=== PATIENT | male | born 1965 | race Caucasian/White ===

== ENCOUNTER 2024-04-17 19:12 | Inpatient (IN) | payer MEDICAID ==
[~2024-04-17] VITALS: Ht 180.3 cm; Wt 139.0 kg
[~2024-04-17 19:12] MED LIST: ALLO300T2 PO; ALPR0.5T7 PO; ASPI81CH43 PO; ATOR-507 PO; CARV-216 PO; CLO01T PO; COLC0.6T56 PO; DAPA1TAB4 PO; DOCU-94 PO; ERGO1CAP6 PO; FENO145T27 PO; FER325T PO; FINE10TA PO; FOLI-119 PO; FURO20TA3 PO; GABA-1251 PO; HYDR25TA4 PO; IBUP-1456 PO; LEVEMIR SC; LISI10TA34 PO; LORA-1123 PO; MEC25T PO; NOR10T PO; Novolog; PANT1INJ3 PO; PREG150C63 PO; PROP40TA6 PO; SERT-160 PO; SODI10PA PO; TAMS0.4C39 PO; TIRZ10IN SC
[2024-04-17 20:00] VITALS: PULSE 78; RESP 13; O2SAT 99
[2024-04-17 20:26] LABS: Alanine Aminotransferase 30 U/L (7-40); Albumin 4.1 g/dL (3.2-4.8); Alkaline Phosphatase 32 U/L (46-116); Anion Gap 10 (5-15); Aspartate Aminotransferase 18 U/L (13-40); BUN/Creatinine Ratio 29.2 (10.0-20.0); Bilirubin, Total 0.7 mg/dL (0.2-1.0); Blood Urea Nitrogen 62 mg/dL (9-23); Calcium 10.4 mg/dL (8.7-10.4); Carbon Dioxide 16 mmol/L (20-31); Chloride 120 mmol/L (98-107); Glucose 170 mg/dL (74-106); Potassium 5.4 mmol/L (3.5-5.1); Sodium 146 mmol/L (136-145)
[2024-04-17 20:27] LABS: Total Protein 7.2 g/dL (5.7-8.2)
--- NOTE | 2024-04-17 20:31 | ED.PDOC ---
History of Present Illness HPI Comments 59 y/o M, with a Hx of CHF, CKF IV, DM w/neuropathy, GERD, gout, HLD, HTN, liver cirrhosis, obesity, and polysubstance abuse, is BIBA for c/o tongue and lip swelling and pain, sore wounds to groin and bilateral legs and feet areas, and generalized weakness, today. Patient endorses on unprovoked onset of prog ressively worsening sore wounds and generalized weakness for 2 weeks and onset of swelling symptoms for 1 week. Patient comments on having associated difficulty talking and swallowing and being unable to take any of his oral pain medications because of it and has to use [id number] ointment medication, with minimal relief/improvement. Patient states on no recent stress, injuries, sick contact, travel, spoiled food intake, substance use/exposure, or sexual activity. Patient endorses no additional relevant or pertinent past medical, surgical, or family Hx. Patient denies having any shortness of breath, groin, legs, or feet pain, numbness, or tingling, nausea, vomiting, fever, chills, or other associated symptoms or modifiers at this time. Chief Complaint: Lower Extremity Time Seen by MD: 19:30 Primary Care Provider: [facility] Reviewed Notes: Nurses Notes, Sausage Maker Notes, Medications, Allergies Allergies: Coded Allergies: NO KNOWN ALLERGIES (Unverified , 03/11/14) Home Meds Active Scripts Meclizine Hcl (ANTIVERT TABLET) 25 Mg Tb, 1 TAB PO Q6HR PRN, #90 TAB Prov:ISHMAEL REIDPTaty 03/12/14 Gabapentin (Gabapentin) 400 Mg Cap, 400 MG PO TID, #3 CAP Prov:ISHMAEL REID NTatyP. 03/12/14 Reported Medications Tamsulosin Hcl (Tamsulosin Hcl) 0.4 Mg Cap, 1 CAP PO DAILY, #30 CAP 5 Refills 03/17/14 Ibuprofen (Ibuprofen) 800 Mg Tab, 1 TAB PO TID, #90 TAB 1 Refill 03/14/14 Ergocalciferol (Vitamin D) 50,000 Unt Cap, 40632 UNT PO QWEEKLY, CAP 03/14/14 [Novolog] No Conflict Check 03/12/14 Carvedilol (COREG) 12.5 Mg Tab, 12.5 MG PO BID, TAB 03/11/14 Ferrous Sulfate (Ferrous Sulfate) 325 Mg Tab, 325 MG PO DAILY, TAB 03/11/14 Hydrochlorothiazide (Hydrochlorothiazide) 25 Mg Tab, 1 TAB PO DAILY, #30 TAB 5 Refills 03/11/14 Aspirin (Asa) 81 Mg Ch, 81 MG PO DAILY 03/11/14 Clonidine Hcl (CATAPRES TABLET) 0.1 Mg Tb, 0.1 MG PO DAILY 03/11/14 Lorazepam (Lorazepam) 1 Mg Tab, 1 TAB PO TID, #90 TAB 03/11/14 Sertraline Hcl (Sertraline Hcl) 100 Mg Tab, 1 TAB PO DAILY, #90 TAB 1 Refill 03/11/14 Pantoprazole Sodium (PANTOPRAZOLE SODIUM) 40 Mg Inj, 40 MG PO DAILY, INJ 03/11/14 Fenofibrate (FENOFIBRATE) 145 Mg Tab, 1 TAB PO DAILY, #30 TAB 5 Refills 03/11/14 Allopurinol (Allopurinol) 300 Mg Tab, 300 MG PO DAILY, TAB 03/11/14 Hydrocodone-Acetaminophen (Amigo 10/325MG) 1 Tab Tb, 1 TAB PO TID, #60 TAB 03/11/14 Lisinopril (Lisinopril) 10 Mg Tab, 10 MG PO DAILY, TAB 03/11/14 Colchicine (COLCRYS TABLET) 0.6 Mg Tb, 0.6 MG PO PRN 03/11/14 Insulin Detemir (Levemir) Inj, 60 SC QPM, INJ 03/11/14 Information Source: Patient, Emergency Med Personnel Mode of Arrival: EMS Severity: Moderate Timing: Weeks Duration: Since onset Prehospital treatment: 12 Lead EKG, Roof Foreman Past Medical History PAST MEDICAL HISTORY: Anxiety, CHF, CKF (stage IV ), Depression, DM (w/neuropathy), GERD, Gout, High Lipids, HTN, Liver (liver cirrhosis ) Surgical History: Denies all surgeries Family History Family History: Unknown Social History Smoker: Non-Smoker Alcohol: Denies ETOH Use Drugs: Cocaine, Marijuana Lives In: Home Constitutional: denies: chills, diaphoresis, fatigue, fever, malaise, sweats, weakness, others EENTM: reports: others (tongue and lips swelling and pain ); denies: blurred vision, double vision, ear bleeding, ear discharge, ear drainage, ear pain, ear ringing, eye pain, eye redness, hearing loss, mouth pain, mouth swelling, nasal discharge, nose bleeding, nose congestion, nose pain, photophobia, tearing, t hroat pain, throat swelling, voice changes Respiratory: denies: cough, hemoptysis, orthopnea, SOB at rest, shortness of breath, SOB with excertion, stridor, wheezing, others Cardiovascular: denies: chest pain, dizzy spells, diaphoresis, Dyspnea on exertion, edema, irregular heart beat, left arm pain, lightheadedness, palpitations, PND, syncope, others Gastrointestinal: denies: abdomen distended, abdominal pain, blood streaked bowels, constipated, diarrhea, dysphagia, difficulty swallowing, hematemesis, melena, nausea, poor appetite, poor fluid intake, rectal bleeding, rectal pain, vomiting, others Genitourinary: denies: burning, dysuria, flank pain, frequency, hematuria, incontinence, penile discharge, penile sore, pain, testicle pain, testicle swelling, urgency, others Neurological: reports: weakness (generalized ); denies: dizziness, fainting, headache, left sided numbness, left sided weakness, numbness, paresthesia, pre- existing deficit, right sided numbness, right sided weakness, seizure, speech problems, tingling, tremors, others Musculoskeletal: denies: back pain, gout, joint pain, joint swelling, muscle pain, muscle stiffness, neck pain, others Integumetry: reports: wounds (sore wounds to groin and bilateral legs and feet areas); denies: bruises, change in color, change in hair/nails, dryness, laceration, lesions, lumps, rash, others Allergic/Immunocompromised: denies: Difficulty Healing, Frequent Infections, Hives, Itching, others Hematologic/Lymphatic: denies: anemia, blood clots, easy bleeding, easy bruising, swollen glands, others Endocrine: denies: excessive hunger, excessive sweating, excessive thirst, excessive urination, flushing, intolerance to cold, intolerance to heat, unexplained weight gain, unexplained weight loss, others Psychiatric: denies: anxiety, bipolar disorder, depression, hopeless, panic disorder, schizophrenia, sleepless, suicidal, others All Other Systems: Reviewed and Negative Physical Exam General Appearance: No Apparent Distress, Obese HEENT: Normal ENT Inspection, Pharynx Normal, TMs Normal Neck: Full Range of Motion, Non-Tender, Normal, Normal Inspection Respiratory: Chest Non-Tender, Lungs Clear, No Accessory Muscle Use, No Respiratory Distress, Normal Breath Sounds Cardiovascular: No Edema, No JVD, No Murmur, No Gallop, Normal Peripheral Pulses, Regular Rate/Rhythm Breast Exam: Deferred Gastrointestinal: No Organomegaly, Non Tender, No Pulsatile Mass, Normal Bowel Sounds, Soft Genitalia: Deferred Pelvic: Deferred Rectal: Deferred Extremities: No calf tenderness, Normal capillary refill, Normal inspection, Normal range of motion, Non-tender, No pedal edema Musculoskeletal : Apperance: Normal Neurologic: Alert, passenger service agent II-XII nml as Tested, No Motor Deficits, Normal Affect, Normal Mood, No Sensory Deficits Cerebellar Function: Normal Reflexes: Normal Skin: Dry, Normal Color, Warm Lymphatic: No Adenopathy Was a procedure done? Was a procedure done?: No Differential Dx Considerations may include: cellulitis, dermatitis, viral syndrome, substance abuse, sepsis X-Ray, Labs, Meds, VS Vital Signs Date Time Temp Pulse Resp B/P (MAP) Pulse Ox O2 Delivery O2 Flow Rate FiO2 04/17/24 19:36 98.3 84 12 134/102 (113) 100 Lab Test 04/17/24 20:50 04/17/24 19:53 Range/Units White Blood Count 0.9 *L 4.4-10.8 10^3/uL Red Blood Count 3.64 L 4.5-5.90 10^6/uL Hemoglobin 12.1 L 13.5-17.5 g/dL Hematocrit 37.6 L 41.0-53.0 % Mean Corpuscular Volume 103.3 H 80.0-100.0 fL Mean Corpuscular Hemoglobin 33.3 H 28.0-32.0 pg Mean Corpuscular Hemoglobin Concent 32.2 32.0-36.0 g/dL Red Cell Distribution Width 15.3 H 11.8-14.3 % Platelet Count 19 *L 140-450 10^3/uL Mean Platelet Volume 8.8 6.9-10.8 fL Neutrophils (%) (Auto) 31.1 L 37.0-80.0 % Lymphocytes (%) (Auto) 65.1 H 10.0-50.0 % Monocytes (%) (Auto) 3.1 0.0-12.0 % Eosinophils (%) (Auto) 0.6 0.0-7.0 % Basophils (%) (Auto) 0.1 0.0-2.0 % Neutrophils # (Auto) 0.3 L 1.6-8.6 10 ^3/uL Lymphocytes # (Auto) 0.6 0.4-5.4 10 ^3/uL Monocytes # (Auto) 0 0-1.3 10 ^3/uL Eosinophils # (Auto) 0 0-0.8 10 ^3/uL Basophils # (Auto) 0 0-0.2 10 ^3/uL Nucleated Red Blood Cells 1.8 % Platelet Estimate Markedly decreased Macrocytosis Slight B-Type Natriuretic Peptide 32.44 0-100 pg/mL Sodium Level 146 H 136-145 mmol/L Potassium Level 5.4 H 3.5-5.1 mmol/L Chloride Level 120 H 98-107 mmol/L Carbon Dioxide Level 16 L 20-31 mmol/L Anion Gap 10 5-15 Blood Urea Nitrogen 62 H 9-23 mg/dL Creatinine 2.12 H 0.700-1.30 mg/dL Glomerular Filtration Rate Calc 35 >90 mL/min BUN/Creatinine Ratio 29.2 H 10.0-20.0 Serum Glucose 170 H 74-106 mg/dL Lactic Acid Level 3.2 *H 0.4-2.0 mmol/L Calcium Level 10.4 8.7-10.4 mg/dL Total Bilirubin 0.7 0.2-1.0 mg/dL Aspartate Amino Transferase (AST) 18 13-40 U/L Alanine Aminotransferase (ALT) 30 7-40 U/L Alkaline Phosphatase 32 L 46-116 U/L Total Protein 7.2 5.7-8.2 g/dL Albumin 4.1 3.2-4.8 g/dL Current Medications Medications (Trade) Dose Ordered Sig/Cedric Route Start Time Stop Time Status Last Admin Al Hydrox/Mg Hydrox/Simethicone (Majic Mouthwash) 5 ml QID MT 04/17/24 22:00 04/17/24 22:06 Vancomycin HCl 200 ml @ 200 mls/hr ONCE ONCE IV 04/17/24 21:15 04/17/24 22:14 04/17/24 21:[address] [address] Ph: [phone] DIAGNOSTIC IMAGING Diagnostic Imaging Report : [id number] Signed PATIENT: ARIEL SANTANA ACCT: [id number] UNIT: [id number] : 1965 LOC: ER ROOM / BED: / AGE / SEX: 59 / M ADM STATUS: REG ER SERVICE 33 ORDERING PHYSICIAN: JT VIVEROS MD PROCEDURE(s): CXRP - CHEST PORTABLE REASON: weakness ORDER NUMBER(s): [id number], ACCESSION NUMBER(s): [id number] CHEST RADIOGRAPH Indication:weakness Technique: Single frontal view of the chest was obtained Comparison: None FINDINGS: Lines and Tubes: None Lungs: No focal consolidation. Pleura: No effusion. No pneumothorax. Cardiomediastinal contours: Unremarkable Bones: No acute osseous abnormality. IMPRESSION: No acute cardiopulmonary disease. ATED BY: MAL CEVALLOS DO DICTATED DATE/TIME: 04/17/242033 SIGNED BY: MAL CEVALLOS DO SIGNED DATE/TIME: 04/17/242033 CC: Time of 1ST Reevaluation: 20:00 Reevaluation 1ST: Unchanged Patient Education/Counseling: Diagnosis, Treatment Family Education/Counseling: No Family Present Departure 1 Departure Time of Disposition: 22:07 (Patient with leukopenia and thrombocytopenia. Empirically cover patient with antibiotics. Patient is critically ill at this time we will admit patient for further workup. Patient has concerns for sepsis however patient is appears mildly volume overload so we will do a reduced fluid bolus at this time.) Impression: Primary Impression: Ulceration Additional Impressions: Weakness Leukopenia Qualified Codes: D70.9 - Neutropenia, unspecified Thrombocytopenia Disposition: ADMITTED INPATIENT Admit to: Med Surg Condition: Guarded Critical Care Note Critical Care Time?: Yes Critical care comment: Possible Sepsis Authorized and Performed by: Jt Viveros MD Total critical care time: Approximately 48 minutes Due to a high probability of clinically significant, life threatening deterioration, the patient required my highest level of preparedness to intervene emergently and I personally spent this critical care time directly and personally managing the patient. This critical care time included obtaining a history; examining the patient; pulse oximetry; ordering and review of studies; arranging urgent treatment with development of a management plan; evaluation of patient's response to treatment; frequent reassessment; and, discussions with other providers. This critical care time was performed to assess and manage the high probability of imminent, life-threatening deterioration that could result in multi-organ failure. It was exclusive of separately billable procedures and treating other patients and teaching time. Please see my other sections and the rest of the note for further information on patient assessment and treatment. Stability Stability form required: No Heart Score Heart Score: Heart Score Response (Comments) Value History N/A 0 EKG N/A 0 Age N/A 0 Risk Factors N/A 0 Troponin N/A 0 Total 0 I personally scribed for JT VIVEROS MD ([email or web address]) on 04/17/24 at 20:31. Electronically submitted by Bishnu Nicolas ([email or web address]). I personally scribed for JT VIVEROS MD ([email or web address]) on 04/17/24 at 20:44. Electronically submitted by Bishnu Nicolas ([email or web address]). JT VIVEROS MD Apr 17, 2024 20:31
--- NOTE | 2024-04-17 20:36 | DVH ---
CHEST RADIOGRAPH Indication:weakness Technique: Single frontal view of the chest was obtained Comparison: None FINDINGS: Lines and Tubes: None Lungs: No focal consolidation. Pleura: No effusion. No pneumothorax. Cardiomediastinal contours: Unremarkable Bones: No acute osseous abnormality. IMPRESSION: No acute cardiopulmonary disease.
[2024-04-17 20:37] LABS: Lactic Acid w/Reflex 3.2 mmol/L (0.4-2.0)
[2024-04-17] MEDS: VANCOMYCIN 1GM/200ML PREMIX 200 ML IV ONE ×2 (21:15)
[2024-04-17 21:29] LABS: Basophils # (auto) 0 10 ^3/uL (0-0.2); Basophils % (auto) 0.1 % (0.0-2.0); Eosinophils # (auto) 0 10 ^3/uL (0-0.8); Eosinophils % (auto) 0.6 % (0.0-7.0); Hematocrit 37.6 % (41.0-53.0); Hemoglobin 12.1 g/dL (13.5-17.5); Lymphocytes # (auto) 0.6 10 ^3/uL (0.4-5.4); Mean Corpuscular Hemoglobin 33.3 pg (28.0-32.0); Mean Corpuscular Hgb Conc. 32.2 g/dL (32.0-36.0); Mean Corpuscular Volume 103.3 fL (80.0-100.0); Monocytes # (auto) 0 10 ^3/uL (0-1.3); Monocytes % (auto) 3.1 % (0.0-12.0); Neutrophils # (auto) 0.3 10 ^3/uL (1.6-8.6); Neutrophils % (auto) 31.1 % (37.0-80.0); Nucleated Red Blood Cells % 1.8 %; Red Blood Cells 3.64 10^6/uL (4.5-5.90); Red Cell Distribution Width 15.3 % (11.8-14.3)
[2024-04-17 21:30] LABS: Lymphocytes % (auto) 65.1 % (10.0-50.0)
[2024-04-17 21:36] LABS: White Blood Cell 0.9 10^3/uL (4.4-10.8)
[2024-04-17 21:40] LABS: Platelet Count (auto) 19 10^3/uL (140-450)
[2024-04-17 21:41] LABS: Macrocytosis Slight; Platelet Estimate Markedly Decreased
[2024-04-17] MEDS: MAGIC MOUTHWASH 55 ML SUSP MT SCH (22:06)
[2024-04-17] MEDS: SODIUM CHLORIDE 0.9% 1,000 ML IV ONE (22:15)
[2024-04-17] MEDS: CEFEPIME 2GM/50ML NS 50 ML IV ONE (22:15)
[2024-04-17] MEDS ORDERED: NITROGLYCERIN 0.4 MG SL TAB SL PRN (23:00)
[2024-04-17] MEDS ORDERED: ACETAMINOPHEN 325 MG TAB PO PRN (23:00)
[2024-04-17] MEDS ORDERED: MORPHINE SULFATE INJ 2 MG/ml SYRG IV PRN (23:00)
--- NOTE | 2024-04-17 23:14 | DVHHPRES ---
History of Present Illness Resident Creating Document: SHAZIA RAMIREZ RESIDENT History of Present Illness This is a 59-year-old male with past medical history of type 2 diabetes mellitus, hypertension, hyperlipidemia, peripheral neuropathy, CHF, CKD stage 4, liver cirrhosis, GERD, gout, obesity, anxiety, depression and polysubstance abuse presented to the ED via EMS with chief complaints of swelling of the lip and tongue and sore wounds in the right lower abdomen beneath the skin fold and right groin and scattered wound in bilateral leg and feet area with generalized weakness for last 1 week prior to this admission. According to the patient he took COVID and flu vaccine 2 weeks ago and then progressively developed sore wound 1st in the mouth and throat and later developed in the lips and right lower abdomen and groin area. Patient reports difficulty in swallowing and not able to eat or drink since and not able to take any oral medication because of the pain. Patient denies having allergy to any medication or trying any new medication, traveling history , sick contact or any flu-like illness. The patient denies chest pain, shortness of breath, dizziness, diaphoresis, abdominal pain, nausea, vomiting or any change in bowel and bladder habit . PCP: Dr. Clyde Meyer Past Medical History Type 2 diabetes mellitus, hypertension, hyperlipidemia, peripheral neuropathy, CHF, CKD stage 4, liver cirrhosis, GERD, gout, obesity and polysubstance abuse Past Surgical History Rt ankle and foot surgery Family History Leukemia and Lung cancer runs in the family Smoke: No ALCOHOL: none Past Social History Nonsmoker, nonalcoholic and history of polysubstance abuse disorder Lives alone Review of Systems Constitutional: Yes: Chills; No: Fever, Sweats, Weakness, Malaise, Other ENT: Mouth pain, Mouth swelling, Throat pain Respiratory: No: Cough, Dry, Shortness of breath, SOB with excertion, Wheezing, Hemoptysis, Pleuritic Pain, Sputum, Wheezing, Other Cardiovascular: No: Chest Pain, Palpitations, Orthopnea, Paroxysmal Noc. Dyspnea, Edema, Lt Headedness, Other Gastrointestinal: No: Nausea, Vomiting, Abdominal Pain, Diarrhea, Constipation, Melena, Hematochezia, Other Genitourinary: Retention Musculoskeletal: No: other, neck pain, shoulder pain, arm pain, back pain, hand pain, leg pain, foot pain Skin: Rash, Lesions Neurological: No: Weakness, Numbness, Incoordination, Change in speech, Confusion, Seizures, Other Allergies: Coded Allergies: NO KNOWN ALLERGIES (Unverified , 03/11/14) Medications Current Medications Medications Dose Ordered Sig/Cedric Route Start Time Stop Time Status Last Admin Dose Admin Al Hydrox/Mg Hydrox/Simethicone 5 ml QID MT 04/17/24 22:00 04/17/24 22:06 5 ML Sodium Chloride 1,000 ml @ 120 mls/hr Q8H20M IV 04/17/24 23:00 Acetaminophen 325 mg Q4HP PRN PO 04/17/24 23:00 Acetaminophen/ Hydrocodone Bitart 1 tab Q4HP PRN PO 04/17/24 23:00 Ondansetron HCl 4 mg Q4HP PRN IV 04/17/24 23:00 Morphine Sulfate 2 mg Q4HPRN PRN IV 04/17/24 23:00 UNV Nitroglycerin 0.4 mg Q5MINP PRN SL 04/17/24 23:00 UNV Morphine Sulfate 2 mg Q30M PRN IV 04/17/24 23:00 UNV Vancomycin HCl 0 ml @ 0 mls/hr UD IV 04/17/24 23:15 UNV Cefepime HCl 50 ml @ 12.5 mls/hr DAILY IV 04/18/24 10:00 UNV Exam Vital Signs Vital Signs Date Time Temp Pulse Resp B/P (MAP) Pulse Ox O2 Delivery O2 Flow Rate FiO2 04/17/24 19:36 98.3 84 12 134/102 (113) 100 Exam Physical examination: General Appearance: Alert, Oriented X3, Cooperative, mild distress, swelling and soreness in the lip. HEENT: Atraumatic, PERRLA, EOMI, Mucous membrane moist/pink Respiratory: Clear to auscultation, Normal air movement Cardiovascular: Regular rate, Normal S1, Normal S2, No murmurs, no chest wall tenderness Abdominal: Stage 2 wound in the rt lower abdomen beneath the skin fold, rt groin, Normal bowel sounds, Soft, No tenderness, No hepatospenomegaly, No masses Extremities: No clubbing, No cyanosis, No edema, Normal pulses, No tenderness/swelling Skin: No rashes, No breakdown, No significant lesion Neuro: Use cane for walking, Normal speech, Strength at 5/5 X4 ext, Normal tone, Sensation intact, Psych/Mental Status: Mental status NL, Mood NL Labs/Xrays Labs Test 04/17/24 22:16 04/17/24 22:06 04/17/24 20:50 04/17/24 19:53 Range/Units Lactic Acid Level 3.3 *H 0.4-2.0 mmol/L White Blood Count 0.9 *L 4.4-10.8 10^3/uL Red Blood Count 3.64 L 4.5-5.90 10^6/uL Hemoglobin 12.1 L 13.5-17.5 g/dL Hematocrit 37.6 L 41.0-53.0 % Mean Corpuscular Volume 103.3 H 80.0-100.0 fL Mean Corpuscular Hemoglobin 33.3 H 28.0-32.0 pg Mean Corpuscular Hemoglobin Concent 32.2 32.0-36.0 g/dL Red Cell Distribution Width 15.3 H 11.8-14.3 % Platelet Count 19 *L 140-450 10^3/uL Mean Platelet Volume 8.8 6.9-10.8 fL Neutrophils (%) (Auto) 31.1 L 37.0-80.0 % Lymphocytes (%) (Auto) 65.1 H 10.0-50.0 % Monocytes (%) (Auto) 3.1 0.0-12.0 % Eosinophils (%) (Auto) 0.6 0.0-7.0 % Basophils (%) (Auto) 0.1 0.0-2.0 % Neutrophils # (Auto) 0.3 L 1.6-8.6 10 ^3/uL Lymphocytes # (Auto) 0.6 0.4-5.4 10 ^3/uL Monocytes # (Auto) 0 0-1.3 10 ^3/uL Eosinophils # (Auto) 0 0-0.8 10 ^3/uL Basophils # (Auto) 0 0-0.2 10 ^3/uL Nucleated Red Blood Cells 1.8 % Platelet Estimate Markedly decreased Macrocytosis Slight B-Type Natriuretic Peptide 32.44 0-100 pg/mL Sodium Level 146 H 136-145 mmol/L Potassium Level 5.4 H 3.5-5.1 mmol/L Chloride Level 120 H 98-107 mmol/L Carbon Dioxide Level 16 L 20-31 mmol/L Anion Gap 10 5-15 Blood Urea Nitrogen 62 H 9-23 mg/dL Creatinine 2.12 H 0.700-1.30 mg/dL Glomerular Filtration Rate Calc 35 >90 mL/min BUN/Creatinine Ratio 29.2 H 10.0-20.0 Serum Glucose 170 H 74-106 mg/dL Calcium Level 10.4 8.7-10.4 mg/dL Total Bilirubin 0.7 0.2-1.0 mg/dL Aspartate Amino Transferase (AST) 18 13-40 U/L Alanine Aminotransferase (ALT) 30 7-40 U/L Alkaline Phosphatase 32 L 46-116 U/L Total Protein 7.2 5.7-8.2 g/dL Albumin 4.1 3.2-4.8 g/dL Assessment/Plan Assessment/Plan Assessment and plan: # Sepsis due to unspecified organism - Patient was presented with sepsis with severe leukopenia and thrombocytopenia - Lactic acid trends are 3.2>3.3 - Patient was given 1 L IV bolus normal saline followed by IV 1/2 normal saline at 75 mL/hour - IV vancomycin as per pharmacy and IV cefepime 2 g IV 12 hourly. 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 # Severe leukopenia and thrombocytopenia likely due to hypersensitivity reaction to COVID and flu vaccination - Monitor CBC - Ordered hepatitis panel and HIV # Stage IV CKD - Strict I&O - Avoid nephrotoxic medication - Consulted nephrology # Hyperkalemia - Hyperkalemia protocol management - Monitor BMP # Hypernatremia - 0.45% normal saline at 75 mL/hour - Monitor BMP. # Possible subclinical hyperthyroidism - Ordered FT3 and T4. # Acute urinary retention with bilateral moderate hydronephrosis likely due to bladder outlet obstruction - Ordered for insertion of Butler catheter. # Type 2 diabetes mellitus - Mild sliding scale of insulin Goal of care discussed with the patient for more than 23 minutes full code Plan of treatment discussed with Dr. Landeros CRITICAL CARE TIME 90 MINS Plan discussed with: Patient, Other My Orders Orders - SHAZIA RAMIREZ RESIDENT Procedure Category Date Status Time Admit ADMIT 04/17/24 Transmitted 23:00 Code Status CODE 04/17/24 Transmitted 23:00 Sodium Chloride 0.9% PHA 04/17/24 In Process 23:00 Acetaminophen Tablet PHA 04/17/24 In Process (Tylenol Tablet) 23:00 Hydrocodone-Acet PHA 04/17/24 In Process 5/325mg Tab ([place] 23:00 Ondansetron Hcl PHA 04/17/24 In Process (Zofran) 23:00 Complete Blood Count LAB 04/18/24 Verified 11:03 Comprehensive LAB 04/18/24 Verified Metabolic Panel 11:03 Morphine Sulfate PHA 04/17/24 Logged Injection 23:00 Nitroglycerin PHA 04/17/24 Logged Sublingual (Ntrostat 23:00 Morphine Sulfate PHA 04/17/24 Logged Injection 23:00 Oxygen By Nasal RT 04/17/24 Transmitted Cannula 23:00 Stat Ekg For Chest MYRANDA 04/17/24 In Process Pain 23:00 Notify Of Changes MYRANDA 04/17/24 In Process From Base 23:00 Sliding Joint Maker For [facility] 04/17/24 In Process 24 Hours 23:00 Emergency Dysrhythmia [facility] 04/17/24 In Process Protocol 23:00 Rhythm Strips Once [facility] 04/17/24 In Process Every Shift 23:00 Vancomycin Per PHA 04/17/24 Logged Pharmacy 23:15 Cefepime 2gm/50ml Ns PHA 04/18/24 Logged (Maxipime 2gm/50ml) 10:00 Date of Service: Apr 17, 2024 Billing Provider: JULIANA LANDEROS MD Common Visit Codes: [id number]-[id number] CARE 30-74 MIN, [id number] CARE-EACH +30MIN SHAZIA RAMIREZ RESIDENT Apr 17, 2024 23:14 JULIANA LANDEROS MD Apr 18, 2024 09:35
[2024-04-17] MEDS ORDERED: VANCOMYCIN PER PHARMACY 0 MG IV SCH (23:15)
[2024-04-17] MEDS ORDERED: CEFEPIME 2GM/50ML NS 50 ML IV SCH (23:21)
[2024-04-17 23:28] LABS: Urine Bacteria FEW /hpf (None Seen); Urine Blood Negative /uL (Negative); Urine Clarity Clear (Clear); Urine Color Light-Yellow (Yellow); Urine Protein, UAD TRACE (Negative); Urine Specific Gravity 1.015 (1.001-1.035); Urine Urobilinogen Normal (Negative); Urine WBC 1 /hpf (0 - 3)
[2024-04-17 23:35] VITALS: PULSE 75; RESP 13; O2SAT 97
[2024-04-18] VITALS (9 sets, daily range): BP systolic 117–148; BP diastolic 52–94; PULSE 76–107; RESP 18–20; TEMP 98–99.5; O2SAT 95–99
--- NOTE | 2024-04-18 00:28 | DVH ---
Exam: CT CT AB PEL WO CON-NO ORAL OR IV History: sepsis Comparison Study: None available at time of dictation. Technique: Multidetector spiral CT of the abdomen was performed from lung bases to pubic symphysis. Imaging was performed without IV contrast. Axial, coronal and sagittal multiplanar reformats were ob tained from the axial data set by the technologist. Radiation Dose : 1. Abdomen/Pelvis: CTDIvol 28 mGy, DLP 1680 mGy*cm. Findings: Evaluation of solid organs is limited due to lack of intravenous contrast use. Lung Bases: No acute or significant lung base finding. Normal heart size. No pleural or pericardial effusion. Liver: The liver is normal in size. No focal lesions. Gallbladder and Biliary Tree: Unremarkable Spleen: Unremarkable Pancreas: The pancreas is grossly normal in appearance. Adrenal Glands: Unremarkable Kidneys: Bilateral hydronephrosis without evidence of ureteral stones. Bladder: Severely distended with dome terminating of the level of L4. Bowel: The stomach is grossly normal in appearance. Small bowel and colon are normal in caliber and d istribution. The appendix is not visualized; however, no secondary findings of acute appendicitis id entified. Ascites: Absent Lymphadenopathy: No mesenteric, retroperitoneal or periportal lymphadenopathy. Abdominal Wall and Mesentery: Unremarkable. Vasculature: The visualized abdominal aorta is normal in size and caliber. Evaluation of abdominal a nd pelvic vessels is limited due to lack of intravenous contrast. Pelvic Organs: Unremarkable Musculoskeletal: No aggressive focal bony lesions, acute fractures or dislocation. IMPRESSION: Severely distended urinary bladder with moderate bilateral hydronephrosis . Findings are concerning for urinary bladder outlet obstruction.
[2024-04-18] MEDS: MORPHINE SULFATE INJ 2 MG/ml SYRG IV PRN (00:31)
[2024-04-18] MEDS: ONDANSETRON HCL 4 MG/2 ML VIAL IV PRN (00:32)
[2024-04-18] MEDS: SODIUM CHLORIDE 0.9% 1,000 ML IV SCH (00:39)
[2024-04-18] MEDS: ALBUTEROL SULF 2.5 MG/0.5ML(0.5%) NEB SOLN NEB ONE (01:41)
[2024-04-18] MEDS: FUROSEMIDE 20 MG/2 ML VIAL IV ONE (01:55)
[2024-04-18] MEDS: InsuLIN REG 1unit/0.01ml Soln (100units/ml) IV ONE (01:56)
[2024-04-18] MEDS: DEXTROSE (50%) 50ML SYRG IV ONE (01:57)
[2024-04-18] MEDS: SODIUM BICARB 8.4% 50Meq/50ml SYR INJ IV ONE (01:57)
[2024-04-18] MEDS: SOD CHL 0.45% 1,000 ML IV SCH (02:26)
[2024-04-18 04:07] LABS: Basophils # (auto) 0 10 ^3/uL (0-0.2); Basophils % (auto) 0.1 % (0.0-2.0); Eosinophils # (auto) 0 10 ^3/uL (0-0.8); Lymphocytes # (auto) 0.5 10 ^3/uL (0.4-5.4); Monocytes # (auto) 0 10 ^3/uL (0-1.3); Neutrophils # (auto) 0.2 10 ^3/uL (1.6-8.6); Nucleated Red Blood Cells % 0.3 %
[2024-04-18 04:08] LABS: Eosinophils % (auto) 0.2 % (0.0-7.0); Hematocrit 32.4 % (41.0-53.0); Mean Corpuscular Hemoglobin 33.6 pg (28.0-32.0); Mean Corpuscular Hgb Conc. 33.9 g/dL (32.0-36.0); Mean Corpuscular Volume 99.1 fL (80.0-100.0); Monocytes % (auto) 3.2 % (0.0-12.0); Neutrophils % (auto) 23.9 % (37.0-80.0); Red Blood Cells 3.27 10^6/uL (4.5-5.90); Red Cell Distribution Width 14.9 % (11.8-14.3)
[2024-04-18] MEDS: ACETAMINOPHEN 325 MG TAB PO PRN (04:08)
[2024-04-18 04:15] LABS: Alanine Aminotransferase 26 U/L (7-40); Albumin 3.9 g/dL (3.2-4.8); Alkaline Phosphatase 28 U/L (46-116); Anion Gap 11 (5-15); Aspartate Aminotransferase 14 U/L (13-40); BUN/Creatinine Ratio 36.6 (10.0-20.0); Blood Urea Nitrogen 70 mg/dL (9-23); Calcium 9.9 mg/dL (8.7-10.4); Carbon Dioxide 18 mmol/L (20-31); Chloride 119 mmol/L (98-107); Glucose 151 mg/dL (74-106); Potassium 4.1 mmol/L (3.5-5.1); Sodium 148 mmol/L (136-145)
[2024-04-18 04:16] LABS: Bilirubin, Total 0.6 mg/dL (0.2-1.0); Total Protein 6.7 g/dL (5.7-8.2)
[2024-04-18 04:33] LABS: Lymphocytes % (auto) 72.6 % (10.0-50.0)
[2024-04-18 04:36] LABS: Platelet Count (auto) 16 10^3/uL (140-450)
[2024-04-18 04:37] LABS: White Blood Cell 0.7 10^3/uL (4.4-10.8)
[2024-04-18 04:56] LABS: Free T3 2.24 pg/mL (2.3-4.2); Free T4 (Free Thyroxine) 1.12 ng/dL (0.89-1.76)
[2024-04-18 05:18] LABS: INR 1.09 (0.9-1.15); Partial Thromboplastin Time 28.8 SEC (24.5-34.5); Prothrombin Time 11.5 sec (9.3-11.8)
[2024-04-18 05:50] LABS: Platelet Estimate Markedly Decreased
[2024-04-18] MEDS ORDERED: SODIUM ZIRCONIUM CYCL 10 GM PAK PO SCH (06:00)
--- NOTE | 2024-04-18 10:11 | DVHPNRES ---
Progress Note Date Seen: Apr 18, 2024 Resident Creating Document: RUBIO BARCLAY RESIDENT Has the PT tested + for MRSA If YES, has PT been informed?: No Medical Necessity Reason Pt with a Central, PICC or Fol: No Subjective Review of Systems A 59 years old with PMHX type 2 diabetes mellitus, hypertension, hyperlipidemia, peripheral neuropathy, congestive heart failure, CKD stage IV , GERD, gout, obesity, anxiety and depression. He says he has been taking methotrexate and mycophenolate, The reason is not very clear and the patient thinks that he is getting this medication for gout and follows with his bar hostess Dr. Bernabe Goldman. He says he takes 4 methotrexate pills once a week for the last couple of years The patient is admitted with severe mucositis and ulceration in the groin on the right side. He has difficulty speaking and swallowing.Mild fevers He is found to be pancytopenic with a white count of 700 hemoglobin 11 platelets are 16,000. Confirmed on the blood smear. No bleeding Lactic acid is 3.3 BUN 70 creatinine 1.9, albumin 3.9 total protein 6.7 B12 494 TSH 0.2 Free T41.12 Alkaline phosphatase 28. AST 14 ALT 26 uric acid 5.9. PT/INR 1.09 PTT 28.8 and D-dimer 2.34 HIV 1 and 2 is negative He has been given antibiotics and the Magic mouthwash and pain medications Patient reports: No new complaints Objective vital signs Vital Sign Date Time Temp Pulse Resp B/P (MAP) Pulse Ox O2 Delivery O2 Flow Rate FiO2 04/18/24 05:00 98.4 97 19 143/79 (100) 98 98.4 04/18/24 04:19 Room Air* 0 21 Total Intake and Output 04/17/24 04/17/24 04/18/24 15:00 23:00 07:00 Intake Total 200 ml 1485.0 ml Output Total 575 ml Balance 200 ml 910.0 ml medications Current Medications Medications Dose Ordered Sig/Cedric Route Start Time Stop Time Status Last Admin Dose Admin Al Hydrox/Mg Hydrox/Simethicone 5 ml QID MT 04/17/24 22:00 04/18/24 05:54 5 ML Acetaminophen/ Hydrocodone Bitart 1 tab Q4HP PRN PO 04/17/24 23:00 Ondansetron HCl 4 mg Q4HP PRN IV 04/17/24 23:00 04/18/24 00:32 4 MG Morphine Sulfate 2 mg Q4HPRN PRN IV 04/17/24 23:00 04/18/24 00:31 2 MG Nitroglycerin 0.4 mg Q5MINP PRN SL 04/17/24 23:00 Morphine Sulfate 2 mg Q30M PRN IV 04/17/24 23:00 Vancomycin HCl 0 ml @ 0 mls/hr UD IV 04/17/24 23:15 Cefepime HCl 50 ml @ 12.5 mls/hr Q12HR IV 04/18/24 10:00 Sodium Chloride 1,000 ml @ 75 mls/hr [id number] IV 04/18/24 02:15 04/18/24 02:26 75 MLS/HR Acetaminophen 650 mg Q4HP PRN PO 04/18/24 04:00 04/18/24 04:08 650 MG Clindamycin Phosphate 50 ml @ 50 mls/hr Q8HR IV 04/18/24 14:00 Tbo-Filgrastim 480 mcg DAILY SC 04/18/24 10:00 UNV Examination GENERAL: alert and oriented. Obese who has moderate mucositis HEAD AND NECK: Unremarkable. No neck nodes or masses. Conjunctivae: pale, Unremarkable for any mucosal hemorrhage or inflammation. CHEST: Chest wall, no tenderness. LUNGS: Clear. CARDIOVASCULAR: Regular sinus rhythm. No murmurs or gallops. ABDOMEN: No organomegaly, tenderness or ascites. Bowel sounds present. EXTREMITIES:. In the right groin fold he has Ulcerated skin LYMPHATICS: No significant lymphadenopathy. NEUROLOGIC: No focal neurological deficits. SKIN: multiple sores in the legs laboratory and microbiology Laboratory Tests 04/18/24 03:41 Test 04/18/24 03:41 Range/Units Serum Glucose 151 H 74-106 mg/dL Problem List/Assessment/Plan Problem List/Assessment/Plan HEME/ONC: #Immunodeficiency: leukopenia possible due to use of MTX or mycophenolate Start filgastrim and solu medrol per Dr Ivory Pt is on cefepime/vancomycin HIV negative #Thrombocytopenia due to above f/u, no bleeding, no transfusion for now #Anemia due to above and CKD CARDIOLOGY: normal auscultation normal BNP No chest pain, SOB at rest X ray no pulmonary edema #Essential hypertension Due to sepsis and soft BPs hold on medication RESPIRATORY: No distress at the moment normal x ray GI: #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 due to obesity No bleeding Liquid stool today No abdominal pain CT scan normal Normal liver function, normal coagulation Albumin 3.9 /RENAL #Sepsis due to infected intertrigo in the right groin and scrotal No septic shock at the moment Right now, the infection is superficial but can progress to jessica gangrene due to immunodeficiency state Patient is on cefepime/vancomycin/clindamyicin wound culture ordered wound consult #Bilateral hydronephrosis without evidence of ureteral stones. #KYLEE on CKD Stage IV Nephology on board: Dr Bernabe Goldman No urinary retention at this moment, patient refused villarreal: voiding few times Urology consult ENDOCRINOLOGY #Hyperkalemia resolved due to CKD #DM type 2 in remission HBA1C 5.0 #Obesity Patient was on mounjaro back in home #Euthyroid sick syndrome TSH 0.2 free t4 1.12 Free t3 2.24 RHEUMATOLOGY AND SKIN #Mucositis Secondary to immunodeficiency Magic wash mouth #Sepsis due to infected intertrigo right in the right groin and scrotal describe above #Gout Pt was receiving MTX, mycophenolate, Krystexxa, colchicine for gout ? Due to possible adverse reaction and sepsis hold on medications No acute flare ups Uric acid less than 0.[address] CRITICAL CARE TIME 81 MINS Plan discussed with: Patient, Other (rn) My Orders My Orders Orders - RUBIO BARCLAY Procedure Category Date Status Time Kramer Stain Slide LAB 04/18/24 Logged 09:04 Complement C3 & C4 LAB 04/18/24 In Process 09:08 Wound Culture W/ Gs DIMAS 04/18/24 Uncollected 09:09 Clindamycin 900mg Iv PHA 04/18/24 In Process (Cleocin Iv) 14:00 Filgrastim-Tbo PHA 04/18/24 Logged (Granix) 10:00 Date of Service: Apr 18, 2024 Billing Provider: KIARA STREET MD Common Visit Codes: [id number] CARE 30-74 MIN, [id number] CARE-EACH +30MIN RUBIO BARCLAY Apr 18, 2024 10:[address] MD Apr 19, 2024 12:11
--- NOTE | 2024-04-18 10:16 | DVHCONRES ---
Date Seen: Apr 18, 2024 Resident Creating Document: JHAJJ,SARPUNEET RESIDENT Referring Physician MD Eric Reason for Consultation CKD stage 4 Family History: Cancer Chronic obstructive pulmonary disease G8 MOTHER Depression G8 FATHER FH: congestive heart failure G8 MOTHER FH: leukemia G8 FATHER FH: lung cancer G8 MOTHER Family history: Depression (situation) G8 MOTHER Family history: Diabetes mellitus G8 MOTHER Allergies: Coded Allergies: NO KNOWN ALLERGIES (Unverified , 03/11/14) Home Meds Active Scripts Meclizine Hcl (ANTIVERT TABLET) 25 Mg Tb, 1 TAB PO Q6HR PRN, #90 TAB Prov:ISHMAEL REID N.P. 03/12/14 Gabapentin (Gabapentin) 400 Mg Cap, 400 MG PO TID, #3 CAP Prov:ISHMAEL REID N.P. 03/12/14 Reported Medications Tamsulosin Hcl (Tamsulosin Hcl) 0.4 Mg Cap, 1 CAP PO DAILY, #30 CAP 5 Refills 03/17/14 Ibuprofen (Ibuprofen) 800 Mg Tab, 1 TAB PO TID, #90 TAB 1 Refill 03/14/14 Ergocalciferol (Vitamin D) 50,000 Unt Cap, 35935 UNT PO QWEEKLY, CAP 03/14/14 [Novolog] No Conflict Check 03/12/14 Carvedilol (COREG) 12.5 Mg Tab, 12.5 MG PO BID, TAB 03/11/14 Ferrous Sulfate (Ferrous Sulfate) 325 Mg Tab, 325 MG PO DAILY, TAB 03/11/14 Hydrochlorothiazide (Hydrochlorothiazide) 25 Mg Tab, 1 TAB PO DAILY, #30 TAB 5 Refills 03/11/14 Aspirin (Asa) 81 Mg Ch, 81 MG PO DAILY 03/11/14 Clonidine Hcl (CATAPRES TABLET) 0.1 Mg Tb, 0.1 MG PO DAILY 03/11/14 Lorazepam (Lorazepam) 1 Mg Tab, 1 TAB PO TID, #90 TAB 03/11/14 Sertraline Hcl (Sertraline Hcl) 100 Mg Tab, 1 TAB PO DAILY, #90 TAB 1 Refill 03/11/14 Pantoprazole Sodium (PANTOPRAZOLE SODIUM) 40 Mg Inj, 40 MG PO DAILY, INJ 03/11/14 Fenofibrate (FENOFIBRATE) 145 Mg Tab, 1 TAB PO DAILY, #30 TAB 5 Refills 03/11/14 Allopurinol (Allopurinol) 300 Mg Tab, 300 MG PO DAILY, TAB 03/11/14 Hydrocodone-Acetaminophen ([place] 10/325MG) 1 Tab Tb, 1 TAB PO TID, #60 TAB 03/11/14 Lisinopril (Lisinopril) 10 Mg Tab, 10 MG PO DAILY, TAB 03/11/14 Colchicine (COLCRYS TABLET) 0.6 Mg Tb, 0.6 MG PO PRN 03/11/14 Insulin Detemir (Levemir) Inj, 60 SC QPM, INJ 03/11/14 Current Medications Current Medications Medications (Trade) Dose Ordered Sig/Cedric Route PRN Reason Start Time Stop Time Status Last Admin Al Hydrox/Mg Hydrox/Simethicone (Majic Mouthwash) 5 ml QID MT 04/17/24 22:00 04/18/24 05:54 Sodium Chloride 1,000 ml @ 120 mls/hr Q8H20M IV 04/17/24 23:00 04/18/24 02:07 DC 04/18/24 00:39 Acetaminophen (Tylenol Tablet) 325 mg Q4HP PRN PO MILD PAIN (1-3 PAIN SCALE) 04/17/24 23:00 04/18/24 03:56 DC Acetaminophen/ Hydrocodone Bitart ([place] 5/325MG Tab) 1 tab Q4HP PRN PO MODERATE PAIN (4-6 PAIN SCALE) 04/17/24 23:00 Ondansetron HCl (Zofran) 4 mg Q4HP PRN IV NAUSEA / VOMITING 04/17/24 23:00 04/18/24 00:32 Morphine Sulfate 2 mg Q4HPRN PRN IV SEVERE PAIN (7-10 PAIN SCALE) 04/17/24 23:00 04/18/24 00:31 Nitroglycerin (Ntrostat Sublingual) 0.4 mg Q5MINP PRN SL FOR CHEST PAIN 04/17/24 23:00 Morphine Sulfate 2 mg Q30M PRN IV FOR CHEST PAIN 04/17/24 23:00 Vancomycin HCl 0 ml @ 0 mls/hr UD IV 04/17/24 23:15 Cefepime HCl 50 ml @ 12.5 mls/hr Q12HR IV 04/17/24 23:21 04/17/24 23:29 DC Cefepime HCl 50 ml @ 12.5 mls/hr Q12HR IV 04/18/24 10:00 Zirconium Oxide (Lokelma) 10 gm TID PO 04/18/24 06:00 04/18/24 05:57 DC Sodium Chloride 1,000 ml @ 75 mls/hr [id number] IV 04/18/24 02:15 04/18/24 02:26 Acetaminophen (Tylenol Tablet) 650 mg Q4HP PRN PO PAIN SCALE 1-3 OR TEMP>100.4 04/18/24 04:00 04/18/24 04:08 Clindamycin Phosphate 50 ml @ 50 mls/hr Q8HR IV 04/18/24 14:00 Tbo-Filgrastim (Granix) 480 mcg DAILY SC 04/18/24 10:00 UNV Vancomycin HCl 500 mg/Dextrose 100 ml @ 200 mls/hr Q12H IV 04/18/24 09:45 Vital Signs Vital Signs Date Time Temp Pulse Resp B/P (MAP) Pulse Ox O2 Delivery O2 Flow Rate FiO2 04/18/24 09:00 99.5 76 18 122/52 (75) 95 99.5 04/18/24 04:19 Room Air* 0 21 Labs/Diagnostic Data Labs Test 04/18/24 09:30 04/18/24 03:41 04/18/24 01:49 04/17/24 22:16 Range/Units White Blood Count 0.7 *L 4.4-10.8 10^3/uL Red Blood Count 3.27 L 4.5-5.90 10^6/uL Hemoglobin 11.0 L 13.5-17.5 g/dL Hematocrit 32.4 #L 41.0-53.0 % Mean Corpuscular Volume 99.1 # 80.0-100.0 fL Mean Corpuscular Hemoglobin 33.6 H 28.0-32.0 pg Mean Corpuscular Hemoglobin Concent 33.9 32.0-36.0 g/dL Red Cell Distribution Width 14.9 H 11.8-14.3 % Platelet Count 16 *L 140-450 10^3/uL Mean Platelet Volume 8.8 6.9-10.8 fL Neutrophils (%) (Auto) 23.9 L 37.0-80.0 % Lymphocytes (%) (Auto) 72.6 H 10.0-50.0 % Monocytes (%) (Auto) 3.2 0.0-12.0 % Eosinophils (%) (Auto) 0.2 0.0-7.0 % Basophils (%) (Auto) 0.1 0.0-2.0 % Neutrophils # (Auto) 0.2 L 1.6-8.6 10 ^3/uL Lymphocytes # (Auto) 0.5 0.4-5.4 10 ^3/uL Monocytes # (Auto) 0 0-1.3 10 ^3/uL Eosinophils # (Auto) 0 0-0.8 10 ^3/uL Basophils # (Auto) 0 0-0.2 10 ^3/uL Nucleated Red Blood Cells 0.3 % Platelet Estimate Markedly decreased Prothrombin Time 11.5 9.3-11.8 sec Prothrombin Time INR 1.09 0.9-1.15 Activated Partial Thromboplast Time 28.8 24.5-34.5 SEC Sodium Level 148 H 136-145 mmol/L Potassium Level 4.1 3.5-5.1 mmol/L Chloride Level 119 H 98-107 mmol/L Carbon Dioxide Level 18 L 20-31 mmol/L Anion Gap 11 5-15 Blood Urea Nitrogen 70 H 9-23 mg/dL Creatinine 1.91 H 0.700-1.30 mg/dL Glomerular Filtration Rate Calc 40 >90 mL/min BUN/Creatinine Ratio 36.6 H 10.0-20.0 Serum Glucose 151 H 74-106 mg/dL Hemoglobin A1c 5.0 <5.7 % A1C Calcium Level 9.9 8.7-10.4 mg/dL Total Bilirubin 0.6 0.2-1.0 mg/dL Aspartate Amino Transferase (AST) 14 13-40 U/L Alanine Aminotransferase (ALT) 26 7-40 U/L Alkaline Phosphatase 28 L 46-116 U/L B-Type Natriuretic Peptide 33.67 0-100 pg/mL Total Protein 6.7 5.7-8.2 g/dL Albumin 3.9 3.2-4.8 g/dL Vitamin B12 Level 494 211-911 pg/mL Vitamin D 25-Hydroxy 157.2 H 30.0-100 ng/mL Thyroid Stimulating Hormone (TSH) 0.20 L 0.55-4.78 uIU/mL Free Thyroxine (T4) Calculated 1.12 0.89-1.76 ng/dL Free Triiodothyronine (T3) pg/mL 2.24 L 2.3-4.2 pg/mL HIV (1&2) Antibody Negative Negative POC Glucose 148 H 70-106 mg/dl Urine Color Light-yellow Yellow Urine Clarity Clear Clear Urine pH 5.0 5.0-9.0 Urine Specific [place] 1.015 1.001-1.035 Urine Protein Trace H Negative Urine Ketones Trace Negative Urine Blood Negative Negative /uL Urine Nitrite Negative Negative Urine Bilirubin Negative Negative Urine Urobilinogen Normal Negative mg/dL Urine Leukocyte Esterase Negative Negative /uL Urine RBC 1 0 - 3 /hpf Urine WBC 1 0 - 3 /hpf Urine Squamous Epithelial Cells Few <5 /hpf Urine Bacteria Few H None Seen /hpf Urine Glucose 1+ H Normal mg/dL Test 04/17/24 22:06 04/17/24 20:50 Range/Units Lactic Acid Level 3.3 *H 0.4-2.0 mmol/L Macrocytosis Slight NOY JACKSNO RESIDENT Apr 18, 2024 10:16
[2024-04-18] MEDS: HYDROcodone-ACET 5/325MG TAB PO PRN (10:23)
[2024-04-18] MEDS: VANCOMYCIN 500 MG in D5W 5% 100 ML IV SCH (10:45)
--- NOTE | 2024-04-18 12:12 | DVH ---
RENAL ULTRASOUND CLINICAL HISTORY: CKD, osbtructive uropathy TECHNIQUE: Multiple ultrasound images of the kidneys and bladder were obtained. COMPARISON: CT abdomen and pelvis 04/17/2024 FINDINGS: The right kidney measures 10.2 cm in length. The left kidney measures 9.1 cm. Both kidneys demonstrat e cortical thinning and bilateral hydronephrosis. There is no sonographic evidence of nephrolithiasis . Bladder is moderately distended with prevoid volume of 1465. IMPRESSION: 1. There is bilateral renal hydronephrosis without sonographic evidence of nephrolithiasis. 2. The kidneys demonstrate cortical thinning bilaterally. 3. The bladder is moderately distended. HS:Y
[2024-04-18] MEDS: CEFEPIME 2GM/50ML NS 50 ML IV SCH (13:13)
--- NOTE | 2024-04-18 13:43 | DVHINCON2 ---
Date of service: Apr 18, [address] Jie Reyes Reason for Consultation Pancytopenia History of Present Illness 59 years old gentleman whose history is not very clear. He gives a history of type 2 diabetes mellitus, hypertension, hyperlipidemia, peripheral neuropathy, congestive heart failure, CKD stage IV , GERD, gout, obesity, anxiety and depression and He says he has been taking methotrexate And mycophenolate [The reason is not very clear and the patient thinks that he is getting this medication for gout and follows with his sales and marketing intern Dr. Bernabe Goldman] He says he takes 4 methotrexate pills once a week for the last couple of years The patient is admitted with severe mucositis and ulceration in the groin on the right side. He has difficulty speaking and swallowing.No complaints of fevers, he thinks he has been running probably low-grade fevers He is admitted with, GERD, gout, obesity, anxiety and depression. He is found to be pancytopenic with a white count of 700 hemoglobin 11 platelets are 16,000. Confirmed on the blood smear. No bleeding Lactic acid is 3.3 BUN 70 creatinine 1.9, albumin 3.9 total protein 6.7 B12 494 TSH 0.2 Free T41.12 Alkaline phosphatase 28. AST 14 ALT 26 uric acid 5.9. PT/INR 1.09 PTT 28.8 and D-dimer 2.34 HIV 1 and 2 is negative He has been given antibiotics and the Magic mouthwash and pain medications Past Medical History Diabetes type 2 Hypertension Hyperlipidemia Peripheral neuropathy CH F CKD stage IV GERD Gout Obesity Right ankle and foot surgery for infection Family History: Cancer Chronic obstructive pulmonary disease G8 MOTHER Depression G8 FATHER FH: congestive heart failure G8 MOTHER FH: leukemia G8 FATHER FH: lung cancer G8 MOTHER Family history: Depression (situation) G8 MOTHER Family history: Diabetes mellitus G8 MOTHER Social History Uses marijuana No alcohol or smoking Allergies: Coded Allergies: NO KNOWN ALLERGIES (Unverified , 03/11/14) Home Meds Active Scripts Meclizine Hcl (ANTIVERT TABLET) 25 Mg Tb, 1 TAB PO Q6HR PRN, #90 TAB Prov:ISHMAEL REID N.P. 03/12/14 Gabapentin (Gabapentin) 400 Mg Cap, 400 MG PO TID, #3 CAP Prov:ISHMAEL REID N.P. 03/12/14 Reported Medications Tamsulosin Hcl (Tamsulosin Hcl) 0.4 Mg Cap, 1 CAP PO DAILY, #30 CAP 5 Refills 03/17/14 Ibuprofen (Ibuprofen) 800 Mg Tab, 1 TAB PO TID, #90 TAB 1 Refill 03/14/14 Ergocalciferol (Vitamin D) 50,000 Unt Cap, 77029 UNT PO QWEEKLY, CAP 03/14/14 [Novolog] No Conflict Check 03/12/14 Carvedilol (COREG) 12.5 Mg Tab, 12.5 MG PO BID, TAB 03/11/14 Ferrous Sulfate (Ferrous Sulfate) 325 Mg Tab, 325 MG PO DAILY, TAB 03/11/14 Hydrochlorothiazide (Hydrochlorothiazide) 25 Mg Tab, 1 TAB PO DAILY, #30 TAB 5 Refills 03/11/14 Aspirin (Asa) 81 Mg Ch, 81 MG PO DAILY 03/11/14 Clonidine Hcl (CATAPRES TABLET) 0.1 Mg Tb, 0.1 MG PO DAILY 03/11/14 Lorazepam (Lorazepam) 1 Mg Tab, 1 TAB PO TID, #90 TAB 03/11/14 Sertraline Hcl (Sertraline Hcl) 100 Mg Tab, 1 TAB PO DAILY, #90 TAB 1 Refill 03/11/14 Pantoprazole Sodium (PANTOPRAZOLE SODIUM) 40 Mg Inj, 40 MG PO DAILY, INJ 03/11/14 Fenofibrate (FENOFIBRATE) 145 Mg Tab, 1 TAB PO DAILY, #30 TAB 5 Refills 03/11/14 Allopurinol (Allopurinol) 300 Mg Tab, 300 MG PO DAILY, TAB 03/11/14 Hydrocodone-Acetaminophen ([place] 10/325MG) 1 Tab Tb, 1 TAB PO TID, #60 TAB 03/11/14 Lisinopril (Lisinopril) 10 Mg Tab, 10 MG PO DAILY, TAB 03/11/14 Colchicine (COLCRYS TABLET) 0.6 Mg Tb, 0.6 MG PO PRN 03/11/14 Insulin Detemir (Levemir) Inj, 60 SC QPM, INJ 03/11/14 Current Medications Current Medications Medications (Trade) Dose Ordered Sig/Cedric Route PRN Reason Start Time Stop Time Status Last Admin Al Hydrox/Mg Hydrox/Simethicone (Majic Mouthwash) 5 ml QID MT 04/17/24 22:00 04/18/24 05:54 Sodium Chloride 1,000 ml @ 120 mls/hr Q8H20M IV 04/17/24 23:00 04/18/24 02:07 DC 04/18/24 00:39 Acetaminophen (Tylenol Tablet) 325 mg Q4HP PRN PO MILD PAIN (1-3 PAIN SCALE) 04/17/24 23:00 04/18/24 03:56 DC Acetaminophen/ Hydrocodone Bitart ([place] 5/325MG Tab) 1 tab Q4HP PRN PO MODERATE PAIN (4-6 PAIN SCALE) 04/17/24 23:00 04/18/24 10:23 Ondansetron HCl (Zofran) 4 mg Q4HP PRN IV NAUSEA / VOMITING 04/17/24 23:00 04/18/24 00:32 Morphine Sulfate 2 mg Q4HPRN PRN IV SEVERE PAIN (7-10 PAIN SCALE) 04/17/24 23:00 04/18/24 00:31 Nitroglycerin (Ntrostat Sublingual) 0.4 mg Q5MINP PRN SL FOR CHEST PAIN 04/17/24 23:00 Morphine Sulfate 2 mg Q30M PRN IV FOR CHEST PAIN 04/17/24 23:00 Vancomycin HCl 0 ml @ 0 mls/hr UD IV 04/17/24 23:15 Cefepime HCl 50 ml @ 12.5 mls/hr Q12HR IV 04/17/24 23:21 04/17/24 23:29 DC Cefepime HCl 50 ml @ 12.5 mls/hr Q12HR IV 04/18/24 10:00 04/18/24 13:13 Zirconium Oxide (Lokelma) 10 gm TID PO 04/18/24 06:00 04/18/24 05:57 DC Sodium Chloride 1,000 ml @ 75 mls/hr [id number] IV 04/18/24 02:15 04/18/24 02:26 Acetaminophen (Tylenol Tablet) 650 mg Q4HP PRN PO PAIN SCALE 1-3 OR TEMP>100.4 04/18/24 04:00 04/18/24 04:08 Clindamycin Phosphate 50 ml @ 50 mls/hr Q8HR IV 04/18/24 14:00 Tbo-Filgrastim (Granix) 480 mcg DAILY SC 04/18/24 10:00 Vancomycin HCl 500 mg/Dextrose 100 ml @ 200 mls/hr Q12H IV 04/18/24 09:45 04/18/24 10:45 Fluconazole 100 ml @ 100 mls/hr DAILY IV 04/19/24 10:00 UNV Vital Signs Vital Signs Date Time Temp Pulse Resp B/P (MAP) Pulse Ox O2 Delivery O2 Flow Rate FiO2 04/18/24 09:00 99.5 76 18 122/52 (75) 95 99.5 04/18/24 04:19 Room Air* 0 21 Physical Exam GENERAL: The patient is a moderately built and nourished ,in no distress, alert and oriented. Obese gentleman who has moderate mucositis HEAD AND NECK: Unremarkable. No neck nodes or masses. Conjunctivae: Unremarkable for any mucosal hemorrhage or inflammation. Thyroid is nonpalpable. Throat is unremarkable. SPINE: No deformities or tenderness. CHEST: Chest wall, no tenderness. LUNGS: Clear. CARDIOVASCULAR: Regular sinus rhythm. No murmurs or gallops. ABDOMEN: No organomegaly, tenderness or ascites. Bowel sounds present. EXTREMITIES: No clubbing, edema or cyanosis. Peripheral pulses palpable. No calf tenderness. In the right groin fold he has Ulcerated skin LYMPHATICS: No significant lymphadenopathy. NEUROLOGIC: No focal neurological deficits. SKIN: Unremarkable for any petechiae, purpura, or ecchymosis. Psych: No abnormalities Available data reviewed Labs/Diagnostic Data Labs Test 04/18/24 13:05 04/18/24 09:30 04/18/24 03:41 04/18/24 01:49 Range/Units White Blood Count 0.7 *L 4.4-10.8 10^3/uL Red Blood Count 3.27 L 4.5-5.90 10^6/uL Hemoglobin 11.0 L 13.5-17.5 g/dL Hematocrit 32.4 #L 41.0-53.0 % Mean Corpuscular Volume 99.1 # 80.0-100.0 fL Mean Corpuscular Hemoglobin 33.6 H 28.0-32.0 pg Mean Corpuscular Hemoglobin Concent 33.9 32.0-36.0 g/dL Red Cell Distribution Width 14.9 H 11.8-14.3 % Platelet Count 16 *L 140-450 10^3/uL Mean Platelet Volume 8.8 6.9-10.8 fL Neutrophils (%) (Auto) 23.9 L 37.0-80.0 % Lymphocytes (%) (Auto) 72.6 H 10.0-50.0 % Monocytes (%) (Auto) 3.2 0.0-12.0 % Eosinophils (%) (Auto) 0.2 0.0-7.0 % Basophils (%) (Auto) 0.1 0.0-2.0 % Neutrophils # (Auto) 0.2 L 1.6-8.6 10 ^3/uL Lymphocytes # (Auto) 0.5 0.4-5.4 10 ^3/uL Monocytes # (Auto) 0 0-1.3 10 ^3/uL Eosinophils # (Auto) 0 0-0.8 10 ^3/uL Basophils # (Auto) 0 0-0.2 10 ^3/uL Nucleated Red Blood Cells 0.3 % Platelet Estimate Markedly decreased Prothrombin Time 11.5 9.3-11.8 sec Prothrombin Time INR 1.09 0.9-1.15 Activated Partial Thromboplast Time 28.8 24.5-34.5 SEC Sodium Level 148 H 136-145 mmol/L Potassium Level 4.1 3.5-5.1 mmol/L Chloride Level 119 H 98-107 mmol/L Carbon Dioxide Level 18 L 20-31 mmol/L Anion Gap 11 5-15 Blood Urea Nitrogen 70 H 9-23 mg/dL Creatinine 1.91 H 0.700-1.30 mg/dL Glomerular Filtration Rate Calc 40 >90 mL/min BUN/Creatinine Ratio 36.6 H 10.0-20.0 Serum Glucose 151 H 74-106 mg/dL Hemoglobin A1c 5.0 <5.7 % A1C Calcium Level 9.9 8.7-10.4 mg/dL Total Bilirubin 0.6 0.2-1.0 mg/dL Aspartate Amino Transferase (AST) 14 13-40 U/L Alanine Aminotransferase (ALT) 26 7-40 U/L Alkaline Phosphatase 28 L 46-116 U/L B-Type Natriuretic Peptide 33.67 0-100 pg/mL Total Protein 6.7 5.7-8.2 g/dL Albumin 3.9 3.2-4.8 g/dL Vitamin B12 Level 494 211-911 pg/mL Vitamin D 25-Hydroxy 157.2 H 30.0-100 ng/mL Thyroid Stimulating Hormone (TSH) 0.20 L 0.55-4.78 uIU/mL Free Thyroxine (T4) Calculated 1.12 0.89-1.76 ng/dL Free Triiodothyronine (T3) pg/mL 2.24 L 2.3-4.2 pg/mL HIV (1&2) Antibody Negative Negative POC Glucose 148 H 70-106 mg/dl Test 04/17/24 22:16 04/17/24 22:06 04/17/24 20:50 Range/Units Urine Color Light-yellow Yellow Urine Clarity Clear Clear Urine pH 5.0 5.0-9.0 Urine Specific [place] 1.015 1.001-1.035 Urine Protein Trace H Negative Urine Ketones Trace Negative Urine Blood Negative Negative /uL Urine Nitrite Negative Negative Urine Bilirubin Negative Negative Urine Urobilinogen Normal Negative mg/dL Urine Leukocyte Esterase Negative Negative /uL Urine RBC 1 0 - 3 /hpf Urine WBC 1 0 - 3 /hpf Urine Squamous Epithelial Cells Few <5 /hpf Urine Bacteria Few H None Seen /hpf Urine Glucose 1+ H Normal mg/dL Lactic Acid Level 3.3 *H 0.4-2.0 mmol/L Macrocytosis Slight Microbiology Date/Time Source Procedure Growth Status 04/17/24 22:16 Voided Urine Urine Culture - Preliminary Resulted Assessment 1. Pancytopenia more likely secondary to methotrexate and mycophenolate And the patient is symptomatic with severe mucositis. The patient does give a history of vaccination with COVID-19 couple of weeks back CT of the abdomen pelvis showed distended bladder with moderate bilateral hydronephrosis concerning for bladder outlet obstruction and the liver spleen appears unremarkable 2. Bilateral hydronephrosis 3. Diabetes 4. Hypertension 5. Hyperlipidemia 6. High lactic acid could indicate sepsis 7. CKD 8. Bladder outlet obstruction Plan/Recommendation Should consult with the sales and marketing intern Dr. Destiny Goldman to find out about the indications for his immunosuppressive treatment In the meantime I will give him Neupogen 480 mcg subcu daily for 5 days and follow onto the CBC Isolation The patient is not bleeding so we will hold off any transfusions Also may use Solu-Medrol to counter the side effects of the immunosuppressive treatment and help with the mucositis and the ulceration and may help the CBC, CMP, LDH, PT/INR, PTT, B12, Folate, Ferritin, Iron, TIBC, Periph Smear to Path, Hep B Surface AB, Hep B Surface AG, Hep C AB, Antiphospholipid Ab, Lupus Anticoagulant, Antinuclear Antibody, and anemia Check a direct Thomas LDH reticulocyte count and haptoglobin Plan discussed with: Patient KOBE LEMUS MD Apr 18, 2024 13:43
[2024-04-18] MEDS: CLINDAMYCIN 900MG IV 50 ML IV SCH (14:00)
[2024-04-18] MEDS: FILGRASTIM(TBO) 480 MCG/0.8 ML SYRG SC SCH (15:15)
--- NOTE | 2024-04-18 16:09 | DVHINCON2 ---
Date of service: Apr 18, 2024 Referring Physician hospitalist Reason for Consultation urinary retention, difficult villarreal History of Present Illness History Source: Patient, RN Notes, Notes HPI 59-year-old male with past medical history of type 2 diabetes mellitus, hypertension, hyperlipidemia, peripheral neuropathy, CHF, CKD stage 4, liver cirrhosis, GERD, gout, obesity, anxiety, depression and polysubstance abuse presented to the ED via EMS with chief complaints of swelling of the lip and tongue and sore wounds in the right lower abdomen beneath the skin fold and right groin and scattered wound in bilateral leg and feet area with generalized weakness for last 1 week prior to this admission. According to the patient he took COVID and flu vaccine 2 weeks ago and then progressively developed sore wound 1st in the mouth and throat and later developed in the lips and right lower abdomen and groin area. Patient reports difficulty in swallowing and not able to eat or drink since and not able to take any oral medication because of the pain. Patient denies having allergy to any medication or trying any new medication, traveling history , sick contact or any flu-like illness. The patient denies chest pain, shortness of breath, dizziness, diaphoresis, abdominal pain, nausea, vomiting or any change in bowel and bladder habit Home Meds Active Scripts Meclizine Hcl (ANTIVERT TABLET) 25 Mg Tb, 1 TAB PO Q6HR PRN, #90 TAB Prov:ISHMAEL REID N.P. 03/12/14 Gabapentin (Gabapentin) 400 Mg Cap, 400 MG PO TID, #3 CAP Prov:ISHMAEL REID N.P. 03/12/14 Reported Medications Tamsulosin Hcl (Tamsulosin Hcl) 0.4 Mg Cap, 1 CAP PO DAILY, #30 CAP 5 Refills 03/17/14 Ibuprofen (Ibuprofen) 800 Mg Tab, 1 TAB PO TID, #90 TAB 1 Refill 03/14/14 Ergocalciferol (Vitamin D) 50,000 Unt Cap, 89515 UNT PO QWEEKLY, CAP 03/14/14 [Novolog] No Conflict Check 03/12/14 Carvedilol (COREG) 12.5 Mg Tab, 12.5 MG PO BID, TAB 03/11/14 Ferrous Sulfate (Ferrous Sulfate) 325 Mg Tab, 325 MG PO DAILY, TAB 03/11/14 Hydrochlorothiazide (Hydrochlorothiazide) 25 Mg Tab, 1 TAB PO DAILY, #30 TAB 5 Refills 03/11/14 Aspirin (Asa) 81 Mg Ch, 81 MG PO DAILY 03/11/14 Clonidine Hcl (CATAPRES TABLET) 0.1 Mg Tb, 0.1 MG PO DAILY 03/11/14 Lorazepam (Lorazepam) 1 Mg Tab, 1 TAB PO TID, #90 TAB 03/11/14 Sertraline Hcl (Sertraline Hcl) 100 Mg Tab, 1 TAB PO DAILY, #90 TAB 1 Refill 03/11/14 Pantoprazole Sodium (PANTOPRAZOLE SODIUM) 40 Mg Inj, 40 MG PO DAILY, INJ 03/11/14 Fenofibrate (FENOFIBRATE) 145 Mg Tab, 1 TAB PO DAILY, #30 TAB 5 Refills 03/11/14 Allopurinol (Allopurinol) 300 Mg Tab, 300 MG PO DAILY, TAB 03/11/14 Hydrocodone-Acetaminophen ([place] 10/325MG) 1 Tab Tb, 1 TAB PO TID, #60 TAB 03/11/14 Lisinopril (Lisinopril) 10 Mg Tab, 10 MG PO DAILY, TAB 03/11/14 Colchicine (COLCRYS TABLET) 0.6 Mg Tb, 0.6 MG PO PRN 03/11/14 Insulin Detemir (Levemir) Inj, 60 SC QPM, INJ 03/11/14 Past Medical History Patient Family History: Cancer Chronic obstructive pulmonary disease G8 MOTHER Depression G8 FATHER FH: congestive heart failure G8 MOTHER FH: leukemia G8 FATHER FH: lung cancer G8 MOTHER Family history: Depression (situation) G8 MOTHER Family history: Diabetes mellitus G8 MOTHER Review of Systems Constitutional: Malaise Genitourinary: Retention Skin: Rash, Lesions H&P Exam Vital Signs Vital Signs Date Time Temp Pulse Resp B/P (MAP) Pulse Ox O2 Delivery O2 Flow Rate FiO2 04/18/24 13:00 98.0 78 18 135/82 (99) 97 98.0 04/18/24 04:19 Room Air* 0 21 General Appeara: Well developed, Well nourished, Normal Appearance, Mild distress, Obese Cardiovascular/Chest: Edema Neuro/Mental St: Alert, Oriented Appearance: Appropriate insight Eye contact/ Speech: Good eye contact, Normal speech Labs/Xrays [address] [address] Ph: [phone] DIAGNOSTIC IMAGING Diagnostic Imaging Report : [id number] Signed PATIENT: ARIEL SANTANA ACCT: [id number] UNIT: [id number] : 1965 LOC: TELE ROOM / BED: 1010-ERT / A AGE / SEX: 59 / M ADM STATUS: ADM IN SERVICE 0356 ORDERING PHYSICIAN: SHAZIA RAMIREZ PROCEDURE(s): ABPL - CT AB PEL WO CON-NO ORAL OR IV REASON: sepsis ORDER NUMBER(s): [id number], ACCESSION NUMBER(s): [id number] Exam: CT CT AB PEL WO CON-NO ORAL OR IV History: sepsis Comparison Study: None available at time of dictation. Technique: Multidetector spiral CT of the abdomen was performed from lung bases to pubic symphysis. Imaging was performed without IV contrast. Axial, coronal and sagittal multiplanar reformats were obtained from the axial data set by the technologist. Radiation Dose : 1. Abdomen/Pelvis: CTDIvol 28 mGy, DLP 1680 mGy*cm. Findings: Evaluation of solid organs is limited due to lack of intravenous contrast use. Lung Bases: No acute or significant lung base finding. Normal heart size. No pleural or pericardial effusion. Liver: The liver is normal in size. No focal lesions. Gallbladder and Biliary Tree: Unremarkable Spleen: Unremarkable Pancreas: The pancreas is grossly normal in appearance. Adrenal Glands: Unremarkable Kidneys: Bilateral hydronephrosis without evidence of ureteral stones. Bladder: Severely distended with dome terminating of the level of L4. Bowel: The stomach is grossly normal in appearance. Small bowel and colon are normal in caliber and distribution. The appendix is not visualized; however, no secondary findings of acute appendicitis identified. Ascites: Absent Lymphadenopathy: No mesenteric, retroperitoneal or periportal lymphadenopathy. Abdominal Wall and Mesentery: Unremarkable. Vasculature: The visualized abdominal aorta is normal in size and caliber. Evaluation of abdominal and pelvic vessels is limited due to lack of intravenous contrast. Pelvic Organs: Unremarkable Musculoskeletal: No aggressive focal bony lesions, acute fractures or dislocation. IMPRESSION: Severely distended urinary bladder with moderate bilateral hydronephrosis . Findings are concerning for urinary bladder outlet obstruction. ATED BY: MAL CEVALLOS DO DICTATED DATE/TIME: 04/18/2424 SIGNED BY: MAL CEVALLOS DO SIGNED DATE/TIME: 04/18/2424 CC: [address] [address] Ph: [phone] DIAGNOSTIC IMAGING Diagnostic Imaging Report : [id number] Signed PATIENT: ARIEL SANTANA ACCT: [id number] UNIT: [id number] : 1965 LOC: [facility] ROOM / BED: 0236T / A AGE / SEX: 59 / M ADM STATUS: ADM IN SERVICE 16 ORDERING PHYSICIAN: NOY JACKSON RESIDENT PROCEDURE(s): KIDUS - KIDNEY REASON: CKD, ?osbtructive uropathy ORDER NUMBER(s): [id number], ACCESSION NUMBER(s): [id number] RENAL ULTRASOUND CLINICAL HISTORY: CKD, osbtructive uropathy TECHNIQUE: Multiple ultrasound images of the kidneys and bladder were obtained. COMPARISON: CT abdomen and pelvis 04/17/2024 FINDINGS: The right kidney measures 10.2 cm in length. The left kidney measures 9.1 cm. Both kidneys demonstrate cortical thinning and bilateral hydronephrosis. There is no sonographic evidence of nephrolithiasis. Bladder is moderately distended with prevoid volume of 1465. IMPRESSION: 1. There is bilateral renal hydronephrosis without sonographic evidence of nephrolithiasis. 2. The kidneys demonstrate cortical thinning bilaterally. 3. The bladder is moderately distended. HS:Y ATED BY: MANUEL GOLDMAN MD DICTATED DATE/TIME: 04/18/241209 SIGNED BY: MANUEL GOLDMAN MD SIGNED DATE/TIME: 04/18/241209 CC: Labs Test 04/18/24 15:48 04/18/24 13:05 04/18/24 09:30 04/18/24 03:41 Range/Units Reticulocyte Count (auto) 0.24 L 0.5-1.5 % Uric Acid < 0.5 L 3.7-9.2 mg/dL Lactate Dehydrogenase 182 120-246 U/L White Blood Count 0.7 *L 4.4-10.8 10^3/uL Red Blood Count 3.27 L 4.5-5.90 10^6/uL Hemoglobin 11.0 L 13.5-17.5 g/dL Hematocrit 32.4 #L 41.0-53.0 % Mean Corpuscular Volume 99.1 # 80.0-100.0 fL Mean Corpuscular Hemoglobin 33.6 H 28.0-32.0 pg Mean Corpuscular Hemoglobin Concent 33.9 32.0-36.0 g/dL Red Cell Distribution Width 14.9 H 11.8-14.3 % Platelet Count 16 *L 140-450 10^3/uL Mean Platelet Volume 8.8 6.9-10.8 fL Neutrophils (%) (Auto) 23.9 L 37.0-80.0 % Lymphocytes (%) (Auto) 72.6 H 10.0-50.0 % Monocytes (%) (Auto) 3.2 0.0-12.0 % Eosinophils (%) (Auto) 0.2 0.0-7.0 % Basophils (%) (Auto) 0.1 0.0-2.0 % Neutrophils # (Auto) 0.2 L 1.6-8.6 10 ^3/uL Lymphocytes # (Auto) 0.5 0.4-5.4 10 ^3/uL Monocytes # (Auto) 0 0-1.3 10 ^3/uL Eosinophils # (Auto) 0 0-0.8 10 ^3/uL Basophils # (Auto) 0 0-0.2 10 ^3/uL Nucleated Red Blood Cells 0.3 % Platelet Estimate Markedly decreased Prothrombin Time 11.5 9.3-11.8 sec Prothrombin Time INR 1.09 0.9-1.15 Activated Partial Thromboplast Time 28.8 24.5-34.5 SEC Sodium Level 148 H 136-145 mmol/L Potassium Level 4.1 3.5-5.1 mmol/L Chloride Level 119 H 98-107 mmol/L Carbon Dioxide Level 18 L 20-31 mmol/L Anion Gap 11 5-15 Blood Urea Nitrogen 70 H 9-23 mg/dL Creatinine 1.91 H 0.700-1.30 mg/dL Glomerular Filtration Rate Calc 40 >90 mL/min BUN/Creatinine Ratio 36.6 H 10.0-20.0 Serum Glucose 151 H 74-106 mg/dL Hemoglobin A1c 5.0 <5.7 % A1C Calcium Level 9.9 8.7-10.4 mg/dL Total Bilirubin 0.6 0.2-1.0 mg/dL Aspartate Amino Transferase (AST) 14 13-40 U/L Alanine Aminotransferase (ALT) 26 7-40 U/L Alkaline Phosphatase 28 L 46-116 U/L B-Type Natriuretic Peptide 33.67 0-100 pg/mL Total Protein 6.7 5.7-8.2 g/dL Albumin 3.9 3.2-4.8 g/dL Vitamin B12 Level 494 211-911 pg/mL Vitamin D 25-Hydroxy 157.2 H 30.0-100 ng/mL Thyroid Stimulating Hormone (TSH) 0.20 L 0.55-4.78 uIU/mL Free Thyroxine (T4) Calculated 1.12 0.89-1.76 ng/dL Free Triiodothyronine (T3) pg/mL 2.24 L 2.3-4.2 pg/mL HIV (1&2) Antibody Negative Negative Test 04/18/24 01:49 04/17/24 22:16 04/17/24 22:06 04/17/24 20:50 Range/Units POC Glucose 148 H 70-106 mg/dl Urine Color Light-yellow Yellow Urine Clarity Clear Clear Urine pH 5.0 5.0-9.0 Urine Specific [place] 1.015 1.001-1.035 Urine Protein Trace H Negative Urine Ketones Trace Negative Urine Blood Negative Negative /uL Urine Nitrite Negative Negative Urine Bilirubin Negative Negative Urine Urobilinogen Normal Negative mg/dL Urine Leukocyte Esterase Negative Negative /uL Urine RBC 1 0 - 3 /hpf Urine WBC 1 0 - 3 /hpf Urine Squamous Epithelial Cells Few <5 /hpf Urine Bacteria Few H None Seen /hpf Urine Glucose 1+ H Normal mg/dL Lactic Acid Level 3.3 *H 0.4-2.0 mmol/L Macrocytosis Slight Microbiology Date/Time Source Procedure Growth Status 04/17/24 22:16 Voided Urine Urine Culture - Preliminary Resulted Assessment/Plan Problem List: (1) Leukopenia (2) Thrombocytopenia (3) Weakness (4) Ulceration (5) Morbid obesity (6) Acute dyspnea (7) Pulmonary embolus (8) Diabetic nephropathy (9) Hypomagnesemia (10) Shortness of breath (11) Acute kidney failure, unspecified Plan villarreal to gravity - pt refusing at this time. He was educated on need as well as risk and benefits. He is A&O x 4. He asks that I come another time to attempt placement. He is voiding small amounts. Plan discussed with: Patient, Other MADELINE SOLOMON NP Apr 18, 2024 16:09
[2024-04-18] MEDS: FLUCONAZOLE 200MG/100ML 100 ML IV ONE (18:21)
--- NOTE | 2024-04-18 20:23 | DVHINCON2 ---
Date of service: Apr 18, [address] Scott Reason for Consultation KYLEE on CKD History of Present Illness Kyle Talbert is a 59 year old M with a Past Medical History pertinent for Type 2 diabetes mellitus, Hypertension, Hyperlipidemia, Peripheral neuropathy, Congestive heart failure, CKD Stage IV , GERD, Gout, Obesity, Anxiety, Depression and polysubstance abuse who presented to the hospital with swelling of the lip and tongue, sore wounds in the right lower abdomen beneath skin fold and right groin and scattered wound in bilateral leg and feet area with generalized weakness x 1 week. Patient states symptoms developed after taking Covid and Flu vaccine two weeks ago. Patient states he developed sore wound 1st in his mouth and throat and later developed sore wounds in the lips and right lower abdomen and groin area. Patient states it is difficult to swallow and has not been able to eat or drink anything since or take any oral medications due to pain. Patient has been taking methotrexate and mycophenolate. He reports taking 4 methotrexate pills once a week for the last couple of years. He has difficulty speaking and swallowing. Patient thinks he has been running probably low-grade fevers. Labs were remarkable for WBC of 700. Hemoglobin 11. Platelets are 16,000. Lactic acid is 3.3 BUN 70. Creatinine 1.9, Albumin 3.9, Total protein 6.7. B12 494. TSH 0.2. Free T41.12 Alkaline phosphatase 28. AST 14. ALT 26. Uric acid 5.9. PT/INR 1.09. PTT 28.8. D-dimer 2.34. HIV 1 and 2 negative. Renal US today reported there is bilateral renal hydronephrosis without sonographic evidence of nephrolithiasis; the kidneys demonstrate cortical thinning bilaterally; bladder is moderately distended. Patient is under my care outpatient for Nephrology standpoint. I was asked to consult for management of KYLEE on CKD. Allergies: Coded Allergies: NO KNOWN ALLERGIES (Unverified , 03/11/14) Home Meds Active Scripts Meclizine Hcl (ANTIVERT TABLET) 25 Mg Tb, 1 TAB PO Q6HR PRN, #90 TAB Prov:ISHMAEL REID N.P. 03/12/14 Gabapentin (Gabapentin) 400 Mg Cap, 400 MG PO TID, #3 CAP Prov:ISHMAEL REID N.P. 03/12/14 Reported Medications Ergocalciferol (Vitamin D) 50,000 Unt Cap, 56671 UNT PO QWEEKLY, CAP 03/14/14 Carvedilol (COREG) 12.5 Mg Tab, 12.5 MG PO BID, TAB 03/11/14 Ferrous Sulfate (Ferrous Sulfate) 325 Mg Tab, 325 MG PO DAILY, TAB 03/11/14 Hydrochlorothiazide (Hydrochlorothiazide) 25 Mg Tab, 1 TAB PO DAILY, #30 TAB 5 Refills 03/11/14 Aspirin (Asa) 81 Mg Ch, 81 MG PO DAILY 03/11/14 Lorazepam (Lorazepam) 1 Mg Tab, 1 TAB PO TID, #90 TAB 03/11/14 Sertraline Hcl (Sertraline Hcl) 100 Mg Tab, 1 TAB PO DAILY, #90 TAB 1 Refill 03/11/14 Pantoprazole Sodium (PANTOPRAZOLE SODIUM) 40 Mg Inj, 40 MG PO DAILY, INJ 03/11/14 Fenofibrate (FENOFIBRATE) 145 Mg Tab, 1 TAB PO DAILY, #30 TAB 5 Refills 03/11/14 Allopurinol (Allopurinol) 300 Mg Tab, 300 MG PO DAILY, TAB 03/11/14 Lisinopril (Lisinopril) 10 Mg Tab, 10 MG PO DAILY, TAB 03/11/14 Discontinued Reported Medications Tamsulosin Hcl (Tamsulosin Hcl) 0.4 Mg Cap, 1 CAP PO DAILY, #30 CAP 5 Refills 03/17/14 Ibuprofen (Ibuprofen) 800 Mg Tab, 1 TAB PO TID, #90 TAB 1 Refill 03/14/14 [Novolog] No Conflict Check 03/12/14 Clonidine Hcl (CATAPRES TABLET) 0.1 Mg Tb, 0.1 MG PO DAILY 03/11/14 Hydrocodone-Acetaminophen ([place] 10/325MG) 1 Tab Tb, 1 TAB PO TID, #60 TAB 03/11/14 Colchicine (COLCRYS TABLET) 0.6 Mg Tb, 0.6 MG PO PRN 03/11/14 Insulin Detemir (Levemir) Inj, 60 SC QPM, INJ 03/11/14 Current Medications Current Medications Medications (Trade) Dose Ordered Sig/Cedric Route PRN Reason Start Time Stop Time Status Last Admin Al Hydrox/Mg Hydrox/Simethicone (Majic Mouthwash) 5 ml QID MT 04/17/24 22:00 04/18/24 05:54 Sodium Chloride 1,000 ml @ 120 mls/hr Q8H20M IV 04/17/24 23:00 04/18/24 02:07 DC 04/18/24 00:39 Acetaminophen (Tylenol Tablet) 325 mg Q4HP PRN PO MILD PAIN (1-3 PAIN SCALE) 04/17/24 23:00 04/18/24 03:56 DC Acetaminophen/ Hydrocodone Bitart ([place] 5/325MG Tab) 1 tab Q4HP PRN PO MODERATE PAIN (4-6 PAIN SCALE) 04/17/24 23:00 04/18/24 10:23 Ondansetron HCl (Zofran) 4 mg Q4HP PRN IV NAUSEA / VOMITING 04/17/24 23:00 04/18/24 00:32 Morphine Sulfate 2 mg Q4HPRN PRN IV SEVERE PAIN (7-10 PAIN SCALE) 04/17/24 23:00 04/18/24 00:31 Nitroglycerin (Ntrostat Sublingual) 0.4 mg Q5MINP PRN SL FOR CHEST PAIN 04/17/24 23:00 Morphine Sulfate 2 mg Q30M PRN IV FOR CHEST PAIN 04/17/24 23:00 Vancomycin HCl 0 ml @ 0 mls/hr UD IV 04/17/24 23:15 Cefepime HCl 50 ml @ 12.5 mls/hr Q12HR IV 04/17/24 23:21 04/17/24 23:29 DC Cefepime HCl 50 ml @ 12.5 mls/hr Q12HR IV 04/18/24 10:00 04/18/24 13:13 Zirconium Oxide (Lokelma) 10 gm TID PO 04/18/24 06:00 04/18/24 05:57 DC Sodium Chloride 1,000 ml @ 75 mls/hr [id number] IV 04/18/24 02:15 04/18/24 02:26 Acetaminophen (Tylenol Tablet) 650 mg Q4HP PRN PO PAIN SCALE 1-3 OR TEMP>100.4 04/18/24 04:00 04/18/24 04:08 Clindamycin Phosphate 50 ml @ 50 mls/hr Q8HR IV 04/18/24 14:00 Tbo-Filgrastim (Granix) 480 mcg DAILY SC 04/18/24 10:00 04/18/24 15:15 Vancomycin HCl 500 mg/Dextrose 100 ml @ 200 mls/hr Q12H IV 04/18/24 09:45 04/18/24 10:45 Fluconazole 100 ml @ 100 mls/hr DAILY IV 04/19/24 10:00 Folic Acid 1 mg/ Dextrose 50.2 ml @ 200.8 mls/ hr DAILY INJ 04/19/24 10:00 Methylprednisolone Sodium Succinate (Solu Medrol) 80 mg BID IV 04/18/24 22:00 04/23/24 21:59 Pantoprazole Sodium (Protonix) 40 mg DAILY IV 04/19/24 10:00 Family History: Cancer Chronic obstructive pulmonary disease G8 MOTHER Depression G8 FATHER FH: congestive heart failure G8 MOTHER FH: leukemia G8 FATHER FH: lung cancer G8 MOTHER Family history: Depression (situation) G8 MOTHER Family history: Diabetes mellitus G8 MOTHER Review of Systems Constitutional: Yes: Chills; No: Fever, Sweats, Weakness, Malaise, Other ENT: Mouth pain, Mouth swelling, Throat pain Respiratory: No: Cough, Dry, Shortness of breath, SOB with excertion, Wheezing, Hemoptysis, Pleuritic Pain, Sputum, Wheezing, Other Cardiovascular: No: Chest Pain, Palpitations, Orthopnea, Paroxysmal Noc. Dyspnea, Edema, Lt Headedness, Other Gastrointestinal: No: Nausea, Vomiting, Abdominal Pain, Diarrhea, Constipation, Melena, Hematochezia, Other Genitourinary: Retention Musculoskeletal: No: other, neck pain, shoulder pain, arm pain, back pain, hand pain, leg pain, foot pain Skin: Rash, Lesions Neurological: No: Weakness, Numbness, Incoordination, Change in speech, Confusion, Seizures, Other All other systems reviewed and negative unless otherwise noted in HPI. H&P Exam Vital Signs/I&O Vital Sign Date Time Temp Pulse Resp B/P (MAP) Pulse Ox O2 Delivery O2 Flow Rate FiO2 04/18/24 17:00 98 19 117/76 (90) 98 04/18/24 13:00 98.0 98.0 04/18/24 08:00 Room Air* 0 21 Intake and Output 04/17/24 04/18/24 19:00 07:00 Intake Total 1685.0 ml Output Total 575 ml Balance 1110.0 ml Intake Oral 240 ml IV Total 1445.0 ml Output Urine Total 575 ml Physical Exam Vitals and nursing notes reviewed. General Appearance: In no acute distress. HEENT: Atraumatic, PERRLA, EOMI, Mucous membrane moist/pink. Swelling and soreness in the lip. Respiratory: Clear to auscultation, Normal air movement Cardiovascular: Regular rate, Normal S1, Normal S2, No murmurs, no chest wall tenderness Abdominal: Stage 2 wound in the rt lower abdomen beneath the skin fold, rt groin, Normal bowel sounds, Soft, No tenderness, No hepatospenomegaly, No masses Extremities: No clubbing, No cyanosis, No edema, Normal pulses, No tenderness/swelling Skin: No rashes, No breakdown, No significant lesion Neuro: Alert, Oriented X3, Cooperative, Normal speech, Strength at 5/5 X4 ext, Normal tone, Sensation intact, Psych/Mental Status: Mental status NL, Mood NL Labs/Diagnostic Data Labs/Diagnostic Data Laboratory Tests Test 04/18/24 15:48 04/18/24 13:05 04/18/24 09:30 04/18/24 03:41 Range/Units Reticulocyte Count (auto) 0.24 L 0.5-1.5 % Uric Acid < 0.5 L 3.7-9.2 mg/dL Lactate Dehydrogenase 182 120-246 U/L White Blood Count 0.7 *L 4.4-10.8 10^3/uL Red Blood Count 3.27 L 4.5-5.90 10^6/uL Hemoglobin 11.0 L 13.5-17.5 g/dL Hematocrit 32.4 #L 41.0-53.0 % Mean Corpuscular Volume 99.1 # 80.0-100.0 fL Mean Corpuscular Hemoglobin 33.6 H 28.0-32.0 pg Mean Corpuscular Hemoglobin Concent 33.9 32.0-36.0 g/dL Red Cell Distribution Width 14.9 H 11.8-14.3 % Platelet Count 16 *L 140-450 10^3/uL Mean Platelet Volume 8.8 6.9-10.8 fL Neutrophils (%) (Auto) 23.9 L 37.0-80.0 % Lymphocytes (%) (Auto) 72.6 H 10.0-50.0 % Monocytes (%) (Auto) 3.2 0.0-12.0 % Eosinophils (%) (Auto) 0.2 0.0-7.0 % Basophils (%) (Auto) 0.1 0.0-2.0 % Neutrophils # (Auto) 0.2 L 1.6-8.6 10 ^3/uL Lymphocytes # (Auto) 0.5 0.4-5.4 10 ^3/uL Monocytes # (Auto) 0 0-1.3 10 ^3/uL Eosinophils # (Auto) 0 0-0.8 10 ^3/uL Basophils # (Auto) 0 0-0.2 10 ^3/uL Nucleated Red Blood Cells 0.3 % Platelet Estimate Markedly decreased Prothrombin Time 11.5 9.3-11.8 sec Prothrombin Time INR 1.09 0.9-1.15 Activated Partial Thromboplast Time 28.8 24.5-34.5 SEC Sodium Level 148 H 136-145 mmol/L Potassium Level 4.1 3.5-5.1 mmol/L Chloride Level 119 H 98-107 mmol/L Carbon Dioxide Level 18 L 20-31 mmol/L Anion Gap 11 5-15 Blood Urea Nitrogen 70 H 9-23 mg/dL Creatinine 1.91 H 0.700-1.30 mg/dL Glomerular Filtration Rate Calc 40 >90 mL/min BUN/Creatinine Ratio 36.6 H 10.0-20.0 Serum Glucose 151 H 74-106 mg/dL Hemoglobin A1c 5.0 <5.7 % A1C Calcium Level 9.9 8.7-10.4 mg/dL Total Bilirubin 0.6 0.2-1.0 mg/dL Aspartate Amino Transferase (AST) 14 13-40 U/L Alanine Aminotransferase (ALT) 26 7-40 U/L Alkaline Phosphatase 28 L 46-116 U/L B-Type Natriuretic Peptide 33.67 0-100 pg/mL Total Protein 6.7 5.7-8.2 g/dL Albumin 3.9 3.2-4.8 g/dL Vitamin B12 Level 494 211-911 pg/mL Vitamin D 25-Hydroxy 157.2 H 30.0-100 ng/mL Thyroid Stimulating Hormone (TSH) 0.20 L 0.55-4.78 uIU/mL Free Thyroxine (T4) Calculated 1.12 0.89-1.76 ng/dL Free Triiodothyronine (T3) pg/mL 2.24 L 2.3-4.2 pg/mL HIV (1&2) Antibody Negative Negative Test 04/18/24 01:49 04/17/24 22:16 04/17/24 22:06 04/17/24 20:50 Range/Units POC Glucose 148 H 70-106 mg/dl Urine Color Light-yellow Yellow Urine Clarity Clear Clear Urine pH 5.0 5.0-9.0 Urine Specific [place] 1.015 1.001-1.035 Urine Protein Trace H Negative Urine Ketones Trace Negative Urine Blood Negative Negative /uL Urine Nitrite Negative Negative Urine Bilirubin Negative Negative Urine Urobilinogen Normal Negative mg/dL Urine Leukocyte Esterase Negative Negative /uL Urine RBC 1 0 - 3 /hpf Urine WBC 1 0 - 3 /hpf Urine Squamous Epithelial Cells Few <5 /hpf Urine Bacteria Few H None Seen /hpf Urine Glucose 1+ H Normal mg/dL Lactic Acid Level 3.3 *H 0.4-2.0 mmol/L White Blood Count 0.9 *L 4.4-10.8 10^3/uL Red Blood Count 3.64 L 4.5-5.90 10^6/uL Hemoglobin 12.1 L 13.5-17.5 g/dL Hematocrit 37.6 L 41.0-53.0 % Mean Corpuscular Volume 103.3 H 80.0-100.0 fL Mean Corpuscular Hemoglobin 33.3 H 28.0-32.0 pg Mean Corpuscular Hemoglobin Concent 32.2 32.0-36.0 g/dL Red Cell Distribution Width 15.3 H 11.8-14.3 % Platelet Count 19 *L 140-450 10^3/uL Mean Platelet Volume 8.8 6.9-10.8 fL Neutrophils (%) (Auto) 31.1 L 37.0-80.0 % Lymphocytes (%) (Auto) 65.1 H 10.0-50.0 % Monocytes (%) (Auto) 3.1 0.0-12.0 % Eosinophils (%) (Auto) 0.6 0.0-7.0 % Basophils (%) (Auto) 0.1 0.0-2.0 % Neutrophils # (Auto) 0.3 L 1.6-8.6 10 ^3/uL Lymphocytes # (Auto) 0.6 0.4-5.4 10 ^3/uL Monocytes # (Auto) 0 0-1.3 10 ^3/uL Eosinophils # (Auto) 0 0-0.8 10 ^3/uL Basophils # (Auto) 0 0-0.2 10 ^3/uL Nucleated Red Blood Cells 1.8 % Platelet Estimate Markedly decreased Macrocytosis Slight B-Type Natriuretic Peptide 32.44 0-100 pg/mL Test 04/17/24 19:53 Range/Units Sodium Level 146 H 136-145 mmol/L Potassium Level 5.4 H 3.5-5.1 mmol/L Chloride Level 120 H 98-107 mmol/L Carbon Dioxide Level 16 L 20-31 mmol/L Anion Gap 10 5-15 Blood Urea Nitrogen 62 H 9-23 mg/dL Creatinine 2.12 H 0.700-1.30 mg/dL Glomerular Filtration Rate Calc 35 >90 mL/min BUN/Creatinine Ratio 29.2 H 10.0-20.0 Serum Glucose 170 H 74-106 mg/dL Lactic Acid Level 3.2 *H 0.4-2.0 mmol/L Calcium Level 10.4 8.7-10.4 mg/dL Total Bilirubin 0.7 0.2-1.0 mg/dL Aspartate Amino Transferase (AST) 18 13-40 U/L Alanine Aminotransferase (ALT) 30 7-40 U/L Alkaline Phosphatase 32 L 46-116 U/L Total Protein 7.2 5.7-8.2 g/dL Albumin 4.1 3.2-4.8 g/dL Assessment Sepsis due to unspecified organism 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 Hematology consult. Started on Neupogen. Daily lab monitoring; electrolyte replacement prn. Strict I&O. Avoid nephrotoxic medication Given 1 L IV bolus normal saline followed by IV 1/2 normal saline at 75 mL/hour. IV antibiotics with Vancomycin and Cefepime. F/u urine and blood cultures. Fluconazole IV. Clindamycin. Patient refused Majic Mouthwash. Protonix 40 mg IV daily. Pain management prn. Additional plan as per the hospital course. Plan discussed with: Patient, Other (RN) ADRIANA ZEPEDA DO Apr 18, 2024 20:23
[2024-04-18] MEDS: methylPREDNISolone SOD SUCC 125 MG/2 ML VL IV SCH (21:47)
[2024-04-18] MEDS ORDERED: VANCOMYCIN 2,000 MG in D5W 5% 500 ML IV ONE (23:30)
[2024-04-19] VITALS (10 sets, daily range): BP systolic 132–159; BP diastolic 61–88; PULSE 78–112; RESP 16–20; TEMP 97.4–98.9; O2SAT 92–98
--- NOTE | 2024-04-19 04:52 | DVH ---
CHEST RADIOGRAPH Indication:dyspnea Technique: Single frontal view of the chest was obtained COMPARISON: XY CHEST PORTABLE on DOS: 04/17/24 FINDINGS: Lines and Tubes: None Lungs: Mild congestion Pleura: No effusion. No pneumothorax. Cardiomediastinal contours: Unremarkable Bones: Unremarkable IMPRESSION: Mild congestion, unchanged
[2024-04-19 05:42] LABS: Basophils # (auto) 0 10 ^3/uL (0-0.2); Eosinophils # (auto) 0 10 ^3/uL (0-0.8); Lymphocytes # (auto) 0.3 10 ^3/uL (0.4-5.4); Monocytes # (auto) 0 10 ^3/uL (0-1.3); Neutrophils # (auto) 0 10 ^3/uL (1.6-8.6)
[2024-04-19 05:47] LABS: Eosinophils % (auto) 1.5 % (0.0-7.0); Hematocrit 30.4 % (41.0-53.0); Hemoglobin 10.2 g/dL (13.5-17.5); Mean Corpuscular Hemoglobin 33.4 pg (28.0-32.0); Mean Corpuscular Hgb Conc. 33.7 g/dL (32.0-36.0); Monocytes % (auto) 4.4 % (0.0-12.0); Neutrophils % (auto) 4.2 % (37.0-80.0); Red Blood Cells 3.07 10^6/uL (4.5-5.90); Red Cell Distribution Width 15.2 % (11.8-14.3)
[2024-04-19 05:59] LABS: Lymphocytes % (auto) 89.9 % (10.0-50.0)
[2024-04-19 06:02] LABS: Platelet Count (auto) 5 10^3/uL (140-450); White Blood Cell 0.3 10^3/uL (4.4-10.8)
[2024-04-19 06:04] LABS: Alanine Aminotransferase 22 U/L (7-40); Albumin 3.6 g/dL (3.2-4.8); Alkaline Phosphatase 23 U/L (46-116); Anion Gap 10 (5-15); Aspartate Aminotransferase 12 U/L (13-40); BUN/Creatinine Ratio 43.4 (10.0-20.0); Blood Urea Nitrogen 76 mg/dL (9-23); Calcium 9.1 mg/dL (8.7-10.4); Carbon Dioxide 19 mmol/L (20-31); Chloride 118 mmol/L (98-107); Glucose 234 mg/dL (74-106); Potassium 4.4 mmol/L (3.5-5.1); Sodium 147 mmol/L (136-145)
[2024-04-19 06:05] LABS: Bilirubin, Total 0.6 mg/dL (0.2-1.0); Total Protein 6.3 g/dL (5.7-8.2)
[2024-04-19 06:28] LABS: Platelet Estimate Markedly Decreased
[2024-04-19 06:30] LABS: Ovalocytes FEW
[2024-04-19 08:07] LABS: Complement C3 132 mg/dL (82-167)
[2024-04-19] MEDS: PANTOPRAZOLE 40 MG/10 ML VIAL INJ IV SCH (08:48)
[2024-04-19] MEDS: FOLIC ACID 1 MG in D5W 5% 50 ML INJ SCH (08:50)
[2024-04-19 09:07] LABS: Anti-Nuclear Antibody Direct Negative (Negative)
[2024-04-19] MEDS: FLUCONAZOLE 200MG/100ML 100 ML IV SCH (09:21)
--- NOTE | 2024-04-19 10:20 | DVHPN2 ---
Progress Note - Dictate Date Seen: Apr 19, 2024 Has the PT tested + for MRSA If YES, has PT been informed?: Yes Medical Necessity Reason Pt with a Central, PICC or Fol: No Subjective Patient has a significant soreness in the mouth.But he feels that he is getting slightly better. He does complain of pains in the legs from the neuropathy vital signs Vital Sign Date Time Temp Pulse Resp B/P (MAP) Pulse Ox O2 Delivery O2 Flow Rate FiO2 04/19/24 08:32 98.9 103 20 152/65 (94) 97 98.9 04/18/24 20:00 Room Air* 0 21 Total Intake and Output 04/18/24 04/18/24 04/19/24 15:00 23:00 07:00 Intake Total 625 ml 100 ml Output Total 200 ml 900 ml 800 ml Balance -200 ml -275 ml -700 ml medications Current Medications Medications Dose Ordered Sig/Cedric Route Start Time Stop Time Status Last Admin Dose Admin Al Hydrox/Mg Hydrox/Simethicone 5 ml QID MT 04/17/24 22:00 04/19/24 06:14 5 ML Acetaminophen/ Hydrocodone Bitart 1 tab Q4HP PRN PO 04/17/24 23:00 04/18/24 10:23 1 TAB Ondansetron HCl 4 mg Q4HP PRN IV 04/17/24 23:00 04/18/24 00:32 4 MG Morphine Sulfate 2 mg Q4HPRN PRN IV 04/17/24 23:00 04/19/24 06:07 2 MG Nitroglycerin 0.4 mg Q5MINP PRN SL 04/17/24 23:00 Morphine Sulfate 2 mg Q30M PRN IV 04/17/24 23:00 Vancomycin HCl 0 ml @ 0 mls/hr UD IV 04/17/24 23:15 Cefepime HCl 50 ml @ 12.5 mls/hr Q12HR IV 04/18/24 10:00 04/18/24 22:03 12.5 MLS/HR Sodium Chloride 1,000 ml @ 75 mls/hr [id number] IV 04/18/24 02:15 04/19/24 04:55 75 MLS/HR Acetaminophen 650 mg Q4HP PRN PO 04/18/24 04:00 04/18/24 04:08 650 MG Clindamycin Phosphate 50 ml @ 50 mls/hr Q8HR IV 04/18/24 14:00 04/19/24 06:09 50 MLS/HR Tbo-Filgrastim 480 mcg DAILY SC 04/18/24 10:00 04/19/24 08:48 480 MCG Vancomycin HCl 500 mg/Dextrose 100 ml @ 200 mls/hr Q12H IV 04/18/24 09:45 04/18/24 21:49 200 MLS/HR Fluconazole 100 ml @ 100 mls/hr DAILY IV 04/19/24 10:00 04/19/24 09:21 100 MLS/HR Folic Acid 1 mg/ Dextrose 50.2 ml @ 200.8 mls/ hr DAILY INJ 04/19/24 10:00 04/19/24 08:50 200.8 MLS/HR Methylprednisolone Sodium Succinate 80 mg BID IV 04/18/24 22:00 04/23/24 21:59 04/19/24 08:48 80 MG Pantoprazole Sodium 40 mg DAILY IV 04/19/24 10:00 04/19/24 08:48 40 MG objective HEAD AND NECK: Unremarkable. No neck nodes or masses.Moderate to severe mucositis Conjunctiva: Unremarkable. No mucosal hemorrhage. CHEST: Chest wall, no tenderness. LUNGS: Clear. CARDIOVASCULAR: Regular sinus rhythm. No murmurs or gallops. ABDOMEN: No organomegaly, tenderness or ascites. Bowel sounds present. LYMPHATICS: No significant lymphadenopathy. SKIN:Right groin shows ulceration of the skin Psych: No abnormalities Available data reviewed laboratory and microbiology Laboratory Tests 04/19/24 05:15 Test 04/19/24 05:15 Range/Units Serum Glucose 234 H 74-106 mg/dL Assessment/Plan 1. Pancytopenia more likely secondary to methotrexate / mycophenolate And the patient is symptomatic with severe mucositis.[The patient is on chronic Taxol and methotrexate for gout and given by Dr. Bernabe Goldman] The patient does give a history of vaccination with COVID-19 couple of weeks back CT of the abdomen pelvis showed distended bladder with moderate bilateral hydronephrosis concerning for bladder outlet obstruction and the liver spleen appears unremarkable 04/19/2024: White count 0.3 hemoglobin 10.2 platelets 5000 confirmed on the blood smear. Haptoglobin 337. Reticulocyte count 0.24. Direct Thomas is negative 2. Bilateral hydronephrosis 3. Diabetes 4. Hypertension 5. Hyperlipidemia 6. High lactic acid could indicate sepsis 7. CKD 8. Bladder outlet obstruction Plan: Continue folic acid IV Solu-Medrol Mouthwash Pain control Follow the CBC daily and try to keep the platelets over 15,000 and hemoglobin over 7 Continue the Neupogen Dietary Evaluation Review Comments: When medically feasible, advance diet to 2gNa CCHO-60 with renal specific-60g protein, 3K, low phos diet Expected Outcomes/Goals: gradual weight loss. controlled DM. Plan discussed with: Patient KOBE LEMUS MD Apr 19, 2024 10:20
[2024-04-19] MEDS: VANCOMYCIN 500 MG in D5W 5% 100 ML IV SCH (12:37)
[2024-04-19] MEDS ORDERED: DEXTROSE (50%) 50ML SYRG IV PRN (17:00)
[2024-04-19] MEDS: InsuLIN REG 1unit/0.01ml Soln (100units/ml) SC SCH (17:24)
[2024-04-19] MEDS: ACCU-CHEK COMFORT CURVE STRIP VI SCH (17:24)
[2024-04-19] MEDS: NYSTATIN (MOUTH-THROAT) 500,000 UNITS/5 ML SUSP MT SCH (17:25)
--- NOTE | 2024-04-19 17:51 | DVHPNRES ---
Progress Note Date Seen: Apr 19, 2024 Resident Creating Document: RUBIO BARCLAY RESIDENT Has the PT tested + for MRSA If YES, has PT been informed?: Yes Medical Necessity Reason Pt with a Central, PICC or Fol: No Subjective Review of Systems A 59 years old with PMHX type 2 diabetes mellitus, hypertension, hyperlipidemia, peripheral neuropathy, congestive heart failure, CKD stage IV , GERD, gout, obesity, anxiety and depression. He says he has been taking methotrexate and mycophenolate, The reason is not very clear and the patient thinks that he is getting this medication for gout and follows with his injector assembler Dr. Bernabe Goldman. He says he takes 4 methotrexate pills once a week for the last couple of years The patient is admitted with severe mucositis and ulceration in the groin on the right side. He has difficulty speaking and swallowing.Mild fevers He is found to be pancytopenic with a white count of 700 hemoglobin 11 platelets are 16,000. Confirmed on the blood smear. No bleeding Lactic acid is 3.3 BUN 70 creatinine 1.9, albumin 3.9 total protein 6.7 B12 494 TSH 0.2 Free T41.12 Alkaline phosphatase 28. AST 14 ALT 26 uric acid 5.9. PT/INR 1.09 PTT 28.8 and D-dimer 2.34 HIV 1 and 2 is negative He has been given antibiotics and the Magic mouthwash and pain medications Today platelets 5000: ordered 1 unit of platelets Objective vital signs Vital Sign Date Time Temp Pulse Resp B/P (MAP) Pulse Ox O2 Delivery O2 Flow Rate FiO2 04/19/24 17:00 98.8 97 20 148/61 (90) 97 98.8 04/19/24 08:00 Room Air* 0 21 Total Intake and Output 04/18/24 04/18/24 04/19/24 15:00 23:00 07:00 Intake Total 625 ml 100 ml Output Total 200 ml 900 ml 800 ml Balance -200 ml -275 ml -700 ml medications Current Medications Medications Dose Ordered Sig/Cedric Route Start Time Stop Time Status Last Admin Dose Admin Al Hydrox/Mg Hydrox/Simethicone 5 ml QID MT 04/17/24 22:00 04/19/24 17:27 5 ML Acetaminophen/ Hydrocodone Bitart 1 tab Q4HP PRN PO 04/17/24 23:00 04/18/24 10:23 1 TAB Ondansetron HCl 4 mg Q4HP PRN IV 04/17/24 23:00 04/18/24 00:32 4 MG Morphine Sulfate 2 mg Q4HPRN PRN IV 04/17/24 23:00 04/19/24 15:11 2 MG Nitroglycerin 0.4 mg Q5MINP PRN SL 04/17/24 23:00 Morphine Sulfate 2 mg Q30M PRN IV 04/17/24 23:00 Vancomycin HCl 0 ml @ 0 mls/hr UD IV 04/17/24 23:15 Cefepime HCl 50 ml @ 12.5 mls/hr Q12HR IV 04/18/24 10:00 04/19/24 13:59 12.5 MLS/HR Sodium Chloride 1,000 ml @ 75 mls/hr [id number] IV 04/18/24 02:15 04/19/24 04:55 75 MLS/HR Acetaminophen 650 mg Q4HP PRN PO 04/18/24 04:00 04/18/24 04:08 650 MG Tbo-Filgrastim 480 mcg DAILY SC 04/18/24 10:00 04/19/24 08:48 480 MCG Fluconazole 100 ml @ 100 mls/hr DAILY IV 04/19/24 10:00 04/19/24 09:21 100 MLS/HR Folic Acid 1 mg/ Dextrose 50.2 ml @ 200.8 mls/ hr DAILY INJ 04/19/24 10:00 04/19/24 08:50 200.8 MLS/HR Methylprednisolone Sodium Succinate 80 mg BID IV 04/18/24 22:00 04/23/24 21:59 04/19/24 08:48 80 MG Pantoprazole Sodium 40 mg DAILY IV 04/19/24 10:00 04/19/24 08:48 40 MG Vancomycin HCl 500 mg/Dextrose 100 ml @ 200 mls/hr Q8H IV 04/19/24 12:00 04/19/24 12:37 200 MLS/HR Nystatin 5 ml QID MT 04/19/24 18:00 04/19/24 17:25 5 ML Enteral Nutritional Formula 240 ml TIDWM PO 04/19/24 18:00 Diagnostic Test (Pha) 1 strip ACHS 04/19/24 17:00 04/19/24 17:24 1 STRIP Insulin Human Regular ACHS SC 04/19/24 17:00 04/19/24 17:24 6 UNITS Dextrose 50 ml UD PRN IV 04/19/24 17:00 Examination GENERAL: alert and oriented. Obese who has moderate mucositis HEAD AND NECK: Unremarkable. No neck nodes or masses. Conjunctivae: pale, Unremarkable for any mucosal hemorrhage or inflammation. CHEST: Chest wall, no tenderness. LUNGS: Clear. CARDIOVASCULAR: Regular sinus rhythm. No murmurs or gallops. ABDOMEN: No organomegaly, tenderness or ascites. Bowel sounds present. EXTREMITIES:. In the right groin fold he has Ulcerated skin LYMPHATICS: No significant lymphadenopathy. NEUROLOGIC: No focal neurological deficits. SKIN: multiple sores in the legs laboratory and microbiology Laboratory Tests 04/19/24 05:15 Test 04/19/24 05:15 Range/Units Serum Glucose 234 H 74-106 mg/dL Microbiology Date/Time Source Procedure Growth Status 04/17/24 23:27 Blood Blood Culture - Preliminary NO GROWTH AFTER 24 HOURS OF INCUBATION. Resulted 04/17/24 22:16 Voided Urine Urine Culture - Preliminary Resulted Problem List/Assessment/Plan Problem List/Assessment/Plan HEME/ONC: #Immunodeficiency: leukopenia possible due to use of MTX or mycophenolate Continue filgastrim and solu medrol per Dr Ivory: wbc trending down Pt is on cefepime/vancomycin HIV negative #Thrombocytopenia due to above trending down 1 unit of platelets #Anemia due to above and CKD CARDIOLOGY: normal auscultation normal BNP No chest pain, SOB at rest X ray no pulmonary edema #Essential hypertension Due to sepsis and soft BPs hold on medication RESPIRATORY: No distress at the moment normal x ray GI: #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 due to obesity No bleeding Liquid stool today No abdominal pain CT scan normal Normal liver function, normal coagulation Albumin 3.9 /RENAL #Sepsis due to infected intertrigo in the right groin and scrotal No septic shock at the moment Right now, the infection is superficial but can progress to jessica gangrene due to immunodeficiency state Patient is on cefepime/vancomycin/clindamyicin wound culture ordered wound consult #Bilateral hydronephrosis without evidence of ureteral stones. #KYLEE on CKD Stage IV Nephology on board: Dr Bernabe Goldman No urinary retention at this moment, patient refused villarreal: voiding few times Urology consult ENDOCRINOLOGY #Hyperkalemia resolved due to CKD #DM type 2 in remission HBA1C 5.0 #Obesity Patient was on mounjaro back in home #Euthyroid sick syndrome TSH 0.2 free t4 1.12 Free t3 2.24 RHEUMATOLOGY AND SKIN #Mucositis Secondary to immunodeficiency Magic wash mouth and nystatin #Sepsis due to infected intertrigo in the right groin and scrotal describe above #Gout Pt was receiving MTX, mycophenolate, Krystexxa, colchicine for gout ? Due to possible adverse reaction and sepsis hold on medications No acute flare ups Uric acid less than 0.[address] CRITICAL CARE TIME 66 MINS Plan discussed with: Patient, Other (rn) My Orders My Orders Orders - RUBIO BARCLAY RESIDENT Procedure Category Date Status Time Chest Xray 1 View XY 04/19/24 Resulted 04:00 Pantoprazole PHA 04/19/24 In Process (Protonix) 10:00 Dietary Evaluation Review Comments: When medically feasible, advance diet to 2gNa CCHO-60 with renal specific-60g protein, 3K, low phos diet Expected Outcomes/Goals: gradual weight loss. controlled DM. Date of Service: Apr 19, 2024 Billing Provider: KIARA STREET MD Common Visit Codes: 24405-[id number] CARE 30-74 MIN RUBIO BARCLAY Apr 19, 2024 17:[address] MD Apr 20, 2024 09:27
[2024-04-19] MEDS ORDERED: Glucerna Carbsteady SHAKE Vanilla 8oz PO SCH (18:00)
[2024-04-19] MEDS: ENSURE CLEAR Mixed Berry 8oz Carton PO SCH (18:02)
--- NOTE | 2024-04-19 21:35 | DVHPN2 ---
Progress Note - Dictate Date Seen: Apr 19, 2024 Has the PT tested + for MRSA If YES, has PT been informed?: Yes Medical Necessity Reason Pt with a Central, PICC or Fol: No Subjective Patient seen and evaluated in follow up. No acute events overnight. Patient states he feels slightly better. Continues with soreness of his mouth. Patient complains of pain in the legs from neuropathy. Received 1 unit Platelets for platelet count of 5. Na 147. Creatinine 1.75 with BUN of 76. eGFR 45. CO2 19. Glucose 234. F/u Chest x-ray today shows mild congestion, unchanged. vital signs Vital Sign Date Time Temp Pulse Resp B/P (MAP) Pulse Ox O2 Delivery O2 Flow Rate FiO2 04/19/24 21:00 97.8 96 16 135/77 (96) 96 97.8 04/19/24 08:00 Room Air* 0 21 Total Intake and Output 04/18/24 04/18/24 04/19/24 15:00 23:00 07:00 Intake Total 625 ml 100 ml Output Total 200 ml 900 ml 800 ml Balance -200 ml -275 ml -700 ml medications Current Medications Medications Dose Ordered Sig/Cedric Route Start Time Stop Time Status Last Admin Dose Admin Al Hydrox/Mg Hydrox/Simethicone 5 ml QID MT 04/17/24 22:00 04/19/24 17:27 5 ML Acetaminophen/ Hydrocodone Bitart 1 tab Q4HP PRN PO 04/17/24 23:00 04/18/24 10:23 1 TAB Ondansetron HCl 4 mg Q4HP PRN IV 04/17/24 23:00 04/18/24 00:32 4 MG Morphine Sulfate 2 mg Q4HPRN PRN IV 04/17/24 23:00 04/19/24 15:11 2 MG Nitroglycerin 0.4 mg Q5MINP PRN SL 04/17/24 23:00 Morphine Sulfate 2 mg Q30M PRN IV 04/17/24 23:00 Vancomycin HCl 0 ml @ 0 mls/hr UD IV 04/17/24 23:15 Cefepime HCl 50 ml @ 12.5 mls/hr Q12HR IV 04/18/24 10:00 04/19/24 13:59 12.5 MLS/HR Sodium Chloride 1,000 ml @ 75 mls/hr [id number] IV 04/18/24 02:15 04/19/24 04:55 75 MLS/HR Acetaminophen 650 mg Q4HP PRN PO 04/18/24 04:00 04/18/24 04:08 650 MG Tbo-Filgrastim 480 mcg DAILY SC 04/18/24 10:00 04/19/24 08:48 480 MCG Fluconazole 100 ml @ 100 mls/hr DAILY IV 04/19/24 10:00 04/19/24 09:21 100 MLS/HR Folic Acid 1 mg/ Dextrose 50.2 ml @ 200.8 mls/ hr DAILY INJ 04/19/24 10:00 04/19/24 08:50 200.8 MLS/HR Methylprednisolone Sodium Succinate 80 mg BID IV 04/18/24 22:00 04/23/24 21:59 04/19/24 08:48 80 MG Pantoprazole Sodium 40 mg DAILY IV 04/19/24 10:00 04/19/24 08:48 40 MG Vancomycin HCl 500 mg/Dextrose 100 ml @ 200 mls/hr Q8H IV 04/19/24 12:00 04/19/24 12:37 200 MLS/HR Nystatin 5 ml QID MT 04/19/24 18:00 04/19/24 17:25 5 ML Enteral Nutritional Formula 240 ml TIDWM PO 04/19/24 18:00 04/19/24 18:02 240 ML Diagnostic Test (Pha) 1 strip ACHS 04/19/24 17:00 04/19/24 17:24 1 STRIP Insulin Human Regular ACHS SC 04/19/24 17:00 04/19/24 17:24 6 UNITS Dextrose 50 ml UD PRN IV 04/19/24 17:00 objective Vitals and nursing notes reviewed. General Appearance: In no acute distress. HEENT: Atraumatic, PERRLA, EOMI, Mucous membrane moist/pink. Swelling and soreness in the lip. Respiratory: Clear to auscultation, Normal air movement Cardiovascular: Regular rate, Normal S1, Normal S2, No murmurs, no chest wall tenderness Abdominal: Stage 2 wound in the rt lower abdomen beneath the skin fold, rt groin, Normal bowel sounds, Soft, No tenderness, No hepatospenomegaly, No masses Extremities: No clubbing, No cyanosis, No edema, Normal pulses, No tenderness/swelling Skin: No rashes, No breakdown, No significant lesion Neuro: Alert, Oriented X3, Cooperative, Normal speech, Strength at 5/5 X4 ext, Normal tone, Sensation intact, Psych/Mental Status: Mental status NL, Mood NL laboratory and microbiology Laboratory Tests 04/19/24 05:15 Test 04/19/24 05:15 Range/Units Serum Glucose 234 H 74-106 mg/dL Problem List Sepsis due to unspecified organism 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 Hematology consulted. S/p 1 unit Platelets. Daily lab monitoring; electrolyte replacement prn. Avoid nephrotoxic medication IVFs with NS at 75 mL/hr. Strict I&O. IV antibiotics with Vancomycin and Cefepime. Fluconazole. Majic Mouthwash. Protonix 40 mg IV daily. Pain management as needed. Additional plan as per the hospital course. Dietary Evaluation Review Comments: When medically feasible, advance diet to 2gNa CCHO-60 with renal specific-60g protein, 3K, low phos diet Expected Outcomes/Goals: gradual weight loss. controlled DM. Plan discussed with: Patient, Other (RN) ADRIANA ZEPEDA DO Apr 19, 2024 21:35
[2024-04-20] VITALS (8 sets, daily range): BP systolic 107–168; BP diastolic 46–94; PULSE 71–100; RESP 16–19; TEMP 97.5–99; O2SAT 94–99
[2024-04-20 05:05] LABS: Basophils # (auto) 0 10 ^3/uL (0-0.2); Eosinophils # (auto) 0 10 ^3/uL (0-0.8); Lymphocytes # (auto) 0.4 10 ^3/uL (0.4-5.4); Monocytes # (auto) 0 10 ^3/uL (0-1.3); Neutrophils # (auto) 0 10 ^3/uL (1.6-8.6); Nucleated Red Blood Cells % 0.4 %; Platelet Count (auto) 24 10^3/uL (140-450)
[2024-04-20 05:07] LABS: Eosinophils % (auto) 0.4 % (0.0-7.0); Hematocrit 29.3 % (41.0-53.0); Hemoglobin 9.6 g/dL (13.5-17.5); Mean Corpuscular Hemoglobin 32.4 pg (28.0-32.0); Mean Corpuscular Hgb Conc. 32.7 g/dL (32.0-36.0); Mean Corpuscular Volume 99.2 fL (80.0-100.0); Monocytes % (auto) 1.9 % (0.0-12.0); Neutrophils % (auto) 0.8 % (37.0-80.0); Red Blood Cells 2.95 10^6/uL (4.5-5.90)
[2024-04-20 05:10] LABS: Lymphocytes % (auto) 96.9 % (10.0-50.0)
[2024-04-20 05:12] LABS: White Blood Cell 0.5 10^3/uL (4.4-10.8)
[2024-04-20 05:23] LABS: Alanine Aminotransferase 18 U/L (7-40); Albumin 3.7 g/dL (3.2-4.8); Alkaline Phosphatase 22 U/L (46-116); Anion Gap 8 (5-15); Aspartate Aminotransferase 9 U/L (13-40); BUN/Creatinine Ratio 41.8 (10.0-20.0); Bilirubin, Total 0.5 mg/dL (0.2-1.0); Calcium 9.1 mg/dL (8.7-10.4); Carbon Dioxide 20 mmol/L (20-31); Chloride 116 mmol/L (98-107); Glucose 244 mg/dL (74-106); Potassium 4.3 mmol/L (3.5-5.1); Sodium 144 mmol/L (136-145); Total Protein 6.2 g/dL (5.7-8.2)
[2024-04-20 05:41] LABS: Blood Urea Nitrogen 81 mg/dL (9-23)
[2024-04-20 09:21] LABS: Hepatitis B Core Total AB Negative (Negative)
[2024-04-20] MEDS ORDERED: OXYC325T14 PO (09:33)
[2024-04-20] MEDS ORDERED: TRAZ-227 PO (09:33)
[2024-04-20] MEDS ORDERED: ZOLP5TAB5 PO (09:33)
[2024-04-20] MEDS ORDERED: METH2.5T PO (09:33)
--- NOTE | 2024-04-20 11:02 | DVHPN2 ---
Progress Note - Dictate Date Seen: Apr 20, 2024 Has the PT tested + for MRSA If YES, has PT been informed?: Yes Medical Necessity Reason Pt with a Central, PICC or Fol: No Subjective Patient feels that the soreness in the mouth is getting better. He is able to swallow little better. He does complain of pains in the legs from the neuropathy vital signs Vital Sign Date Time Temp Pulse Resp B/P (MAP) Pulse Ox O2 Delivery O2 Flow Rate FiO2 04/20/24 09:05 80 18 136/76 04/20/24 08:44 97.6 98 97.6 04/20/24 08:00 Room Air* 0 21 Total Intake and Output 04/19/24 04/19/24 04/20/24 15:00 23:00 07:00 Intake Total 870 ml 960 ml 1123 ml Output Total 700 ml 550 ml Balance 870 ml 260 ml 573 ml medications Current Medications Medications Dose Ordered Sig/Cedric Route Start Time Stop Time Status Last Admin Dose Admin Al Hydrox/Mg Hydrox/Simethicone 5 ml QID MT 04/17/24 22:00 04/20/24 05:18 5 ML Acetaminophen/ Hydrocodone Bitart 1 tab Q4HP PRN PO 04/17/24 23:00 04/18/24 10:23 1 TAB Ondansetron HCl 4 mg Q4HP PRN IV 04/17/24 23:00 04/18/24 00:32 4 MG Morphine Sulfate 2 mg Q4HPRN PRN IV 04/17/24 23:00 04/20/24 06:36 2 MG Nitroglycerin 0.4 mg Q5MINP PRN SL 04/17/24 23:00 Morphine Sulfate 2 mg Q30M PRN IV 04/17/24 23:00 Vancomycin HCl 0 ml @ 0 mls/hr UD IV 04/17/24 23:15 Cefepime HCl 50 ml @ 12.5 mls/hr Q12HR IV 04/18/24 10:00 04/20/24 00:00 12.5 MLS/HR Sodium Chloride 1,000 ml @ 75 mls/hr [id number] IV 04/18/24 02:15 04/20/24 06:28 75 MLS/HR Acetaminophen 650 mg Q4HP PRN PO 04/18/24 04:00 04/18/24 04:08 650 MG Tbo-Filgrastim 480 mcg DAILY SC 04/18/24 10:00 04/20/24 08:57 480 MCG Fluconazole 100 ml @ 100 mls/hr DAILY IV 04/19/24 10:00 04/20/24 09:35 100 MLS/HR Folic Acid 1 mg/ Dextrose 50.2 ml @ 200.8 mls/ hr DAILY INJ 04/19/24 10:00 04/20/24 08:49 200.8 MLS/HR Methylprednisolone Sodium Succinate 80 mg BID IV 04/18/24 22:00 04/23/24 21:59 04/20/24 08:56 80 MG Pantoprazole Sodium 40 mg DAILY IV 04/19/24 10:00 04/20/24 08:56 40 MG Vancomycin HCl 500 mg/Dextrose 100 ml @ 200 mls/hr Q8H IV 04/19/24 12:00 04/20/24 05:09 200 MLS/HR Nystatin 5 ml QID MT 04/19/24 18:00 04/20/24 05:18 5 ML Enteral Nutritional Formula 240 ml TIDWM PO 04/19/24 18:00 04/20/24 08:00 240 ML Diagnostic Test (Pha) 1 strip ACHS 04/19/24 17:00 04/20/24 05:14 1 STRIP Insulin Human Regular ACHS SC 04/19/24 17:00 04/20/24 06:24 6 UNITS Dextrose 50 ml UD PRN IV 04/19/24 17:00 objective HEAD AND NECK: Unremarkable. No neck nodes or masses.Moderate to severe mucositis Conjunctiva: Unremarkable. No mucosal hemorrhage. CHEST: Chest wall, no tenderness. LUNGS: Clear. CARDIOVASCULAR: Regular sinus rhythm. No murmurs or gallops. ABDOMEN: No organomegaly, tenderness or ascites. Bowel sounds present. LYMPHATICS: No significant lymphadenopathy. SKIN:Right groin shows ulceration of the skin Psych: No abnormalities Available data reviewed laboratory and microbiology Laboratory Tests 04/20/24 04:39 Test 04/20/24 04:39 Range/Units Serum Glucose 244 H 74-106 mg/dL Assessment/Plan 1. Pancytopenia more likely secondary to methotrexate / mycophenolate And the patient is symptomatic with severe mucositis.[The patient is on chronic Taxol and methotrexate for gout and given by Dr. Bernabe Goldman] The patient does give a history of vaccination with COVID-19 couple of weeks back[The last time the patient took the mycophenolate was December [address] Goldman. Before that his CBC was nearly normal CT of the abdomen pelvis showed distended bladder with moderate bilateral hydronephrosis concerning for bladder outlet obstruction and the liver spleen appears unremarkable 04/19/2024: White count 0.3 hemoglobin 10.2 platelets 5000 confirmed on the blood smear. Haptoglobin 337. Reticulocyte count 0.24. Direct Thomas is negative White count 0.5 hemoglobin 9.6 MCV 99.2 platelets 24,000 Blood cultures are negative 2. Bilateral hydronephrosis 3. Diabetes 4. Hypertension 5. Hyperlipidemia 6. High lactic acid could indicate sepsis 7. CKD 8. Bladder outlet obstruction Plan: Continue folic acid IV Solu-Medrol Mouthwash Pain control Follow the CBC daily and try to keep the platelets over 15,000 and hemoglobin over 7 Continue the Neupogen Dietary Evaluation Review Comments: When medically feasible, advance diet to 2gNa CCHO-60 with renal specific-60g protein, 3K, low phos diet Expected Outcomes/Goals: gradual weight loss. controlled DM. Plan discussed with: Patient KOBE LEMUS MD Apr 20, 2024 11:02
[2024-04-20 11:37] LABS: Hepatitis A Total Antibody Negative (Negative); Hepatitis B Surface Antibody Negative (Negative); Hepatitis B Surface Antigen Negative (Negative); Hepatitis C Antibody Negative (Negative)
[2024-04-20 15:07] LABS: CCP IgG/IgA Antibody 6 units (0-19)
[2024-04-20] MEDS: VANCOMYCIN 500 MG in D5W 5% 100 ML IV SCH (16:30)
[2024-04-20] MEDS: PANTOPRAZOLE 40 MG/10 ML VIAL INJ IV SCH (19:00)
--- NOTE | 2024-04-20 20:15 | DVHPNRES ---
Progress Note Date Seen: Apr 20, 2024 Resident Creating Document: RUBIO BARCLAY RESIDENT Has the PT tested + for MRSA If YES, has PT been informed?: Yes Medical Necessity Reason Pt with a Central, PICC or Fol: No Subjective Review of Systems A 59 years old with PMHX type 2 diabetes mellitus, hypertension, hyperlipidemia, peripheral neuropathy, congestive heart failure, CKD stage IV , GERD, gout, obesity, anxiety and depression. He says he has been taking methotrexate and mycophenolate, The reason is not very clear and the patient thinks that he is getting this medication for gout and follows with his radiological metallurgist Dr. Bernabe Goldman. He says he takes 4 methotrexate pills once a week for the last couple of years The patient is admitted with severe mucositis and ulceration in the groin on the right side. He has difficulty speaking and swallowing.Mild fevers He is found to be pancytopenic with a white count of 700 hemoglobin 11 platelets are 16,000. Confirmed on the blood smear. No bleeding Lactic acid is 3.3 BUN 70 creatinine 1.9, albumin 3.9 total protein 6.7 B12 494 TSH 0.2 Free T41.12 Alkaline phosphatase 28. AST 14 ALT 26 uric acid 5.9. PT/INR 1.09 PTT 28.8 and D-dimer 2.34 HIV 1 and 2 is negative He has been given antibiotics and the Magic mouthwash and pain medications 1 unit of platelets given Today GI bleeding: dark stools Objective vital signs Vital Sign Date Time Temp Pulse Resp B/P (MAP) Pulse Ox O2 Delivery O2 Flow Rate FiO2 04/20/24 18:12 100 18 146/83 04/20/24 17:00 99.0 94 99.0 04/20/24 08:00 Room Air* 0 21 Total Intake and Output 04/19/24 04/19/24 04/20/24 15:00 23:00 07:00 Intake Total 870 ml 960 ml 1123 ml Output Total 700 ml 550 ml Balance 870 ml 260 ml 573 ml medications Current Medications Medications Dose Ordered Sig/Cedric Route Start Time Stop Time Status Last Admin Dose Admin Al Hydrox/Mg Hydrox/Simethicone 5 ml QID MT 04/17/24 22:00 04/20/24 17:41 5 ML Acetaminophen/ Hydrocodone Bitart 1 tab Q4HP PRN PO 04/17/24 23:00 04/20/24 11:04 1 TAB Ondansetron HCl 4 mg Q4HP PRN IV 04/17/24 23:00 04/18/24 00:32 4 MG Morphine Sulfate 2 mg Q4HPRN PRN IV 04/17/24 23:00 04/20/24 17:42 2 MG Nitroglycerin 0.4 mg Q5MINP PRN SL 04/17/24 23:00 Morphine Sulfate 2 mg Q30M PRN IV 04/17/24 23:00 Vancomycin HCl 0 ml @ 0 mls/hr UD IV 04/17/24 23:15 Cefepime HCl 50 ml @ 12.5 mls/hr Q12HR IV 04/18/24 10:00 04/20/24 11:04 12.5 MLS/HR Sodium Chloride 1,000 ml @ 75 mls/hr [id number] IV 04/18/24 02:15 04/20/24 06:28 75 MLS/HR Acetaminophen 650 mg Q4HP PRN PO 04/18/24 04:00 04/18/24 04:08 650 MG Tbo-Filgrastim 480 mcg DAILY SC 04/18/24 10:00 04/20/24 08:57 480 MCG Folic Acid 1 mg/ Dextrose 50.2 ml @ 200.8 mls/ hr DAILY INJ 04/19/24 10:00 04/20/24 08:49 200.8 MLS/HR Methylprednisolone Sodium Succinate 80 mg BID IV 04/18/24 22:00 04/23/24 21:59 04/20/24 08:56 80 MG Nystatin 5 ml QID MT 04/19/24 18:00 04/20/24 05:18 5 ML Enteral Nutritional Formula 240 ml TIDWM PO 04/19/24 18:00 04/20/24 18:00 240 ML Diagnostic Test (Pha) 1 strip ACHS 04/19/24 17:00 04/20/24 16:40 1 STRIP Insulin Human Regular ACHS SC 04/19/24 17:00 04/20/24 16:43 8 UNITS Dextrose 50 ml UD PRN IV 04/19/24 17:00 Vancomycin HCl 500 mg/Dextrose 100 ml @ 200 mls/hr Q12H IV 04/20/24 16:00 04/20/24 16:30 200 MLS/HR Pantoprazole Sodium 40 mg BID IV 04/20/24 19:00 Examination GENERAL: alert and oriented. Obese who has moderate mucositis HEAD AND NECK: Unremarkable. No neck nodes or masses. Conjunctivae: pale, Unremarkable for any mucosal hemorrhage or inflammation. CHEST: Chest wall, no tenderness. LUNGS: Clear. CARDIOVASCULAR: Regular sinus rhythm. No murmurs or gallops. ABDOMEN: No organomegaly, tenderness or ascites. Bowel sounds present. EXTREMITIES:. In the right groin fold he has Ulcerated skin LYMPHATICS: No significant lymphadenopathy. NEUROLOGIC: No focal neurological deficits. SKIN: multiple sores in the legs laboratory and microbiology Laboratory Tests 04/20/24 04:39 Test 04/20/24 04:39 Range/Units Serum Glucose 244 H 74-106 mg/dL Microbiology Date/Time Source Procedure Growth Status 04/19/24 11:30 Groin Gram Stain - Final Resulted 04/19/24 11:30 Groin Wound Culture - Preliminary Resulted 04/17/24 23:27 Blood Blood Culture - Preliminary NO GROWTH AFTER 48 HOURS OF INCUBATION. Resulted 04/17/24 22:16 Voided Urine Urine Culture - Final Complete Problem List/Assessment/Plan Problem List/Assessment/Plan HEME/ONC: #Immunodeficiency: leukopenia possible due to use of MTX or mycophenolate Continue filgastrim and solu medrol per Dr Ivory Pt is on cefepime/vancomycin HIV negative #Thrombocytopenia due to above 1 unit of platelets 24 today #Anemia due to possible GI bleeding and above 9.2 CARDIOLOGY: normal auscultation normal BNP No chest pain, SOB at rest X ray no pulmonary edema #Essential hypertension Due to sepsis and soft BPs hold on medication RESPIRATORY: No distress at the moment normal x ray GI: #GI bleeding probably upper Dark stool today BUN 81 GI consulted Protonix BID /RENAL #Sepsis due to infected intertrigo in the right groin and scrotal No septic shock at the moment Right now, the infection is superficial but can progress to jessica gangrene due to immunodeficiency state Patient is on cefepime/vancomycin/clindamyicin wound culture enterococcus species wound consult #Bilateral hydronephrosis without evidence of ureteral stones. #KYLEE on CKD Stage IV Nephology on board: Dr Bernabe Goldman No urinary retention at this moment, patient refused villarreal: voiding few times Urology consult ENDOCRINOLOGY #Hyperkalemia resolved due to CKD #DM type 2 in remission HBA1C 5.0 #Obesity Patient was on mounjaro back in home #Euthyroid sick syndrome TSH 0.2 free t4 1.12 Free t3 2.24 RHEUMATOLOGY AND SKIN #Mucositis Secondary to immunodeficiency Magic wash mouth and nystatin #Sepsis due to infected intertrigo in the right groin and scrotal describe above #Gout Pt was receiving MTX, mycophenolate, Krystexxa, colchicine for gout ? Due to possible adverse reaction and sepsis hold on medications No acute flare ups Uric acid less than 0.[address] Russell CRITICAL CARE TIME 76 MINS Plan discussed with: Patient, Other (rn) My Orders My Orders Orders - RUBIO BARCLAY Procedure Category Date Status Time * Gi D[facility] Manager CONS 04/20/24 Transmitted 18:20 Stool Occult Blood LAB 04/20/24 Logged 18:23 Pantoprazole PHA 04/20/24 In Process (Protonix) 19:00 Complete Blood Count LAB 04/20/24 Logged 18:53 Dietary Evaluation Review Comments: When medically feasible, advance diet to 2gNa CCHO-60 with renal specific-60g protein, 3K, low phos diet Expected Outcomes/Goals: gradual weight loss. controlled DM. Date of Service: Apr 20, 2024 Billing Provider: VIOLETA RUSSELL MD Common Visit Codes: 54974-[id number] CARE 30-74 MIN RUBIO BARCLAY RESIDENT Apr 20, 2024 20:15 VIOLETA RUSSELL MD Apr 21, 2024 17:39
--- NOTE | 2024-04-20 20:18 | DVHPNRES ---
Progress Note Has the PT tested + for MRSA If YES, has PT been informed?: Yes Medical Necessity Reason Pt with a Central, PICC or Fol: No Objective vital signs Vital Sign Date Time Temp Pulse Resp B/P (MAP) Pulse Ox O2 Delivery O2 Flow Rate FiO2 04/20/24 18:12 100 18 146/83 04/20/24 17:00 99.0 94 99.0 04/20/24 08:00 Room Air* 0 21 Total Intake and Output 04/19/24 04/19/24 04/20/24 15:00 23:00 07:00 Intake Total 870 ml 960 ml 1123 ml Output Total 700 ml 550 ml Balance 870 ml 260 ml 573 ml medications Current Medications Medications Dose Ordered Sig/Cedric Route Start Time Stop Time Status Last Admin Dose Admin Al Hydrox/Mg Hydrox/Simethicone 5 ml QID MT 04/17/24 22:00 04/20/24 17:41 5 ML Acetaminophen/ Hydrocodone Bitart 1 tab Q4HP PRN PO 04/17/24 23:00 04/20/24 11:04 1 TAB Ondansetron HCl 4 mg Q4HP PRN IV 04/17/24 23:00 04/18/24 00:32 4 MG Morphine Sulfate 2 mg Q4HPRN PRN IV 04/17/24 23:00 04/20/24 17:42 2 MG Nitroglycerin 0.4 mg Q5MINP PRN SL 04/17/24 23:00 Morphine Sulfate 2 mg Q30M PRN IV 04/17/24 23:00 Vancomycin HCl 0 ml @ 0 mls/hr UD IV 04/17/24 23:15 Cefepime HCl 50 ml @ 12.5 mls/hr Q12HR IV 04/18/24 10:00 04/20/24 11:04 12.5 MLS/HR Sodium Chloride 1,000 ml @ 75 mls/hr [id number] IV 04/18/24 02:15 04/20/24 06:28 75 MLS/HR Acetaminophen 650 mg Q4HP PRN PO 04/18/24 04:00 04/18/24 04:08 650 MG Tbo-Filgrastim 480 mcg DAILY SC 04/18/24 10:00 04/20/24 08:57 480 MCG Folic Acid 1 mg/ Dextrose 50.2 ml @ 200.8 mls/ hr DAILY INJ 04/19/24 10:00 04/20/24 08:49 200.8 MLS/HR Methylprednisolone Sodium Succinate 80 mg BID IV 04/18/24 22:00 04/23/24 21:59 04/20/24 08:56 80 MG Nystatin 5 ml QID MT 04/19/24 18:00 04/20/24 05:18 5 ML Enteral Nutritional Formula 240 ml TIDWM PO 04/19/24 18:00 04/20/24 18:00 240 ML Diagnostic Test (Pha) 1 strip ACHS 04/19/24 17:00 04/20/24 16:40 1 STRIP Insulin Human Regular ACHS SC 04/19/24 17:00 04/20/24 16:43 8 UNITS Dextrose 50 ml UD PRN IV 04/19/24 17:00 Vancomycin HCl 500 mg/Dextrose 100 ml @ 200 mls/hr Q12H IV 04/20/24 16:00 04/20/24 16:30 200 MLS/HR Pantoprazole Sodium 40 mg BID IV 04/20/24 19:00 laboratory and microbiology Laboratory Tests 04/20/24 04:39 Test 04/20/24 04:39 Range/Units Serum Glucose 244 H 74-106 mg/dL Microbiology Date/Time Source Procedure Growth Status 04/19/24 11:30 Groin Gram Stain - Final Resulted 04/19/24 11:30 Groin Wound Culture - Preliminary Resulted 04/17/24 23:27 Blood Blood Culture - Preliminary NO GROWTH AFTER 48 HOURS OF INCUBATION. Resulted 04/17/24 22:16 Voided Urine Urine Culture - Final Complete Problem List/Assessment/Plan Problem List/Assessment/Plan HEME/ONC: #Immunodeficiency: leukopenia possible due to use of MTX or mycophenolate Continue filgastrim and solu medrol per Dr Ivory: wbc trending down Pt is on cefepime/vancomycin HIV negative #Thrombocytopenia due to above trending down 1 unit of platelets #Anemia due to above and CKD CARDIOLOGY: normal auscultation normal BNP No chest pain, SOB at rest X ray no pulmonary edema #Essential hypertension Due to sepsis and soft BPs hold on medication RESPIRATORY: No distress at the moment normal x ray GI: #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 due to obesity No bleeding Liquid stool today No abdominal pain CT scan normal Normal liver function, normal coagulation Albumin 3.9 /RENAL #Sepsis due to infected intertrigo in the right groin and scrotal No septic shock at the moment Right now, the infection is superficial but can progress to jessica gangrene due to immunodeficiency state Patient is on cefepime/vancomycin/clindamyicin wound culture ordered wound consult #Bilateral hydronephrosis without evidence of ureteral stones. #KYLEE on CKD Stage IV Nephology on board: Dr Bernabe Goldman No urinary retention at this moment, patient refused villarreal: voiding few times Urology consult ENDOCRINOLOGY #Hyperkalemia resolved due to CKD #DM type 2 in remission HBA1C 5.0 #Obesity Patient was on mounjaro back in home #Euthyroid sick syndrome TSH 0.2 free t4 1.12 Free t3 2.24 RHEUMATOLOGY AND SKIN #Mucositis Secondary to immunodeficiency Magic wash mouth and nystatin #Sepsis due to infected intertrigo in the right groin and scrotal describe above #Gout Pt was receiving MTX, mycophenolate, Krystexxa, colchicine for gout ? Due to possible adverse reaction and sepsis hold on medications No acute flare ups Uric acid less than 0.[address] Crandall CRITICAL CARE TIME 76 MINS My Orders My Orders Orders - RUBIO BARCLAY RESIDENT Procedure Category Date Status Time * Gi Dvh Poly[employer] Com[employer]er CONS 04/20/24 Transmitted 18:20 Stool Occult Blood LAB 04/20/24 Logged 18:23 Pantoprazole PHA 04/20/24 In Process (Protonix) 19:00 Complete Blood Count LAB 04/20/24 Logged 18:53 Dietary Evaluation Review Comments: When medically feasible, advance diet to 2gNa CCHO-60 with renal specific-60g protein, 3K, low phos diet Expected Outcomes/Goals: gradual weight loss. controlled DM. RUBIO BARCLAY RESIDENT Apr 20, 2024 20:18
[2024-04-20 20:32] LABS: Basophils # (auto) 0 10 ^3/uL (0-0.2); Eosinophils # (auto) 0 10 ^3/uL (0-0.8); Lymphocytes # (auto) 0.4 10 ^3/uL (0.4-5.4); Monocytes # (auto) 0 10 ^3/uL (0-1.3); Neutrophils # (auto) 0 10 ^3/uL (1.6-8.6)
[2024-04-20 20:34] LABS: Eosinophils % (auto) 0.2 % (0.0-7.0); Hematocrit 27.1 % (41.0-53.0); Hemoglobin 9.2 g/dL (13.5-17.5); Mean Corpuscular Hemoglobin 33.4 pg (28.0-32.0); Mean Corpuscular Volume 98.3 fL (80.0-100.0); Monocytes % (auto) 3.6 % (0.0-12.0); Neutrophils % (auto) 0.5 % (37.0-80.0); Nucleated Red Blood Cells % 0.2 %; Red Blood Cells 2.76 10^6/uL (4.5-5.90); Red Cell Distribution Width 15.1 % (11.8-14.3)
[2024-04-20 20:50] LABS: Lymphocytes % (auto) 95.7 % (10.0-50.0)
[2024-04-20 20:57] LABS: Platelet Count (auto) 16 10^3/uL (140-450); White Blood Cell 0.4 10^3/uL (4.4-10.8)
[2024-04-20 21:32] LABS: Platelet Estimate Markedly Decreased
[2024-04-20 21:52] LABS: Large Platelets FEW
[2024-04-21] VITALS (11 sets, daily range): BP systolic 138–164; BP diastolic 71–89; PULSE 95–107; RESP 16–21; TEMP 97.3–99.8; O2SAT 98–100
[2024-04-21 06:16] LABS: Basophils # (auto) 0 10 ^3/uL (0-0.2); Eosinophils # (auto) 0 10 ^3/uL (0-0.8); Hemoglobin 8.6 g/dL (13.5-17.5); Lymphocytes # (auto) 0.3 10 ^3/uL (0.4-5.4); Monocytes # (auto) 0 10 ^3/uL (0-1.3); Neutrophils # (auto) 0 10 ^3/uL (1.6-8.6)
[2024-04-21 06:18] LABS: Eosinophils % (auto) 1.4 % (0.0-7.0); Hematocrit 26.2 % (41.0-53.0); Mean Corpuscular Hemoglobin 32.4 pg (28.0-32.0); Mean Corpuscular Hgb Conc. 32.8 g/dL (32.0-36.0); Mean Corpuscular Volume 98.5 fL (80.0-100.0); Neutrophils % (auto) 0.9 % (37.0-80.0); Nucleated Red Blood Cells % 0.3 %; Red Blood Cells 2.66 10^6/uL (4.5-5.90); Red Cell Distribution Width 15.1 % (11.8-14.3)
[2024-04-21 06:24] LABS: Lymphocytes % (auto) 94.7 % (10.0-50.0)
[2024-04-21 06:31] LABS: Platelet Count (auto) 10 10^3/uL (140-450); White Blood Cell 0.3 10^3/uL (4.4-10.8)
[2024-04-21 06:50] LABS: Platelet Estimate Decreased
[2024-04-21 06:56] LABS: Albumin 3.3 g/dL (3.2-4.8); Alkaline Phosphatase 19 U/L (46-116); Anion Gap 7 (5-15); Aspartate Aminotransferase < 8 U/L (13-40); BUN/Creatinine Ratio 43.6 (10.0-20.0); Bilirubin, Total 0.5 mg/dL (0.2-1.0); Calcium 8.9 mg/dL (8.7-10.4); Carbon Dioxide 19 mmol/L (20-31); Chloride 113 mmol/L (98-107); Glucose 267 mg/dL (74-106); Potassium 4.2 mmol/L (3.5-5.1); Sodium 139 mmol/L (136-145); Total Protein 5.7 g/dL (5.7-8.2)
[2024-04-21 07:05] LABS: Alanine Aminotransferase 15 U/L (7-40)
[2024-04-21 07:19] LABS: Blood Urea Nitrogen 88 mg/dL (9-23)
--- NOTE | 2024-04-21 08:10 | DVHPN2 ---
Progress Note - Dictate Date Seen: Apr 21, 2024 Has the PT tested + for MRSA If YES, has PT been informed?: Yes Medical Necessity Reason Pt with a Central, PICC or Fol: No Subjective Patient feels that the soreness in the mouth is getting better. He is able to swallow little better. He does complain of pains in the legs from the neuropathy vital signs Vital Sign Date Time Temp Pulse Resp B/P (MAP) Pulse Ox O2 Delivery O2 Flow Rate FiO2 04/21/24 05:08 97.3 98 17 156/89 (111) 99 97.3 04/20/24 20:00 Room Air* 0 21 Total Intake and Output 04/20/24 04/20/24 04/21/24 15:00 23:00 07:00 Intake Total 570.2 ml 2020 ml 865 ml Output Total 1025 ml 750 ml Balance 570.2 ml 995 ml 115 ml medications Current Medications Medications Dose Ordered Sig/Cedric Route Start Time Stop Time Status Last Admin Dose Admin Al Hydrox/Mg Hydrox/Simethicone 5 ml QID MT 04/17/24 22:00 04/21/24 05:23 5 ML Acetaminophen/ Hydrocodone Bitart 1 tab Q4HP PRN PO 04/17/24 23:00 04/20/24 11:04 1 TAB Ondansetron HCl 4 mg Q4HP PRN IV 04/17/24 23:00 04/18/24 00:32 4 MG Morphine Sulfate 2 mg Q4HPRN PRN IV 04/17/24 23:00 04/20/24 22:07 2 MG Nitroglycerin 0.4 mg Q5MINP PRN SL 04/17/24 23:00 Morphine Sulfate 2 mg Q30M PRN IV 04/17/24 23:00 Vancomycin HCl 0 ml @ 0 mls/hr UD IV 04/17/24 23:15 Cefepime HCl 50 ml @ 12.5 mls/hr Q12HR IV 04/18/24 10:00 04/20/24 21:50 12.5 MLS/HR Acetaminophen 650 mg Q4HP PRN PO 04/18/24 04:00 04/18/24 04:08 650 MG Tbo-Filgrastim 480 mcg DAILY SC 04/18/24 10:00 04/20/24 08:57 480 MCG Folic Acid 1 mg/ Dextrose 50.2 ml @ 200.8 mls/ hr DAILY INJ 04/19/24 10:00 04/20/24 08:49 200.8 MLS/HR Methylprednisolone Sodium Succinate 80 mg BID IV 04/18/24 22:00 04/23/24 21:59 04/20/24 21:49 80 MG Nystatin 5 ml QID MT 04/19/24 18:00 04/20/24 05:18 5 ML Enteral Nutritional Formula 240 ml TIDWM PO 04/19/24 18:00 04/20/24 18:00 240 ML Diagnostic Test (Pha) 1 strip ACHS 04/19/24 17:00 04/21/24 06:38 1 STRIP Insulin Human Regular ACHS SC 04/19/24 17:00 04/21/24 06:22 6 UNITS Dextrose 50 ml UD PRN IV 04/19/24 17:00 Vancomycin HCl 500 mg/Dextrose 100 ml @ 200 mls/hr Q12H IV 04/20/24 16:00 04/21/24 04:23 200 MLS/HR Pantoprazole Sodium 40 mg BID IV 04/20/24 19:00 04/20/24 21:50 40 MG objective HEAD AND NECK: Unremarkable. No neck nodes or masses.Moderate to severe mucositis Conjunctiva: Unremarkable. No mucosal hemorrhage. CHEST: Chest wall, no tenderness. LUNGS: Clear. CARDIOVASCULAR: Regular sinus rhythm. No murmurs or gallops. ABDOMEN: No organomegaly, tenderness or ascites. Bowel sounds present. LYMPHATICS: No significant lymphadenopathy. SKIN:Right groin shows ulceration of the skin Psych: No abnormalities Available data reviewed laboratory and microbiology Laboratory Tests 04/21/24 04:57 Test 04/21/24 04:57 Range/Units Serum Glucose 267 H 74-106 mg/dL Assessment/Plan 1. Pancytopenia more likely secondary to methotrexate / mycophenolate And the patient is symptomatic with severe mucositis.[The patient is on chronic Taxol and methotrexate for gout and given by Dr. Bernabe Goldman] The patient does give a history of vaccination with COVID-19 couple of weeks back[The last time the patient took the mycophenolate was December [address] Goldman. Before that his CBC was nearly normal CT of the abdomen pelvis showed distended bladder with moderate bilateral hydronephrosis concerning for bladder outlet obstruction and the liver spleen appears unremarkable 04/19/2024: White count 0.3 hemoglobin 10.2 platelets 5000 confirmed on the blood smear. Haptoglobin 337. Reticulocyte count 0.24. Direct Thomas is negative White count 0.5 hemoglobin 9.6 MCV 99.2 platelets 24,000 Blood cultures are negative 04/21/2024: White count 0.3 hemoglobin 8.6 platelets 93157 confirmed on the blood smear 2. Bilateral hydronephrosis 3. Diabetes 4. Hypertension 5. Hyperlipidemia 6. High lactic acid could indicate sepsis 7. CKD 8. Bladder outlet obstruction Plan: Continue folic acid IV Solu-Medrol Mouthwash Pain control Follow the CBC daily and try to keep the platelets over 15,000 and hemoglobin over 7 Continue the Neupogen Transfuse 1 unit pack of platelets today Did discuss with the patient about doing a bone marrow aspiration biopsy for persistent pancytopenia. The patient is showing some hesitancy but he is not definitely decided and he may consider getting the bone marrow aspiration biopsy which will be sent for pathology, flow cytometry and cytogenetics Dietary Evaluation Review Comments: When medically feasible, advance diet to 2gNa CCHO-60 with renal specific-60g protein, 3K, low phos diet Expected Outcomes/Goals: gradual weight loss. controlled DM. Plan discussed with: Patient KOBE LEMUS MD Apr 21, 2024 08:10
[2024-04-21 08:17] LABS: Base Excess -8.8 mmol/L (-2.0-3.0)
--- NOTE | 2024-04-21 08:37 | DVH ---
CHEST RADIOGRAPH Indication:dyspnea Technique: Single frontal view of the chest was obtained COMPARISON: XY CHEST XRAY 1 VIEW on DOS: 04/19/24, XY CHEST PORTABLE on DOS: 04/17/24 FINDINGS: Lines and Tubes: None Lungs: Clear Pleura: No effusion. No pneumothorax. Cardiomediastinal contours: Unremarkable Bones: Unremarkable IMPRESSION: No acute disease.
[2024-04-21] MEDS ORDERED: SODIUM BICARB 50mEq/50ml Vial 50 ML in SOD CHL 0.45% 1,000 ML IV SCH (12:15)
--- NOTE | 2024-04-21 13:06 | DVHINCON2 ---
GI Consult Consult Note GI consult note Date of Consultation: 04/21/2024 Chief Complaint: Black stool Referring Physician: Dr. Gandara H&P: 59-year-old male admitted with generalized weakness ongoing for the past one- week Patient denies abdominal pain. Patient has noticed black stool for the last three days. No nausea or vomiting. No hematemesis. No red blood in stool. Patient has wound in his right lower abdomen beneath the skin fold, Patient has sores in his mouth for the past five days. No EGD or colon in the past. Patient did stool test with Cologuard which was negative Past Medical History: Type 2 diabetes mellitus, hypertension, hyperlipidemia, peripheral neuropathy, CHF, CKD stage 4, liver cirrhosis, GERD, gout, obesity and polysubstance abuse Past Surgical History: Rt ankle and foot surgery Social History: Nonsmoker, nonalcoholic and history of polysubstance abuse disorder Lives alone Family History: Noncontributory Review of Systems: Constitutional: no fever, chill, weight loss HEENT: mouth sores/swelling Heart: no chest pain, no chest pressure Lung: no cough, no dyspnea with exertion Abdomen: see HPI Physical exam: General: NAD, AAOX3 Chest: lung kimbrough clear to auscultation Heart: RRR, no murmur Abdomen: no tenderness to palpation, +BS Labs: Test 04/21/24 04:57 Range/Units Serum Glucose 267 H 74-106 mg/dL Imaging: CT abdomen pelvis IMPRESSION: Severely distended urinary bladder with moderate bilateral hydronephrosis . Findings are concerning for urinary bladder outlet obstruction. Assessment: Pancytopenia Melena Bladder outlet obstruction Severe mucositis possible secondary to medications Plan: -discussed with Dr. Hanks Protonix and Carafate Monitor labs Stool for occult blood Possible GI procedures discussed when patient is medically stable and cleared for procedures, patient does not want any GI procedures at this time, risks and benefits discussed with patient. Patient understands Discussed plan with patient and RN Thank you for this consult Date of Service: Apr 21, 2024 Billing Provider: FRANNY LOZANO Common Visit Codes: CONSULT ONLY Consultation Codes: [id number] CONSULT <60MIN FRANNY LOZANO Apr 21, 2024 13:06
--- NOTE | 2024-04-21 16:56 | DVHPNRES ---
Progress Note Date Seen: Apr 21, 2024 Resident Creating Document: RUBIO BARCLAY RESIDENT Has the PT tested + for MRSA If YES, has PT been informed?: Yes Medical Necessity Reason Pt with a Central, PICC or Fol: No Subjective Review of Systems A 59 years old with PMHX type 2 diabetes mellitus, hypertension, hyperlipidemia, peripheral neuropathy, congestive heart failure, CKD stage IV , GERD, gout, obesity, anxiety and depression. He says he has been taking methotrexate and mycophenolate, The reason is not very clear and the patient thinks that he is getting this medication for gout and follows with his assistant professor of religion Dr. Bernabe Goldman. He says he takes 4 methotrexate pills once a week for the last couple of years The patient is admitted with severe mucositis and ulceration in the groin on the right side. He has difficulty speaking and swallowing.Mild fevers He is found to be pancytopenic with a white count of 700 hemoglobin 11 platelets are 16,000. Confirmed on the blood smear. No bleeding Lactic acid is 3.3 BUN 70 creatinine 1.9, albumin 3.9 total protein 6.7 B12 494 TSH 0.2 Free T41.12 Alkaline phosphatase 28. AST 14 ALT 26 uric acid 5.9. PT/INR 1.09 PTT 28.8 and D-dimer 2.34 HIV 1 and 2 is negative He has been given antibiotics and the Magic mouthwash and pain medications 2 unit of platelets given GI bleeding due to mucositis: dark stools Objective vital signs Vital Sign Date Time Temp Pulse Resp B/P (MAP) Pulse Ox O2 Delivery O2 Flow Rate FiO2 04/21/24 16:48 99.8 98 20 151/78 (102) 100 99.8 04/21/24 08:00 Room Air* 0 21 Total Intake and Output 04/20/24 04/20/24 04/21/24 15:00 23:00 07:00 Intake Total 570.2 ml 2170 ml 865 ml Output Total 1025 ml 750 ml Balance 570.2 ml 1145 ml 115 ml medications Current Medications Medications Dose Ordered Sig/Cedric Route Start Time Stop Time Status Last Admin Dose Admin Al Hydrox/Mg Hydrox/Simethicone 5 ml QID MT 04/17/24 22:00 04/21/24 12:31 5 ML Acetaminophen/ Hydrocodone Bitart 1 tab Q4HP PRN PO 04/17/24 23:00 04/20/24 11:04 1 TAB Ondansetron HCl 4 mg Q4HP PRN IV 04/17/24 23:00 04/18/24 00:32 4 MG Morphine Sulfate 2 mg Q4HPRN PRN IV 04/17/24 23:00 04/21/24 11:29 2 MG Nitroglycerin 0.4 mg Q5MINP PRN SL 04/17/24 23:00 Morphine Sulfate 2 mg Q30M PRN IV 04/17/24 23:00 Vancomycin HCl 0 ml @ 0 mls/hr UD IV 04/17/24 23:15 Cefepime HCl 50 ml @ 12.5 mls/hr Q12HR IV 04/18/24 10:00 04/21/24 14:25 12.5 MLS/HR Acetaminophen 650 mg Q4HP PRN PO 04/18/24 04:00 04/18/24 04:08 650 MG Tbo-Filgrastim 480 mcg DAILY SC 04/18/24 10:00 04/21/24 12:17 480 MCG Folic Acid 1 mg/ Dextrose 50.2 ml @ 200.8 mls/ hr DAILY INJ 04/19/24 10:00 04/21/24 11:09 200.8 MLS/HR Methylprednisolone Sodium Succinate 80 mg BID IV 04/18/24 22:00 04/23/24 21:59 04/21/24 10:54 80 MG Nystatin 5 ml QID MT 04/19/24 18:00 04/20/24 05:18 5 ML Enteral Nutritional Formula 240 ml TIDWM PO 04/19/24 18:00 04/21/24 12:13 240 ML Diagnostic Test (Pha) 1 strip ACHS 04/19/24 17:00 04/21/24 11:30 1 STRIP Insulin Human Regular ACHS SC 04/19/24 17:00 04/21/24 12:15 8 UNITS Dextrose 50 ml UD PRN IV 04/19/24 17:00 Pantoprazole Sodium 40 mg BID IV 04/20/24 19:00 04/21/24 10:54 40 MG Examination GENERAL: alert and oriented. Obese who has moderate mucositis HEAD AND NECK: Unremarkable. No neck nodes or masses. Conjunctivae: pale, Unremarkable for any mucosal hemorrhage or inflammation. CHEST: Chest wall, no tenderness. LUNGS: Clear. CARDIOVASCULAR: Regular sinus rhythm. No murmurs or gallops. ABDOMEN: No organomegaly, tenderness or ascites. Bowel sounds present. EXTREMITIES:. In the right groin fold he has Ulcerated skin LYMPHATICS: No significant lymphadenopathy. NEUROLOGIC: No focal neurological deficits. SKIN: multiple sores in the legs laboratory and microbiology Laboratory Tests 04/21/24 04:57 Test 04/21/24 04:57 Range/Units Serum Glucose 267 H 74-106 mg/dL Microbiology Date/Time Source Procedure Growth Status 04/19/24 11:30 Groin Gram Stain - Final Resulted 04/19/24 11:30 Groin Wound Culture - Preliminary Resulted 04/17/24 23:27 Blood Blood Culture - Preliminary NO GROWTH AFTER 72 HOURS OF INCUBATION. Resulted 04/17/24 22:16 Voided Urine Urine Culture - Final Complete Problem List/Assessment/Plan Problem List/Assessment/Plan HEME/ONC: #Immunodeficiency: leukopenia possible due to use of MTX or mycophenolate febrile neutropenia Bone marrow aspiration ordered by Dr Ivory Continue filgastrim and solu medrol per Dr Ivory Pt is on cefepime/vancomycin HIV negative #Thrombocytopenia due to above 1 unit of platelets already given 1 unit of platelets today 10 today keep above 15 #Anemia due to possible GI bleeding and above 8.7 CARDIOLOGY: normal auscultation normal BNP No chest pain, SOB at rest X ray no pulmonary edema #Essential hypertension Amlodipine 5 mg Hydralazine PRN RESPIRATORY: No distress at the moment normal x ray GI: #GI bleeding probably upper due to mucositis Dark stools BUN 82 GI on the case, no scope Protonix BID /RENAL #Sepsis due to infected intertrigo in the right groin and scrotal No septic shock at the moment Right now, the infection is superficial but can progress to jessica gangrene due to immunodeficiency state Patient is on cefepime/vancomycin/clindamyicin wound culture Staphylococcus lugdunensis wound consult #Bilateral hydronephrosis without evidence of ureteral stones. #KYLEE on CKD Stage IV Nephology on board: Dr Bernabe Goldman No urinary retention at this moment, patient refused villarreal: voiding few times Urology consult ENDOCRINOLOGY #Hyperkalemia resolved due to CKD #DM type 2 in remission HBA1C 5.0 #Obesity Patient was on mounjaro back in home #Euthyroid sick syndrome TSH 0.2 free t4 1.12 Free t3 2.24 RHEUMATOLOGY AND SKIN #Mucositis Secondary to immunodeficiency Magic wash mouth and nystatin #Sepsis due to infected intertrigo in the right groin and scrotal describe above #Gout Pt was receiving MTX, mycophenolate, Krystexxa, colchicine for gout ? Due to possible adverse reaction and sepsis hold on medications No acute flare ups Uric acid less than 0.[address] Russell CRITICAL CARE TIME 76 MINS Plan discussed with: Patient, Other (rn) My Orders My Orders Orders - RUBIO BARCLAY Procedure Category Date Status Time * [facility] Videographer CONS 04/20/24 Transmitted 18:20 Pantoprazole PHA 04/20/24 In Process (Protonix) 19:00 Chest Xray 1 View XY 04/21/24 Resulted 04:00 Abg W/ Co-Ox RT 04/21/24 Logged 04:00 Dietary Evaluation Review Comments: When medically feasible, advance diet to 2gNa CCHO-60 with renal specific-60g protein, 3K, low phos diet Expected Outcomes/Goals: gradual weight loss. controlled DM. Date of Service: Apr 21, 2024 Billing Provider: VIOLETA RUSSELL MD Common Visit Codes: [id number] CARE 30-74 MIN RUBIO BARCLAY RESIDENT Apr 21, 2024 16:56 VIOLETA RUSSELL MD Apr 24, 2024 14:26
--- NOTE | 2024-04-21 20:44 | DVHPN2 ---
Progress Note - Dictate Date Seen: Apr 20, 2024 Has the PT tested + for MRSA If YES, has PT been informed?: Yes Medical Necessity Reason Pt with a Central, PICC or Fol: No Subjective Patient seen and evaluated in follow up. No acute events overnight. Patient reports some improvement in soreness of his mouth and states he is able to swallow a little better. Noted with dark stools today. AM labs are remarkable for Creatinine 1.94 with BUN of 81. vital signs Vital Sign Date Time Temp Pulse Resp B/P (MAP) Pulse Ox O2 Delivery O2 Flow Rate FiO2 04/21/24 16:48 99.8 98 20 151/78 (102) 100 99.8 04/21/24 08:00 Room Air* 0 21 Total Intake and Output 04/20/24 04/20/24 04/21/24 15:00 23:00 07:00 Intake Total 570.2 ml 2170 ml 865 ml Output Total 1025 ml 750 ml Balance 570.2 ml 1145 ml 115 ml medications Current Medications Medications Dose Ordered Sig/Cedric Route Start Time Stop Time Status Last Admin Dose Admin Al Hydrox/Mg Hydrox/Simethicone 5 ml QID MT 04/17/24 22:00 04/21/24 17:49 5 ML Acetaminophen/ Hydrocodone Bitart 1 tab Q4HP PRN PO 04/17/24 23:00 04/20/24 11:04 1 TAB Ondansetron HCl 4 mg Q4HP PRN IV 04/17/24 23:00 04/18/24 00:32 4 MG Morphine Sulfate 2 mg Q4HPRN PRN IV 04/17/24 23:00 04/21/24 11:29 2 MG Nitroglycerin 0.4 mg Q5MINP PRN SL 04/17/24 23:00 Morphine Sulfate 2 mg Q30M PRN IV 04/17/24 23:00 Vancomycin HCl 0 ml @ 0 mls/hr UD IV 04/17/24 23:15 Cefepime HCl 50 ml @ 12.5 mls/hr Q12HR IV 04/18/24 10:00 04/21/24 14:25 12.5 MLS/HR Acetaminophen 650 mg Q4HP PRN PO 04/18/24 04:00 04/18/24 04:08 650 MG Tbo-Filgrastim 480 mcg DAILY SC 04/18/24 10:00 11/8/24 12:17 480 MCG Folic Acid 1 mg/ Dextrose 50.2 ml @ 200.8 mls/ hr DAILY INJ 04/19/24 10:00 04/21/24 11:09 200.8 MLS/HR Methylprednisolone Sodium Succinate 80 mg BID IV 04/18/24 22:00 04/23/24 21:59 04/21/24 10:54 80 MG Nystatin 5 ml QID MT 04/19/24 18:00 04/20/24 05:18 5 ML Enteral Nutritional Formula 240 ml TIDWM PO 04/19/24 18:00 04/21/24 12:13 240 ML Diagnostic Test (Pha) 1 strip ACHS 04/19/24 17:00 04/21/24 17:09 1 STRIP Insulin Human Regular ACHS SC 04/19/24 17:00 04/21/24 17:09 8 UNITS Dextrose 50 ml UD PRN IV 04/19/24 17:00 Pantoprazole Sodium 40 mg BID IV 04/20/24 19:00 04/21/24 10:54 40 MG Amlodipine Besylate 5 mg DAILY PO 04/22/24 10:00 objective Vitals and nursing notes reviewed. General Appearance: In no acute distress. HEENT: Atraumatic, PERRLA, EOMI, Mucous membrane moist/pink. Swelling and soreness in the lip. Respiratory: Clear to auscultation, Normal air movement Cardiovascular: Regular rate, Normal S1, Normal S2, No murmurs, no chest wall tenderness Abdominal: Stage 2 wound in the rt lower abdomen beneath the skin fold, rt groin, Normal bowel sounds, Soft, No tenderness, No hepatospenomegaly, No masses Extremities: No clubbing, No cyanosis, No edema, Normal pulses, No tenderness/swelling Skin: No rashes, No breakdown, No significant lesion Neuro: Alert, Oriented X3, Cooperative, Normal speech, Strength at 5/5 X4 ext, Normal tone, Sensation intact, Psych/Mental Status: Mental status NL, Mood NL laboratory and microbiology Laboratory Tests 04/21/24 04:57 Test 04/21/24 04:57 Range/Units Serum Glucose 267 H 74-106 mg/dL Problem List Sepsis due to unspecified organism 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 Hematology and GI consults. Stool occult blood ordered/pending. Daily lab monitoring; electrolyte replacement prn. Avoid nephrotoxic medication IVFs with NS at 75 mL/hr. Strict I&O. IV antibiotics with Vancomycin and Cefepime. Majic Mouthwash. Protonix 40 mg IV daily. Pain management as needed. Additional plan as per the hospital course. Dietary Evaluation Review Comments: When medically feasible, advance diet to 2gNa CCHO-60 with renal specific-60g protein, 3K, low phos diet Expected Outcomes/Goals: gradual weight loss. controlled DM. Plan discussed with: Other (RN) ADRIANA ZEPEDA DO Apr 21, 2024 20:44
--- NOTE | 2024-04-21 20:45 | DVHPN2 ---
Progress Note - Dictate Date Seen: Apr 21, 2024 Has the PT tested + for MRSA If YES, has PT been informed?: Yes Medical Necessity Reason Pt with a Central, PICC or Fol: No Subjective Patient seen and evaluated in follow up. No acute events overnight. Patient complains of generalized weakness. Refused wound care this afternoon. Stool occult blood test is negative. AM labs are remarkable for Creatinine 2.02 with BUN of 88. eGFR 38. CO2 is 19. Glucose 267. WBC 0.3. Platelet count 10 vital signs Vital Sign Date Time Temp Pulse Resp B/P (MAP) Pulse Ox O2 Delivery O2 Flow Rate FiO2 04/21/24 16:48 99.8 98 20 151/78 (102) 100 99.8 04/21/24 08:00 Room Air* 0 21 Total Intake and Output 04/20/24 04/20/24 04/21/24 15:00 23:00 07:00 Intake Total 570.2 ml 2170 ml 865 ml Output Total 1025 ml 750 ml Balance 570.2 ml 1145 ml 115 ml medications Current Medications Medications Dose Ordered Sig/Cedric Route Start Time Stop Time Status Last Admin Dose Admin Al Hydrox/Mg Hydrox/Simethicone 5 ml QID MT 04/17/24 22:00 04/21/24 17:49 5 ML Acetaminophen/ Hydrocodone Bitart 1 tab Q4HP PRN PO 04/17/24 23:00 04/20/24 11:04 1 TAB Ondansetron HCl 4 mg Q4HP PRN IV 04/17/24 23:00 04/18/24 00:32 4 MG Morphine Sulfate 2 mg Q4HPRN PRN IV 04/17/24 23:00 04/21/24 11:29 2 MG Nitroglycerin 0.4 mg Q5MINP PRN SL 04/17/24 23:00 Morphine Sulfate 2 mg Q30M PRN IV 04/17/24 23:00 Vancomycin HCl 0 ml @ 0 mls/hr UD IV 04/17/24 23:15 Cefepime HCl 50 ml @ 12.5 mls/hr Q12HR IV 04/18/24 10:00 04/21/24 14:25 12.5 MLS/HR Acetaminophen 650 mg Q4HP PRN PO 04/18/24 04:00 04/18/24 04:08 650 MG Tbo-Filgrastim 480 mcg DAILY SC 04/18/24 10:00 04/21/24 12:17 480 MCG Folic Acid 1 mg/ Dextrose 50.2 ml @ 200.8 mls/ hr DAILY INJ 04/19/24 10:00 04/21/24 11:09 200.8 MLS/HR Methylprednisolone Sodium Succinate 80 mg BID IV 04/18/24 22:00 04/23/24 21:59 04/21/24 10:54 80 MG Nystatin 5 ml QID MT 04/19/24 18:00 04/20/24 05:18 5 ML Enteral Nutritional Formula 240 ml TIDWM PO 04/19/24 18:00 04/21/24 12:13 240 ML Diagnostic Test (Pha) 1 strip ACHS 04/19/24 17:00 04/21/24 17:09 1 STRIP Insulin Human Regular ACHS SC 04/19/24 17:00 04/21/24 17:09 8 UNITS Dextrose 50 ml UD PRN IV 04/19/24 17:00 Pantoprazole Sodium 40 mg BID IV 04/20/24 19:00 04/21/24 10:54 40 MG Amlodipine Besylate 5 mg DAILY PO 04/22/24 10:00 objective Vitals and nursing notes reviewed. General Appearance: In no acute distress. HEENT: Atraumatic, PERRLA, EOMI, Mucous membrane moist/pink. Swelling and soreness in the lip. Respiratory: Clear to auscultation, Normal air movement Cardiovascular: Regular rate, Normal S1, Normal S2, No murmurs, no chest wall tenderness Abdominal: Stage 2 wound in the rt lower abdomen beneath the skin fold, rt groin, Normal bowel sounds, Soft, No tenderness, No hepatospenomegaly, No masses Extremities: No clubbing, No cyanosis, No edema, Normal pulses, No tenderness/swelling Skin: No rashes, No breakdown, No significant lesion Neuro: Alert, Oriented X3, Cooperative, Normal speech, Strength at 5/5 X4 ext, Normal tone, Sensation intact, Psych/Mental Status: Mental status NL, Mood NL laboratory and microbiology Laboratory Tests 04/21/24 04:57 Test 04/21/24 04:57 Range/Units Serum Glucose 267 H 74-106 mg/dL Problem List Sepsis due to unspecified organism 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 Hematology and GI consulted. Planned for bone marrow aspiration biopsy. Daily lab monitoring; electrolyte replacement prn. Avoid nephrotoxic medication IVFs with NS stopped. Sodium bicarb drip. Strict I&O. IV antibiotics with Vancomycin and Cefepime. Majic Mouthwash. Protonix 40 mg IV daily. Pain management as needed. Additional plan as per the hospital course. Dietary Evaluation Review Comments: When medically feasible, advance diet to 2gNa CCHO-60 with renal specific-60g protein, 3K, low phos diet Expected Outcomes/Goals: gradual weight loss. controlled DM. Plan discussed with: Other (RN) ADRIANA ZEPEDA DO Apr 21, 2024 20:45
[2024-04-22] VITALS (7 sets, daily range): BP systolic 117–152; BP diastolic 62–82; PULSE 64–101; RESP 17–20; TEMP 97.3–99.1; O2SAT 98–100
[2024-04-22 07:29] LABS: Alanine Aminotransferase 13 U/L (7-40); Alkaline Phosphatase 19 U/L (46-116); Anion Gap 9 (5-15); BUN/Creatinine Ratio 39.9 (10.0-20.0); Carbon Dioxide 18 mmol/L (20-31); Chloride 112 mmol/L (98-107); Glucose 246 mg/dL (74-106); Potassium 3.8 mmol/L (3.5-5.1); Sodium 139 mmol/L (136-145)
[2024-04-22 07:30] LABS: Albumin 3.3 g/dL (3.2-4.8); Aspartate Aminotransferase < 8 U/L (13-40); Bilirubin, Total 0.5 mg/dL (0.2-1.0); Total Protein 5.7 g/dL (5.7-8.2)
[2024-04-22 07:54] LABS: Basophils # (auto) 0 10 ^3/uL (0-0.2); Eosinophils # (auto) 0 10 ^3/uL (0-0.8); Hematocrit 26.5 % (41.0-53.0); Hemoglobin 8.7 g/dL (13.5-17.5); Lymphocytes # (auto) 0.4 10 ^3/uL (0.4-5.4); Mean Corpuscular Hgb Conc. 32.8 g/dL (32.0-36.0); Mean Corpuscular Volume 100.6 fL (80.0-100.0); Monocytes # (auto) 0 10 ^3/uL (0-1.3); Monocytes % (auto) 3.1 % (0.0-12.0); Neutrophils # (auto) 0 10 ^3/uL (1.6-8.6); Neutrophils % (auto) 0.8 % (37.0-80.0); Nucleated Red Blood Cells % 0.7 %; Red Blood Cells 2.63 10^6/uL (4.5-5.90); Red Cell Distribution Width 14.6 % (11.8-14.3)
[2024-04-22 07:59] LABS: Lymphocytes % (auto) 96.1 % (10.0-50.0)
[2024-04-22 08:02] LABS: Blood Urea Nitrogen 81 mg/dL (9-23); Platelet Count (auto) 14 10^3/uL (140-450); White Blood Cell 0.4 10^3/uL (4.4-10.8)
[2024-04-22] MEDS: amLODIPine BESYLATE 5 MG TAB PO SCH (09:57)
[2024-04-22] MEDS ORDERED: VANCOMYCIN 500 MG in D5W 5% 100 ML IV SCH (10:00)
--- NOTE | 2024-04-22 13:47 | MEDREC ---
[facility] ASP Intervention Section I [facility] ASP Intervention: Deescalate AB based on CS (PLEASE CONSIDER DE-ESCALATE ANTIBIOTICS BASED ON CULTURE RESULT) CHRISTIANO NEWMAN [facility] Apr 22, 2024 13:47
[2024-04-22] MEDS: VANCOMYCIN 500 MG in D5W 5% 100 ML IV ONE (14:13)
--- NOTE | 2024-04-22 20:13 | DVHPN2 ---
Progress Note - Dictate Date Seen: Apr 22, 2024 Has the PT tested + for MRSA If YES, has PT been informed?: Yes Medical Necessity Reason Pt with a Central, PICC or Fol: No Subjective Patient seen and evaluated in follow up. No acute events overnight. Patient denies any complaints. AM labs are remarkable for WBC 0.4. Platelet count 14. Hgb 8.7. Creatinine 2.03 with BUN 81. GFR 37. CO2 18. Glucose 246. vital signs Vital Sign Date Time Temp Pulse Resp B/P (MAP) Pulse Ox O2 Delivery O2 Flow Rate FiO2 04/22/24 16:51 95 16 115/65 04/22/24 16:34 99.1 100 99.1 04/22/24 08:00 Room Air* 0 21 Total Intake and Output 04/21/24 04/21/24 04/22/24 15:00 23:00 07:00 Intake Total 50.2 ml 2314 ml 650 ml Output Total 450 ml Balance 50.2 ml 1864 ml 650 ml medications Current Medications Medications Dose Ordered Sig/Cedric Route Start Time Stop Time Status Last Admin Dose Admin Al Hydrox/Mg Hydrox/Simethicone 5 ml QID MT 04/17/24 22:00 04/22/24 17:59 5 ML Acetaminophen/ Hydrocodone Bitart 1 tab Q4HP PRN PO 04/17/24 23:00 04/22/24 14:13 1 TAB Ondansetron HCl 4 mg Q4HP PRN IV 04/17/24 23:00 04/18/24 00:32 4 MG Morphine Sulfate 2 mg Q4HPRN PRN IV 04/17/24 23:00 04/22/24 16:21 2 MG Nitroglycerin 0.4 mg Q5MINP PRN SL 04/17/24 23:00 Morphine Sulfate 2 mg Q30M PRN IV 04/17/24 23:00 Vancomycin HCl 0 ml @ 0 mls/hr UD IV 04/17/24 23:15 Cefepime HCl 50 ml @ 12.5 mls/hr Q12HR IV 04/18/24 10:00 04/22/24 09:54 12.5 MLS/HR Acetaminophen 650 mg Q4HP PRN PO 04/18/24 04:00 04/18/24 04:08 650 MG Tbo-Filgrastim 480 mcg DAILY SC 04/18/24 10:00 04/22/24 10:50 480 MCG Folic Acid 1 mg/ Dextrose 50.2 ml @ 200.8 mls/ hr DAILY INJ 04/19/24 10:00 04/22/24 09:54 200.8 MLS/HR Methylprednisolone Sodium Succinate 80 mg BID IV 04/18/24 22:00 04/23/24 21:59 04/22/24 09:55 80 MG Nystatin 5 ml QID MT 04/19/24 18:00 04/22/24 11:43 5 ML Enteral Nutritional Formula 240 ml TIDWM PO 04/19/24 18:00 04/22/24 11:43 240 ML Diagnostic Test (Pha) 1 strip ACHS 04/19/24 17:00 04/22/24 17:58 1 STRIP Insulin Human Regular ACHS SC 04/19/24 17:00 04/22/24 17:58 6 UNITS Dextrose 50 ml UD PRN IV 04/19/24 17:00 Pantoprazole Sodium 40 mg BID IV 04/20/24 19:00 04/22/24 09:55 40 MG Amlodipine Besylate 5 mg DAILY PO 04/22/24 10:00 04/22/24 09:57 5 MG Vancomycin HCl 500 mg/Dextrose 100 ml @ 200 mls/hr Q12H IV 04/22/24 10:00 UNV objective Vitals and nursing notes reviewed. General Appearance: In no acute distress. HEENT: Atraumatic, PERRLA, EOMI, Mucous membrane moist/pink. Swelling and soreness in the lip. Respiratory: Clear to auscultation, Normal air movement Cardiovascular: Regular rate, Normal S1, Normal S2, No murmurs, no chest wall tenderness Abdominal: Stage 2 wound in the rt lower abdomen beneath the skin fold, rt groin, Normal bowel sounds, Soft, No tenderness, No hepatospenomegaly, No masses Extremities: No clubbing, No cyanosis, No edema, Normal pulses, No tenderness/swelling Skin: No rashes, No breakdown, No significant lesion Neuro: Alert, Oriented X3, Cooperative, Normal speech, Strength at 5/5 X4 ext, Normal tone, Sensation intact, Psych/Mental Status: Mental status NL, Mood NL laboratory and microbiology Laboratory Tests 04/22/24 06:22 Test 11/9/24 06:22 Range/Units Serum Glucose 246 H 74-106 mg/dL Problem List Sepsis due to unspecified organism 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 Pending bone marrow aspiration biopsy per Hematology. Daily lab monitoring; electrolyte replacement prn. Avoid nephrotoxic medication Strict I&O. IV antibiotics with Vancomycin and Cefepime. Majic Mouthwash. Protonix 40 mg IV daily. Pain management as needed. Additional plan as per the hospital course. Dietary Evaluation Review Comments: When medically feasible, advance diet to 2gNa CCHO-60 with renal specific-60g protein, 3K, low phos diet Expected Outcomes/Goals: gradual weight loss. controlled DM. Plan discussed with: Other (RN) ADRIANA ZEPEDA DO Apr 22, 2024 20:12
--- NOTE | 2024-04-22 20:39 | DVHPN2 ---
Progress Note - Dictate Date Seen: Apr 22, 2024 Has the PT tested + for MRSA If YES, has PT been informed?: Yes Medical Necessity Reason Pt with a Central, PICC or Fol: No Subjective No new complaints Continued pancytopenia requiring isolation Hemoglobin stable at 8.7 vital signs Vital Sign Date Time Temp Pulse Resp B/P (MAP) Pulse Ox O2 Delivery O2 Flow Rate FiO2 04/22/24 16:51 95 16 115/65 04/22/24 16:34 99.1 100 99.1 04/22/24 08:00 Room Air* 0 21 Total Intake and Output 04/21/24 04/21/24 04/22/24 15:00 23:00 07:00 Intake Total 50.2 ml 2314 ml 650 ml Output Total 450 ml Balance 50.2 ml 1864 ml 650 ml medications Current Medications Medications Dose Ordered Sig/Cedric Route Start Time Stop Time Status Last Admin Dose Admin Al Hydrox/Mg Hydrox/Simethicone 5 ml QID MT 04/17/24 22:00 04/22/24 17:59 5 ML Acetaminophen/ Hydrocodone Bitart 1 tab Q4HP PRN PO 04/17/24 23:00 04/22/24 20:16 1 TAB Ondansetron HCl 4 mg Q4HP PRN IV 04/17/24 23:00 04/18/24 00:32 4 MG Morphine Sulfate 2 mg Q4HPRN PRN IV 04/17/24 23:00 04/22/24 16:21 2 MG Nitroglycerin 0.4 mg Q5MINP PRN SL 04/17/24 23:00 Morphine Sulfate 2 mg Q30M PRN IV 04/17/24 23:00 Vancomycin HCl 0 ml @ 0 mls/hr UD IV 04/17/24 23:15 Cefepime HCl 50 ml @ 12.5 mls/hr Q12HR IV 04/18/24 10:00 04/22/24 09:54 12.5 MLS/HR Acetaminophen 650 mg Q4HP PRN PO 04/18/24 04:00 04/18/24 04:08 650 MG Tbo-Filgrastim 480 mcg DAILY SC 04/18/24 10:00 04/22/24 10:50 480 MCG Folic Acid 1 mg/ Dextrose 50.2 ml @ 200.8 mls/ hr DAILY INJ 04/19/24 10:00 04/22/24 09:54 200.8 MLS/HR Methylprednisolone Sodium Succinate 80 mg BID IV 04/18/24 22:00 04/23/24 21:59 04/22/24 09:55 80 MG Nystatin 5 ml QID MT 04/19/24 18:00 04/22/24 11:43 5 ML Enteral Nutritional Formula 240 ml TIDWM PO 04/19/24 18:00 04/22/24 11:43 240 ML Diagnostic Test (Pha) 1 strip ACHS 04/19/24 17:00 04/22/24 17:58 1 STRIP Insulin Human Regular ACHS SC 04/19/24 17:00 04/22/24 17:58 6 UNITS Dextrose 50 ml UD PRN IV 04/19/24 17:00 Pantoprazole Sodium 40 mg BID IV 04/20/24 19:00 04/22/24 09:55 40 MG Amlodipine Besylate 5 mg DAILY PO 04/22/24 10:00 04/22/24 09:57 5 MG Vancomycin HCl 500 mg/Dextrose 100 ml @ 200 mls/hr Q12H IV 04/22/24 10:00 UNV objective General: NAD, AAOX3 Chest: lung kimbrough clear to auscultation Heart: RRR, no murmur Abdomen: no tenderness to palpation, +BS laboratory and microbiology Laboratory Tests 04/22/24 06:22 Test 04/22/24 06:22 Range/Units Serum Glucose 246 H 74-106 mg/dL Problems(with codes): (1) Acute kidney failure, unspecified (2) Shortness of breath (3) Diabetic nephropathy (4) Morbid obesity (5) Weakness (6) Thrombocytopenia (7) Leukopenia (8) Ulceration Prognosis A/PLAN Pancytopenia more likely secondary to methotrexate and mycophenolate Patient is symptomatic with severe mucositis. The patient does give a history of vaccination with COVID-19 couple of weeks back Continue supportive care Mouth sores are improving slowly and he can swallow slightly better IV Protonix 40 mg Q 12 hours Carafate suspension 1 g p.o. 4 times a day Continue folic acid IV Solu-Medrol Mouthwash Pain control Follow the CBC daily and try to keep the platelets over 15,000 and hemoglobin over 7 Continue the Neupogen Possible bone marrow biopsy Dietary Evaluation Review Comments: When medically feasible, advance diet to 2gNa CCHO-60 with renal specific-60g protein, 3K, low phos diet Expected Outcomes/Goals: gradual weight loss. controlled DM. Plan discussed with: Other (Lindsey Angelo) HILARY JORDAN MD Apr 22, 2024 20:39
--- NOTE | 2024-04-22 22:32 | DVHPN2 ---
Subjective Patient is inclined me today during rounds Appears comfortable, no acute complaints, on neutropenic precaution Reviewed: H&P Changes from previous H/P or p: No Changes ENT: Mouth pain, Mouth swelling, Throat pain Cardiovascular: No Chest Pain, No Palpitations, No Orthopnea, No Paroxysmal Noc. Dyspnea, No Edema, No Lt Headedness, No Other Respiratory: No Cough, No Dry, No Shortness of breath, No SOB with excertion, No Wheezing, No Hemoptysis, No Pleuritic Pain, No Sputum, No Other Gastrointestinal: No Nausea, No Vomiting, No Abdominal Pain, No Diarrhea, No Constipation, No Melena, No Hematochezia, No Other Genitourinary: Retention Musculoskeletal: No other, No neck pain, No shoulder pain, No arm pain, No back pain, No hand pain, No leg pain, No foot pain Skin: Rash, Lesions Objective Vitals Vital Signs Date Time Temp Pulse Resp B/P (MAP) Pulse Ox O2 Delivery O2 Flow Rate FiO2 04/22/24 22:22 98 20 146/79 04/22/24 16:34 99.1 100 99.1 04/22/24 08:00 Room Air* 0 21 Intake/Output Intake and Output 04/22/24 07:00 Intake Total 3014.2 ml Output Total 450 ml Balance 2564.2 ml Intake Oral 2568 ml IV Total 150.2 ml Blood Product 296 ml Output Urine Total 450 ml Exam Alert, oriented x3 Morbidly obese PERRLA Clear breath sounds bilaterally S1-S2 regular rate and rhythm no murmur Abdomen soft nontender, no hepatomegaly Clean looking 1 in abdominal folds Equal strength bilaterally on upper and lower extremities No lower extremity edema Medications Current Medications Medications Dose Ordered Sig/Cedric Route Start Time Stop Time Status Last Admin Dose Admin Al Hydrox/Mg Hydrox/Simethicone 5 ml QID MT 04/17/24 22:00 04/22/24 22:23 5 ML Acetaminophen/ Hydrocodone Bitart 1 tab Q4HP PRN PO 04/17/24 23:00 04/22/24 20:16 1 TAB Ondansetron HCl 4 mg Q4HP PRN IV 04/17/24 23:00 04/18/24 00:32 4 MG Morphine Sulfate 2 mg Q4HPRN PRN IV 04/17/24 23:00 04/22/24 22:22 2 MG Nitroglycerin 0.4 mg Q5MINP PRN SL 04/17/24 23:00 Morphine Sulfate 2 mg Q30M PRN IV 04/17/24 23:00 Vancomycin HCl 0 ml @ 0 mls/hr UD IV 04/17/24 23:15 Cefepime HCl 50 ml @ 12.5 mls/hr Q12HR IV 04/18/24 10:00 04/22/24 22:22 12.5 MLS/HR Acetaminophen 650 mg Q4HP PRN PO 04/18/24 04:00 04/18/24 04:08 650 MG Tbo-Filgrastim 480 mcg DAILY SC 04/18/24 10:00 04/22/24 10:50 480 MCG Folic Acid 1 mg/ Dextrose 50.2 ml @ 200.8 mls/ hr DAILY INJ 04/19/24 10:00 04/22/24 09:54 200.8 MLS/HR Methylprednisolone Sodium Succinate 80 mg BID IV 04/18/24 22:00 04/23/24 21:59 04/22/24 22:23 80 MG Nystatin 5 ml QID MT 04/19/24 18:00 04/22/24 22:23 5 ML Enteral Nutritional Formula 240 ml TIDWM PO 04/19/24 18:00 04/22/24 11:43 240 ML Diagnostic Test (Pha) 1 strip ACHS 04/19/24 17:00 04/22/24 22:23 1 STRIP Insulin Human Regular ACHS SC 04/19/24 17:00 04/22/24 17:58 6 UNITS Dextrose 50 ml UD PRN IV 04/19/24 17:00 Pantoprazole Sodium 40 mg BID IV 04/20/24 19:00 04/22/24 22:22 40 MG Amlodipine Besylate 5 mg DAILY PO 04/22/24 10:00 04/22/24 09:57 5 MG Vancomycin HCl 500 mg/Dextrose 100 ml @ 200 mls/hr Q12H IV 04/22/24 10:00 UNV Laboratory Results Laboratory Tests 04/22/24 06:22 Chemistry Test 04/22/24 06:22 Albumin 3.3 g/dL (3.2-4.8) Calcium Level 9.0 mg/dL (8.7-10.4) Total Protein 5.7 g/dL (5.7-8.2) LFT Test 04/22/24 06:22 Alanine Aminotransferase (ALT) 13 U/L (7-40) Alkaline Phosphatase 19 U/L (46-116) L Aspartate Amino Transferase (AST) < 8 U/L (13-40) L Total Bilirubin 0.5 mg/dL (0.2-1.0) Urinalysis Test 04/17/24 22:16 Urine Color Light-yellow (Yellow) Urine Clarity Clear (Clear) Urine pH 5.0 (5.0-9.0) Urine Specific [place] 1.015 (1.001-1.035) Urine Protein Trace (Negative) H Urine Ketones Trace (Negative) Urine Blood Negative /uL (Negative) Urine Nitrite Negative (Negative) Urine Bilirubin Negative (Negative) Urine Urobilinogen Normal mg/dL (Negative) Urine Leukocyte Esterase Negative /uL (Negative) Urine RBC 1 /hpf (0 - 3) Urine WBC 1 /hpf (0 - 3) Urine Squamous Epithelial Cells Few /hpf (<5) Urine Bacteria Few /hpf (None Seen) H Urine Glucose 1+ mg/dL (Normal) H Microbiology Microbiology Date/Time Source Procedure Growth Status 04/19/24 11:30 Groin Gram Stain - Final Complete 04/19/24 11:30 Wound Culture - Final Staphylococcus lugdunensis Complete 04/17/24 23:27 Blood Blood Culture - Preliminary NO GROWTH AFTER 72 HOURS OF INCUBATION. Resulted 04/17/24 22:16 Voided Urine Urine Culture - Final Complete Labs and/or images reviewed: Labs reviewed by me, Image(s) reviewed by me Assessment/Plan Assessment/Plan Sepsis and infection Pancytopenia Hypertension Mucositis KYLEE on CKD hyperkalemia morbid obesity euthyroid sick syndrome NIDDM T2 gout immunosuppressed c/w abx wound care neutropenic precaution c/w filgastrim and solu medrol diet dv ppx hold for thrombocytopenia Plan discussed with: Patient Date of Service: Apr 22, 2024 Billing Provider: MONALISA CHEN MD Common Visit Codes: [id number] INP/OBS CARE(HIGH) MONALISA CHEN MD Apr 22, 2024 22:32
[2024-04-23] VITALS (8 sets, daily range): BP systolic 122–156; BP diastolic 65–85; PULSE 89–107; RESP 18–20; TEMP 96.6–97.9; O2SAT 99–100
[2024-04-23 07:14] LABS: Hemoglobin 9.2 g/dL (13.5-17.5)
[2024-04-23 07:18] LABS: Hematocrit 27.3 % (41.0-53.0); Mean Corpuscular Hemoglobin 33.1 pg (28.0-32.0); Mean Corpuscular Hgb Conc. 33.6 g/dL (32.0-36.0); Mean Corpuscular Volume 98.3 fL (80.0-100.0); Red Blood Cells 2.77 10^6/uL (4.5-5.90); Red Cell Distribution Width 14.5 % (11.8-14.3)
[2024-04-23 07:36] LABS: Platelet Count (auto) 8 10^3/uL (140-450); White Blood Cell 0.5 10^3/uL (4.4-10.8)
[2024-04-23 07:38] LABS: Basophils % (manual) 0 (0.0-2.0); Blast Cells 0; Eosinophils % (manual) 0 (0-7); Metamyelocytes % 0; Myelocytes % 0; Promyelocytes % 0; Reactive Lymphocytes 0
[2024-04-23 08:34] LABS: Anisocytosis Slight; Band Neutrophils % (manual) 3; Lymphocytes % (manual) 91 (10.0-50.0); Monocytes % (manual) 3 (0-12); Ovalocytes FEW; Platelet Estimate Markedly Increased
--- NOTE | 2024-04-23 16:57 | DVHPN2 ---
Progress Note - Dictate Date Seen: Apr 23, 2024 Has the PT tested + for MRSA If YES, has PT been informed?: Yes Medical Necessity Reason Pt with a Central, PICC or Fol: No Subjective No new complaints Continued pancytopenia requiring isolation Hemoglobin stable at 8.7 Patient is feeling better in I was able to swallow He has not had any further dark bowel movements vital signs Vital Sign Date Time Temp Pulse Resp B/P (MAP) Pulse Ox O2 Delivery O2 Flow Rate FiO2 04/23/24 14:24 98 18 144/71 04/23/24 13:00 97.7 100 97.7 04/23/24 08:00 Room Air* 0 21 Total Intake and Output 04/22/24 04/22/24 04/23/24 15:00 23:00 07:00 Intake Total 320.2 ml 800 ml 800 ml Output Total 725 ml 300 ml Balance 320.2 ml 75 ml 500 ml medications Current Medications Medications Dose Ordered Sig/Cedric Route Start Time Stop Time Status Last Admin Dose Admin Al Hydrox/Mg Hydrox/Simethicone 5 ml QID MT 04/17/24 22:00 04/23/24 12:50 5 ML Acetaminophen/ Hydrocodone Bitart 1 tab Q4HP PRN PO 04/17/24 23:00 04/23/24 06:25 1 TAB Ondansetron HCl 4 mg Q4HP PRN IV 04/17/24 23:00 04/18/24 00:32 4 MG Morphine Sulfate 2 mg Q4HPRN PRN IV 04/17/24 23:00 04/23/24 14:24 2 MG Nitroglycerin 0.4 mg Q5MINP PRN SL 04/17/24 23:00 Morphine Sulfate 2 mg Q30M PRN IV 04/17/24 23:00 Vancomycin HCl 0 ml @ 0 mls/hr UD IV 04/17/24 23:15 Cefepime HCl 50 ml @ 12.5 mls/hr Q12HR IV 04/18/24 10:00 04/23/24 10:50 12.5 MLS/HR Acetaminophen 650 mg Q4HP PRN PO 04/18/24 04:00 04/18/24 04:08 650 MG Tbo-Filgrastim 480 mcg DAILY SC 04/18/24 10:00 04/23/24 09:54 480 MCG Folic Acid 1 mg/ Dextrose 50.2 ml @ 200.8 mls/ hr DAILY INJ 04/19/24 10:00 04/23/24 09:48 200.8 MLS/HR Methylprednisolone Sodium Succinate 80 mg BID IV 04/18/24 22:00 04/23/24 21:59 04/23/24 09:51 80 MG Nystatin 5 ml QID MT 04/19/24 18:00 04/22/24 11:43 5 ML Enteral Nutritional Formula 240 ml TIDWM PO 04/19/24 18:00 04/22/24 11:43 240 ML Diagnostic Test (Pha) 1 strip ACHS 04/19/24 17:00 04/23/24 12:50 1 STRIP Insulin Human Regular ACHS SC 04/19/24 17:00 04/23/24 12:50 6 UNITS Dextrose 50 ml UD PRN IV 04/19/24 17:00 Pantoprazole Sodium 40 mg BID IV 04/20/24 19:00 04/23/24 09:51 40 MG Amlodipine Besylate 5 mg DAILY PO 04/22/24 10:00 04/23/24 09:52 5 MG Vancomycin HCl 500 mg/Dextrose 100 ml @ 200 mls/hr Q12H IV 04/22/24 10:00 UNV objective General: NAD, AAOX3 Chest: lung kimbrough clear to auscultation Heart: RRR, no murmur Abdomen: no tenderness to palpation, +BS laboratory and microbiology Laboratory Tests 04/23/24 06:54 04/22/24 06:22 Test 04/22/24 06:22 Range/Units Serum Glucose 246 H 74-106 mg/dL Problems(with codes): (1) Acute kidney failure, unspecified (2) Shortness of breath (3) Morbid obesity (4) Ulceration (5) Weakness Prognosis PLAN Continue supportive care Patient is on Granix and Solu-Medrol Mouth sores are improving slowly and he can swallow slightly better IV Protonix 40 mg Q 12 hours Carafate suspension 1 g p.o. 4 times a day Continue folic acid IV Solu-Medrol Mouthwash Pain control Follow the CBC daily and try to keep the platelets over 15,000 and hemoglobin over 7 Continue the Neupogen Possible bone marrow biopsy; patient is refusing the bone marrow biopsy at this time Dietary Evaluation Review Comments: When medically feasible, advance diet to 2gNa CCHO-60 with renal specific-60g protein, 3K, low phos diet Expected Outcomes/Goals: gradual weight loss. controlled DM. Plan discussed with: Patient HILARY JORDAN MD Apr 23, 2024 16:57
[2024-04-23] MEDS: VANCOMYCIN 500 MG in D5W 5% 100 ML IV ONE (17:34)
--- NOTE | 2024-04-23 18:49 | DVHPN2 ---
Subjective Patient is seen today during rounds persistently neutropenic, with low platelets. Seen by heme onc today, for transfusion and more filgastrim Reviewed: H&P Changes from previous H/P or p: No Changes ENT: Mouth pain, Mouth swelling, Throat pain Cardiovascular: No Chest Pain, No Palpitations, No Orthopnea, No Paroxysmal Noc. Dyspnea, No Edema, No Lt Headedness, No Other Respiratory: No Cough, No Dry, No Shortness of breath, No SOB with excertion, No Wheezing, No Hemoptysis, No Pleuritic Pain, No Sputum, No Other Gastrointestinal: No Nausea, No Vomiting, No Abdominal Pain, No Diarrhea, No Constipation, No Melena, No Hematochezia, No Other Genitourinary: Retention Musculoskeletal: No other, No neck pain, No shoulder pain, No arm pain, No back pain, No hand pain, No leg pain, No foot pain Skin: Rash, Lesions Objective Vitals Vital Signs Date Time Temp Pulse Resp B/P (MAP) Pulse Ox O2 Delivery O2 Flow Rate FiO2 04/23/24 17:00 97.9 107 18 136/78 (97) 100 97.9 04/23/24 08:00 Room Air* 0 21 Intake/Output Intake and Output 04/23/24 07:00 Intake Total 1920.2 ml Output Total 1025 ml Balance 895.2 ml Intake Oral 1720 ml IV Total 200.2 ml Output Urine Total 1025 ml Exam Alert, oriented x3 Morbidly obese PERRLA Clear breath sounds bilaterally S1-S2 regular rate and rhythm no murmur Abdomen soft nontender, no hepatomegaly Clean looking 1 in abdominal folds Equal strength bilaterally on upper and lower extremities No lower extremity edema Medications Current Medications Medications Dose Ordered Sig/Cedric Route Start Time Stop Time Status Last Admin Dose Admin Al Hydrox/Mg Hydrox/Simethicone 5 ml QID MT 04/17/24 22:00 04/23/24 17:34 5 ML Acetaminophen/ Hydrocodone Bitart 1 tab Q4HP PRN PO 04/17/24 23:00 04/23/24 17:34 1 TAB Ondansetron HCl 4 mg Q4HP PRN IV 04/17/24 23:00 04/18/24 00:32 4 MG Morphine Sulfate 2 mg Q4HPRN PRN IV 04/17/24 23:00 04/23/24 14:24 2 MG Nitroglycerin 0.4 mg Q5MINP PRN SL 04/17/24 23:00 Morphine Sulfate 2 mg Q30M PRN IV 04/17/24 23:00 Vancomycin HCl 0 ml @ 0 mls/hr UD IV 04/17/24 23:15 Cefepime HCl 50 ml @ 12.5 mls/hr Q12HR IV 04/18/24 10:00 04/23/24 10:50 12.5 MLS/HR Acetaminophen 650 mg Q4HP PRN PO 04/18/24 04:00 04/18/24 04:08 650 MG Tbo-Filgrastim 480 mcg DAILY SC 04/18/24 10:00 04/23/24 09:54 480 MCG Folic Acid 1 mg/ Dextrose 50.2 ml @ 200.8 mls/ hr DAILY INJ 04/19/24 10:00 04/23/24 09:48 200.8 MLS/HR Methylprednisolone Sodium Succinate 80 mg BID IV 04/18/24 22:00 04/23/24 21:59 04/23/24 09:51 80 MG Nystatin 5 ml QID MT 04/19/24 18:00 04/22/24 11:43 5 ML Enteral Nutritional Formula 240 ml TIDWM PO 04/19/24 18:00 04/22/24 11:43 240 ML Diagnostic Test (Pha) 1 strip ACHS 04/19/24 17:00 04/23/24 17:32 1 STRIP Insulin Human Regular ACHS SC 04/19/24 17:00 04/23/24 17:34 8 UNITS Dextrose 50 ml UD PRN IV 04/19/24 17:00 Pantoprazole Sodium 40 mg BID IV 04/20/24 19:00 04/23/24 09:51 40 MG Amlodipine Besylate 5 mg DAILY PO 04/22/24 10:00 04/23/24 09:52 5 MG Vancomycin HCl 500 mg/Dextrose 100 ml @ 200 mls/hr Q12H IV 04/22/24 10:00 UNV Laboratory Results Laboratory Tests 04/22/24 06:22 04/23/24 06:54 Urinalysis Test 04/17/24 22:16 Urine Color Light-yellow (Yellow) Urine Clarity Clear (Clear) Urine pH 5.0 (5.0-9.0) Urine Specific [place] 1.015 (1.001-1.035) Urine Protein Trace (Negative) H Urine Ketones Trace (Negative) Urine Blood Negative /uL (Negative) Urine Nitrite Negative (Negative) Urine Bilirubin Negative (Negative) Urine Urobilinogen Normal mg/dL (Negative) Urine Leukocyte Esterase Negative /uL (Negative) Urine RBC 1 /hpf (0 - 3) Urine WBC 1 /hpf (0 - 3) Urine Squamous Epithelial Cells Few /hpf (<5) Urine Bacteria Few /hpf (None Seen) H Urine Glucose 1+ mg/dL (Normal) H Microbiology Microbiology Date/Time Source Procedure Growth Status 04/19/24 11:30 Groin Gram Stain - Final Complete 04/19/24 11:30 Wound Culture - Final Staphylococcus lugdunensis Complete 04/17/24 23:27 Blood Blood Culture - Final NO GROWTH AFTER 5 DAYS OF INCUBATION. Complete 04/17/24 22:16 Voided Urine Urine Culture - Final Complete Assessment/Plan Assessment/Plan Sepsis and infection Pancytopenia Hypertension Mucositis KYLEE on CKD hyperkalemia morbid obesity euthyroid sick syndrome NIDDM T2 gout immunosuppressed c/w abx wound care neutropenic precaution magic mouthwash c/w filgastrim and solu medrol diet dv ppx hold for thrombocytopenia transfuse plt Plan discussed with: Patient Date of Service: Apr 23, 2024 Billing Provider: MONALISA CHEN MD Common Visit Codes: [id number] INP/OBS CARE(HIGH) MONALISA CHEN MD Apr 23, 2024 18:49
[2024-04-23] MEDS: MAGIC MOUTHWASH 55 ML SUSP MT SCH (22:00)
--- NOTE | 2024-04-23 22:35 | DVHPN2 ---
Progress Note - Dictate Date Seen: Apr 23, 2024 Has the PT tested + for MRSA If YES, has PT been informed?: Yes Medical Necessity Reason Pt with a Central, PICC or Fol: No Subjective Patient seen and evaluated in follow up. No acute events overnight. No new complaints. Patient reports feeling a little better and is able to swallow. No further dark bowel movements. Hgb 8.7. WBC 0.5 and PLT 8. Creatinine 2.17, eGFR 34. Patient is refusing bone marrow aspiration at this time. vital signs Vital Sign Date Time Temp Pulse Resp B/P (MAP) Pulse Ox O2 Delivery O2 Flow Rate FiO2 04/23/24 21:00 97.9 100 19 122/65 (84) 99 97.9 04/23/24 08:00 Room Air* 0 21 Total Intake and Output 04/22/24 04/22/24 04/23/24 15:00 23:00 07:00 Intake Total 320.2 ml 800 ml 800 ml Output Total 725 ml 300 ml Balance 320.2 ml 75 ml 500 ml medications Current Medications Medications Dose Ordered Sig/Cedric Route Start Time Stop Time Status Last Admin Dose Admin Al Hydrox/Mg Hydrox/Simethicone 5 ml QID MT 04/17/24 22:00 04/23/24 17:34 5 ML Acetaminophen/ Hydrocodone Bitart 1 tab Q4HP PRN PO 04/17/24 23:00 04/23/24 17:34 1 TAB Ondansetron HCl 4 mg Q4HP PRN IV 04/17/24 23:00 04/18/24 00:32 4 MG Morphine Sulfate 2 mg Q4HPRN PRN IV 04/17/24 23:00 04/23/24 14:24 2 MG Nitroglycerin 0.4 mg Q5MINP PRN SL 04/17/24 23:00 Morphine Sulfate 2 mg Q30M PRN IV 04/17/24 23:00 Vancomycin HCl 0 ml @ 0 mls/hr UD IV 04/17/24 23:15 Cefepime HCl 50 ml @ 12.5 mls/hr Q12HR IV 04/18/24 10:00 04/23/24 10:50 12.5 MLS/HR Acetaminophen 650 mg Q4HP PRN PO 04/18/24 04:00 04/18/24 04:08 650 MG Tbo-Filgrastim 480 mcg DAILY SC 04/18/24 10:00 04/23/24 09:54 480 MCG Folic Acid 1 mg/ Dextrose 50.2 ml @ 200.8 mls/ hr DAILY INJ 04/19/24 10:00 04/23/24 09:48 200.8 MLS/HR Nystatin 5 ml QID MT 04/19/24 18:00 04/22/24 11:43 5 ML Enteral Nutritional Formula 240 ml TIDWM PO 04/19/24 18:00 04/22/24 11:43 240 ML Diagnostic Test (Pha) 1 strip ACHS 04/19/24 17:00 04/23/24 17:32 1 STRIP Insulin Human Regular ACHS SC 04/19/24 17:00 04/23/24 17:34 8 UNITS Dextrose 50 ml UD PRN IV 04/19/24 17:00 Pantoprazole Sodium 40 mg BID IV 04/20/24 19:00 04/23/24 09:51 40 MG Amlodipine Besylate 5 mg DAILY PO 04/22/24 10:00 04/23/24 09:52 5 MG Vancomycin HCl 500 mg/Dextrose 100 ml @ 200 mls/hr Q12H IV 04/22/24 10:00 UNV Al Hydrox/Mg Hydrox/Simethicone 5 ml QID MT 04/23/24 22:00 objective Vitals and nursing notes reviewed. General Appearance: In no acute distress. HEENT: Atraumatic, PERRLA, EOMI, Mucous membrane moist/pink. Respiratory: Clear to auscultation, Normal air movement Cardiovascular: Regular rate, Normal S1, Normal S2, No murmurs, no chest wall tenderness Abdominal: Normal bowel sounds, Soft, No tenderness, No hepatospenomegaly, No masses Extremities: No clubbing, No cyanosis, No edema, Normal pulses, No tenderness/swelling Skin: No rashes, No breakdown, No significant lesion Neuro: Alert, Oriented X3, Cooperative, Normal speech, Strength at 5/5 X4 ext, Normal tone, Sensation intact, Psych/Mental Status: Mental status NL, Mood NL laboratory and microbiology Laboratory Tests 04/23/24 06:54 04/22/24 06:22 Test 04/22/24 06:22 Range/Units Serum Glucose 246 H 74-106 mg/dL Problem List Sepsis due to unspecified organism 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 Receiving Granix and Solu-Medrol. Continue folic acid. Daily lab monitoring; electrolyte replacement prn. Avoid nephrotoxic medication Strict I&O. IV antibiotics with Vancomycin and Cefepime. Majic Mouthwash. Protonix and Sucralfate. Pain management as needed. Additional plan as per the hospital course. Dietary Evaluation Review Comments: When medically feasible, advance diet to 2gNa CCHO-60 with renal specific-60g protein, 3K, low phos diet Expected Outcomes/Goals: gradual weight loss. controlled DM. Plan discussed with: Patient, Other (RN) ADRIANA ZEPEDA DO Apr 23, 2024 22:35
[2024-04-24] VITALS (12 sets, daily range): BP systolic 109–149; BP diastolic 57–74; PULSE 75–100; RESP 17–20; TEMP 96.3–98.7; O2SAT 94–100
[2024-04-24 06:36] LABS: Basophils # (auto) 0 10 ^3/uL (0-0.2); Eosinophils # (auto) 0 10 ^3/uL (0-0.8); Hemoglobin 8.2 g/dL (13.5-17.5); Lymphocytes # (auto) 0.5 10 ^3/uL (0.4-5.4); Monocytes # (auto) 0 10 ^3/uL (0-1.3); Neutrophils # (auto) 0.1 10 ^3/uL (1.6-8.6)
[2024-04-24 06:43] LABS: Basophils % (auto) 0.1 % (0.0-2.0); Hematocrit 23.9 % (41.0-53.0); Mean Corpuscular Hemoglobin 33.2 pg (28.0-32.0); Mean Corpuscular Hgb Conc. 34.4 g/dL (32.0-36.0); Mean Corpuscular Volume 96.6 fL (80.0-100.0); Monocytes % (auto) 3.9 % (0.0-12.0); Neutrophils % (auto) 18.3 % (37.0-80.0); Nucleated Red Blood Cells % 2.2 %; Platelet Count (auto) 26 10^3/uL (140-450); Red Blood Cells 2.47 10^6/uL (4.5-5.90); Red Cell Distribution Width 14.3 % (11.8-14.3)
[2024-04-24 06:44] LABS: Lymphocytes % (auto) 77.7 % (10.0-50.0)
[2024-04-24 06:47] LABS: White Blood Cell 0.7 10^3/uL (4.4-10.8)
[2024-04-24 06:49] LABS: Alanine Aminotransferase 16 U/L (7-40); Albumin 3.5 g/dL (3.2-4.8); Alkaline Phosphatase 20 U/L (46-116); Anion Gap 10 (5-15); Aspartate Aminotransferase < 8 U/L (13-40); BUN/Creatinine Ratio 42.2 (10.0-20.0); Calcium 9.2 mg/dL (8.7-10.4); Carbon Dioxide 18 mmol/L (20-31); Chloride 106 mmol/L (98-107); Glucose 242 mg/dL (74-106); Magnesium 2.3 mg/dL (1.6-2.6); Phosphorus 4.5 mg/dL (2.4-5.1); Potassium 3.2 mmol/L (3.5-5.1)
[2024-04-24 06:50] LABS: Bilirubin, Total 0.5 mg/dL (0.2-1.0); Total Protein 5.9 g/dL (5.7-8.2)
[2024-04-24 06:56] LABS: Sodium 134 mmol/L (136-145)
[2024-04-24 06:58] LABS: Blood Urea Nitrogen 89 mg/dL (9-23)
--- NOTE | 2024-04-24 08:57 | DVHPN2 ---
Progress Note - Dictate Date Seen: Apr 23, 2024 Has the PT tested + for MRSA If YES, has PT been informed?: Yes Medical Necessity Reason Pt with a Central, PICC or Fol: No Subjective Patient feels that the soreness in the mouth is getting better. He is able to swallow little better. He does complain of pains in the legs from the neuropathy vital signs Vital Sign Date Time Temp Pulse Resp B/P (MAP) Pulse Ox O2 Delivery O2 Flow Rate FiO2 04/24/24 05:23 97 17 115/61 04/24/24 05:00 98.3 100 98.3 04/23/24 20:00 Room Air* 0 21 Total Intake and Output 04/23/24 04/23/24 04/24/24 15:00 23:00 07:00 Intake Total 460.2 ml 400 ml 726 ml Output Total 1000 ml 1800 ml Balance 460.2 ml -600 ml -1074 ml medications Current Medications Medications Dose Ordered Sig/Cedric Route Start Time Stop Time Status Last Admin Dose Admin Al Hydrox/Mg Hydrox/Simethicone 5 ml QID MT 04/17/24 22:00 04/24/24 05:00 5 ML Acetaminophen/ Hydrocodone Bitart 1 tab Q4HP PRN PO 04/17/24 23:00 04/23/24 17:34 1 TAB Ondansetron HCl 4 mg Q4HP PRN IV 04/17/24 23:00 04/18/24 00:32 4 MG Morphine Sulfate 2 mg Q4HPRN PRN IV 04/17/24 23:00 04/24/24 04:53 2 MG Nitroglycerin 0.4 mg Q5MINP PRN SL 04/17/24 23:00 Morphine Sulfate 2 mg Q30M PRN IV 04/17/24 23:00 Vancomycin HCl 0 ml @ 0 mls/hr UD IV 04/17/24 23:15 Cefepime HCl 50 ml @ 12.5 mls/hr Q12HR IV 04/18/24 10:00 04/23/24 22:19 12.5 MLS/HR Acetaminophen 650 mg Q4HP PRN PO 04/18/24 04:00 04/18/24 04:08 650 MG Tbo-Filgrastim 480 mcg DAILY SC 04/18/24 10:00 04/23/24 09:54 480 MCG Folic Acid 1 mg/ Dextrose 50.2 ml @ 200.8 mls/ hr DAILY INJ 04/19/24 10:00 04/23/24 09:48 200.8 MLS/HR Nystatin 5 ml QID MT 04/19/24 18:00 04/22/24 11:43 5 ML Enteral Nutritional Formula 240 ml TIDWM PO 04/19/24 18:00 04/22/24 11:43 240 ML Diagnostic Test (Pha) 1 strip ACHS 04/19/24 17:00 04/24/24 06:08 1 STRIP Insulin Human Regular ACHS SC 04/19/24 17:00 04/24/24 06:08 4 UNITS Dextrose 50 ml UD PRN IV 04/19/24 17:00 Pantoprazole Sodium 40 mg BID IV 04/20/24 19:00 04/23/24 22:19 40 MG Amlodipine Besylate 5 mg DAILY PO 04/22/24 10:00 04/23/24 09:52 5 MG Vancomycin HCl 500 mg/Dextrose 100 ml @ 200 mls/hr Q12H IV 04/22/24 10:00 UNV Al Hydrox/Mg Hydrox/Simethicone 5 ml QID MT 04/23/24 22:00 Potassium Chloride 100 ml @ 50 mls/hr Q2H IV 04/24/24 07:30 04/24/24 11:29 objective HEAD AND NECK: Unremarkable. No neck nodes or masses. Mouth mucositis is improving Conjunctiva: Unremarkable. No mucosal hemorrhage. CHEST: Chest wall, no tenderness. LUNGS: Clear. CARDIOVASCULAR: Regular sinus rhythm. No murmurs or gallops. ABDOMEN: No organomegaly, tenderness or ascites. Bowel sounds present. LYMPHATICS: No significant lymphadenopathy. SKIN:Right groin shows ulceration of the skin Psych: No abnormalities Available data reviewed laboratory and microbiology Laboratory Tests 04/24/24 05:34 Test 04/24/24 05:34 Range/Units Serum Glucose 242 H 74-106 mg/dL Assessment/Plan 1. Pancytopenia more likely secondary to methotrexate / mycophenolate And the patient is symptomatic with severe mucositis.[The patient is on chronic Taxol and methotrexate for gout and given by Dr. Bernabe Goldman] The patient does give a history of vaccination with COVID-19 couple of weeks back[The last time the patient took the mycophenolate was December [address] Goldman. Before that his CBC was nearly normal CT of the abdomen pelvis showed distended bladder with moderate bilateral hydronephrosis concerning for bladder outlet obstruction and the liver spleen appears unremarkable 04/19/2024: White count 0.3 hemoglobin 10.2 platelets 5000 confirmed on the blood smear. Haptoglobin 337. Reticulocyte count 0.24. Direct Thomas is negative White count 0.5 hemoglobin 9.6 MCV 99.2 platelets 24,000 Blood cultures are negative 04/21/2024: White count 0.3 hemoglobin 8.6 platelets [id number] confirmed on the blood smear 04/23/2024: White count 0.5 hemoglobin 9.2 platelets 8000 2. Bilateral hydronephrosis 3. Diabetes 4. Hypertension 5. Hyperlipidemia 6. High lactic acid could indicate sepsis 7. CKD 8. Bladder outlet obstruction Plan: Continue folic acid IV Solu-Medrol Mouthwash Pain control Follow the CBC daily and try to keep the platelets over 15,000 and hemoglobin over 7 Continue the Neupogen Transfuse 1 unit pack of platelets today Did discuss with the patient about doing a bone marrow aspiration biopsy for persistent pancytopenia. The patient is showing some hesitancy but he is not definitely decided and he may consider getting the bone marrow aspiration biopsy which will be sent for pathology, flow cytometry and cytogenetics Dietary Evaluation Review Comments: When medically feasible, advance diet to 2gNa CCHO-60 with renal specific-60g protein, 3K, low phos diet Expected Outcomes/Goals: gradual weight loss. controlled DM. Plan discussed with: Patient KOBE LEMUS MD Apr 24, 2024 08:57
--- NOTE | 2024-04-24 08:59 | DVHPN2 ---
Progress Note - Dictate Date Seen: Apr 24, 2024 Has the PT tested + for MRSA If YES, has PT been informed?: Yes Medical Necessity Reason Pt with a Central, PICC or Fol: No Subjective Patient feels that the soreness in the mouth is getting better. He is able to swallow little better. He does complain of pains in the legs from the neuropathy vital signs Vital Sign Date Time Temp Pulse Resp B/P (MAP) Pulse Ox O2 Delivery O2 Flow Rate FiO2 04/24/24 05:23 97 17 115/61 04/24/24 05:00 98.3 100 98.3 04/23/24 20:00 Room Air* 0 21 Total Intake and Output 04/23/24 04/23/24 04/24/24 15:00 23:00 07:00 Intake Total 460.2 ml 400 ml 726 ml Output Total 1000 ml 1800 ml Balance 460.2 ml -600 ml -1074 ml medications Current Medications Medications Dose Ordered Sig/Cedric Route Start Time Stop Time Status Last Admin Dose Admin Al Hydrox/Mg Hydrox/Simethicone 5 ml QID MT 04/17/24 22:00 04/24/24 05:00 5 ML Acetaminophen/ Hydrocodone Bitart 1 tab Q4HP PRN PO 04/17/24 23:00 04/23/24 17:34 1 TAB Ondansetron HCl 4 mg Q4HP PRN IV 04/17/24 23:00 04/18/24 00:32 4 MG Morphine Sulfate 2 mg Q4HPRN PRN IV 04/17/24 23:00 04/24/24 04:53 2 MG Nitroglycerin 0.4 mg Q5MINP PRN SL 04/17/24 23:00 Morphine Sulfate 2 mg Q30M PRN IV 04/17/24 23:00 Vancomycin HCl 0 ml @ 0 mls/hr UD IV 04/17/24 23:15 Cefepime HCl 50 ml @ 12.5 mls/hr Q12HR IV 04/18/24 10:00 04/23/24 22:19 12.5 MLS/HR Acetaminophen 650 mg Q4HP PRN PO 04/18/24 04:00 04/18/24 04:08 650 MG Tbo-Filgrastim 480 mcg DAILY SC 04/18/24 10:00 04/23/24 09:54 480 MCG Folic Acid 1 mg/ Dextrose 50.2 ml @ 200.8 mls/ hr DAILY INJ 04/19/24 10:00 04/23/24 09:48 200.8 MLS/HR Nystatin 5 ml QID MT 04/19/24 18:00 04/22/24 11:43 5 ML Enteral Nutritional Formula 240 ml TIDWM PO 04/19/24 18:00 04/22/24 11:43 240 ML Diagnostic Test (Pha) 1 strip ACHS 04/19/24 17:00 04/24/24 06:08 1 STRIP Insulin Human Regular ACHS SC 04/19/24 17:00 04/24/24 06:08 4 UNITS Dextrose 50 ml UD PRN IV 04/19/24 17:00 Pantoprazole Sodium 40 mg BID IV 04/20/24 19:00 04/23/24 22:19 40 MG Amlodipine Besylate 5 mg DAILY PO 04/22/24 10:00 04/23/24 09:52 5 MG Vancomycin HCl 500 mg/Dextrose 100 ml @ 200 mls/hr Q12H IV 04/22/24 10:00 UNV Al Hydrox/Mg Hydrox/Simethicone 5 ml QID MT 04/23/24 22:00 Potassium Chloride 100 ml @ 50 mls/hr Q2H IV 04/24/24 07:30 04/24/24 11:29 objective HEAD AND NECK: Unremarkable. No neck nodes or masses. Mouth mucositis is improving Conjunctiva: Unremarkable. No mucosal hemorrhage. CHEST: Chest wall, no tenderness. LUNGS: Clear. CARDIOVASCULAR: Regular sinus rhythm. No murmurs or gallops. ABDOMEN: No organomegaly, tenderness or ascites. Bowel sounds present. LYMPHATICS: No significant lymphadenopathy. SKIN:Right groin shows ulceration of the skin Psych: No abnormalities Available data reviewed laboratory and microbiology Laboratory Tests 04/24/24 05:34 Test 04/24/24 05:34 Range/Units Serum Glucose 242 H 74-106 mg/dL Assessment/Plan 1. Pancytopenia more likely secondary to methotrexate / mycophenolate And the patient is symptomatic with severe mucositis.[The patient is on chronic Taxol and methotrexate for gout and given by Dr. Bernabe Goldman] The patient does give a history of vaccination with COVID-19 couple of weeks back[The last time the patient took the mycophenolate was December [address] Goldman. Before that his CBC was nearly normal CT of the abdomen pelvis showed distended bladder with moderate bilateral hydronephrosis concerning for bladder outlet obstruction and the liver spleen appears unremarkable 04/19/2024: White count 0.3 hemoglobin 10.2 platelets 5000 confirmed on the blood smear. Haptoglobin 337. Reticulocyte count 0.24. Direct Thomas is negative White count 0.5 hemoglobin 9.6 MCV 99.2 platelets 24,000 Blood cultures are negative 04/21/2024: White count 0.3 hemoglobin 8.6 platelets [id number] confirmed on the blood smear 04/23/2024: White count 0.5 hemoglobin 9.2 platelets 8000 White count 0.7 hemoglobin 8.2 platelets 51050 after transfusion of a unit pack of platelets 2. Bilateral hydronephrosis 3. Diabetes 4. Hypertension 5. Hyperlipidemia 6. High lactic acid could indicate sepsis 7. CKD 8. Bladder outlet obstruction Plan: Continue folic acid IV Solu-Medrol Mouthwash Pain control Follow the CBC daily and try to keep the platelets over 15,000 and hemoglobin over 7 Continue the Neupogen Transfuse 1 unit pack of platelets today Did discuss with the patient about doing a bone marrow aspiration biopsy for persistent pancytopenia. The patient states that he does not want the bone marrow aspiration biopsy and he is comfortable not knowing exactly what caused the pancytopenia. I did try to impress upon him that is important to find out the status of the bone marrow and appropriately manage the pancytopenia Dietary Evaluation Review Comments: When medically feasible, advance diet to 2gNa CCHO-60 with renal specific-60g protein, 3K, low phos diet Expected Outcomes/Goals: gradual weight loss. controlled DM. Plan discussed with: Patient KOBE LEMUS MD Apr 24, 2024 08:59
[2024-04-24] MEDS: POTASSIUM CHL 20MEQ/100ML 100 ML IV SCH (09:06)
[2024-04-24] MEDS ORDERED: FILGRASTIM(TBO) 480 MCG/0.8 ML SYRG SC SCH (10:00)
--- NOTE | 2024-04-24 14:46 | DVHPNRES ---
Progress Note Date Seen: Apr 24, 2024 Resident Creating Document: RUBIO BARCLAY RESIDENT Has the PT tested + for MRSA If YES, has PT been informed?: Yes Medical Necessity Reason Pt with a Central, PICC or Fol: No Subjective Review of Systems A 59 years old with PMHX type 2 diabetes mellitus, hypertension, hyperlipidemia, peripheral neuropathy, congestive heart failure, CKD stage IV , GERD, gout, obesity, anxiety and depression. He says he has been taking methotrexate and mycophenolate, The reason is not very clear and the patient thinks that he is getting this medication for gout and follows with his instructional material director Dr. Bernabe Goldman. He says he takes 4 methotrexate pills once a week for the last couple of years The patient is admitted with severe mucositis and ulceration in the groin on the right side. He has difficulty speaking and swallowing.Mild fevers He is found to be pancytopenic with a white count of 700 hemoglobin 11 platelets are 16,000. Confirmed on the blood smear. No bleeding Lactic acid is 3.3 BUN 70 creatinine 1.9, albumin 3.9 total protein 6.7 B12 494 TSH 0.2 Free T41.12 Alkaline phosphatase 28. AST 14 ALT 26 uric acid 5.9. PT/INR 1.09 PTT 28.8 and D-dimer 2.34 HIV 1 and 2 is negative He has been given antibiotics and the Magic mouthwash and pain medications 2 unit of platelets given GI bleeding due to mucositis: dark stools Objective vital signs Vital Sign Date Time Temp Pulse Resp B/P (MAP) Pulse Ox O2 Delivery O2 Flow Rate FiO2 04/24/24 14:44 94 17 129/88 04/24/24 13:00 98.7 94 98.7 04/24/24 07:30 Room Air* 0 21 Total Intake and Output 04/23/24 04/23/24 04/24/24 15:00 23:00 07:00 Intake Total 460.2 ml 400 ml 726 ml Output Total 1000 ml 1800 ml Balance 460.2 ml -600 ml -1074 ml medications Current Medications Medications Dose Ordered Sig/Cedric Route Start Time Stop Time Status Last Admin Dose Admin Al Hydrox/Mg Hydrox/Simethicone 5 ml QID MT 04/17/24 22:00 04/24/24 12:27 5 ML Acetaminophen/ Hydrocodone Bitart 1 tab Q4HP PRN PO 04/17/24 23:00 04/23/24 17:34 1 TAB Ondansetron HCl 4 mg Q4HP PRN IV 04/17/24 23:00 04/18/24 00:32 4 MG Morphine Sulfate 2 mg Q4HPRN PRN IV 04/17/24 23:00 04/24/24 14:44 2 MG Nitroglycerin 0.4 mg Q5MINP PRN SL 04/17/24 23:00 Morphine Sulfate 2 mg Q30M PRN IV 04/17/24 23:00 Vancomycin HCl 0 ml @ 0 mls/hr UD IV 04/17/24 23:15 Cefepime HCl 50 ml @ 12.5 mls/hr Q12HR IV 04/18/24 10:00 04/24/24 12:30 12.5 MLS/HR Acetaminophen 650 mg Q4HP PRN PO 04/18/24 04:00 04/18/24 04:08 650 MG Tbo-Filgrastim 480 mcg DAILY SC 04/18/24 10:00 04/23/24 09:54 480 MCG Folic Acid 1 mg/ Dextrose 50.2 ml @ 200.8 mls/ hr DAILY INJ 04/19/24 10:00 04/24/24 11:23 200.8 MLS/HR Nystatin 5 ml QID MT 04/19/24 18:00 04/22/24 11:43 5 ML Enteral Nutritional Formula 240 ml TIDWM PO 04/19/24 18:00 04/22/24 11:43 240 ML Diagnostic Test (Pha) 1 strip ACHS 04/19/24 17:00 04/24/24 12:26 1 STRIP Insulin Human Regular ACHS SC 04/19/24 17:00 04/24/24 12:26 4 UNITS Dextrose 50 ml UD PRN IV 04/19/24 17:00 Pantoprazole Sodium 40 mg BID IV 04/20/24 19:00 04/24/24 11:24 40 MG Amlodipine Besylate 5 mg DAILY PO 04/22/24 10:00 04/24/24 11:26 5 MG Vancomycin HCl 500 mg/Dextrose 100 ml @ 200 mls/hr Q12H IV 04/22/24 10:00 UNV Al Hydrox/Mg Hydrox/Simethicone 5 ml QID MT 04/23/24 22:00 Insulin Glargine 20 units BID@1000,2200 SC 04/24/24 22:00 Cancel Examination GENERAL: alert and oriented. Obese who has moderate mucositis HEAD AND NECK: Unremarkable. No neck nodes or masses. Conjunctivae: pale, Unremarkable for any mucosal hemorrhage or inflammation. CHEST: Chest wall, no tenderness. LUNGS: Clear. CARDIOVASCULAR: Regular sinus rhythm. No murmurs or gallops. ABDOMEN: No organomegaly, tenderness or ascites. Bowel sounds present. EXTREMITIES:. In the right groin fold he has Ulcerated skin LYMPHATICS: No significant lymphadenopathy. NEUROLOGIC: No focal neurological deficits. SKIN: multiple sores in the legs laboratory and microbiology Laboratory Tests 04/24/24 05:34 Test 04/24/24 05:34 Range/Units Serum Glucose 242 H 74-106 mg/dL Microbiology Date/Time Source Procedure Growth Status 04/19/24 11:30 Groin Gram Stain - Final Complete 04/19/24 11:30 Wound Culture - Final Staphylococcus lugdunensis Complete 04/17/24 23:27 Blood Blood Culture - Final NO GROWTH AFTER 5 DAYS OF INCUBATION. Complete 04/17/24 22:16 Voided Urine Urine Culture - Final Complete Problem List/Assessment/Plan Problem List/Assessment/Plan HEME/ONC: #Immunodeficiency: leukopenia possible due to use of MTX or mycophenolate febrile neutropenia Bone marrow aspiration ordered by Dr Ivory: patient refused Continue filgastrim and solu medrol per Dr Ivory Pt is on cefepime/vancomycin HIV negative #Thrombocytopenia due to above 3 unit of platelets already given 26 today keep above 15 #Anemia due to possible GI bleeding and above 8.7 CARDIOLOGY: normal auscultation normal BNP No chest pain, SOB at rest X ray no pulmonary edema #Essential hypertension Amlodipine 5 mg Hydralazine PRN RESPIRATORY: No distress at the moment normal x ray GI: #GI bleeding probably upper due to mucositis Dark stools BUN 82 GI on the case, no scope Protonix BID /RENAL #Sepsis due to infected intertrigo in the right groin and scrotal No septic shock at the moment Right now, the infection is superficial but can progress to jessica gangrene due to immunodeficiency state Patient is on cefepime/vancomycin/clindamyicin wound culture Staphylococcus lugdunensis wound consult #Bilateral hydronephrosis without evidence of ureteral stones. #KYLEE on CKD Stage IV Nephology on board: Dr Bernabe Goldman No urinary retention at this moment, patient refused villarreal: voiding few times Urology consult ENDOCRINOLOGY #Hyperkalemia resolved due to CKD #DM type 2 in remission HBA1C 5.0 #Obesity Patient was on mounjaro back in home #Euthyroid sick syndrome TSH 0.2 free t4 1.12 Free t3 2.24 RHEUMATOLOGY AND SKIN #Mucositis Secondary to immunodeficiency Magic wash mouth and nystatin #Sepsis due to infected intertrigo in the right groin and scrotal describe above #Gout Pt was receiving MTX, mycophenolate, Krystexxa, colchicine for gout ? Due to possible adverse reaction and sepsis hold on medications No acute flare ups Uric acid less than 0.[address] Russell CRITICAL CARE TIME 76 MINS Plan discussed with: Patient, Other (rn) Dietary Evaluation Review Comments: When medically feasible, advance diet to 2gNa CCHO-60 with renal specific-60g protein, 3K, low phos diet Expected Outcomes/Goals: gradual weight loss. controlled DM. Date of Service: Apr 24, 2024 Billing Provider: VIOLETA RUSSELL MD Common Visit Codes: [id number] INP/OBS CARE(HIGH) RUBIO BARCLAY RESIDENT Apr 24, 2024 14:46 VIOLETA RUSSELL MD Apr 25, 2024 13:57
--- NOTE | 2024-04-24 19:11 | DVHPN2 ---
Progress Note - Dictate Date Seen: Apr 24, 2024 Has the PT tested + for MRSA If YES, has PT been informed?: Yes Medical Necessity Reason Pt with a Central, PICC or Fol: No Subjective No new complaints Slight improvement in his white count and platelets Patient is feeling better and is able to swallow He has not had any further dark bowel movements vital signs Vital Sign Date Time Temp Pulse Resp B/P (MAP) Pulse Ox O2 Delivery O2 Flow Rate FiO2 04/24/24 17:00 97.1 100 20 135/72 (93) 98 97.1 04/24/24 07:30 Room Air* 0 21 Total Intake and Output 04/23/24 04/23/24 04/24/24 15:00 23:00 07:00 Intake Total 460.2 ml 400 ml 726 ml Output Total 1000 ml 1800 ml Balance 460.2 ml -600 ml -1074 ml medications Current Medications Medications Dose Ordered Sig/Cedric Route Start Time Stop Time Status Last Admin Dose Admin Al Hydrox/Mg Hydrox/Simethicone 5 ml QID MT 04/17/24 22:00 04/24/24 18:05 5 ML Acetaminophen/ Hydrocodone Bitart 1 tab Q4HP PRN PO 04/17/24 23:00 04/23/24 17:34 1 TAB Ondansetron HCl 4 mg Q4HP PRN IV 04/17/24 23:00 04/18/24 00:32 4 MG Morphine Sulfate 2 mg Q4HPRN PRN IV 04/17/24 23:00 04/24/24 14:44 2 MG Nitroglycerin 0.4 mg Q5MINP PRN SL 04/17/24 23:00 Morphine Sulfate 2 mg Q30M PRN IV 04/17/24 23:00 Vancomycin HCl 0 ml @ 0 mls/hr UD IV 04/17/24 23:15 Cefepime HCl 50 ml @ 12.5 mls/hr Q12HR IV 04/18/24 10:00 04/24/24 12:30 12.5 MLS/HR Acetaminophen 650 mg Q4HP PRN PO 04/18/24 04:00 04/18/24 04:08 650 MG Tbo-Filgrastim 480 mcg DAILY SC 04/18/24 10:00 04/23/24 09:54 480 MCG Folic Acid 1 mg/ Dextrose 50.2 ml @ 200.8 mls/ hr DAILY INJ 04/19/24 10:00 04/24/24 11:23 200.8 MLS/HR Nystatin 5 ml QID MT 04/19/24 18:00 04/22/24 11:43 5 ML Enteral Nutritional Formula 240 ml TIDWM PO 04/19/24 18:00 04/22/24 11:43 240 ML Diagnostic Test (Pha) 1 strip ACHS 04/19/24 17:00 04/24/24 17:30 1 STRIP Insulin Human Regular ACHS SC 04/19/24 17:00 04/24/24 18:04 4 UNITS Dextrose 50 ml UD PRN IV 04/19/24 17:00 Pantoprazole Sodium 40 mg BID IV 04/20/24 19:00 04/24/24 11:24 40 MG Amlodipine Besylate 5 mg DAILY PO 04/22/24 10:00 04/24/24 11:26 5 MG Vancomycin HCl 500 mg/Dextrose 100 ml @ 200 mls/hr Q12H IV 04/22/24 10:00 UNV Al Hydrox/Mg Hydrox/Simethicone 5 ml QID MT 04/23/24 22:00 Insulin Glargine 20 units BID@1000,2200 SC 04/24/24 22:00 Cancel objective General: NAD, AAOX3 Chest: lung kimbrough clear to auscultation Heart: RRR, no murmur Abdomen: no tenderness to palpation, +BS laboratory and microbiology Laboratory Tests 04/24/24 05:34 Test 04/24/24 05:34 Range/Units Serum Glucose 242 H 74-106 mg/dL Problems(with codes): (1) Pancytopenia (2) Acute kidney failure, unspecified (3) Diabetic nephropathy (4) Morbid obesity (5) Ulceration (6) Thrombocytopenia (7) Leukopenia Prognosis PLAN Continue supportive care Patient is on Granix and Solu-Medrol Mouth sores are improving slowly and he can swallow slightly better IV Protonix 40 mg Q 12 hours Carafate suspension 1 g p.o. 4 times a day Continue folic acid IV Solu-Medrol Mouthwash Pain control Follow the CBC daily and try to keep the platelets over 15,000 and hemoglobin over 7 Continue the Neupogen Possible bone marrow biopsy; patient is refusing the bone marrow biopsy at this time Dietary Evaluation Review Comments: When medically feasible, advance diet to 2gNa CCHO-60 with renal specific-60g protein, 3K, low phos diet Expected Outcomes/Goals: gradual weight loss. controlled DM. Plan discussed with: Patient HILARY JORDAN MD Apr 24, 2024 19:11
--- NOTE | 2024-04-24 20:00 | DVHPN2 ---
Progress Note - Dictate Date Seen: Apr 24, 2024 Has the PT tested + for MRSA If YES, has PT been informed?: Yes Medical Necessity Reason Pt with a Central, PICC or Fol: No Subjective Patient seen and evaluated in follow up. No acute events overnight. Patient is complaining of generalized pain, 7/10. Reports overall feeling a little better and is able to swallow. WBC improved to 0.7. Hgb 8.2. Platelet count 26. Creatinine 2.11 with BUN of 89. eGFR 36. Na 134. K 3.2. Glucose 242. CO2 18. vital signs Vital Sign Date Time Temp Pulse Resp B/P (MAP) Pulse Ox O2 Delivery O2 Flow Rate FiO2 04/24/24 17:00 97.1 100 20 135/72 (93) 98 97.1 04/24/24 07:30 Room Air* 0 21 Total Intake and Output 04/23/24 04/23/24 04/24/24 15:00 23:00 07:00 Intake Total 460.2 ml 400 ml 726 ml Output Total 1000 ml 1800 ml Balance 460.2 ml -600 ml -1074 ml medications Current Medications Medications Dose Ordered Sig/Cedric Route Start Time Stop Time Status Last Admin Dose Admin Al Hydrox/Mg Hydrox/Simethicone 5 ml QID MT 04/17/24 22:00 04/24/24 18:05 5 ML Acetaminophen/ Hydrocodone Bitart 1 tab Q4HP PRN PO 04/17/24 23:00 04/23/24 17:34 1 TAB Ondansetron HCl 4 mg Q4HP PRN IV 04/17/24 23:00 04/18/24 00:32 4 MG Morphine Sulfate 2 mg Q4HPRN PRN IV 04/17/24 23:00 04/24/24 14:44 2 MG Nitroglycerin 0.4 mg Q5MINP PRN SL 04/17/24 23:00 Morphine Sulfate 2 mg Q30M PRN IV 04/17/24 23:00 Vancomycin HCl 0 ml @ 0 mls/hr UD IV 04/17/24 23:15 Cefepime HCl 50 ml @ 12.5 mls/hr Q12HR IV 04/18/24 10:00 04/24/24 12:30 12.5 MLS/HR Acetaminophen 650 mg Q4HP PRN PO 04/18/24 04:00 04/18/24 04:08 650 MG Tbo-Filgrastim 480 mcg DAILY SC 04/18/24 10:00 04/23/24 09:54 480 MCG Folic Acid 1 mg/ Dextrose 50.2 ml @ 200.8 mls/ hr DAILY INJ 04/19/24 10:00 04/24/24 11:23 200.8 MLS/HR Nystatin 5 ml QID MT 04/19/24 18:00 04/22/24 11:43 5 ML Enteral Nutritional Formula 240 ml TIDWM PO 04/19/24 18:00 04/22/24 11:43 240 ML Diagnostic Test (Pha) 1 strip ACHS 04/19/24 17:00 04/24/24 17:30 1 STRIP Insulin Human Regular ACHS SC 04/19/24 17:00 04/24/24 18:04 4 UNITS Dextrose 50 ml UD PRN IV 04/19/24 17:00 Pantoprazole Sodium 40 mg BID IV 04/20/24 19:00 04/24/24 11:24 40 MG Amlodipine Besylate 5 mg DAILY PO 04/22/24 10:00 04/24/24 11:26 5 MG Vancomycin HCl 500 mg/Dextrose 100 ml @ 200 mls/hr Q12H IV 04/22/24 10:00 UNV Al Hydrox/Mg Hydrox/Simethicone 5 ml QID MT 04/23/24 22:00 Insulin Glargine 20 units BID@1000,2200 SC 04/24/24 22:00 Cancel objective Vitals and nursing notes reviewed. General Appearance: In no acute distress. HEENT: Atraumatic, PERRLA, EOMI, Mucous membrane moist/pink. Respiratory: Clear to auscultation, Normal air movement Cardiovascular: Regular rate, Normal S1, Normal S2, No murmurs, no chest wall tenderness Abdominal: Normal bowel sounds, Soft, No tenderness, No hepatospenomegaly, No masses Extremities: No clubbing, No cyanosis, No edema, Normal pulses, No tenderness/swelling Skin: No rashes, No breakdown, No significant lesion Neuro: Alert, Oriented X3, Cooperative, Normal speech, Strength at 5/5 X4 ext, Normal tone, Sensation intact, Psych/Mental Status: Mental status NL, Mood NL laboratory and microbiology Laboratory Tests 04/24/24 05:34 Test 04/24/24 05:34 Range/Units Serum Glucose 242 H 74-106 mg/dL Problem List Sepsis due to unspecified organism 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 Daily lab monitoring. Potassium replacement. Avoid nephrotoxic medication Strict I&O. Receiving Granix and Solu-Medrol. Folic acid. IV antibiotics with Vancomycin and Cefepime. Majic Mouthwash. Protonix and Sucralfate. Pain management as needed. Additional plan as per the hospital course. Dietary Evaluation Review Comments: When medically feasible, advance diet to 2gNa CCHO-60 with renal specific-60g protein, 3K, low phos diet Expected Outcomes/Goals: gradual weight loss. controlled DM. Plan discussed with: Patient, Other (RN) ADRIANA ZEPEDA DO Apr 24, 2024 20:00
[2024-04-24] MEDS ORDERED: INSULIN LANTUS (GLARGINE) 1 /0.01ml (100units/ml) SC SCH (22:00)
[2024-04-25] VITALS (11 sets, daily range): BP systolic 95–139; BP diastolic 46–83; PULSE 87–101; RESP 16–20; TEMP 97.6–98.6; O2SAT 98–100
[2024-04-25 06:14] LABS: Hemoglobin 8.3 g/dL (13.5-17.5)
[2024-04-25 06:18] LABS: Hematocrit 23.9 % (41.0-53.0); Mean Corpuscular Hemoglobin 33.4 pg (28.0-32.0); Mean Corpuscular Hgb Conc. 34.5 g/dL (32.0-36.0); Mean Corpuscular Volume 96.6 fL (80.0-100.0); Red Blood Cells 2.48 10^6/uL (4.5-5.90); Red Cell Distribution Width 14.3 % (11.8-14.3)
[2024-04-25 06:32] LABS: Alanine Aminotransferase 12 U/L (7-40); Albumin 3.3 g/dL (3.2-4.8); Alkaline Phosphatase 23 U/L (46-116); Anion Gap 5 (5-15); Aspartate Aminotransferase < 8 U/L (13-40); BUN/Creatinine Ratio 43.3 (10.0-20.0); Bilirubin, Total 0.5 mg/dL (0.2-1.0); Calcium 8.9 mg/dL (8.7-10.4); Carbon Dioxide 20 mmol/L (20-31); Chloride 111 mmol/L (98-107); Glucose 162 mg/dL (74-106); Potassium 3.8 mmol/L (3.5-5.1); Sodium 136 mmol/L (136-145); Total Protein 5.6 g/dL (5.7-8.2)
[2024-04-25 06:36] LABS: White Blood Cell 1.5 10^3/uL (4.4-10.8)
[2024-04-25 06:37] LABS: Blood Urea Nitrogen 84 mg/dL (9-23); Platelet Count (auto) 10 10^3/uL (140-450)
[2024-04-25 06:39] LABS: Basophils % (manual) 0 (0.0-2.0); Blast Cells 0; Eosinophils % (manual) 0 (0-7); Metamyelocytes % 0; Myelocytes % 0; Promyelocytes % 0; Reactive Lymphocytes 0
[2024-04-25 07:55] LABS: Base Excess -8.4 mmol/L (-2.0-3.0)
--- NOTE | 2024-04-25 07:56 | DVH ---
CHEST RADIOGRAPH Indication:dysonea Technique: Single frontal view of the chest was obtained COMPARISON: XY CHEST XRAY 1 VIEW on DOS: 04/21/24, XY CHEST XRAY 1 VIEW on DOS: 04/19/24, XY CHEST PORT ABLE on DOS: 04/17/24 FINDINGS: Lines and Tubes: None Lungs: Left basilar subsegmental atelectasis. Pleura: No effusion. No pneumothorax. Cardiomediastinal contours: Unremarkable Bones: Unremarkable IMPRESSION: Left basilar subsegmental atelectasis.
[2024-04-25 08:16] LABS: Band Neutrophils % (manual) 6; Lymphocytes % (manual) 67 (10.0-50.0); Monocytes % (manual) 1 (0-12); Platelet Estimate Markedly Decreased
[2024-04-25 08:17] LABS: Tear Drop Cells FEW
--- NOTE | 2024-04-25 11:40 | DVHPNRES ---
Progress Note Date Seen: Apr 25, 2024 Resident Creating Document: RUBIO BARCLAY RESIDENT Has the PT tested + for MRSA If YES, has PT been informed?: Yes Medical Necessity Reason Pt with a Central, PICC or Fol: No Subjective Review of Systems A 59 years old with PMHX type 2 diabetes mellitus, hypertension, hyperlipidemia, peripheral neuropathy, congestive heart failure, CKD stage IV , GERD, gout, obesity, anxiety and depression. He says he has been taking methotrexate and mycophenolate, The reason is not very clear and the patient thinks that he is getting this medication for gout and follows with his manager sales and marketing Dr. Bernabe Goldman. He says he takes 4 methotrexate pills once a week for the last couple of years The patient is admitted with severe mucositis and ulceration in the groin on the right side. He has difficulty speaking and swallowing.Mild fevers He is found to be pancytopenic with a white count of 700 hemoglobin 11 platelets are 16,000. Confirmed on the blood smear. No bleeding Lactic acid is 3.3 BUN 70 creatinine 1.9, albumin 3.9 total protein 6.7 B12 494 TSH 0.2 Free T41.12 Alkaline phosphatase 28. AST 14 ALT 26 uric acid 5.9. PT/INR 1.09 PTT 28.8 and D-dimer 2.34 HIV 1 and 2 is negative He has been given antibiotics and the Magic mouthwash and pain medications 2 unit of platelets given GI bleeding due to mucositis: dark stools Objective vital signs Vital Sign Date Time Temp Pulse Resp B/P (MAP) Pulse Ox O2 Delivery O2 Flow Rate FiO2 04/25/24 10:31 108/72 04/25/24 09:00 97.9 100 18 99 97.9 04/25/24 07:30 Room Air* 0 21 Total Intake and Output 04/24/24 04/24/24 04/25/24 15:00 23:00 07:00 Intake Total 487.2 ml 1650 ml 500 ml Output Total 760 ml 300 ml Balance 487.2 ml 890 ml 200 ml medications Current Medications Medications Dose Ordered Sig/Cedric Route Start Time Stop Time Status Last Admin Dose Admin Al Hydrox/Mg Hydrox/Simethicone 5 ml QID MT 04/17/24 22:00 04/25/24 05:38 5 ML Acetaminophen/ Hydrocodone Bitart 1 tab Q4HP PRN PO 04/17/24 23:00 04/23/24 17:34 1 TAB Ondansetron HCl 4 mg Q4HP PRN IV 04/17/24 23:00 04/18/24 00:32 4 MG Morphine Sulfate 2 mg Q4HPRN PRN IV 04/17/24 23:00 04/25/24 05:38 2 MG Nitroglycerin 0.4 mg Q5MINP PRN SL 04/17/24 23:00 Morphine Sulfate 2 mg Q30M PRN IV 04/17/24 23:00 Vancomycin HCl 0 ml @ 0 mls/hr UD IV 04/17/24 23:15 Cefepime HCl 50 ml @ 12.5 mls/hr Q12HR IV 04/18/24 10:00 04/25/24 10:30 12.5 MLS/HR Acetaminophen 650 mg Q4HP PRN PO 04/18/24 04:00 04/18/24 04:08 650 MG Tbo-Filgrastim 480 mcg DAILY SC 04/18/24 10:00 04/23/24 09:54 480 MCG Folic Acid 1 mg/ Dextrose 50.2 ml @ 200.8 mls/ hr DAILY INJ 04/19/24 10:00 04/24/24 11:23 200.8 MLS/HR Nystatin 5 ml QID MT 04/19/24 18:00 04/22/24 11:43 5 ML Enteral Nutritional Formula 240 ml TIDWM PO 04/19/24 18:00 04/22/24 11:43 240 ML Diagnostic Test (Pha) 1 strip ACHS 04/19/24 17:00 04/25/24 06:00 1 STRIP Insulin Human Regular ACHS SC 04/19/24 17:00 04/25/24 06:04 2 UNITS Dextrose 50 ml UD PRN IV 04/19/24 17:00 Pantoprazole Sodium 40 mg BID IV 04/20/24 19:00 04/25/24 10:28 40 MG Amlodipine Besylate 5 mg DAILY PO 04/22/24 10:00 04/25/24 10:31 5 MG Vancomycin HCl 500 mg/Dextrose 100 ml @ 200 mls/hr Q12H IV 04/22/24 10:00 UNV Al Hydrox/Mg Hydrox/Simethicone 5 ml QID MT 04/23/24 22:00 04/25/24 05:32 5 ML Insulin Glargine 20 units BID@1000,2200 SC 04/24/24 22:00 Cancel Examination GENERAL: alert and oriented. Obese who has moderate mucositis HEAD AND NECK: Unremarkable. No neck nodes or masses. Conjunctivae: pale, Unremarkable for any mucosal hemorrhage or inflammation. CHEST: Chest wall, no tenderness. LUNGS: Clear. CARDIOVASCULAR: Regular sinus rhythm. No murmurs or gallops. ABDOMEN: No organomegaly, tenderness or ascites. Bowel sounds present. EXTREMITIES:. In the right groin fold he has Ulcerated skin LYMPHATICS: No significant lymphadenopathy. NEUROLOGIC: No focal neurological deficits. SKIN: multiple sores in the legs laboratory and microbiology Laboratory Tests 04/25/24 05:05 Test 04/25/24 05:05 Range/Units Serum Glucose 162 H 74-106 mg/dL Microbiology Date/Time Source Procedure Growth Status 04/19/24 11:30 Groin Gram Stain - Final Complete 04/19/24 11:30 Wound Culture - Final Staphylococcus lugdunensis Complete 04/17/24 23:27 Blood Blood Culture - Final NO GROWTH AFTER 5 DAYS OF INCUBATION. Complete 04/17/24 22:16 Voided Urine Urine Culture - Final Complete Problem List/Assessment/Plan Problem List/Assessment/Plan HEME/ONC: #Immunodeficiency: leukopenia possible due to use of MTX or mycophenolate febrile neutropenia Bone marrow aspiration ordered by Dr Ivory: pt refused Continue filgastrim and solu medrol per Dr Ivory Pt is on cefepime/vancomycin HIV negative #Thrombocytopenia due to above 3 unit of platelets already given 1 unit of platelets today 10 today keep above 15 #Anemia due to possible GI bleeding and above 8.3 CARDIOLOGY: normal auscultation normal BNP No chest pain, SOB at rest X ray no pulmonary edema #Essential hypertension Amlodipine 5 mg Hydralazine PRN RESPIRATORY: No distress at the moment normal x ray GI: #GI bleeding probably upper due to mucositis Dark stools BUN 82 GI on the case, no scope Protonix BID /RENAL #Sepsis due to infected intertrigo in the right groin and scrotal No septic shock at the moment Right now, the infection is superficial but can progress to jessica gangrene due to immunodeficiency state Patient is on cefepime/vancomycin/clindamyicin wound culture Staphylococcus lugdunensis wound consult #Bilateral hydronephrosis without evidence of ureteral stones. #KYLEE on CKD Stage IV Nephology on board: Dr Bernabe Goldman No urinary retention at this moment, patient refused villarreal: voiding few times Urology consult ENDOCRINOLOGY #Hyperkalemia resolved due to CKD #DM type 2 in remission HBA1C 5.0 #Obesity Patient was on mounjaro back in home #Euthyroid sick syndrome TSH 0.2 free t4 1.12 Free t3 2.24 RHEUMATOLOGY AND SKIN #Mucositis Secondary to immunodeficiency Magic wash mouth and nystatin #Sepsis due to infected intertrigo in the right groin and scrotal describe above #Gout Pt was receiving MTX, mycophenolate, Krystexxa, colchicine for gout ? Due to possible adverse reaction and sepsis hold on medications No acute flare ups Uric acid less than 0.[address] Russell CRITICAL CARE TIME 76 MINS Plan discussed with: Patient, Other (rn) My Orders My Orders Orders - RUBIO BARCLAY RESIDENT Procedure Category Date Status Time Chest Xray 1 View XY 04/25/24 Resulted 04:00 Abg W/ Co-Ox RT 04/25/24 Logged 04:00 Dietary Evaluation Review Comments: When medically feasible, advance diet to 2gNa CCHO-60 with renal specific-60g protein, 3K, low phos diet Expected Outcomes/Goals: gradual weight loss. controlled DM. Date of Service: Apr 25, 2024 Billing Provider: VIOLETA RUSSELL MD Common Visit Codes: [id number] INP/OBS CARE(HIGH) RUBIO BARCLAY RESIDENT Apr 25, 2024 11:40 VIOLETA RUSSELL MD Apr 26, 2024 13:27
[2024-04-25] MEDS: VANCOMYCIN 500 MG in D5W 5% 100 ML IV ONE (13:15)
--- NOTE | 2024-04-25 21:17 | DVHPN2 ---
Progress Note - Dictate Date Seen: Apr 25, 2024 Has the PT tested + for MRSA If YES, has PT been informed?: Yes Medical Necessity Reason Pt with a Central, PICC or Fol: No Subjective Patient seen and evaluated in follow up. No acute events overnight. Patient is resting, on RA. Denies any pain or discomfort at this time. AM labs are remarkable for WBC 1.5. Platelet count 10. Hgb 8.3. HCT 23.9. Creatinine 1.94 with BUN of 84. eGFR 39. CL 111. Glucose 162. Alkaline Phos 23. Total protein 5.6. F/u Chest x-ray reports left basilar subsegmental atelectasis. vital signs Vital Sign Date Time Temp Pulse Resp B/P (MAP) Pulse Ox O2 Delivery O2 Flow Rate FiO2 04/25/24 20:41 87 18 134/69 04/25/24 17:57 98.6 98.6 04/25/24 17:00 98 04/25/24 07:30 Room Air* 0 21 Total Intake and Output 04/24/24 04/24/24 04/25/24 15:00 23:00 07:00 Intake Total 487.2 ml 1650 ml 500 ml Output Total 760 ml 300 ml Balance 487.2 ml 890 ml 200 ml medications Current Medications Medications Dose Ordered Sig/Cedric Route Start Time Stop Time Status Last Admin Dose Admin Al Hydrox/Mg Hydrox/Simethicone 5 ml QID MT 04/17/24 22:00 04/25/24 13:16 5 ML Acetaminophen/ Hydrocodone Bitart 1 tab Q4HP PRN PO 04/17/24 23:00 04/23/24 17:34 1 TAB Ondansetron HCl 4 mg Q4HP PRN IV 04/17/24 23:00 04/18/24 00:32 4 MG Morphine Sulfate 2 mg Q4HPRN PRN IV 04/17/24 23:00 04/25/24 20:41 2 MG Nitroglycerin 0.4 mg Q5MINP PRN SL 04/17/24 23:00 Morphine Sulfate 2 mg Q30M PRN IV 04/17/24 23:00 Vancomycin HCl 0 ml @ 0 mls/hr UD IV 04/17/24 23:15 Cefepime HCl 50 ml @ 12.5 mls/hr Q12HR IV 04/18/24 10:00 04/25/24 21:01 12.5 MLS/HR Acetaminophen 650 mg Q4HP PRN PO 04/18/24 04:00 04/18/24 04:08 650 MG Tbo-Filgrastim 480 mcg DAILY SC 04/18/24 10:00 04/23/24 09:54 480 MCG Folic Acid 1 mg/ Dextrose 50.2 ml @ 200.8 mls/ hr DAILY INJ 04/19/24 10:00 04/25/24 13:15 200.8 MLS/HR Nystatin 5 ml QID MT 04/19/24 18:00 04/22/24 11:43 5 ML Enteral Nutritional Formula 240 ml TIDWM PO 04/19/24 18:00 04/22/24 11:43 240 ML Diagnostic Test (Pha) 1 strip ACHS 04/19/24 17:00 04/25/24 17:48 1 STRIP Insulin Human Regular ACHS SC 04/19/24 17:00 04/25/24 17:48 6 UNITS Dextrose 50 ml UD PRN IV 04/19/24 17:00 Pantoprazole Sodium 40 mg BID IV 04/20/24 19:00 04/25/24 21:01 40 MG Amlodipine Besylate 5 mg DAILY PO 04/22/24 10:00 04/25/24 10:31 5 MG Vancomycin HCl 500 mg/Dextrose 100 ml @ 200 mls/hr Q12H IV 04/22/24 10:00 UNV Al Hydrox/Mg Hydrox/Simethicone 5 ml QID MT 04/23/24 22:00 04/25/24 17:50 5 ML Insulin Glargine 20 units BID@1000,2200 SC 04/24/24 22:00 Cancel objective Vitals and nursing notes reviewed. General Appearance: In no acute distress. HEENT: Atraumatic, PERRLA, EOMI, Mucous membrane moist/pink. Respiratory: Clear to auscultation, Normal air movement Cardiovascular: Regular rate, Normal S1, Normal S2, No murmurs, no chest wall tenderness Abdominal: Normal bowel sounds, Soft, No tenderness, No hepatospenomegaly, No masses Extremities: No clubbing, No cyanosis, No edema, Normal pulses, No tenderness/swelling Skin: No rashes, No breakdown, No significant lesion Neuro: Alert, Oriented X3, Cooperative, Normal speech, Strength at 5/5 X4 ext, Normal tone, Sensation intact, Psych/Mental Status: Mental status NL, Mood NL laboratory and microbiology Laboratory Tests 04/25/24 05:05 Test 04/25/24 05:05 Range/Units Serum Glucose 162 H 74-106 mg/dL Problem List Sepsis due to unspecified organism 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 Daily lab monitoring. Electrolyte replacement prn. Avoid nephrotoxic medication Strict I&O. IV antibiotics with Vancomycin and Cefepime. Majic Mouthwash. Protonix and Sucralfate. Pain management as needed. Nutritional support. Additional plan as per the hospital course. Dietary Evaluation Review Comments: When medically feasible, advance diet to 2gNa CCHO-60 with renal specific-60g protein, 3K, low phos diet Expected Outcomes/Goals: gradual weight loss. controlled DM. Plan discussed with: Patient, Other (RN) ADRIANA ZEPEDA DO Apr 25, 2024 21:16
[2024-04-26] VITALS (7 sets, daily range): BP systolic 111–139; BP diastolic 64–72; PULSE 65–98; RESP 16–20; TEMP 96.9–98.4; O2SAT 95–99
[2024-04-26 05:39] LABS: Hemoglobin 7.7 g/dL (13.5-17.5); Red Blood Cells 2.33 10^6/uL (4.5-5.90); Red Cell Distribution Width 14.3 % (11.8-14.3)
[2024-04-26 05:42] LABS: Hematocrit 22.7 % (41.0-53.0); Mean Corpuscular Hemoglobin 32.8 pg (28.0-32.0); Mean Corpuscular Hgb Conc. 33.7 g/dL (32.0-36.0); Mean Corpuscular Volume 97.2 fL (80.0-100.0); Platelet Count (auto) 29 10^3/uL (140-450); White Blood Cell 2.4 10^3/uL (4.4-10.8)
[2024-04-26 05:56] LABS: Basophils % (manual) 0 (0.0-2.0); Blast Cells 0; Metamyelocytes % 0; Myelocytes % 0; Promyelocytes % 0; Reactive Lymphocytes 0
[2024-04-26 06:00] LABS: Alanine Aminotransferase 13 U/L (7-40); Albumin 3.3 g/dL (3.2-4.8); Alkaline Phosphatase 28 U/L (46-116); Anion Gap 7 (5-15); Aspartate Aminotransferase 10 U/L (13-40); BUN/Creatinine Ratio 36.7 (10.0-20.0); Calcium 8.5 mg/dL (8.7-10.4); Carbon Dioxide 16 mmol/L (20-31); Chloride 114 mmol/L (98-107); Glucose 138 mg/dL (74-106); Sodium 137 mmol/L (136-145)
[2024-04-26 06:01] LABS: Bilirubin, Total 0.5 mg/dL (0.2-1.0); Total Protein 5.5 g/dL (5.7-8.2)
[2024-04-26 06:11] LABS: Blood Urea Nitrogen 62 mg/dL (9-23)
[2024-04-26 06:59] LABS: Band Neutrophils % (manual) 3; Eosinophils % (manual) 1 (0-7); Lymphocytes % (manual) 30 (10.0-50.0); Monocytes % (manual) 8 (0-12)
[2024-04-26 07:02] LABS: Platelet Estimate Decreased
--- NOTE | 2024-04-26 13:16 | DVHPNRES ---
Progress Note Date Seen: Apr 26, 2024 Resident Creating Document: RUBIO BARCLAY RESIDENT Has the PT tested + for MRSA If YES, has PT been informed?: Yes Medical Necessity Reason Pt with a Central, PICC or Fol: No Subjective Review of Systems A 59 years old with PMHX type 2 diabetes mellitus, hypertension, hyperlipidemia, peripheral neuropathy, congestive heart failure, CKD stage IV , GERD, gout, obesity, anxiety and depression. 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 Bernabe Goldman. He says he takes 4 methotrexate pills once a week for the last couple of years The patient is admitted with severe mucositis and ulceration in the groin on the right side. He has difficulty speaking and swallowing.Mild fevers He is found to be pancytopenic with a white count of 700 hemoglobin 11 platelets are 16,000. Confirmed on the blood smear. No bleeding Lactic acid is 3.3 BUN 70 creatinine 1.9, albumin 3.9 total protein 6.7 B12 494 TSH 0.2 Free T41.12 Alkaline phosphatase 28. AST 14 ALT 26 uric acid 5.9. PT/INR 1.09 PTT 28.8 and D-dimer 2.34 HIV 1 and 2 is negative pt is on filgastrim He has been given antibiotics and the Magic mouthwash and pain medications 4 unit of platelets given GI bleeding due to mucositis: dark stools Objective vital signs Vital Sign Date Time Temp Pulse Resp B/P (MAP) Pulse Ox O2 Delivery O2 Flow Rate FiO2 04/26/24 11:05 111/69 04/26/24 08:51 97.8 96 18 99 97.8 04/25/24 20:00 Room Air* 0 21 Total Intake and Output 04/25/24 04/25/24 04/26/24 15:00 23:00 07:00 Intake Total 680.2 ml 1653 ml 400 ml Output Total 400 ml 1100 ml Balance 680.2 ml 1253 ml -700 ml medications Current Medications Medications Dose Ordered Sig/Cedric Route Start Time Stop Time Status Last Admin Dose Admin Al Hydrox/Mg Hydrox/Simethicone 5 ml QID MT 04/17/24 22:00 04/25/24 13:16 5 ML Acetaminophen/ Hydrocodone Bitart 1 tab Q4HP PRN PO 04/17/24 23:00 04/23/24 17:34 1 TAB Ondansetron HCl 4 mg Q4HP PRN IV 04/17/24 23:00 04/18/24 00:32 4 MG Morphine Sulfate 2 mg Q4HPRN PRN IV 04/17/24 23:00 04/26/24 06:33 2 MG Nitroglycerin 0.4 mg Q5MINP PRN SL 04/17/24 23:00 Morphine Sulfate 2 mg Q30M PRN IV 04/17/24 23:00 Vancomycin HCl 0 ml @ 0 mls/hr UD IV 04/17/24 23:15 Cefepime HCl 50 ml @ 12.5 mls/hr Q12HR IV 04/18/24 10:00 04/26/24 11:05 12.5 MLS/HR Acetaminophen 650 mg Q4HP PRN PO 04/18/24 04:00 04/18/24 04:08 650 MG Tbo-Filgrastim 480 mcg DAILY SC 04/18/24 10:00 04/23/24 09:54 480 MCG Folic Acid 1 mg/ Dextrose 50.2 ml @ 200.8 mls/ hr DAILY INJ 04/19/24 10:00 04/26/24 11:05 200.8 MLS/HR Nystatin 5 ml QID MT 04/19/24 18:00 04/22/24 11:43 5 ML Enteral Nutritional Formula 240 ml TIDWM PO 04/19/24 18:00 04/22/24 11:43 240 ML Diagnostic Test (Pha) 1 strip ACHS 04/19/24 17:00 04/26/24 06:33 1 STRIP Insulin Human Regular ACHS SC 04/19/24 17:00 04/26/24 12:57 2 UNITS Dextrose 50 ml UD PRN IV 04/19/24 17:00 Pantoprazole Sodium 40 mg BID IV 04/20/24 19:00 04/26/24 11:03 40 MG Amlodipine Besylate 5 mg DAILY PO 04/22/24 10:00 04/26/24 11:05 5 MG Vancomycin HCl 500 mg/Dextrose 100 ml @ 200 mls/hr Q12H IV 04/22/24 10:00 UNV Al Hydrox/Mg Hydrox/Simethicone 5 ml QID MT 04/23/24 22:00 04/26/24 06:29 5 ML Insulin Glargine 20 units BID@1000,2200 SC 04/24/24 22:00 Cancel Examination GENERAL: alert and oriented. Obese who has moderate mucositis HEAD AND NECK: Unremarkable. No neck nodes or masses. Conjunctivae: pale, Unremarkable for any mucosal hemorrhage or inflammation. CHEST: Chest wall, no tenderness. LUNGS: Clear. CARDIOVASCULAR: Regular sinus rhythm. No murmurs or gallops. ABDOMEN: No organomegaly, tenderness or ascites. Bowel sounds present. EXTREMITIES:. In the right groin fold he has Ulcerated skin LYMPHATICS: No significant lymphadenopathy. NEUROLOGIC: No focal neurological deficits. SKIN: multiple sores in the legs laboratory and microbiology Laboratory Tests 04/26/24 05:06 Test 04/26/24 05:06 Range/Units Serum Glucose 138 H 74-106 mg/dL Microbiology Date/Time Source Procedure Growth Status 04/19/24 11:30 Groin Gram Stain - Final Complete 04/19/24 11:30 Wound Culture - Final Staphylococcus lugdunensis Complete 04/17/24 23:27 Blood Blood Culture - Final NO GROWTH AFTER 5 DAYS OF INCUBATION. Complete 04/17/24 22:16 Voided Urine Urine Culture - Final Complete Problem List/Assessment/Plan Problem List/Assessment/Plan HEME/ONC: #Immunodeficiency: leukopenia possible due to use of MTX or mycophenolate febrile neutropenia Bone marrow aspiration ordered by Dr Ivory: pt refused Continue filgastrim and solu medrol per Dr Ivory Pt is on cefepime/vancomycin HIV negative DC planning wbc trending high #Thrombocytopenia due to above 4 unit of platelets already given 29 today keep above 15 #Anemia due to possible GI bleeding and above 7.7 CARDIOLOGY: normal auscultation normal BNP No chest pain, SOB at rest X ray no pulmonary edema #Essential hypertension Amlodipine 5 mg Hydralazine PRN RESPIRATORY: No distress at the moment normal x ray GI: #GI bleeding probably upper due to mucositis Dark stools GI on the case, no scope Protonix BID /RENAL #Sepsis due to infected intertrigo in the right groin and scrotal No septic shock at the moment Right now, the infection is superficial but can progress to jessica gangrene due to immunodeficiency state Patient is on cefepime/vancomycin/clindamyicin wound culture Staphylococcus lugdunensis wound consult #Bilateral hydronephrosis without evidence of ureteral stones. #KYLEE on CKD Stage IV Nephology on board: Dr Bernabe Goldman No urinary retention at this moment, patient refused villarreal: voiding few times Urology consult ENDOCRINOLOGY #Hyperkalemia resolved due to CKD #DM type 2 in remission HBA1C 5.0 #Obesity Patient was on mounjaro back in home #Euthyroid sick syndrome TSH 0.2 free t4 1.12 Free t3 2.24 RHEUMATOLOGY AND SKIN #Mucositis Secondary to immunodeficiency Magic wash mouth and nystatin #Sepsis due to infected intertrigo in the right groin and scrotal describe above #Gout Pt was receiving MTX, mycophenolate, Krystexxa, colchicine for gout ? Due to possible adverse reaction and sepsis hold on medications No acute flare ups Uric acid less than 0.[address] Russell CRITICAL CARE TIME 76 MINS Plan discussed with: Patient, Other (rn) Dietary Evaluation Review Comments: When medically feasible, advance diet to 2gNa CCHO-60 with renal specific-60g protein, 3K, low phos diet Expected Outcomes/Goals: gradual weight loss. controlled DM. Date of Service: Apr 26, 2024 Billing Provider: VIOLETA RUSSELL MD Common Visit Codes: [id number] INP/OBS CARE(HIGH) RUBIO BARCLAY RESIDENT Apr 26, 2024 13:16 VIOLETA RUSSELL MD Apr 27, 2024 22:56
[2024-04-26] MEDS: VANCOMYCIN 500 MG in D5W 5% 100 ML IV ONE (13:34)
--- NOTE | 2024-04-26 20:03 | DVHPN2 ---
Progress Note - Dictate Date Seen: Apr 26, 2024 Has the PT tested + for MRSA If YES, has PT been informed?: Yes Medical Necessity Reason Pt with a Central, PICC or Fol: No Subjective Patient seen and evaluated in follow up. No acute events overnight. Patient denies any pain or discomfort. Doing well with wound care. WBC improved to 2.4. Hgb 7.7. HCT 22.7. Platelet count 29. Creatinine 1.69 with BUN of 62. eGFR 46. Calcium 8.5. Albumin 3.3. Total protein 5.5. vital signs Vital Sign Date Time Temp Pulse Resp B/P (MAP) Pulse Ox O2 Delivery O2 Flow Rate FiO2 04/26/24 16:51 80 19 114/69 04/26/24 16:28 98.4 97 98.4 04/26/24 07:30 Room Air* 0 21 Total Intake and Output 04/25/24 04/25/24 04/26/24 15:00 23:00 07:00 Intake Total 680.2 ml 1653 ml 400 ml Output Total 400 ml 1100 ml Balance 680.2 ml 1253 ml -700 ml medications Current Medications Medications Dose Ordered Sig/Cedric Route Start Time Stop Time Status Last Admin Dose Admin Al Hydrox/Mg Hydrox/Simethicone 5 ml QID MT 04/17/24 22:00 04/25/24 13:16 5 ML Acetaminophen/ Hydrocodone Bitart 1 tab Q4HP PRN PO 04/17/24 23:00 04/23/24 17:34 1 TAB Ondansetron HCl 4 mg Q4HP PRN IV 04/17/24 23:00 04/18/24 00:32 4 MG Morphine Sulfate 2 mg Q4HPRN PRN IV 04/17/24 23:00 04/26/24 16:21 2 MG Nitroglycerin 0.4 mg Q5MINP PRN SL 04/17/24 23:00 Morphine Sulfate 2 mg Q30M PRN IV 04/17/24 23:00 Vancomycin HCl 0 ml @ 0 mls/hr UD IV 04/17/24 23:15 Cefepime HCl 50 ml @ 12.5 mls/hr Q12HR IV 04/18/24 10:00 04/26/24 11:05 12.5 MLS/HR Acetaminophen 650 mg Q4HP PRN PO 04/18/24 04:00 04/18/24 04:08 650 MG Tbo-Filgrastim 480 mcg DAILY SC 04/18/24 10:00 04/23/24 09:54 480 MCG Folic Acid 1 mg/ Dextrose 50.2 ml @ 200.8 mls/ hr DAILY INJ 04/19/24 10:00 04/26/24 11:05 200.8 MLS/HR Nystatin 5 ml QID MT 04/19/24 18:00 04/22/24 11:43 5 ML Enteral Nutritional Formula 240 ml TIDWM PO 04/19/24 18:00 04/22/24 11:43 240 ML Diagnostic Test (Pha) 1 strip ACHS 04/19/24 17:00 04/26/24 17:00 1 STRIP Insulin Human Regular ACHS SC 04/19/24 17:00 04/26/24 18:00 3 UNITS Dextrose 50 ml UD PRN IV 04/19/24 17:00 Pantoprazole Sodium 40 mg BID IV 04/20/24 19:00 04/26/24 11:03 40 MG Amlodipine Besylate 5 mg DAILY PO 04/22/24 10:00 04/26/24 11:05 5 MG Vancomycin HCl 500 mg/Dextrose 100 ml @ 200 mls/hr Q12H IV 04/22/24 10:00 UNV Al Hydrox/Mg Hydrox/Simethicone 5 ml QID MT 04/23/24 22:00 04/26/24 18:11 5 ML Insulin Glargine 20 units BID@1000,2200 SC 04/24/24 22:00 Cancel objective Vitals and nursing notes reviewed. General Appearance: In no acute distress. HEENT: Atraumatic, PERRLA, EOMI, Mucous membrane moist/pink. Respiratory: Clear to auscultation, Normal air movement Cardiovascular: Regular rate, Normal S1, Normal S2, No murmurs, no chest wall tenderness Abdominal: Normal bowel sounds, Soft, No tenderness, No hepatospenomegaly, No masses Extremities: No clubbing, No cyanosis, No edema, Normal pulses, No tenderness/swelling Skin: No rashes, No breakdown, No significant lesion Neuro: Alert, Oriented X3, Cooperative, Normal speech, Strength at 5/5 X4 ext, Normal tone, Sensation intact, Psych/Mental Status: Mental status NL, Mood NL laboratory and microbiology Laboratory Tests 04/26/24 05:06 Test 04/26/24 05:06 Range/Units Serum Glucose 138 H 74-106 mg/dL Problem List Sepsis due to unspecified organism 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 PT eval pending. Daily lab monitoring. Electrolyte replacement prn. Avoid nephrotoxic medication Strict I&O. IV antibiotics with Vancomycin and Cefepime. Majic Mouthwash. Protonix and Sucralfate. Pain management as needed. Started on full liquid diet. Additional plan as per the hospital course. Dietary Evaluation Review Comments: When medically feasible, advance diet to 2gNa CCHO-60 with renal specific-60g protein, 3K, low phos diet Expected Outcomes/Goals: gradual weight loss. controlled DM. Plan discussed with: Patient, Other (RN) ADRIANA ZEPEDA DO Apr 26, 2024 20:03
--- NOTE | 2024-04-26 20:22 | DVHPN2 ---
Progress Note - Dictate Date Seen: Apr 26, 2024 Has the PT tested + for MRSA If YES, has PT been informed?: Yes Medical Necessity Reason Pt with a Central, PICC or Fol: No Subjective No new complaints Improving pancytopenia Patient received another pack of platelets S/P 2 units PRBC Patient is feeling better and is able to swallow He has not had any further dark bowel movements vital signs Vital Sign Date Time Temp Pulse Resp B/P (MAP) Pulse Ox O2 Delivery O2 Flow Rate FiO2 04/26/24 16:51 80 19 114/69 04/26/24 16:28 98.4 97 98.4 04/26/24 07:30 Room Air* 0 21 Total Intake and Output 04/25/24 04/25/24 04/26/24 15:00 23:00 07:00 Intake Total 680.2 ml 1653 ml 400 ml Output Total 400 ml 1100 ml Balance 680.2 ml 1253 ml -700 ml medications Current Medications Medications Dose Ordered Sig/Cedric Route Start Time Stop Time Status Last Admin Dose Admin Al Hydrox/Mg Hydrox/Simethicone 5 ml QID MT 04/17/24 22:00 04/25/24 13:16 5 ML Acetaminophen/ Hydrocodone Bitart 1 tab Q4HP PRN PO 04/17/24 23:00 04/23/24 17:34 1 TAB Ondansetron HCl 4 mg Q4HP PRN IV 04/17/24 23:00 04/18/24 00:32 4 MG Morphine Sulfate 2 mg Q4HPRN PRN IV 04/17/24 23:00 04/26/24 16:21 2 MG Nitroglycerin 0.4 mg Q5MINP PRN SL 04/17/24 23:00 Morphine Sulfate 2 mg Q30M PRN IV 04/17/24 23:00 Vancomycin HCl 0 ml @ 0 mls/hr UD IV 04/17/24 23:15 Cefepime HCl 50 ml @ 12.5 mls/hr Q12HR IV 04/18/24 10:00 04/26/24 11:05 12.5 MLS/HR Acetaminophen 650 mg Q4HP PRN PO 04/18/24 04:00 04/18/24 04:08 650 MG Tbo-Filgrastim 480 mcg DAILY SC 04/18/24 10:00 04/23/24 09:54 480 MCG Folic Acid 1 mg/ Dextrose 50.2 ml @ 200.8 mls/ hr DAILY INJ 04/19/24 10:00 04/26/24 11:05 200.8 MLS/HR Nystatin 5 ml QID MT 04/19/24 18:00 04/22/24 11:43 5 ML Enteral Nutritional Formula 240 ml TIDWM PO 04/19/24 18:00 04/22/24 11:43 240 ML Diagnostic Test (Pha) 1 strip ACHS 04/19/24 17:00 04/26/24 17:00 1 STRIP Insulin Human Regular ACHS SC 04/19/24 17:00 04/26/24 18:00 3 UNITS Dextrose 50 ml UD PRN IV 04/19/24 17:00 Pantoprazole Sodium 40 mg BID IV 04/20/24 19:00 04/26/24 11:03 40 MG Amlodipine Besylate 5 mg DAILY PO 04/22/24 10:00 04/26/24 11:05 5 MG Vancomycin HCl 500 mg/Dextrose 100 ml @ 200 mls/hr Q12H IV 04/22/24 10:00 UNV Al Hydrox/Mg Hydrox/Simethicone 5 ml QID MT 04/23/24 22:00 04/26/24 18:11 5 ML Insulin Glargine 20 units BID@1000,2200 SC 04/24/24 22:00 Cancel objective General: NAD, AAOX3 Chest: lung kimbrough clear to auscultation Heart: RRR, no murmur Abdomen: no tenderness to palpation, +BS laboratory and microbiology Laboratory Tests 04/26/24 05:06 Test 04/26/24 05:06 Range/Units Serum Glucose 138 H 74-106 mg/dL Problems(with codes): (1) Morbid obesity (2) Pancytopenia (3) Weakness (4) Leukopenia Prognosis PLAN Continue supportive care Patient is on Granix and Solu-Medrol Mouth sores are improving slowly and he can swallow slightly better IV Protonix 40 mg Q 12 hours Carafate suspension 1 g p.o. 4 times a day Continue folic acid IV Solu-Medrol Mouthwash Pain control Follow the CBC daily and try to keep the platelets over 15,000 and hemoglobin over 7 Continue the Neupogen Possible bone marrow biopsy; patient is refusing the bone marrow biopsy at this time Patient refused physical therapy today Dietary Evaluation Review Comments: When medically feasible, advance diet to 2gNa CCHO-60 with renal specific-60g protein, 3K, low phos diet Expected Outcomes/Goals: gradual weight loss. controlled DM. Plan discussed with: Patient HILARY JORDAN MD Apr 26, 2024 20:22
[2024-04-27] VITALS (8 sets, daily range): BP systolic 106–128; BP diastolic 54–72; PULSE 69–98; RESP 18–20; TEMP 96.7–98.4; O2SAT 96–98
[2024-04-27 05:43] LABS: Alanine Aminotransferase 13 U/L (7-40); Alkaline Phosphatase 35 U/L (46-116); Hematocrit 22.4 % (41.0-53.0); Hemoglobin 7.5 g/dL (13.5-17.5); Platelet Count (auto) 39 10^3/uL (140-450)
[2024-04-27 05:44] LABS: Albumin 3.2 g/dL (3.2-4.8); Anion Gap 11 (5-15); Aspartate Aminotransferase 13 U/L (13-40); BUN/Creatinine Ratio 33.7 (10.0-20.0); Bilirubin, Total 0.4 mg/dL (0.2-1.0); Blood Urea Nitrogen 56 mg/dL (9-23); Calcium 8.3 mg/dL (8.7-10.4); Carbon Dioxide 17 mmol/L (20-31); Chloride 112 mmol/L (98-107); Glucose 154 mg/dL (74-106); Mean Corpuscular Hemoglobin 32.9 pg (28.0-32.0); Mean Corpuscular Hgb Conc. 33.7 g/dL (32.0-36.0); Mean Corpuscular Volume 97.6 fL (80.0-100.0); Potassium 3.9 mmol/L (3.5-5.1); Red Blood Cells 2.29 10^6/uL (4.5-5.90); Red Cell Distribution Width 14.7 % (11.8-14.3); Sodium 140 mmol/L (136-145); Total Protein 5.4 g/dL (5.7-8.2); White Blood Cell 4.5 10^3/uL (4.4-10.8)
[2024-04-27 05:46] LABS: Basophils % (manual) 0 (0.0-2.0); Blast Cells 0; Eosinophils % (manual) 0 (0-7); Metamyelocytes % 0; Myelocytes % 0; Promyelocytes % 0; Reactive Lymphocytes 0
--- NOTE | 2024-04-27 06:52 | DVH ---
CHEST RADIOGRAPH Indication:dyspnea Technique: Single frontal view of the chest was obtained Comparison: XY CHEST XRAY 1 VIEW on DOS: 04/25/24, XY CHEST XRAY 1 VIEW on DOS: 04/21/24, XY CHEST XRA Y 1 VIEW on DOS: 04/19/24, XY CHEST PORTABLE on DOS: 04/17/24 FINDINGS: Lines and Tubes: None Lungs: No focal consolidation. Pleura: No effusion. No pneumothorax. Cardiomediastinal contours: Unremarkable Bones: No acute osseous abnormality. IMPRESSION: No acute cardiopulmonary disease.
[2024-04-27 08:45] LABS: Band Neutrophils % (manual) 2; Lymphocytes % (manual) 20 (10.0-50.0); Monocytes % (manual) 2 (0-12); Platelet Estimate Decreased
[2024-04-27] MEDS: MORPHINE SULFATE INJ 2 MG/ml SYRG IV PRN (10:29)
[2024-04-27] MEDS: VANCOMYCIN 750mg/150ml 150 ML IV ONE (10:30)
--- NOTE | 2024-04-27 17:32 | DVHPNRES ---
Progress Note Date Seen: Apr 27, 2024 Resident Creating Document: RUBIO BARCLAY RESIDENT Has the PT tested + for MRSA If YES, has PT been informed?: Yes Medical Necessity Reason Pt with a Central, PICC or Fol: No Subjective Review of Systems A 59 years old with PMHX type 2 diabetes mellitus, hypertension, hyperlipidemia, peripheral neuropathy, congestive heart failure, CKD stage IV , GERD, gout, obesity, anxiety and depression. He says he has been taking methotrexate and mycophenolate, The reason is not very clear and the patient thinks that he is getting this medication for gout and follows with his assistant community manager Dr. Bernabe Goldman. He says he takes 4 methotrexate pills once a week for the last couple of years The patient is admitted with severe mucositis and ulceration in the groin on the right side. He has difficulty speaking and swallowing.Mild fevers He is found to be pancytopenic with a white count of 700 hemoglobin 11 platelets are 16,000. Confirmed on the blood smear. No bleeding Lactic acid is 3.3 BUN 70 creatinine 1.9, albumin 3.9 total protein 6.7 B12 494 TSH 0.2 Free T41.12 Alkaline phosphatase 28. AST 14 ALT 26 uric acid 5.9. PT/INR 1.09 PTT 28.8 and D-dimer 2.34 HIV 1 and 2 is negative pt is on filgastrim He has been given antibiotics and the Magic mouthwash and pain medications 4 unit of platelets given GI bleeding due to mucositis: dark stools Objective vital signs Vital Sign Date Time Temp Pulse Resp B/P (MAP) Pulse Ox O2 Delivery O2 Flow Rate FiO2 04/27/24 15:59 98.4 91 20 113/70 (84) 98 98.4 04/27/24 08:00 Room Air* 0 21 Total Intake and Output 04/26/24 04/26/24 04/27/24 15:00 23:00 07:00 Intake Total 150.2 ml 1750 ml 700 ml Output Total 800 ml 900 ml Balance 150.2 ml 950 ml -200 ml medications Current Medications Medications Dose Ordered Sig/Cedric Route Start Time Stop Time Status Last Admin Dose Admin Al Hydrox/Mg Hydrox/Simethicone 5 ml QID MT 04/17/24 22:00 04/25/24 13:16 5 ML Ondansetron HCl 4 mg Q4HP PRN IV 04/17/24 23:00 04/18/24 00:32 4 MG Nitroglycerin 0.4 mg Q5MINP PRN SL 04/17/24 23:00 Vancomycin HCl 0 ml @ 0 mls/hr UD IV 04/17/24 23:15 Cefepime HCl 50 ml @ 12.5 mls/hr Q12HR IV 04/18/24 10:00 04/27/24 12:04 12.5 MLS/HR Acetaminophen 650 mg Q4HP PRN PO 04/18/24 04:00 04/18/24 04:08 650 MG Tbo-Filgrastim 480 mcg DAILY SC 04/18/24 10:00 04/27/24 08:42 480 MCG Folic Acid 1 mg/ Dextrose 50.2 ml @ 200.8 mls/ hr DAILY INJ 04/19/24 10:00 04/27/24 08:44 200.8 MLS/HR Nystatin 5 ml QID MT 04/19/24 18:00 04/22/24 11:43 5 ML Enteral Nutritional Formula 240 ml TIDWM PO 04/19/24 18:00 04/27/24 12:00 240 ML Diagnostic Test (Pha) 1 strip ACHS 04/19/24 17:00 04/27/24 12:02 1 STRIP Insulin Human Regular ACHS SC 04/19/24 17:00 04/27/24 12:04 3 UNITS Dextrose 50 ml UD PRN IV 04/19/24 17:00 Pantoprazole Sodium 40 mg BID IV 04/20/24 19:00 04/27/24 08:42 40 MG Amlodipine Besylate 5 mg DAILY PO 04/22/24 10:00 04/27/24 08:43 5 MG Vancomycin HCl 500 mg/Dextrose 100 ml @ 200 mls/hr Q12H IV 04/22/24 10:00 UNV Al Hydrox/Mg Hydrox/Simethicone 5 ml QID MT 04/23/24 22:00 04/27/24 12:04 5 ML Insulin Glargine 20 units BID@1000,2200 SC 04/24/24 22:00 Cancel Morphine Sulfate 2 mg Q4HPRN PRN IV 04/27/24 09:30 04/27/24 10:29 2 MG Examination GENERAL: alert and oriented. Obese who has moderate mucositis HEAD AND NECK: Unremarkable. No neck nodes or masses. Conjunctivae: pale, Unremarkable for any mucosal hemorrhage or inflammation. CHEST: Chest wall, no tenderness. LUNGS: Clear. CARDIOVASCULAR: Regular sinus rhythm. No murmurs or gallops. ABDOMEN: No organomegaly, tenderness or ascites. Bowel sounds present. EXTREMITIES:. In the right groin fold he has Ulcerated skin, getting better LYMPHATICS: No significant lymphadenopathy. NEUROLOGIC: No focal neurological deficits. SKIN: multiple sores in the legs laboratory and microbiology Laboratory Tests 04/27/24 04:54 Test 04/27/24 04:54 Range/Units Serum Glucose 154 H 74-106 mg/dL Microbiology Date/Time Source Procedure Growth Status 04/19/24 11:30 Groin Gram Stain - Final Complete 04/19/24 11:30 Wound Culture - Final Staphylococcus lugdunensis Complete 04/17/24 23:27 Blood Blood Culture - Final NO GROWTH AFTER 5 DAYS OF INCUBATION. Complete 04/17/24 22:16 Voided Urine Urine Culture - Final Complete Problem List/Assessment/Plan Problem List/Assessment/Plan HEME/ONC: #Immunodeficiency: leukopenia possible due to use of MTX or mycophenolate resolved febrile neutropenia resolved Bone marrow aspiration ordered by Dr Ivory: pt refused Continue filgastrim and solu medrol per Dr Ivory Pt will no need filgastrim or steorids as outpatient DC cefepime/vancomycin HIV negative DC planning: home health PT wbc trending high #Thrombocytopenia due to above 4 unit of platelets already given 39 today keep above 15 #Anemia due to possible GI bleeding and above 7.7 CARDIOLOGY: normal auscultation normal BNP No chest pain, SOB at rest X ray no pulmonary edema #Essential hypertension Amlodipine 5 mg Hydralazine PRN RESPIRATORY: No distress at the moment normal x ray GI: #GI bleeding probably upper due to mucositis Dark stools GI on the case, no scope Protonix BID /RENAL #Sepsis due to infected intertrigo in the right groin and scrotal No septic shock at the moment Right now, the infection is superficial but can progress to jessica gangrene due to immunodeficiency state Patient is on cefepime/vancomycin/clindamyicin wound culture Staphylococcus lugdunensis wound consult #Bilateral hydronephrosis without evidence of ureteral stones. #KYLEE on CKD Stage IV Nephology on board: Dr Bernabe Goldman No urinary retention at this moment, patient refused villarreal: voiding few times Urology consult ENDOCRINOLOGY #Hyperkalemia resolved due to CKD #DM type 2 in remission HBA1C 5.0 #Obesity Patient was on mounjaro back in home #Euthyroid sick syndrome TSH 0.2 free t4 1.12 Free t3 2.24 RHEUMATOLOGY AND SKIN #Mucositis Secondary to immunodeficiency Magic wash mouth and nystatin #Sepsis due to infected intertrigo in the right groin and scrotal describe above #Gout Pt was receiving MTX, mycophenolate, Krystexxa, colchicine for gout ? Due to possible adverse reaction and sepsis hold on medications No acute flare ups Uric acid less than 0.5 Patient can be discharged Case discussed with Dr Russell CRITICAL CARE TIME 76 MINS Plan discussed with: Patient, Other (rn) My Orders My Orders Orders - RUBIO BARCLAY Procedure Category Date Status Time Morphine Sulfate PHA 04/27/24 In Process Injection 09:30 * Junior [employer] CONS 04/27/24 Transmitted Consult Schedule For Dc MYRANDA 04/27/24 In Process Clinic F/U 12:27 Dietary Evaluation Review Comments: When medically feasible, advance diet to 2gNa CCHO-60 with renal specific-60g protein, 3K, low phos diet Expected Outcomes/Goals: gradual weight loss. controlled DM. Date of Service: Apr 27, 2024 Billing Provider: VIOLETA RUSSELL MD Common Visit Codes: 96111-ICERTIXYIE INP/OBS CARE(HIGH) RUBIO BARCLAY Apr 27, 2024 17:32 VIOLETA RUSSELL MD Apr 28, 2024 13:05
--- NOTE | 2024-04-27 21:07 | DVHPN2 ---
Progress Note - Dictate Date Seen: Apr 27, 2024 Has the PT tested + for MRSA If YES, has PT been informed?: Yes Medical Necessity Reason Pt with a Central, PICC or Fol: No Subjective Patient seen and evaluated in follow up. No acute events overnight. Patient denies any pain or discomfort. Reports feeling better. WBC improved to 4.5. Hgb 7.5. Platelet count 39. Creatinine 1.66. BUN 56. eGFR 47. CO2 17. Total protein 5.4. Patient continues to decline recommended bone marrow biopsy. vital signs Vital Sign Date Time Temp Pulse Resp B/P (MAP) Pulse Ox O2 Delivery O2 Flow Rate FiO2 04/27/24 15:59 98.4 91 20 113/70 (84) 98 98.4 04/27/24 08:00 Room Air* 0 21 Total Intake and Output 04/26/24 04/26/24 04/27/24 15:00 23:00 07:00 Intake Total 150.2 ml 1750 ml 700 ml Output Total 800 ml 900 ml Balance 150.2 ml 950 ml -200 ml medications Current Medications Medications Dose Ordered Sig/Cedric Route Start Time Stop Time Status Last Admin Dose Admin Ondansetron HCl 4 mg Q4HP PRN IV 04/17/24 23:00 04/18/24 00:32 4 MG Nitroglycerin 0.4 mg Q5MINP PRN SL 04/17/24 23:00 Vancomycin HCl 0 ml @ 0 mls/hr UD IV 04/17/24 23:15 Cefepime HCl 50 ml @ 12.5 mls/hr Q12HR IV 04/18/24 10:00 04/27/24 12:04 12.5 MLS/HR Acetaminophen 650 mg Q4HP PRN PO 04/18/24 04:00 04/18/24 04:08 650 MG Tbo-Filgrastim 480 mcg DAILY SC 04/18/24 10:00 04/27/24 08:42 480 MCG Folic Acid 1 mg/ Dextrose 50.2 ml @ 200.8 mls/ hr DAILY INJ 04/19/24 10:00 04/27/24 08:44 200.8 MLS/HR Nystatin 5 ml QID MT 04/19/24 18:00 04/22/24 11:43 5 ML Enteral Nutritional Formula 240 ml TIDWM PO 04/19/24 18:00 04/27/24 18:00 240 ML Diagnostic Test (Pha) 1 strip ACHS 04/19/24 17:00 04/27/24 17:44 1 STRIP Insulin Human Regular ACHS SC 04/19/24 17:00 04/27/24 17:45 2 UNITS Dextrose 50 ml UD PRN IV 04/19/24 17:00 Pantoprazole Sodium 40 mg BID IV 04/20/24 19:00 04/27/24 08:42 40 MG Amlodipine Besylate 5 mg DAILY PO 04/22/24 10:00 04/27/24 08:43 5 MG Vancomycin HCl 500 mg/Dextrose 100 ml @ 200 mls/hr Q12H IV 04/22/24 10:00 UNV Al Hydrox/Mg Hydrox/Simethicone 5 ml QID MT 04/23/24 22:00 04/27/24 17:46 5 ML Insulin Glargine 20 units BID@1000,2200 SC 04/24/24 22:00 Cancel Morphine Sulfate 2 mg Q4HPRN PRN IV 04/27/24 09:30 04/27/24 10:29 2 MG objective Vitals and nursing notes reviewed. General Appearance: In no acute distress. HEENT: Atraumatic, PERRLA, EOMI, Mucous membrane moist/pink. Respiratory: Clear to auscultation, Normal air movement Cardiovascular: Regular rate, Normal S1, Normal S2, No murmurs, no chest wall tenderness Abdominal: Normal bowel sounds, Soft, No tenderness, No hepatospenomegaly, No masses Extremities: No clubbing, No cyanosis, No edema, Normal pulses, No tenderness/swelling Skin: No rashes, No breakdown, No significant lesion Neuro: Alert, Oriented X3, Cooperative, Normal speech, Strength at 5/5 X4 ext, Normal tone, Sensation intact, Psych/Mental Status: Mental status NL, Mood NL laboratory and microbiology Laboratory Tests 04/27/24 04:54 Test 04/27/24 04:54 Range/Units Serum Glucose 154 H 74-106 mg/dL Problem List Sepsis due to unspecified organism 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 Inpatient PT as recommended. Daily lab monitoring. Electrolyte replacement prn. Avoid nephrotoxic medication Strict I&O. IV antibiotics with Vancomycin and Cefepime. Majic Mouthwash. Protonix and Sucralfate. Pain management as needed. Full liquid diet. Additional plan as per the hospital course. Dietary Evaluation Review Comments: When medically feasible, advance diet to 2gNa CCHO-60 with renal specific-60g protein, 3K, low phos diet Expected Outcomes/Goals: gradual weight loss. controlled DM. Plan discussed with: Patient, Other (RN) ADRIANA ZEPEDA DO Apr 27, 2024 21:07
[2024-04-28] VITALS (8 sets, daily range): BP systolic 106–123; BP diastolic 60–67; PULSE 72–114; RESP 16–18; TEMP 96.3–98.9; O2SAT 98–100
--- NOTE | 2024-04-28 10:05 | DVHDSRES ---
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 Labs/Diagnostic Data: Laboratory Results Test 04/28/24 06:03 04/28/24 05:30 04/27/24 08:12 04/27/24 04:54 POC Glucose 120 mg/dl (70-106) Creatinine 1.66 mg/dL (0.700-1.30) Glomerular Filtration Rate Calc 47 mL/min (>90) Random Vancomycin Level 16.4 ug/mL (5-10) Blood Gas Specimen Type Arterial Blood Gas Sample Site Left radial Blood Gas Patient Temperature 37.0 Arterial Blood Date Drawn [id number] Arterial Blood pH 7.422 (7.350-7.450) Arterial Blood Partial Pressure CO2 24.2 mmHg (35.0-48.0) Arterial Blood Partial Pressure O2 82.2 mmHg (83.0-108.0) Arterial Blood HCO3 15.4 mmol/L (21.0-28.0) Arterial Blood Oxygen Saturation 95.4 % (94.0-98.0) Arterial Blood Base Excess -8.0 mmol/L (-2.0-3.0) Arterial Blood Oxyhemoglobin 93.6 % (94.0-98.0) Arterial Blood Carboxyhemoglobin 1.6 % (0.5-1.5) Arterial Blood Methemoglobin 0.3 % (0.0-1.5) Andrei Test Yes Blood Gas Total Hemoglobin 7.60 g/dL (13.5-17.5) Blood Gas Modality Room air FiO2 % 21.0 White Blood Count 4.5 10^3/uL (4.4-10.8) Red Blood Count 2.29 10^6/uL (4.5-5.90) Hemoglobin 7.5 g/dL (13.5-17.5) Hematocrit 22.4 % (41.0-53.0) Mean Corpuscular Volume 97.6 fL (80.0-100.0) Mean Corpuscular Hemoglobin 32.9 pg (28.0-32.0) Mean Corpuscular Hemoglobin Concent 33.7 g/dL (32.0-36.0) Red Cell Distribution Width 14.7 % (11.8-14.3) Platelet Count 39 10^3/uL (140-450) Mean Platelet Volume 9.8 fL (6.9-10.8) Neutrophils (%) (Auto) % (37.0-80.0) Lymphocytes (%) (Auto) % (10.0-50.0) Monocytes (%) (Auto) % (0.0-12.0) Basophils (%) (Auto) % (0.0-2.0) Neutrophils # (Auto) 10 ^3/uL (1.6-8.6) Lymphocytes # (Auto) 10 ^3/uL (0.4-5.4) Monocytes # (Auto) 10 ^3/uL (0-1.3) Differential Total Cells Counted 100.0 (100) Neutrophils % (Manual) 76 (37.0-80.0) Band Neutrophils % (Manual) 2 Lymphocytes % (Manual) 20 (10.0-50.0) Monocytes % (Manual) 2 (0-12) Eosinophils % (Manual) 0 (0-7) Basophils % (Manual) 0 (0.0-2.0) Metamyelocytes % (manual) 0 Myelocytes % (Manual) 0 Promyelocytes % (Manual) 0 Blast Cells % (Manual) 0 Reactive Lymphocytes 0 Platelet Estimate Decreased Schistocytes Few Sodium Level 140 mmol/L (136-145) Potassium Level 3.9 mmol/L (3.5-5.1) Chloride Level 112 mmol/L (98-107) Carbon Dioxide Level 17 mmol/L (20-31) Anion Gap 11 (5-15) Blood Urea Nitrogen 56 mg/dL (9-23) BUN/Creatinine Ratio 33.7 (10.0-20.0) Serum Glucose 154 mg/dL (74-106) Calcium Level 8.3 mg/dL (8.7-10.4) Total Bilirubin 0.4 mg/dL (0.2-1.0) Aspartate Amino Transferase (AST) 13 U/L (13-40) Alanine Aminotransferase (ALT) 13 U/L (7-40) Alkaline Phosphatase 35 U/L (46-116) Total Protein 5.4 g/dL (5.7-8.2) Albumin 3.2 g/dL (3.2-4.8) Test 04/25/24 05:05 04/24/24 05:34 04/23/24 06:54 04/21/24 15:08 Nucleated Red Blood Cells 2.0 % Tear Drop Cells Few Eosinophils (%) (Auto) 0.0 % (0.0-7.0) Eosinophils # (Auto) 0 10 ^3/uL (0-0.8) Basophils # (Auto) 0 10 ^3/uL (0-0.2) Phosphorus Level 4.5 mg/dL (2.4-5.1) Magnesium Level 2.3 mg/dL (1.6-2.6) Anisocytosis (manual) Slight Ovalocytes Few [place] Cells Few Vancomycin Level Trough 20.9 ug/mL (5-10) Test 04/21/24 08:30 04/20/24 20:02 04/18/24 15:48 04/18/24 13:05 Stool Occult Blood Positive (Negative) Stool Occult Blood Sample #3 (Negative) Large Platelets Few Haptoglobin 337 mg/dL (29-370) Reticulocyte Count (auto) 0.24 % (0.5-1.5) Serum Osmolality 337 mOsm/kg (278-298) Uric Acid < 0.5 mg/dL (3.7-9.2) Lactate Dehydrogenase 182 U/L (120-246) Test 04/18/24 09:30 04/18/24 03:41 04/17/24 22:16 04/17/24 22:06 Levetiracetam Level <2.0 ug/mL (10.0-40.0) Rheumatoid Factor 16.0 IU/mL (<14.0) Anti-Cyclic Citrullinated Peptide 6 units (0-19) Anti-Nuclear Antibody Screen Negative (Negative) Complement C3 132 mg/dL (82-167) Complement C4 39 mg/dL (12-38) Prothrombin Time 11.5 sec (9.3-11.8) Prothrombin Time INR 1.09 (0.9-1.15) Activated Partial Thromboplast Time 28.8 SEC (24.5-34.5) Hemoglobin A1c 5.0 % A1C (<5.7) B-Type Natriuretic Peptide 33.67 pg/mL (0-100) Vitamin B12 Level 494 pg/mL (211-911) Vitamin D 25-Hydroxy 157.2 ng/mL (30.0-100) Thyroid Stimulating Hormone (TSH) 0.20 uIU/mL (0.55-4.78) Free Thyroxine (T4) Calculated 1.12 ng/dL (0.89-1.76) Free Triiodothyronine (T3) pg/mL 2.24 pg/mL (2.3-4.2) Hepatitis A Antibody Total Negative (Negative) Hepatitis B Surface Antigen Negative (Negative) Hepatitis B Surface Antibody Negative (Negative) Hepatitis B Core Total Antibody Negative (Negative) Hepatitis C Antibody Negative (Negative) HIV (1&2) Antibody Negative (Negative) Urine Color Light-yellow (Yellow) Urine Clarity Clear (Clear) Urine pH 5.0 (5.0-9.0) Urine Specific [place] 1.015 (1.001-1.035) Urine Protein Trace (Negative) Urine Ketones Trace (Negative) Urine Blood Negative /uL (Negative) Urine Nitrite Negative (Negative) Urine Bilirubin Negative (Negative) Urine Urobilinogen Normal mg/dL (Negative) Urine Leukocyte Esterase Negative /uL (Negative) Urine RBC 1 /hpf (0 - 3) Urine WBC 1 /hpf (0 - 3) Urine Squamous Epithelial Cells Few /hpf (<5) Urine Bacteria Few /hpf (None Seen) Urine Glucose 1+ mg/dL (Normal) Lactic Acid Level 3.3 mmol/L (0.4-2.0) Test 04/17/24 20:50 Macrocytosis Slight Other Laboratory Tests 04/28/24 05:30 04/27/24 04:54 Brief Hx & Hospital Course: A 59 years old with PMHX type 2 diabetes mellitus, hypertension, hyperlipidemia, peripheral neuropathy, congestive heart failure, CKD stage IV , GERD, gout, obesity, anxiety and depression. He says he has been taking methotrexate and mycophenolate, The reason is not very clear and the patient thinks that he is getting this medication for gout and follows with his field clinical engineer Dr. Bernabe Goldman. He says he takes 4 methotrexate pills once a week for the last couple of years The patient is admitted with severe mucositis and ulceration in the groin on the right side. He has difficulty speaking and swallowing.Mild fevers At admission He is found to be pancytopenic with a white count of 700 hemoglobin 11 platelets are 16,000. Confirmed on the blood smear. No bleeding Lactic acid is 3.3 BUN 70 creatinine 1.9, albumin 3.9 total protein 6.7 B12 494 TSH 0.2 Free T41.12 Alkaline phosphatase 28. AST 14 ALT 26 uric acid 5.9. PT/INR 1.09 PTT 28.8 and D-dimer 2.34 HIV 1 and 2 is negative pt was on filgastrim and solucmedrol for 10 days and his blood count got better He has been given high spectrum antibiotics due to possible sepsis on soft tissue and culture positive for s lugdunesis and the Magic mouthwash and pain medications 4 unit of platelets given GI bleeding due to mucositis: dark stools, no need of GI interventions Pt refuses bone marrow sugested by Dr Lemus Pt can be discharge now, blood count is safe, even do still have anemia FU with Dr Bernabe Goldman and Dr Lemus GENERAL: alert and oriented. Obese who has moderate mucositis HEAD AND NECK: Unremarkable. No neck nodes or masses. Conjunctivae: pale, Unremarkable for any mucosal hemorrhage or inflammation. CHEST: Chest wall, no tenderness. LUNGS: Clear. CARDIOVASCULAR: Regular sinus rhythm. No murmurs or gallops. ABDOMEN: No organomegaly, tenderness or ascites. Bowel sounds present. EXTREMITIES:. In the right groin fold he has Ulcerated skin, getting better LYMPHATICS: No significant lymphadenopathy. NEUROLOGIC: No focal neurological deficits. SKIN: multiple sores in the legs Case discussed with Dr Russell Consults/Reason for consult heme/onc due to pancitopenia nepgrology due to CKD Operations or Procedures Exam: CT CT AB PEL WO CON-NO ORAL OR IV History: sepsis Comparison Study: None available at time of dictation. Technique: Multidetector spiral CT of the abdomen was performed from lung bases to pubic symphysis. Imaging was performed without IV contrast. Axial, coronal and sagittal multiplanar reformats were obtained from the axial data set by the technologist. Radiation Dose : 1. Abdomen/Pelvis: CTDIvol 28 mGy, DLP 1680 mGy*cm. Findings: Evaluation of solid organs is limited due to lack of intravenous contrast use. Lung Bases: No acute or significant lung base finding. Normal heart size. No pleural or pericardial effusion. Liver: The liver is normal in size. No focal lesions. Gallbladder and Biliary Tree: Unremarkable Spleen: Unremarkable Pancreas: The pancreas is grossly normal in appearance. Adrenal Glands: Unremarkable Kidneys: Bilateral hydronephrosis without evidence of ureteral stones. Bladder: Severely distended with dome terminating of the level of L4. Bowel: The stomach is grossly normal in appearance. Small bowel and colon are normal in caliber and distribution. The appendix is not visualized; however, no secondary findings of acute appendicitis identified. Ascites: Absent Lymphadenopathy: No mesenteric, retroperitoneal or periportal lymphadenopathy. Abdominal Wall and Mesentery: Unremarkable. Vasculature: The visualized abdominal aorta is normal in size and caliber. Evaluation of abdominal and pelvic vessels is limited due to lack of intravenous contrast. Pelvic Organs: Unremarkable Musculoskeletal: No aggressive focal bony lesions, acute fractures or dislocation. IMPRESSION: Severely distended urinary bladder with moderate bilateral hydronephrosis . Findings are concerning for urinary bladder outlet obstruction. Condition at Discharge: Stable Final Diagnosis/Problems List #Immunodeficiency: leukopenia possible due to use of MTX or mycophenolate resolved febrile neutropenia resolved #Thrombocytopenia due to above #Anemia due to possible GI bleeding and above 7.7 #Essential hypertension #GI bleeding probably upper due to mucositis #Sepsis due to infected intertrigo in the right groin and scrotal resolved #Bilateral hydronephrosis without evidence of ureteral stones. #KYLEE due to hydronephrosis on CKD Stage IV resolved #PE ruled out: no tachycardia, no desturation #Hyperkalemia resolved due to CKD #DM type 2 in remission HBA1C 5.0 #Obesity #Euthyroid sick syndrome #Mucositis #Sepsis due to infected intertrigo in the right groin and scrotal resolved #Gout Discharge Disposition: Home Discharge Instruct/Medications Diet: Consistent carbohydrate, Cardiac 2g Na,low cholest Activity: See Comment Activity comment: home health PT Follow Up/Referral: F/U DC CLINIC DR LEMUS AND DR BERNABE GOLDMAN Medications: RESTART HOME MEDS EXCEPT GOUT MEDICATIONS, F/U WITH DR BERNABE GOLDMAN Discharge Statement: "Patient was advised to return to the ER or call 911 if any headaches, dizziness, shortness of breath, chest pain, abdominal pain, bleeding, fevers, or worsening of medical condition. Patient was counseled about treatment plan, medications, possible side effects, patientverbalized understanding. All questions were answered to the best of my ability. This discharge took greater then 30 minutes in planning, reviewing documentation, counseling the patient, and discussing with other team members." ASSESSMENT ASSESSMENT Assessment inmunodeficiency due to medications Date of Service: Apr 28, 2024 Billing Provider: VIOLETA RUSSELL MD Common Visit Codes: 79516-FGW/OBS DISCH DAY >30min RUBIO BARCLAY RESIDENT Apr 28, 2024 10:05 VIOLETA RUSSELL MD Apr 28, 2024 13:08
--- NOTE | 2024-04-28 19:18 | DVHPN2 ---
Progress Note - Dictate Date Seen: Apr 28, 2024 Has the PT tested + for MRSA If YES, has PT been informed?: Yes Medical Necessity Reason Pt with a Central, PICC or Fol: No Subjective No new complaints Improving pancytopenia Patient received another pack of platelets S/P 2 units PRBC Patient is feeling better and is able to swallow He has not had any further dark bowel movements vital signs Vital Sign Date Time Temp Pulse Resp B/P (MAP) Pulse Ox O2 Delivery O2 Flow Rate FiO2 04/28/24 17:57 87 17 121/63 04/28/24 17:00 96.6 99 96.6 04/28/24 08:00 Room Air* 0 21 Total Intake and Output 04/27/24 04/27/24 04/28/24 15:00 23:00 07:00 Intake Total 50.2 ml 730 ml 600 ml Output Total 400 ml 700 ml 450 ml Balance -349.8 ml 30 ml 150 ml medications Current Medications Medications Dose Ordered Sig/Cedric Route Start Time Stop Time Status Last Admin Dose Admin Ondansetron HCl 4 mg Q4HP PRN IV 04/17/24 23:00 04/18/24 00:32 4 MG Nitroglycerin 0.4 mg Q5MINP PRN SL 04/17/24 23:00 Acetaminophen 650 mg Q4HP PRN PO 04/18/24 04:00 04/18/24 04:08 650 MG Tbo-Filgrastim 480 mcg DAILY SC 04/18/24 10:00 04/28/24 09:10 480 MCG Folic Acid 1 mg/ Dextrose 50.2 ml @ 200.8 mls/ hr DAILY INJ 04/19/24 10:00 04/28/24 12:09 200.8 MLS/HR Nystatin 5 ml QID MT 04/19/24 18:00 04/22/24 11:43 5 ML Enteral Nutritional Formula 240 ml TIDWM PO 04/19/24 18:00 04/28/24 18:00 240 ML Diagnostic Test (Pha) 1 strip ACHS 04/19/24 17:00 04/28/24 16:29 1 STRIP Insulin Human Regular ACHS SC 04/19/24 17:00 04/28/24 16:29 2 UNITS Dextrose 50 ml UD PRN IV 04/19/24 17:00 Pantoprazole Sodium 40 mg BID IV 04/20/24 19:00 04/28/24 09:10 40 MG Amlodipine Besylate 5 mg DAILY PO 04/22/24 10:00 04/28/24 09:10 5 MG Vancomycin HCl 500 mg/Dextrose 100 ml @ 200 mls/hr Q12H IV 04/22/24 10:00 UNV Al Hydrox/Mg Hydrox/Simethicone 5 ml QID MT 04/23/24 22:00 04/28/24 17:47 5 ML Insulin Glargine 20 units BID@1000,2200 SC 04/24/24 22:00 Cancel Morphine Sulfate 2 mg Q4HPRN PRN IV 04/27/24 09:30 04/28/24 13:56 2 MG objective General: NAD, AAOX3 Chest: lung kimbrough clear to auscultation Heart: RRR, no murmur Abdomen: no tenderness to palpation, +BS laboratory and microbiology Laboratory Tests 04/28/24 05:30 04/27/24 04:54 Test 04/27/24 04:54 Range/Units Serum Glucose 154 H 74-106 mg/dL Problems(with codes): (1) Acute kidney failure, unspecified (2) Shortness of breath (3) Diabetic nephropathy (4) Pancytopenia (5) Weakness Prognosis Plan Continue supportive care Advance diet as tolerated Protonix 40 mg p.o. daily Discharge planning as per hospitalist Carafate 1 g p.o. 4 times a day Avoid aspirin NSAIDs smoking and alcohol Outpatient follow up with GI Services when clinically stabilized for elective panendoscopy Dietary Evaluation Review Comments: When medically feasible, advance diet to 2gNa CCHO-60 with renal specific-60g protein, 3K, low phos diet Expected Outcomes/Goals: gradual weight loss. controlled DM. Plan discussed with: Other (None) HILARY JORDAN MD Apr 28, 2024 19:18
--- NOTE | 2024-04-28 19:52 | DVHPN2 ---
Progress Note - Dictate Date Seen: Apr 28, 2024 Has the PT tested + for MRSA If YES, has PT been informed?: Yes Medical Necessity Reason Pt with a Central, PICC or Fol: No Subjective Patient seen and evaluated in follow up. No acute events overnight. Patient denies any complaints. Reports feeling better. Creatinine 1.66. eGFR 47. vital signs Vital Sign Date Time Temp Pulse Resp B/P (MAP) Pulse Ox O2 Delivery O2 Flow Rate FiO2 04/28/24 17:57 87 17 121/63 04/28/24 17:00 96.6 99 96.6 04/28/24 08:00 Room Air* 0 21 Total Intake and Output 04/27/24 04/27/24 04/28/24 15:00 23:00 07:00 Intake Total 50.2 ml 730 ml 600 ml Output Total 400 ml 700 ml 450 ml Balance -349.8 ml 30 ml 150 ml medications Current Medications Medications Dose Ordered Sig/Cedric Route Start Time Stop Time Status Last Admin Dose Admin Ondansetron HCl 4 mg Q4HP PRN IV 04/17/24 23:00 04/18/24 00:32 4 MG Nitroglycerin 0.4 mg Q5MINP PRN SL 04/17/24 23:00 Acetaminophen 650 mg Q4HP PRN PO 04/18/24 04:00 04/18/24 04:08 650 MG Tbo-Filgrastim 480 mcg DAILY SC 04/18/24 10:00 04/28/24 09:10 480 MCG Folic Acid 1 mg/ Dextrose 50.2 ml @ 200.8 mls/ hr DAILY INJ 04/19/24 10:00 04/28/24 12:09 200.8 MLS/HR Nystatin 5 ml QID MT 04/19/24 18:00 04/22/24 11:43 5 ML Enteral Nutritional Formula 240 ml TIDWM PO 04/19/24 18:00 04/28/24 18:00 240 ML Diagnostic Test (Pha) 1 strip ACHS 04/19/24 17:00 04/28/24 16:29 1 STRIP Insulin Human Regular ACHS SC 04/19/24 17:00 04/28/24 16:29 2 UNITS Dextrose 50 ml UD PRN IV 04/19/24 17:00 Pantoprazole Sodium 40 mg BID IV 04/20/24 19:00 04/28/24 09:10 40 MG Amlodipine Besylate 5 mg DAILY PO 04/22/24 10:00 04/28/24 09:10 5 MG Vancomycin HCl 500 mg/Dextrose 100 ml @ 200 mls/hr Q12H IV 04/22/24 10:00 UNV Al Hydrox/Mg Hydrox/Simethicone 5 ml QID MT 04/23/24 22:00 04/28/24 17:47 5 ML Insulin Glargine 20 units BID@1000,2200 SC 04/24/24 22:00 Cancel Morphine Sulfate 2 mg Q4HPRN PRN IV 04/27/24 09:30 04/28/24 13:56 2 MG objective Vitals and nursing notes reviewed. General Appearance: In no acute distress. HEENT: Atraumatic, PERRLA, EOMI, Mucous membrane moist/pink. Respiratory: Clear to auscultation, Normal air movement Cardiovascular: Regular rate, Normal S1, Normal S2, No murmurs, no chest wall tenderness Abdominal: Normal bowel sounds, Soft, No tenderness, No hepatospenomegaly, No masses Extremities: No clubbing, No cyanosis, No edema, Normal pulses, No tenderness/swelling Skin: No rashes, No breakdown, No significant lesion Neuro: Alert, Oriented X3, Cooperative, Normal speech, Strength at 5/5 X4 ext, Normal tone, Sensation intact, Psych/Mental Status: Mental status NL, Mood NL laboratory and microbiology Laboratory Tests 04/28/24 05:30 04/27/24 04:54 Test 04/27/24 04:54 Range/Units Serum Glucose 154 H 74-106 mg/dL Problem List Sepsis due to unspecified organism 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 DC planning in progress. SNF for PT. Inpatient PT as recommended. Avoid nephrotoxic medication Strict I&O. [place] Mouthwash. Protonix and Sucralfate. Pain management as needed. Additional plan as per the hospital course. Dietary Evaluation Review Comments: When medically feasible, advance diet to 2gNa CCHO-60 with renal specific-60g protein, 3K, low phos diet Expected Outcomes/Goals: gradual weight loss. controlled DM. Plan discussed with: Patient, Other (RN) ADRIANA ZEPEDA DO Apr 28, 2024 19:52
[2024-04-29] VITALS (7 sets, daily range): BP systolic 115–125; BP diastolic 64–75; PULSE 85–94; RESP 13–18; TEMP 97–98.1; O2SAT 96–99
--- NOTE | 2024-04-29 15:24 | DVHPN2 ---
Reviewed: Care Plan, H&P Changes from previous H/P or p: No Changes General: Per HPI ENT: Mouth pain, Mouth swelling, Throat pain Cardiovascular: No Chest Pain, No Palpitations, No Orthopnea, No Paroxysmal Noc. Dyspnea, No Edema, No Lt Headedness, No Other Respiratory: No Cough, No Dry, No Shortness of breath, No SOB with excertion, No Wheezing, No Hemoptysis, No Pleuritic Pain, No Sputum, No Other Gastrointestinal: No Nausea, No Vomiting, No Abdominal Pain, No Diarrhea, No Constipation, No Melena, No Hematochezia, No Other Genitourinary: Retention Musculoskeletal: No other, No neck pain, No shoulder pain, No arm pain, No back pain, No hand pain, No leg pain, No foot pain Skin: Rash, Lesions Objective Vitals Vital Signs Date Time Temp Pulse Resp B/P (MAP) Pulse Ox O2 Delivery O2 Flow Rate FiO2 04/29/24 13:00 98.0 94 17 117/64 (81) 98 98.0 04/29/24 08:05 Room Air* 0 21 Intake/Output Intake and Output 04/29/24 06:59 Intake Total 1230.2 ml Output Total 1275 ml Balance -44.8 ml Intake Oral 1180 ml IV Total 50.2 ml Output Urine Total 1275 ml General Appearance: Alert, Oriented X3 Cardiovascular: Regular rate, Normal S1, Normal S2 Abdomen: Normal bowel sounds Medications Current Medications Medications Dose Ordered Sig/Cedric Route Start Time Stop Time Status Last Admin Dose Admin Ondansetron HCl 4 mg Q4HP PRN IV 04/17/24 23:00 04/18/24 00:32 4 MG Nitroglycerin 0.4 mg Q5MINP PRN SL 04/17/24 23:00 Acetaminophen 650 mg Q4HP PRN PO 04/18/24 04:00 04/18/24 04:08 650 MG Tbo-Filgrastim 480 mcg DAILY SC 04/18/24 10:00 Hold 04/29/24 10:26 480 MCG Folic Acid 1 mg/ Dextrose 50.2 ml @ 200.8 mls/ hr DAILY INJ 04/19/24 10:00 04/29/24 10:28 200.8 MLS/HR Nystatin 5 ml QID MT 04/19/24 18:00 04/28/24 21:37 5 ML Enteral Nutritional Formula 240 ml TIDWM PO 04/19/24 18:00 04/29/24 12:38 240 ML Diagnostic Test (Pha) 1 strip ACHS 04/19/24 17:00 04/29/24 11:30 1 STRIP Insulin Human Regular ACHS SC 04/19/24 17:00 04/29/24 12:37 3 UNITS Dextrose 50 ml UD PRN IV 04/19/24 17:00 Pantoprazole Sodium 40 mg BID IV 04/20/24 19:00 04/29/24 10:27 40 MG Amlodipine Besylate 5 mg DAILY PO 04/22/24 10:00 04/29/24 10:27 5 MG Vancomycin HCl 500 mg/Dextrose 100 ml @ 200 mls/hr Q12H IV 04/22/24 10:00 UNV Al Hydrox/Mg Hydrox/Simethicone 5 ml QID MT 04/23/24 22:00 04/29/24 12:32 5 ML Insulin Glargine 20 units BID@1000,2200 SC 04/24/24 22:00 Cancel Morphine Sulfate 2 mg Q4HPRN PRN IV 04/27/24 09:30 04/29/24 10:27 2 MG Laboratory Results Laboratory Tests 04/27/24 04:54 04/28/24 05:30 Urinalysis Test 04/17/24 22:16 Urine Color Light-yellow (Yellow) Urine Clarity Clear (Clear) Urine pH 5.0 (5.0-9.0) Urine Specific [place] 1.015 (1.001-1.035) Urine Protein Trace (Negative) H Urine Ketones Trace (Negative) Urine Blood Negative /uL (Negative) Urine Nitrite Negative (Negative) Urine Bilirubin Negative (Negative) Urine Urobilinogen Normal mg/dL (Negative) Urine Leukocyte Esterase Negative /uL (Negative) Urine RBC 1 /hpf (0 - 3) Urine WBC 1 /hpf (0 - 3) Urine Squamous Epithelial Cells Few /hpf (<5) Urine Bacteria Few /hpf (None Seen) H Urine Glucose 1+ mg/dL (Normal) H Microbiology Microbiology Date/Time Source Procedure Growth Status 04/19/24 11:30 Groin Gram Stain - Final Complete 04/19/24 11:30 Wound Culture - Final Staphylococcus lugdunensis Complete 04/17/24 23:27 Blood Blood Culture - Final NO GROWTH AFTER 5 DAYS OF INCUBATION. Complete 04/17/24 22:16 Voided Urine Urine Culture - Final Complete Labs and/or images reviewed: Labs reviewed by me, Image(s) reviewed by me Assessment/Plan Assessment/Plan #Immunodeficiency: leukopenia possible due to use of MTX or mycophenolate resolved febrile neutropenia resolved #Thrombocytopenia due to above #Anemia due to possible GI bleeding and above 7.7 #Essential hypertension #GI bleeding probably upper due to mucositis #Sepsis due to infected intertrigo in the right groin and scrotal No septic shock at the moment #Bilateral hydronephrosis without evidence of ureteral stones. #KYLEE on CKD Stage IV #Hyperkalemia resolved due to CKD #DM type 2 in remission HBA1C 5.0 #Obesity #Euthyroid sick syndrome #Mucositis #Sepsis due to infected intertrigo in the right groin and scrotal describe above #Gout awaiting SNF placement Plan discussed with: Patient Date of Service: Apr 29, 2024 Billing Provider: CARLOS PUENTE DO Common Visit Codes: [id number] INP/OBS CARE(HIGH) CARLOS PUENTE DO Apr 29, 2024 15:24
--- NOTE | 2024-04-29 20:03 | DVHPN2 ---
Progress Note - Dictate Date Seen: Apr 29, 2024 Has the PT tested + for MRSA If YES, has PT been informed?: Yes Medical Necessity Reason Pt with a Central, PICC or Fol: No Subjective Patient seen and evaluated in follow up. No acute events overnight. Patient denies any complaints. He is intermittently refusing medications per RN. Declined placement with [facility] per SW due to patient's age and history of substance use. vital signs Vital Sign Date Time Temp Pulse Resp B/P (MAP) Pulse Ox O2 Delivery O2 Flow Rate FiO2 04/29/24 17:21 88 16 128/72 04/29/24 16:38 98.0 99 98.0 04/29/24 08:05 Room Air* 0 21 Total Intake and Output 04/28/24 04/28/24 04/29/24 15:00 23:00 07:00 Intake Total 50.2 ml 1180 ml Output Total 275 ml 1000 ml Balance 50.2 ml 905 ml -1000 ml medications Current Medications Medications Dose Ordered Sig/Cedric Route Start Time Stop Time Status Last Admin Dose Admin Ondansetron HCl 4 mg Q4HP PRN IV 04/17/24 23:00 04/18/24 00:32 4 MG Nitroglycerin 0.4 mg Q5MINP PRN SL 04/17/24 23:00 Acetaminophen 650 mg Q4HP PRN PO 04/18/24 04:00 04/18/24 04:08 650 MG Tbo-Filgrastim 480 mcg DAILY SC 04/18/24 10:00 Hold 04/29/24 10:26 480 MCG Folic Acid 1 mg/ Dextrose 50.2 ml @ 200.8 mls/ hr DAILY INJ 04/19/24 10:00 04/29/24 10:28 200.8 MLS/HR Nystatin 5 ml QID MT 04/19/24 18:00 04/28/24 21:37 5 ML Enteral Nutritional Formula 240 ml TIDWM PO 04/19/24 18:00 04/29/24 17:32 240 ML Diagnostic Test (Pha) 1 strip ACHS 04/19/24 17:00 04/29/24 17:00 1 STRIP Insulin Human Regular ACHS SC 04/19/24 17:00 04/29/24 17:32 2 UNITS Dextrose 50 ml UD PRN IV 04/19/24 17:00 Pantoprazole Sodium 40 mg BID IV 04/20/24 19:00 04/29/24 10:27 40 MG Amlodipine Besylate 5 mg DAILY PO 04/22/24 10:00 04/29/24 10:27 5 MG Vancomycin HCl 500 mg/Dextrose 100 ml @ 200 mls/hr Q12H IV 04/22/24 10:00 UNV Al Hydrox/Mg Hydrox/Simethicone 5 ml QID MT 04/23/24 22:00 04/29/24 16:52 5 ML Insulin Glargine 20 units BID@1000,2200 SC 04/24/24 22:00 Cancel Morphine Sulfate 2 mg Q4HPRN PRN IV 04/27/24 09:30 04/29/24 16:51 2 MG objective Vitals and nursing notes reviewed. General Appearance: In no acute distress. HEENT: Atraumatic, PERRLA, EOMI, Mucous membrane moist/pink. Respiratory: Clear to auscultation, Normal air movement Cardiovascular: Regular rate, Normal S1, Normal S2, No murmurs, no chest wall tenderness Abdominal: Normal bowel sounds, Soft, No tenderness, No hepatospenomegaly, No masses Extremities: No clubbing, No cyanosis, No edema, Normal pulses, No tenderness/swelling Skin: No rashes, No breakdown, No significant lesion Neuro: Alert, Oriented X3, Cooperative, Normal speech, Strength at 5/5 X4 ext, Normal tone, Sensation intact, Psych/Mental Status: Mental status NL, Mood NL laboratory and microbiology Laboratory Tests 04/28/24 05:30 04/27/24 04:54 Test 04/27/24 04:54 Range/Units Serum Glucose 154 H 74-106 mg/dL Problem List Sepsis due to unspecified organism 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 DC planning in progress. Inpatient PT as recommended. Avoid nephrotoxic medication Strict I&O. Majic Mouthwash. Nystatin. Pain management as needed. Nutritional support. Additional plan as per the hospital course. Dietary Evaluation Review Comments: When medically feasible, advance diet to 2gNa [facility] [place]-60 with renal specific-60g protein, 3K, low phos diet Expected Outcomes/Goals: gradual weight loss. controlled DM. Plan discussed with: Patient, Other (RN) ADRIANA ZEPEDA DO Apr 29, 2024 20:03
--- NOTE | 2024-04-29 22:15 | DVHINCON2 ---
Date of service: Apr 29, 2024 Referring Physician Jie Reyes MD History of Present Illness A 59-year-old man with past medical history of type 2 diabetes mellitus, hypertension, hyperlipidemia, peripheral neuropathy, CHF, CKD stage 4, liver cirrhosis, GERD, gout, obesity, anxiety, depression and polysubstance abuse who presented to the ED via EMS on 04/17/24 with c/o swelling of the lip and tongue; also had sore wounds in the right lower abdomen beneath the skin fold and right groin and scattered wounds in BLE and feet area along with generalized weakness onset 1 week prior to admission. According to the patient he took COVID and flu vaccine 2 weeks prior and progressively developed sore wounds first in the mouth and throat and later developed in the lips and right lower abdomen and groin area. Patient reported difficulty swallowing and unable to eat or drink or take any oral medication because of the pain. He denied allergy to any medication or trying any new medication, travel history, sick contact or any flu-like illness. The patient denied chest pain, shortness of breath, dizziness, or any other associated sx. Patient was admitted for further care and pulmonary consultation is requested for evaluation and management due to these findings. Review of Systems: 14-point review of systems negative unless otherwise noted above. Past Medical History: Type 2 diabetes mellitus, hypertension, hyperlipidemia, peripheral neuropathy, CHF, CKD stage 4, liver cirrhosis, GERD, gout, obesity and polysubstance abuse Past Surgical History: Rt ankle and foot surgery Medications: Reviewed. Allergies: No known drug allergies. Family History: Fhx of leukemia, lung cancer, COPD, CHF, diabetes, depression. Social History: Nonsmoker. No alcohol use. Positive history of polysubstance abuse. Family History: Cancer Chronic obstructive pulmonary disease G8 MOTHER Depression G8 FATHER FH: congestive heart failure G8 MOTHER FH: leukemia G8 FATHER FH: lung cancer G8 MOTHER Family history: Depression (situation) G8 MOTHER Family history: Diabetes mellitus G8 MOTHER Allergies: Coded Allergies: NO KNOWN ALLERGIES (Unverified , 03/11/14) Home Meds Reported Medications Folic Acid (Folic Acid) 1 Mg Tab, 1 TAB PO DAILY for 90 Days, #90 04/20/24 Propranolol HCl (Propranolol Hydrochloride) 40 Mg Tab, 1 TAB PO BID for 90 Days, #180 04/20/24 Finerenone (Kerendia) 10 Mg Tab, 1 TAB PO DAILY for 30 Days, #30 04/20/24 Dapagliflozin Propanediol (Farxiga) 10 Mg Tab, 1 TAB PO DAILY for 30 Days, #30 04/20/24 Furosemide (Furosemide) 20 Mg Tab, 1 TAB PO DAILY for 90 Days, #90 04/20/24 Oxycodone W/ Acetaminophen (Apap/Oxycodone) 1 Tab Tab, 1 TAB PO Q8HR for 30 Days, #90 04/20/24 Docusate Sodium (Colace) 100 Mg Cap, 2 CAP PO BID for 30 Days, #120 04/20/24 Zolpidem Tartrate (Zolpidem Tartrate) 5 Mg Tab, 1 TAB PO QPM for 30 Days, #30 04/20/24 Alprazolam (Alprazolam) 0.5 Mg Tab, 1 TAB PO TID for 30 Days, #90 04/20/24 Tirzepatide (Mounjaro) 10 Mg/0.5 Ml Inj, MG SC UD for 28 Days, #2 04/20/24 Atorvastatin Calcium (Lipitor) 40 Mg Tab, 1 TAB PO DAILY for 30 Days, #30 04/20/24 Trazodone Hcl (Trazodone Hcl) 50 Mg Tab, 1 TAB PO DAILY for 30 Days, #30 04/20/24 Methotrexate (Methotrexate) 2.5 Mg Tab, 4 TAB PO QWEEKLY for 100 Days, #58 04/20/24 Sodium Zirconium Cyclosilicate (Lokelma) 10 Gm Tom, 1 PACK PO UD for 30 Days, #39 TAKE 1 PACK BY MOUTH EVERY 8 HOURS FOR THE FIRST 3 DAYS, THEN 1 PACK BY MOUTH DAILY TO CONTINUE. 04/20/24 Sertraline Hcl (Sertraline Hcl) 100 Mg Tab, 1.5 TAB PO QAM for 30 Days, #45 04/20/24 Pregabalin (Pregabalin) 150 Mg Cap, 1 CAP PO TID for 30 Days, #90 04/20/24 Ergocalciferol (Vitamin D) 50,000 Unt Cap, 52287 UNT PO QWEEKLY, CAP 03/14/14 Carvedilol (COREG) 12.5 Mg Tab, 12.5 MG PO BID, TAB 03/11/14 Ferrous Sulfate (Ferrous Sulfate) 325 Mg Tab, 325 MG PO DAILY, TAB 03/11/14 Hydrochlorothiazide (Hydrochlorothiazide) 25 Mg Tab, 1 TAB PO DAILY, #30 TAB 5 Refills 03/11/14 Aspirin (Asa) 81 Mg Ch, 81 MG PO DAILY 03/11/14 Lorazepam (Lorazepam) 1 Mg Tab, 1 TAB PO TID, #90 TAB 03/11/14 Pantoprazole Sodium (PANTOPRAZOLE SODIUM) 40 Mg Inj, 40 MG PO DAILY, INJ 03/11/14 Fenofibrate (FENOFIBRATE) 145 Mg Tab, 1 TAB PO DAILY, #30 TAB 5 Refills 03/11/14 Lisinopril (Lisinopril) 10 Mg Tab, 10 MG PO DAILY, TAB 03/11/14 Vital Signs Vital Signs Date Time Temp Pulse Resp B/P (MAP) Pulse Ox O2 Delivery O2 Flow Rate FiO2 04/29/24 21:44 85 18 122/68 04/29/24 21:35 98.1 99 98.1 04/29/24 20:00 Room Air* 0 21 Physical Exam Gen.: Patient lying in bed in no apparent distress. Breathing on room air. Head: Normocephalic, atraumatic. Eyes: EOMI/PERRLA. Ears: Normal hearing. Normal anatomy. Neck/trachea: Trachea midline, supple. Nose: Normal external anatomy. Mouth: Moist mucous membranes. Chest: Decreased air entry bilaterally. No wheezing or rhonchi. Cardiovascular: Positive S1, positive S2. Regular rate and rhythm. Abdomen: Positive bowel sounds in all 4 quadrants. Soft, non-tender, non- distended. : Deferred. Rectal: Deferred. Skin: Warm, dry. Intact. Extremities: 2+ radial pulses bilaterally. No lower extremity edema. Neuro: Awake, alert, oriented x3. No gross motor or sensory deficits. Cranial nerves II through XII intact. Gait not assessed. Labs/Diagnostic Data Labs Test 04/29/24 20:31 04/28/24 05:30 04/27/24 08:12 04/27/24 04:54 Range/Units POC Glucose 124 H 70-106 mg/dl Creatinine 1.66 H 0.700-1.30 mg/dL Glomerular Filtration Rate Calc 47 >90 mL/min Random Vancomycin Level 16.4 H 5-10 ug/mL Blood Gas Specimen Type Arterial Blood Gas Sample Site Left radial Blood Gas Patient Temperature 37.0 Arterial Blood Date Drawn [id number] Arterial Blood pH 7.422 7.350-7.450 Arterial Blood Partial Pressure CO2 24.2 L 35.0-48.0 mmHg Arterial Blood Partial Pressure O2 82.2 L 83.0-108.0 mmHg Arterial Blood HCO3 15.4 L 21.0-28.0 mmol/L Arterial Blood Oxygen Saturation 95.4 94.0-98.0 % Arterial Blood Base Excess -8.0 L -2.0-3.0 mmol/L Arterial Blood Oxyhemoglobin 93.6 L 94.0-98.0 % Arterial Blood Carboxyhemoglobin 1.6 H 0.5-1.5 % Arterial Blood Methemoglobin 0.3 0.0-1.5 % Andrei Test Yes Blood Gas Total Hemoglobin 7.60 L 13.5-17.5 g/dL Blood Gas Modality Room air FiO2 % 21.0 White Blood Count 4.5 # 4.4-10.8 10^3/uL Red Blood Count 2.29 L 4.5-5.90 10^6/uL Hemoglobin 7.5 L 13.5-17.5 g/dL Hematocrit 22.4 L 41.0-53.0 % Mean Corpuscular Volume 97.6 80.0-100.0 fL Mean Corpuscular Hemoglobin 32.9 H 28.0-32.0 pg Mean Corpuscular Hemoglobin Concent 33.7 32.0-36.0 g/dL Red Cell Distribution Width 14.7 H 11.8-14.3 % Platelet Count 39 L 140-450 10^3/uL Mean Platelet Volume 9.8 6.9-10.8 fL Neutrophils (%) (Auto) 37.0-80.0 % Lymphocytes (%) (Auto) 10.0-50.0 % Monocytes (%) (Auto) 0.0-12.0 % Basophils (%) (Auto) 0.0-2.0 % Neutrophils # (Auto) 1.6-8.6 10 ^3/uL Lymphocytes # (Auto) 0.4-5.4 10 ^3/uL Monocytes # (Auto) 0-1.3 10 ^3/uL Differential Total Cells Counted 100.0 100 Neutrophils % (Manual) 76 37.0-80.0 Band Neutrophils % (Manual) 2 Lymphocytes % (Manual) 20 10.0-50.0 Monocytes % (Manual) 2 0-12 Eosinophils % (Manual) 0 0-7 Basophils % (Manual) 0 0.0-2.0 Metamyelocytes % (manual) 0 Myelocytes % (Manual) 0 Promyelocytes % (Manual) 0 Blast Cells % (Manual) 0 Reactive Lymphocytes 0 Platelet Estimate Decreased Schistocytes Few Sodium Level 140 136-145 mmol/L Potassium Level 3.9 3.5-5.1 mmol/L Chloride Level 112 H 98-107 mmol/L Carbon Dioxide Level 17 L 20-31 mmol/L Anion Gap 11 5-15 Blood Urea Nitrogen 56 H 9-23 mg/dL BUN/Creatinine Ratio 33.7 H 10.0-20.0 Serum Glucose 154 H 74-106 mg/dL Calcium Level 8.3 L 8.7-10.4 mg/dL Total Bilirubin 0.4 0.2-1.0 mg/dL Aspartate Amino Transferase (AST) 13 13-40 U/L Alanine Aminotransferase (ALT) 13 7-40 U/L Alkaline Phosphatase 35 L 46-116 U/L Total Protein 5.4 L 5.7-8.2 g/dL Albumin 3.2 3.2-4.8 g/dL Test 04/25/24 05:05 04/24/24 05:34 04/23/24 06:54 04/21/24 15:08 Range/Units Nucleated Red Blood Cells 2.0 % Tear Drop Cells Few Eosinophils (%) (Auto) 0.0 0.0-7.0 % Eosinophils # (Auto) 0 0-0.8 10 ^3/uL Basophils # (Auto) 0 0-0.2 10 ^3/uL Phosphorus Level 4.5 2.4-5.1 mg/dL Magnesium Level 2.3 1.6-2.6 mg/dL Anisocytosis (manual) Slight Ovalocytes Few Grant Cells Few Vancomycin Level Trough 20.9 H 5-10 ug/mL Test 04/21/24 08:30 04/20/24 20:02 04/18/24 15:48 04/18/24 13:05 Range/Units Stool Occult Blood Positive Negative Stool Occult Blood Sample #3 Negative Large Platelets Few Haptoglobin 337 29-370 mg/dL Reticulocyte Count (auto) 0.24 L 0.5-1.5 % Serum Osmolality 337 H 278-298 mOsm/kg Uric Acid < 0.5 L 3.7-9.2 mg/dL Lactate Dehydrogenase 182 120-246 U/L Test 04/18/24 09:30 04/18/24 03:41 04/17/24 22:16 04/17/24 22:06 Range/Units Levetiracetam Level <2.0 L 10.0-40.0 ug/mL Rheumatoid Factor 16.0 H <14.0 IU/mL Anti-Cyclic Citrullinated Peptide 6 0-19 units Anti-Nuclear Antibody Screen Negative Negative Complement C3 132 82-167 mg/dL Complement C4 39 H 12-38 mg/dL Prothrombin Time 11.5 9.3-11.8 sec Prothrombin Time INR 1.09 0.9-1.15 Activated Partial Thromboplast Time 28.8 24.5-34.5 SEC Hemoglobin A1c 5.0 <5.7 % A1C B-Type Natriuretic Peptide 33.67 0-100 pg/mL Vitamin B12 Level 494 211-911 pg/mL Vitamin D 25-Hydroxy 157.2 H 30.0-100 ng/mL Thyroid Stimulating Hormone (TSH) 0.20 L 0.55-4.78 uIU/mL Free Thyroxine (T4) Calculated 1.12 0.89-1.76 ng/dL Free Triiodothyronine (T3) pg/mL 2.24 L 2.3-4.2 pg/mL Hepatitis A Antibody Total Negative Negative Hepatitis B Surface Antigen Negative Negative Hepatitis B Surface Antibody Negative Negative Hepatitis B Core Total Antibody Negative Negative Hepatitis C Antibody Negative Negative HIV (1&2) Antibody Negative Negative Urine Color Light-yellow Yellow Urine Clarity Clear Clear Urine pH 5.0 5.0-9.0 Urine Specific [place] 1.015 1.001-1.035 Urine Protein Trace H Negative Urine Ketones Trace Negative Urine Blood Negative Negative /uL Urine Nitrite Negative Negative Urine Bilirubin Negative Negative Urine Urobilinogen Normal Negative mg/dL Urine Leukocyte Esterase Negative Negative /uL Urine RBC 1 0 - 3 /hpf Urine WBC 1 0 - 3 /hpf Urine Squamous Epithelial Cells Few <5 /hpf Urine Bacteria Few H None Seen /hpf Urine Glucose 1+ H Normal mg/dL Lactic Acid Level 3.3 *H 0.4-2.0 mmol/L Test 04/17/24 20:50 Range/Units Macrocytosis Slight Microbiology Date/Time Source Procedure Growth Status 04/19/24 11:30 Groin Gram Stain - Final Complete 04/19/24 11:30 Wound Culture - Final Staphylococcus lugdunensis Complete 04/17/24 23:27 Blood Blood Culture - Final NO GROWTH AFTER 5 DAYS OF INCUBATION. Complete 04/17/24 22:16 Voided Urine Urine Culture - Final Complete Assessment Impression: Sepsis Ruled out PE. Immunodeficiency GI hemorrhage Metabolic acidosis Plan: Supplemental oxygen PRN Titrate to keep O2 sats above 92%. Pain control Avoid oversedation Monitor hemoglobin Transfuse if less than 7.0 g/dL. Monitor WBC Monitor platelets, trending up. Monitor renal function. Monitor electrolytes. Supplement as necessary. Monitor ins and outs. Nutritional supplementation GI prophylaxis w/ Protonix DVT prophylaxis. Prognosis: Poor given patient's multiple co-morbidities. Rest of plan per hospitalist and other consultants. Thank you Dr. Jie Reyes MD, for allowing me to participate in this patient's care. Further recommendations will depend on the patient's clinical course. Please do not hesitate to contact me if you have any questions or concerns. This medical document was created using an electronic medical record system with Dragon Tail dictation system. Although these documentations are being carefully reviewed, there may still be some phonetic and typographical changes. The errors are purely typographical, due to imperfection on the software program , and do not reflect any compromise in the patient's medical care. Plan discussed with: Other (RN, MD Reyes) LYNDA ALCANTAR MD Apr 29, 2024 22:15
--- NOTE | 2024-04-29 22:39 | DVHPN2 ---
Progress Note - Dictate Date Seen: Apr 29, 2024 Has the PT tested + for MRSA If YES, has PT been informed?: Yes Medical Necessity Reason Pt with a Central, PICC or Fol: No Subjective No new complaints Improving pancytopenia No new labs today Patient a large bowel movement vital signs Vital Sign Date Time Temp Pulse Resp B/P (MAP) Pulse Ox O2 Delivery O2 Flow Rate FiO2 04/29/24 21:44 85 18 122/68 04/29/24 21:35 98.1 99 98.1 04/29/24 20:00 Room Air* 0 21 Total Intake and Output 04/28/24 04/28/24 04/29/24 15:00 23:00 07:00 Intake Total 50.2 ml 1180 ml Output Total 275 ml 1000 ml Balance 50.2 ml 905 ml -1000 ml medications Current Medications Medications Dose Ordered Sig/Cedric Route Start Time Stop Time Status Last Admin Dose Admin Ondansetron HCl 4 mg Q4HP PRN IV 04/17/24 23:00 04/18/24 00:32 4 MG Nitroglycerin 0.4 mg Q5MINP PRN SL 04/17/24 23:00 Acetaminophen 650 mg Q4HP PRN PO 04/18/24 04:00 04/18/24 04:08 650 MG Tbo-Filgrastim 480 mcg DAILY SC 04/18/24 10:00 Hold 04/29/24 10:26 480 MCG Folic Acid 1 mg/ Dextrose 50.2 ml @ 200.8 mls/ hr DAILY INJ 04/19/24 10:00 04/29/24 10:28 200.8 MLS/HR Nystatin 5 ml QID MT 04/19/24 18:00 04/28/24 21:37 5 ML Enteral Nutritional Formula 240 ml TIDWM PO 04/19/24 18:00 04/29/24 17:32 240 ML Diagnostic Test (Pha) 1 strip ACHS 04/19/24 17:00 04/29/24 20:54 1 STRIP Insulin Human Regular ACHS SC 04/19/24 17:00 04/29/24 17:32 2 UNITS Dextrose 50 ml UD PRN IV 04/19/24 17:00 Pantoprazole Sodium 40 mg BID IV 04/20/24 19:00 04/29/24 20:56 40 MG Amlodipine Besylate 5 mg DAILY PO 04/22/24 10:00 04/29/24 10:27 5 MG Vancomycin HCl 500 mg/Dextrose 100 ml @ 200 mls/hr Q12H IV 04/22/24 10:00 UNV Al Hydrox/Mg Hydrox/Simethicone 5 ml QID MT 04/23/24 22:00 04/29/24 20:56 5 ML Insulin Glargine 20 units BID@1000,2200 SC 04/24/24 22:00 Cancel Morphine Sulfate 2 mg Q4HPRN PRN IV 04/27/24 09:30 04/29/24 21:14 2 MG objective General: NAD, AAOX3 Chest: lung kimbrough clear to auscultation Heart: RRR, no murmur Abdomen: no tenderness to palpation, +BS laboratory and microbiology Laboratory Tests 04/28/24 05:30 04/27/24 04:54 Test 04/27/24 04:54 Range/Units Serum Glucose 154 H 74-106 mg/dL Problems(with codes): (1) Acute kidney failure, unspecified (2) Shortness of breath (3) Diabetic nephropathy (4) Morbid obesity (5) Pancytopenia (6) Ulceration Prognosis Assessment and plan Severe pancytopenia possibly as allergic reaction to COVID or flu vaccine Differential diagnosis as per oncologist was related to use of methotrexate Continue supportive care Discharge in progress Pulmonary consult on board Dietary Evaluation Review Comments: When medically feasible, advance diet to 2gNa CCHO-60 with renal specific-60g protein, 3K, low phos diet Expected Outcomes/Goals: gradual weight loss. controlled DM. Plan discussed with: Patient, Other (Nurse) HILARY JORDAN MD Apr 29, 2024 22:39
[2024-04-30] VITALS (8 sets, daily range): BP systolic 98–125; BP diastolic 55–75; PULSE 72–98; RESP 12–18; TEMP 97.4–98.3; O2SAT 97–100
--- NOTE | 2024-04-30 13:51 | DVHPN2 ---
Progress Note - Dictate Date Seen: Apr 30, 2024 Has the PT tested + for MRSA If YES, has PT been informed?: Yes Medical Necessity Reason Pt with a Central, PICC or Fol: No Subjective No new complaints Improving pancytopenia Tolerating diet No GI bleeding vital signs Vital Sign Date Time Temp Pulse Resp B/P (MAP) Pulse Ox O2 Delivery O2 Flow Rate FiO2 04/30/24 10:00 99/62 04/30/24 09:00 97.9 89 16 99 97.9 04/29/24 20:00 Room Air* 0 21 Total Intake and Output 04/29/24 04/29/24 04/30/24 15:00 23:00 07:00 Intake Total 50.2 ml 2400 ml 400 ml Output Total 500 ml 700 ml 400 ml Balance -449.8 ml 1700 ml 0 ml medications Current Medications Medications Dose Ordered Sig/Cedric Route Start Time Stop Time Status Last Admin Dose Admin Ondansetron HCl 4 mg Q4HP PRN IV 04/17/24 23:00 04/18/24 00:32 4 MG Nitroglycerin 0.4 mg Q5MINP PRN SL 04/17/24 23:00 Acetaminophen 650 mg Q4HP PRN PO 04/18/24 04:00 04/18/24 04:08 650 MG Tbo-Filgrastim 480 mcg DAILY SC 04/18/24 10:00 Hold 04/29/24 10:26 480 MCG Folic Acid 1 mg/ Dextrose 50.2 ml @ 200.8 mls/ hr DAILY INJ 04/19/24 10:00 04/30/24 10:00 200.8 MLS/HR Nystatin 5 ml QID MT 04/19/24 18:00 04/28/24 21:37 5 ML Enteral Nutritional Formula 240 ml TIDWM PO 04/19/24 18:00 04/30/24 08:00 240 ML Diagnostic Test (Pha) 1 strip ACHS 04/19/24 17:00 04/30/24 11:03 1 STRIP Insulin Human Regular ACHS SC 04/19/24 17:00 04/30/24 11:14 2 UNITS Dextrose 50 ml UD PRN IV 04/19/24 17:00 Pantoprazole Sodium 40 mg BID IV 04/20/24 19:00 04/30/24 11:19 40 MG Amlodipine Besylate 5 mg DAILY PO 04/22/24 10:00 04/29/24 10:27 5 MG Vancomycin HCl 500 mg/Dextrose 100 ml @ 200 mls/hr Q12H IV 04/22/24 10:00 UNV Al Hydrox/Mg Hydrox/Simethicone 5 ml QID MT 04/23/24 22:00 04/30/24 11:20 5 ML Insulin Glargine 20 units BID@1000,2200 SC 04/24/24 22:00 Cancel Morphine Sulfate 2 mg Q4HPRN PRN IV 04/27/24 09:30 04/30/24 06:22 2 MG objective General: NAD, AAOX3 Chest: lung kimbrough clear to auscultation Heart: RRR, no murmur Abdomen: no tenderness to palpation, +BS laboratory and microbiology Laboratory Tests 04/28/24 05:30 04/27/24 04:54 Test 04/27/24 04:54 Range/Units Serum Glucose 154 H 74-106 mg/dL Problems(with codes): (1) Mucositis (2) Shortness of breath (3) Acute dyspnea (4) Morbid obesity (5) Pancytopenia (6) Ulceration Prognosis Assessment and plan Severe pancytopenia possibly as allergic reaction to COVID and flu vaccine ? Panchito Keith syndrome; patient develops symptoms within a week of the vaccines Differential diagnosis as per oncologist was possible use of methotrexate causing pancytopenia although that is less likely Continue supportive care Discharge in progress Pulmonary consult on board Outpatient follow up with GI Services for elective panendoscopy once medically stabilized Dietary Evaluation Review Comments: When medically feasible, advance diet to 2gNa CCHO-60 with renal specific-60g protein, 3K, low phos diet Expected Outcomes/Goals: gradual weight loss. controlled DM. Plan discussed with: Patient HILARY JORDAN MD Apr 30, 2024 13:51
[2024-04-30] MEDS: OXYCODONE W/ ACETAMINOPHEN 5/325MG TABLET PO PRN (15:56)
[2024-04-30] MEDS: oxyCODONE HCL 5MG TAB PO PRN (15:56)
--- NOTE | 2024-04-30 16:04 | DVHPN2 ---
Reviewed: Care Plan, H&P Changes from previous H/P or p: No Changes General: Per HPI ENT: Mouth pain, Mouth swelling, Throat pain Cardiovascular: No Chest Pain, No Palpitations, No Orthopnea, No Paroxysmal Noc. Dyspnea, No Edema, No Lt Headedness, No Other Respiratory: No Cough, No Dry, No Shortness of breath, No SOB with excertion, No Wheezing, No Hemoptysis, No Pleuritic Pain, No Sputum, No Other Gastrointestinal: No Nausea, No Vomiting, No Abdominal Pain, No Diarrhea, No Constipation, No Melena, No Hematochezia, No Other Genitourinary: Retention Musculoskeletal: No other, No neck pain, No shoulder pain, No arm pain, No back pain, No hand pain, No leg pain, No foot pain Skin: Rash, Lesions Objective Vitals Vital Signs Date Time Temp Pulse Resp B/P (MAP) Pulse Ox O2 Delivery O2 Flow Rate FiO2 04/30/24 13:00 97.4 91 17 98/55 (69) 97 97.4 04/29/24 20:00 Room Air* 0 21 Intake/Output Intake and Output 04/30/24 07:00 Intake Total 2850.2 ml Output Total 1600 ml Balance 1250.2 ml Intake Oral 2800 ml IV Total 50.2 ml Output Urine Total 1600 ml Stool Total 0 ml General Appearance: Alert, Oriented X3 Cardiovascular: Regular rate, Normal S1, Normal S2 Abdomen: Normal bowel sounds Medications Current Medications Medications Dose Ordered Sig/Cedric Route Start Time Stop Time Status Last Admin Dose Admin Ondansetron HCl 4 mg Q4HP PRN IV 04/17/24 23:00 04/18/24 00:32 4 MG Nitroglycerin 0.4 mg Q5MINP PRN SL 04/17/24 23:00 Acetaminophen 650 mg Q4HP PRN PO 04/18/24 04:00 04/18/24 04:08 650 MG Tbo-Filgrastim 480 mcg DAILY SC 04/18/24 10:00 Hold 04/29/24 10:26 480 MCG Folic Acid 1 mg/ Dextrose 50.2 ml @ 200.8 mls/ hr DAILY INJ 04/19/24 10:00 04/30/24 10:00 200.8 MLS/HR Nystatin 5 ml QID MT 04/19/24 18:00 04/28/24 21:37 5 ML Enteral Nutritional Formula 240 ml TIDWM PO 04/19/24 18:00 04/30/24 12:00 240 ML Diagnostic Test (Pha) 1 strip ACHS 04/19/24 17:00 04/30/24 11:03 1 STRIP Insulin Human Regular ACHS SC 04/19/24 17:00 04/30/24 11:14 2 UNITS Dextrose 50 ml UD PRN IV 04/19/24 17:00 Pantoprazole Sodium 40 mg BID IV 04/20/24 19:00 04/30/24 11:19 40 MG Amlodipine Besylate 5 mg DAILY PO 04/22/24 10:00 04/29/24 10:27 5 MG Vancomycin HCl 500 mg/Dextrose 100 ml @ 200 mls/hr Q12H IV 04/22/24 10:00 UNV Al Hydrox/Mg Hydrox/Simethicone 5 ml QID MT 04/23/24 22:00 04/30/24 11:20 5 ML Insulin Glargine 20 units BID@1000,2200 SC 04/24/24 22:00 Cancel Morphine Sulfate 2 mg Q4HPRN PRN IV 04/27/24 09:30 04/30/24 06:22 2 MG Oxycodone HCl 2.5 mg Q8HP PRN PO 04/30/24 14:30 04/30/24 15:56 2.5 MG Oxycodone/ Acetaminophen 1 tab Q8HP PRN PO 04/30/24 14:30 04/30/24 15:56 1 TAB Laboratory Results Laboratory Tests 04/27/24 04:54 04/28/24 05:30 Urinalysis Test 04/17/24 22:16 Urine Color Light-yellow (Yellow) Urine Clarity Clear (Clear) Urine pH 5.0 (5.0-9.0) Urine Specific [place] 1.015 (1.001-1.035) Urine Protein Trace (Negative) H Urine Ketones Trace (Negative) Urine Blood Negative /uL (Negative) Urine Nitrite Negative (Negative) Urine Bilirubin Negative (Negative) Urine Urobilinogen Normal mg/dL (Negative) Urine Leukocyte Esterase Negative /uL (Negative) Urine RBC 1 /hpf (0 - 3) Urine WBC 1 /hpf (0 - 3) Urine Squamous Epithelial Cells Few /hpf (<5) Urine Bacteria Few /hpf (None Seen) H Urine Glucose 1+ mg/dL (Normal) H Microbiology Microbiology Date/Time Source Procedure Growth Status 04/19/24 11:30 Groin Gram Stain - Final Complete 04/19/24 11:30 Wound Culture - Final Staphylococcus lugdunensis Complete 04/17/24 23:27 Blood Blood Culture - Final NO GROWTH AFTER 5 DAYS OF INCUBATION. Complete 04/17/24 22:16 Voided Urine Urine Culture - Final Complete Assessment/Plan Assessment/Plan #Immunodeficiency: leukopenia possible due to use of MTX or mycophenolate resolved febrile neutropenia resolved #Thrombocytopenia due to above #Anemia due to possible GI bleeding and above 7.7 #Essential hypertension #GI bleeding probably upper due to mucositis #Sepsis due to infected intertrigo in the right groin and scrotal No septic shock at the moment #Bilateral hydronephrosis without evidence of ureteral stones. #KYLEE on CKD Stage IV #Hyperkalemia resolved due to CKD #DM type 2 in remission HBA1C 5.0 #Obesity #Euthyroid sick syndrome #Mucositis #Sepsis due to infected intertrigo in the right groin and scrotal describe above #Gout awaiting SNF placement Plan discussed with: Patient My Orders Orders - CARLOS PUENTE DO Procedure Category Date Status Time Oxycodone Immediate PHA 04/30/24 In Process Rel Tablet 14:30 Oxycodone W/ Acet PHA 04/30/24 In Process 5/325mg Tab (Percocet 14:30 Date of Service: Apr 30, 2024 Billing Provider: CARLOS PUENTE DO Common Visit Codes: [id number] INP/OBS CARE(HIGH) CARLOS PUENTE DO Apr 30, 2024 16:04
--- NOTE | 2024-04-30 20:26 | DVHPN2 ---
Progress Note - Dictate Date Seen: Apr 30, 2024 Has the PT tested + for MRSA If YES, has PT been informed?: Yes Medical Necessity Reason Pt with a Central, PICC or Fol: No Subjective Patient seen and evaluated in follow up. No acute events overnight. Patient denies any new complaints. Tolerating diet. vital signs Vital Sign Date Time Temp Pulse Resp B/P (MAP) Pulse Ox O2 Delivery O2 Flow Rate FiO2 04/30/24 17:00 97.8 98 17 125/62 (83) 98 97.8 04/30/24 08:00 Room Air* 0 21 Total Intake and Output 04/29/24 04/29/24 04/30/24 15:00 23:00 07:00 Intake Total 50.2 ml 2400 ml 400 ml Output Total 500 ml 700 ml 400 ml Balance -449.8 ml 1700 ml 0 ml medications Current Medications Medications Dose Ordered Sig/Cedric Route Start Time Stop Time Status Last Admin Dose Admin Ondansetron HCl 4 mg Q4HP PRN IV 04/17/24 23:00 04/18/24 00:32 4 MG Nitroglycerin 0.4 mg Q5MINP PRN SL 04/17/24 23:00 Acetaminophen 650 mg Q4HP PRN PO 04/18/24 04:00 04/18/24 04:08 650 MG Tbo-Filgrastim 480 mcg DAILY SC 04/18/24 10:00 Hold 04/29/24 10:26 480 MCG Folic Acid 1 mg/ Dextrose 50.2 ml @ 200.8 mls/ hr DAILY INJ 04/19/24 10:00 04/30/24 10:00 200.8 MLS/HR Nystatin 5 ml QID MT 04/19/24 18:00 04/28/24 21:37 5 ML Enteral Nutritional Formula 240 ml TIDWM PO 04/19/24 18:00 04/30/24 18:12 240 ML Diagnostic Test (Pha) 1 strip ACHS 04/19/24 17:00 04/30/24 11:03 1 STRIP Insulin Human Regular ACHS SC 04/19/24 17:00 04/30/24 11:14 2 UNITS Dextrose 50 ml UD PRN IV 04/19/24 17:00 Pantoprazole Sodium 40 mg BID IV 04/20/24 19:00 04/30/24 11:19 40 MG Amlodipine Besylate 5 mg DAILY PO 04/22/24 10:00 04/29/24 10:27 5 MG Vancomycin HCl 500 mg/Dextrose 100 ml @ 200 mls/hr Q12H IV 04/22/24 10:00 UNV Al Hydrox/Mg Hydrox/Simethicone 5 ml QID MT 04/23/24 22:00 04/30/24 11:20 5 ML Insulin Glargine 20 units BID@1000,2200 SC 04/24/24 22:00 Cancel Morphine Sulfate 2 mg Q4HPRN PRN IV 04/27/24 09:30 04/30/24 06:22 2 MG Oxycodone HCl 2.5 mg Q8HP PRN PO 04/30/24 14:30 04/30/24 15:56 2.5 MG Oxycodone/ Acetaminophen 1 tab Q8HP PRN PO 04/30/24 14:30 04/30/24 15:56 1 TAB objective Vitals and nursing notes reviewed. General Appearance: In no acute distress. HEENT: Atraumatic, PERRLA, EOMI, Mucous membrane moist/pink. Respiratory: Clear to auscultation, Normal air movement Cardiovascular: Regular rate, Normal S1, Normal S2, No murmurs, no chest wall tenderness Abdominal: Normal bowel sounds, Soft, No tenderness, No hepatospenomegaly, No masses Extremities: No clubbing, No cyanosis, No edema, Normal pulses, No tenderness/swelling Skin: No rashes, No breakdown, No significant lesion Neuro: Alert, Oriented X3, Cooperative, Normal speech, Strength at 5/5 X4 ext, Normal tone, Sensation intact, Psych/Mental Status: Mental status NL, Mood NL laboratory and microbiology Laboratory Tests 04/28/24 05:30 04/27/24 04:54 Test 04/27/24 04:54 Range/Units Serum Glucose 154 H 74-106 mg/dL Problem List Sepsis due to unspecified organism 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 DC planning in progress. Awaiting SNF placement. Inpatient PT. Avoid nephrotoxic medication Strict I&O. Majic Mouthwash. IV Nystatin. Wound care. Pain management as needed. Nutritional support. Additional plan as per the hospital course. Dietary Evaluation Review Comments: When medically feasible, advance diet to 2gNa CCHO-60 with renal specific-60g protein, 3K, low phos diet Expected Outcomes/Goals: gradual weight loss. controlled DM. Plan discussed with: Patient, Other (RN) ADRIANA ZEPEDA DO Apr 30, 2024 20:25
[2024-05-01] VITALS (8 sets, daily range): BP systolic 101–121; BP diastolic 57–68; PULSE 86–101; RESP 14–18; TEMP 97.8–98.3; O2SAT 97–100
[2024-05-01 10:52] LABS: Hematocrit 21.8 % (41.0-53.0); Hemoglobin 7.5 g/dL (13.5-17.5); Mean Corpuscular Hemoglobin 33.1 pg (28.0-32.0); Mean Corpuscular Hgb Conc. 34.4 g/dL (32.0-36.0); Mean Corpuscular Volume 96.3 fL (80.0-100.0); Platelet Count (auto) 98 10^3/uL (140-450); Red Blood Cells 2.26 10^6/uL (4.5-5.90); Red Cell Distribution Width 14.8 % (11.8-14.3); White Blood Cell 21.1 10^3/uL (4.4-10.8)
[2024-05-01 11:03] LABS: Basophils % (manual) 0 (0.0-2.0); Blast Cells 0; Eosinophils % (manual) 0 (0-7); Metamyelocytes % 0; Myelocytes % 0; Promyelocytes % 0; Reactive Lymphocytes 0
[2024-05-01 11:07] LABS: Alanine Aminotransferase 23 U/L (7-40); Alkaline Phosphatase 88 U/L (46-116); Anion Gap 10 (5-15); Aspartate Aminotransferase 39 U/L (13-40); BUN/Creatinine Ratio 18.1 (10.0-20.0); Blood Urea Nitrogen 33 mg/dL (9-23); Calcium 8.4 mg/dL (8.7-10.4); Carbon Dioxide 17 mmol/L (20-31); Chloride 111 mmol/L (98-107); Glucose 223 mg/dL (74-106); Sodium 138 mmol/L (136-145)
[2024-05-01 11:08] LABS: Bilirubin, Total 0.3 mg/dL (0.2-1.0); Total Protein 5.4 g/dL (5.7-8.2)
[2024-05-01 12:36] LABS: Band Neutrophils % (manual) 5; Lymphocytes % (manual) 12 (10.0-50.0); Monocytes % (manual) 6 (0-12); Smudge Cells 4 /100 WBC
[2024-05-01 12:37] LABS: Large Platelets FEW; Platelet Estimate Decrea
[2024-05-01] MEDS: POTASSIUM CHL 20MEQ/100ML 100 ML IV SCH (14:43)
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
--- NOTE | 2024-05-01 19:56 | DVHPN2 ---
Progress Note - Dictate Date Seen: May 01, 2024 Has the PT tested + for MRSA If YES, has PT been informed?: Yes Medical Necessity Reason Pt with a Central, PICC or Fol: No Subjective Patient seen and evaluated in follow up. No acute events overnight. Patient denies any new complaints. Patient is intermittently refusing wound care and PO medications. AM labs are remarkable for elevated WBC 21.1. Hgb 7.5. Platelet count 98. Creatinine 1.82 with BUN of 33. Glucose 223. K 3.0. Cl 111. CO2 17. Calcium 8.4. Albumin 3.0. Total protein 5.4. vital signs Vital Sign Date Time Temp Pulse Resp B/P (MAP) Pulse Ox O2 Delivery O2 Flow Rate FiO2 05/01/24 17:00 98.3 92 17 101/62 (75) 98 98.3 05/01/24 07:56 Room Air* 0 21 Total Intake and Output 04/30/24 04/30/24 05/01/24 15:00 23:00 07:00 Intake Total 50.2 ml 250 ml 325 ml Output Total 300 ml 425 ml Balance 50.2 ml -50 ml -100 ml medications Current Medications Medications Dose Ordered Sig/Cedric Route Start Time Stop Time Status Last Admin Dose Admin Ondansetron HCl 4 mg Q4HP PRN IV 04/17/24 23:00 04/18/24 00:32 4 MG Nitroglycerin 0.4 mg Q5MINP PRN SL 04/17/24 23:00 Acetaminophen 650 mg Q4HP PRN PO 04/18/24 04:00 04/18/24 04:08 650 MG Folic Acid 1 mg/ Dextrose 50.2 ml @ 200.8 mls/ hr DAILY INJ 04/19/24 10:00 05/01/24 09:53 200.8 MLS/HR Nystatin 5 ml QID MT 04/19/24 18:00 04/28/24 21:37 5 ML Enteral Nutritional Formula 240 ml TIDWM PO 04/19/24 18:00 05/01/24 17:53 240 ML Diagnostic Test (Pha) 1 strip ACHS 04/19/24 17:00 05/01/24 17:53 1 STRIP Insulin Human Regular ACHS SC 04/19/24 17:00 05/01/24 17:53 2 UNITS Dextrose 50 ml UD PRN IV 04/19/24 17:00 Pantoprazole Sodium 40 mg BID IV 04/20/24 19:00 05/01/24 08:29 40 MG Amlodipine Besylate 5 mg DAILY PO 04/22/24 10:00 05/01/24 08:29 5 MG Vancomycin HCl 500 mg/Dextrose 100 ml @ 200 mls/hr Q12H IV 04/22/24 10:00 UNV Al Hydrox/Mg Hydrox/Simethicone 5 ml QID MT 04/23/24 22:00 05/01/24 17:53 5 ML Insulin Glargine 20 units BID@1000,2200 SC 04/24/24 22:00 Cancel Morphine Sulfate 2 mg Q4HPRN PRN IV 04/27/24 09:30 05/01/24 08:32 2 MG Oxycodone HCl 2.5 mg Q8HP PRN PO 04/30/24 14:30 04/30/24 15:56 2.5 MG Oxycodone/ Acetaminophen 1 tab Q8HP PRN PO 04/30/24 14:30 05/01/24 14:42 1 TAB objective Vitals and nursing notes reviewed. General Appearance: In no acute distress. HEENT: Atraumatic, PERRLA, EOMI, Mucous membrane moist/pink. Respiratory: Clear to auscultation, Normal air movement Cardiovascular: Regular rate, Normal S1, Normal S2, No murmurs, no chest wall tenderness Abdominal: Normal bowel sounds, Soft, No tenderness, No hepatospenomegaly, No masses Extremities: No clubbing, No cyanosis, No edema, Normal pulses, No tenderness/swelling Skin: No rashes, No breakdown, No significant lesion Neuro: Alert, Oriented X3, Cooperative, Normal speech, Strength at 5/5 X4 ext, Normal tone, Sensation intact, Psych/Mental Status: Mental status NL, Mood NL laboratory and microbiology Laboratory Tests 05/01/24 10:32 Test 05/01/24 10:32 Range/Units Serum Glucose 223 H 74-106 mg/dL Problem List Sepsis due to unspecified organism 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 Awaiting placement. Inpatient PT. Potassium replacement. Avoid nephrotoxic medication Strict I&O. Majic Mouthwash. IV Vancomycin. Nystatin. Wound care. Pain management as needed. Nutritional support. Additional plan as per the hospital course. Dietary Evaluation Review Comments: When medically feasible, advance diet to 2gNa CCHO-60 with renal specific-60g protein, 3K, low phos diet Expected Outcomes/Goals: gradual weight loss. controlled DM. Plan discussed with: Patient, Other (RN) ADRIANA ZEPEDA DO May 01, 2024 19:56
[2024-05-02] VITALS (7 sets, daily range): BP systolic 92–123; BP diastolic 56–66; PULSE 85–102; RESP 16–19; TEMP 96–98.6; O2SAT 96–100
[2024-05-02 07:05] LABS: Hematocrit 20.7 % (41.0-53.0); Red Blood Cells 2.14 10^6/uL (4.5-5.90)
[2024-05-02 07:13] LABS: Anion Gap 9 (5-15); Calcium 8.4 mg/dL (8.7-10.4); Carbon Dioxide 19 mmol/L (20-31); Chloride 110 mmol/L (98-107); Potassium 3.1 mmol/L (3.5-5.1); Sodium 138 mmol/L (136-145)
[2024-05-02 07:19] LABS: BUN/Creatinine Ratio 19.5 (10.0-20.0); Blood Urea Nitrogen 36 mg/dL (9-23); Glucose 114 mg/dL (74-106)
[2024-05-02 07:53] LABS: Hemoglobin 7.1 g/dL (13.5-17.5); Mean Corpuscular Hemoglobin 33.4 pg (28.0-32.0); Mean Corpuscular Hgb Conc. 34.5 g/dL (32.0-36.0); Platelet Count (auto) 101 10^3/uL (140-450); Red Cell Distribution Width 15.2 % (11.8-14.3); White Blood Cell 17.5 10^3/uL (4.4-10.8)
[2024-05-02 07:55] LABS: Basophils % (manual) 0 (0.0-2.0); Blast Cells 0; Eosinophils % (manual) 0 (0-7); Promyelocytes % 0; Reactive Lymphocytes 0
[2024-05-02 09:08] LABS: Band Neutrophils % (manual) 5; Lymphocytes % (manual) 19 (10.0-50.0); Metamyelocytes % 2; Monocytes % (manual) 6 (0-12); Myelocytes % 2
[2024-05-02 09:09] LABS: Platelet Estimate Decreased
--- NOTE | 2024-05-02 12:49 | DVHPNRES ---
Progress Note Date Seen: May 02, 2024 Resident Creating Document: RUBIO BARCLAY RESIDENT Has the PT tested + for MRSA If YES, has PT been informed?: Yes Medical Necessity Reason Pt with a Central, PICC or Fol: No Subjective Review of Systems A 59 years old with PMHX type 2 diabetes mellitus, hypertension, hyperlipidemia, peripheral neuropathy, congestive heart failure, CKD stage IV , GERD, gout, obesity, anxiety and depression. 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 Bernabe Goldman. He says he takes 4 methotrexate pills once a week for the last couple of years The patient is admitted with severe mucositis and ulceration in the groin on the right side. He has difficulty speaking and swallowing.Mild fevers He is found to be pancytopenic with a white count of 700 hemoglobin 11 platelets are 16,000. Confirmed on the blood smear. No bleeding Lactic acid is 3.3 BUN 70 creatinine 1.9, albumin 3.9 total protein 6.7 B12 494 TSH 0.2 Free T41.12 Alkaline phosphatase 28. AST 14 ALT 26 uric acid 5.9. PT/INR 1.09 PTT 28.8 and D-dimer 2.34 HIV 1 and 2 is negative DC filgastrim yesterday He has been given antibiotics and the Magic mouthwash and pain medications 4 unit of platelets given GI bleeding due to mucositis: dark stools DC antibiotics Objective vital signs Vital Sign Date Time Temp Pulse Resp B/P (MAP) Pulse Ox O2 Delivery O2 Flow Rate FiO2 05/02/24 08:53 106/62 05/02/24 08:47 98.2 87 18 100 98.2 05/02/24 07:49 Room Air* 0 21 Total Intake and Output 05/01/24 05/01/24 05/02/24 15:00 23:00 07:00 Intake Total 50.2 ml 1020 ml 300 ml Output Total 550 ml 250 ml Balance 50.2 ml 470 ml 50 ml medications Current Medications Medications Dose Ordered Sig/Cedric Route Start Time Stop Time Status Last Admin Dose Admin Ondansetron HCl 4 mg Q4HP PRN IV 04/17/24 23:00 04/18/24 00:32 4 MG Nitroglycerin 0.4 mg Q5MINP PRN SL 04/17/24 23:00 Acetaminophen 650 mg Q4HP PRN PO 04/18/24 04:00 04/18/24 04:08 650 MG Folic Acid 1 mg/ Dextrose 50.2 ml @ 200.8 mls/ hr DAILY INJ 04/19/24 10:00 05/02/24 08:52 200.8 MLS/HR Nystatin 5 ml QID MT 04/19/24 18:00 04/28/24 21:37 5 ML Enteral Nutritional Formula 240 ml TIDWM PO 04/19/24 18:00 05/02/24 11:57 240 ML Diagnostic Test (Pha) 1 strip ACHS 04/19/24 17:00 05/02/24 11:55 1 STRIP Insulin Human Regular ACHS SC 04/19/24 17:00 05/02/24 11:57 6 UNITS Dextrose 50 ml UD PRN IV 04/19/24 17:00 Pantoprazole Sodium 40 mg BID IV 04/20/24 19:00 05/02/24 08:51 40 MG Amlodipine Besylate 5 mg DAILY PO 04/22/24 10:00 05/02/24 08:53 5 MG Vancomycin HCl 500 mg/Dextrose 100 ml @ 200 mls/hr Q12H IV 04/22/24 10:00 UNV Al Hydrox/Mg Hydrox/Simethicone 5 ml QID MT 04/23/24 22:00 05/02/24 11:57 5 ML Insulin Glargine 20 units BID@1000,2200 SC 04/24/24 22:00 Cancel Morphine Sulfate 2 mg Q4HPRN PRN IV 04/27/24 09:30 05/01/24 08:32 2 MG Oxycodone HCl 2.5 mg Q8HP PRN PO 04/30/24 14:30 05/02/24 08:52 2.5 MG Oxycodone/ Acetaminophen 1 tab Q8HP PRN PO 04/30/24 14:30 05/02/24 05:45 1 TAB Examination GENERAL: alert and oriented. Obese who has moderate mucositis HEAD AND NECK: Unremarkable. No neck nodes or masses. Conjunctivae: pale, Unremarkable for any mucosal hemorrhage or inflammation. CHEST: Chest wall, no tenderness. LUNGS: Clear. CARDIOVASCULAR: Regular sinus rhythm. No murmurs or gallops. ABDOMEN: No organomegaly, tenderness or ascites. Bowel sounds present. EXTREMITIES:. In the right groin fold he has Ulcerated skin, getting better LYMPHATICS: No significant lymphadenopathy. NEUROLOGIC: No focal neurological deficits. SKIN: multiple sores in the legs laboratory and microbiology Laboratory Tests 05/02/24 05:32 Test 05/02/24 05:32 Range/Units Serum Glucose 114 #H 74-106 mg/dL Microbiology Date/Time Source Procedure Growth Status 04/19/24 11:30 Groin Gram Stain - Final Complete 04/19/24 11:30 Wound Culture - Final Staphylococcus lugdunensis Complete 04/17/24 23:27 Blood Blood Culture - Final NO GROWTH AFTER 5 DAYS OF INCUBATION. Complete 04/17/24 22:16 Voided Urine Urine Culture - Final Complete Problem List/Assessment/Plan Problem List/Assessment/Plan HEME/ONC: #Immunodeficiency: leukopenia possible due to use of MTX or mycophenolate resolved febrile neutropenia resolved Bone marrow aspiration ordered by Dr Ivory: pt refused Continue filgastrim and solu medrol per Dr Ivory Pt will no need filgastrim or steorids as outpatient DC cefepime/vancomycin HIV negative DC planning: home health PT wbc trending high #Thrombocytopenia due to above resolved 4 unit of platelets already given keep above 15 #Anemia due to possible GI bleeding and above 7.1 cbc tomorrow CARDIOLOGY: normal auscultation normal BNP No chest pain, SOB at rest X ray no pulmonary edema #Essential hypertension Amlodipine 5 mg Hydralazine PRN RESPIRATORY: No distress at the moment normal x ray GI: #GI bleeding probably upper due to mucositis Dark stools GI on the case, no scope Protonix BID /RENAL #Sepsis due to infected intertrigo in the right groin and scrotal No septic shock at the moment Right now, the infection is superficial but can progress to jessica gangrene due to immunodeficiency state Patient is on cefepime/vancomycin/clindamyicin wound culture Staphylococcus lugdunensis wound consult #Bilateral hydronephrosis without evidence of ureteral stones. #KYLEE on CKD Stage IV Nephology on board: Dr Bernabe Goldman No urinary retention at this moment, patient refused villarreal: voiding few times Urology consult ENDOCRINOLOGY #Hyperkalemia resolved due to CKD #DM type 2 in remission HBA1C 5.0 #Obesity Patient was on mounjaro back in home #Euthyroid sick syndrome TSH 0.2 free t4 1.12 Free t3 2.24 RHEUMATOLOGY AND SKIN #Mucositis Secondary to immunodeficiency Magic wash mouth and nystatin #Sepsis due to infected intertrigo in the right groin and scrotal describe above #Gout Pt was receiving MTX, mycophenolate, Krystexxa, colchicine for gout ? Due to possible adverse reaction and sepsis hold on medications No acute flare ups Uric acid less than 0.5 Patient can be discharged to home with home health for PT Case discussed with Dr Wright Time spent on care 23 min Plan discussed with: Patient, Other (rn) Dietary Evaluation Review Comments: When medically feasible, advance diet to 2gNa CCHO-60 with renal specific-60g protein, 3K, low phos diet Expected Outcomes/Goals: gradual weight loss. controlled DM. Date of Service: May 02, 2024 Billing Provider: MONALISA WRIGHT MD Common Visit Codes: [id number] INP/OBS CARE(HIGH) Coding Comment Comment Attending Attestation I saw and evaluated the patient. I reviewed the residents note and agree with findings and plan as documented in the residents note except as documented below. [facility] RUBIO BARCLAY RESIDENT May 02, 2024 12:49 MONALISA WRIGHT MD May 02, 2024 19:57
[2024-05-02] MEDS: POTASSIUM EFFERVESENT TAB 25 MEQ PO ONE (16:30)
--- NOTE | 2024-05-02 19:40 | DVHPN2 ---
Progress Note - Dictate Date Seen: May 02, 2024 Has the PT tested + for MRSA If YES, has PT been informed?: Yes Medical Necessity Reason Pt with a Central, PICC or Fol: No Subjective Patient seen and evaluated in follow up. No acute events overnight. Patient denies any new complaints. WBC is trending down. Creatinine 1.85 with BUN of 36. eGFR 42. K 3.1. CO2 19. Cl 110. Calcium 8.4. Awaiting arrangements for PT. vital signs Vital Sign Date Time Temp Pulse Resp B/P (MAP) Pulse Ox O2 Delivery O2 Flow Rate FiO2 05/02/24 17:00 98.6 98 16 92/58 (69) 96 98.6 05/02/24 07:49 Room Air* 0 21 Total Intake and Output 05/01/24 05/01/24 05/02/24 14:59 22:59 06:59 Intake Total 50.2 ml 1020 ml 300 ml Output Total 550 ml 250 ml Balance 50.2 ml 470 ml 50 ml medications Current Medications Medications Dose Ordered Sig/Cedric Route Start Time Stop Time Status Last Admin Dose Admin Ondansetron HCl 4 mg Q4HP PRN IV 04/17/24 23:00 04/18/24 00:32 4 MG Nitroglycerin 0.4 mg Q5MINP PRN SL 04/17/24 23:00 Acetaminophen 650 mg Q4HP PRN PO 04/18/24 04:00 04/18/24 04:08 650 MG Folic Acid 1 mg/ Dextrose 50.2 ml @ 200.8 mls/ hr DAILY INJ 04/19/24 10:00 05/02/24 08:52 200.8 MLS/HR Nystatin 5 ml QID MT 04/19/24 18:00 04/28/24 21:37 5 ML Enteral Nutritional Formula 240 ml TIDWM PO 04/19/24 18:00 05/02/24 18:55 240 ML Diagnostic Test (Pha) 1 strip ACHS 04/19/24 17:00 05/02/24 16:30 1 STRIP Insulin Human Regular ACHS SC 04/19/24 17:00 05/02/24 16:33 3 UNITS Dextrose 50 ml UD PRN IV 04/19/24 17:00 Pantoprazole Sodium 40 mg BID IV 04/20/24 19:00 05/02/24 08:51 40 MG Amlodipine Besylate 5 mg DAILY PO 04/22/24 10:00 05/02/24 08:53 5 MG Vancomycin HCl 500 mg/Dextrose 100 ml @ 200 mls/hr Q12H IV 04/22/24 10:00 UNV Al Hydrox/Mg Hydrox/Simethicone 5 ml QID MT 04/23/24 22:00 05/02/24 16:33 5 ML Insulin Glargine 20 units BID@1000,2200 SC 04/24/24 22:00 Cancel Morphine Sulfate 2 mg Q4HPRN PRN IV 04/27/24 09:30 05/01/24 08:32 2 MG Oxycodone HCl 2.5 mg Q8HP PRN PO 04/30/24 14:30 05/02/24 08:52 2.5 MG Oxycodone/ Acetaminophen 1 tab Q8HP PRN PO 04/30/24 14:30 05/02/24 13:53 1 TAB objective Vitals and nursing notes reviewed. General Appearance: In no acute distress. HEENT: Atraumatic, PERRLA, EOMI, Mucous membrane moist/pink. Respiratory: Clear to auscultation, Normal air movement Cardiovascular: Regular rate, Normal S1, Normal S2, No murmurs, no chest wall tenderness Abdominal: Normal bowel sounds, Soft, No tenderness, No hepatospenomegaly, No masses Extremities: No clubbing, No cyanosis, No edema, Normal pulses, No tenderness/swelling Skin: No rashes, No breakdown, No significant lesion Neuro: Alert, Oriented X3, Cooperative, Normal speech, Strength at 5/5 X4 ext, Normal tone, Sensation intact, Psych/Mental Status: Mental status NL, Mood NL laboratory and microbiology Laboratory Tests 05/02/24 05:32 Test 05/02/24 05:32 Range/Units Serum Glucose 114 #H 74-106 mg/dL Problem List Sepsis due to unspecified organism 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 DC planning in progress. Cleared per Hematology. PT as recommended. Avoid nephrotoxic medication Strict I&O. Majic Mouthwash. IV Vancomycin. Nystatin. Wound care. Additional plan as per the hospital course. Dietary Evaluation Review Comments: When medically feasible, advance diet to 2gNa CCHO-60 with renal specific-60g protein, 3K, low phos diet Expected Outcomes/Goals: gradual weight loss. controlled DM. Plan discussed with: Patient, Other (RN) ADRIANA ZEPEDA DO May 02, 2024 19:40
[2024-05-03] VITALS (7 sets, daily range): BP systolic 98–128; BP diastolic 52–73; PULSE 73–98; RESP 18–20; TEMP 97–98.8; O2SAT 96–99
[2024-05-03 05:59] LABS: Hemoglobin 7.1 g/dL (13.5-17.5); Platelet Count (auto) 105 10^3/uL (140-450); Red Blood Cells 2.15 10^6/uL (4.5-5.90)
[2024-05-03 06:00] LABS: Mean Corpuscular Hemoglobin 32.8 pg (28.0-32.0); Mean Corpuscular Hgb Conc. 33.6 g/dL (32.0-36.0); Mean Corpuscular Volume 97.6 fL (80.0-100.0); Red Cell Distribution Width 15.2 % (11.8-14.3); White Blood Cell 16.4 10^3/uL (4.4-10.8)
[2024-05-03 06:12] LABS: Basophils % (manual) 0 (0.0-2.0); Blast Cells 0; Eosinophils % (manual) 0 (0-7); Promyelocytes % 0; Reactive Lymphocytes 0
[2024-05-03 09:13] LABS: Band Neutrophils % (manual) 2; Lymphocytes % (manual) 16 (10.0-50.0); Metamyelocytes % 1; Monocytes % (manual) 29 (0-12); Myelocytes % 2
[2024-05-03 09:14] LABS: Platelet Estimate Decreased
[2024-05-03] MEDS ORDERED: POTASSIUM CHL 20MEQ/100ML 100 ML IV SCH (14:30)
[2024-05-03] MEDS ORDERED: AML5T PO (14:36)
[2024-05-03] MEDS ORDERED: NUTR-1045 PO (14:36)
[2024-05-03] MEDS ORDERED: MAGIC MT (14:36)
[2024-05-03] MEDS ORDERED: NYS5LQ MT (14:36)
--- NOTE | 2024-05-03 15:27 | DVHPNRES ---
Progress Note Date Seen: May 03, 2024 Resident Creating Document: RUBIO BARCLAY RESIDENT Has the PT tested + for MRSA If YES, has PT been informed?: Yes Medical Necessity Reason Pt with a Central, PICC or Fol: No Objective vital signs Vital Sign Date Time Temp Pulse Resp B/P (MAP) Pulse Ox O2 Delivery O2 Flow Rate FiO2 05/03/24 13:00 98.0 92 19 116/61 (79) 96 98.0 05/03/24 08:05 Room Air* 0 21 Total Intake and Output 05/02/24 05/02/24 05/03/24 15:00 23:00 07:00 Intake Total 1007.2 ml 600 ml Output Total 450 ml 500 ml Balance 557.2 ml 100 ml medications Current Medications Medications Dose Ordered Sig/Cedric Route Start Time Stop Time Status Last Admin Dose Admin Ondansetron HCl 4 mg Q4HP PRN IV 04/17/24 23:00 04/18/24 00:32 4 MG Nitroglycerin 0.4 mg Q5MINP PRN SL 04/17/24 23:00 Acetaminophen 650 mg Q4HP PRN PO 04/18/24 04:00 04/18/24 04:08 650 MG Folic Acid 1 mg/ Dextrose 50.2 ml @ 200.8 mls/ hr DAILY INJ 04/19/24 10:00 05/03/24 10:04 200.8 MLS/HR Nystatin 5 ml QID MT 04/19/24 18:00 04/28/24 21:37 5 ML Enteral Nutritional Formula 240 ml TIDWM PO 04/19/24 18:00 05/03/24 14:27 240 ML Diagnostic Test (Pha) 1 strip ACHS 04/19/24 17:00 05/03/24 11:55 1 STRIP Insulin Human Regular ACHS SC 04/19/24 17:00 05/03/24 11:57 4 UNITS Dextrose 50 ml UD PRN IV 04/19/24 17:00 Pantoprazole Sodium 40 mg BID IV 04/20/24 19:00 05/03/24 09:57 40 MG Amlodipine Besylate 5 mg DAILY PO 04/22/24 10:00 05/03/24 09:57 5 MG Vancomycin HCl 500 mg/Dextrose 100 ml @ 200 mls/hr Q12H IV 04/22/24 10:00 UNV Al Hydrox/Mg Hydrox/Simethicone 5 ml QID MT 04/23/24 22:00 05/02/24 20:45 5 ML Insulin Glargine 20 units BID@1000,2200 SC 04/24/24 22:00 Cancel Morphine Sulfate 2 mg Q4HPRN PRN IV 04/27/24 09:30 05/01/24 08:32 2 MG Oxycodone HCl 2.5 mg Q8HP PRN PO 04/30/24 14:30 05/02/24 21:06 2.5 MG Oxycodone/ Acetaminophen 1 tab Q8HP PRN PO 04/30/24 14:30 05/03/24 09:56 1 TAB laboratory and microbiology Laboratory Tests 05/03/24 05:25 05/02/24 05:32 Test 05/02/24 05:32 Range/Units Serum Glucose 114 #H 74-106 mg/dL Microbiology Date/Time Source Procedure Growth Status 04/19/24 11:30 Groin Gram Stain - Final Complete 04/19/24 11:30 Wound Culture - Final Staphylococcus lugdunensis Complete 04/17/24 23:27 Blood Blood Culture - Final NO GROWTH AFTER 5 DAYS OF INCUBATION. Complete 04/17/24 22:16 Voided Urine Urine Culture - Final Complete Problem List/Assessment/Plan Problem List/Assessment/Plan HEME/ONC: #Immunodeficiency: leukopenia possible due to use of MTX or mycophenolate resolved febrile neutropenia resolved Bone marrow aspiration ordered by Dr Ivory: pt refused Pt will no need filgastrim or steorids as outpatient DC cefepime/vancomycin HIV negative DC : home health PT wbc trending high #Thrombocytopenia due to above resolved 4 unit of platelets already given keep above 15 #Anemia due to possible GI bleeding and above 7.1 stable due to CKD CARDIOLOGY: normal auscultation normal BNP No chest pain, SOB at rest X ray no pulmonary edema #Essential hypertension Amlodipine 5 mg Hydralazine PRN RESPIRATORY: No distress at the moment normal x ray GI: #GI bleeding probably upper due to mucositis Dark stools GI on the case, no scope Protonix BID /RENAL #Sepsis due to infected intertrigo in the right groin and scrotal No septic shock at the moment Right now, the infection is superficial but can progress to jessica gangrene due to immunodeficiency state Patient is on cefepime/vancomycin/clindamyicin wound culture Staphylococcus lugdunensis wound consult #Bilateral hydronephrosis without evidence of ureteral stones. #KYLEE on CKD Stage IV Nephology on board: Dr Bernabe Goldman No urinary retention at this moment, patient refused villarreal: voiding few times Urology consult ENDOCRINOLOGY #Hypokalemia K IV #Hyperkalemia resolved due to CKD #DM type 2 in remission HBA1C 5.0 #Obesity Patient was on mounjaro back in home #Euthyroid sick syndrome TSH 0.2 free t4 1.12 Free t3 2.24 RHEUMATOLOGY AND SKIN #Mucositis Secondary to immunodeficiency Magic wash mouth and nystatin #Sepsis due to infected intertrigo in the right groin and scrotal describe above #Gout Pt was receiving MTX, mycophenolate, Krystexxa, colchicine for gout ? Due to possible adverse reaction and sepsis hold on medications No acute flare ups Uric acid less than 0.5 Patient can be discharged to home with home health for PT Case discussed with Dr Wright Time spent on care 23 min Plan discussed with: Patient, Other (RN) My Orders My Orders Orders - RUBIO BARCLAY RESIDENT Procedure Category Date Status Time * Cookie Padder CONS 05/03/24 Transmitted Consult Potassium Chl PHA 05/03/24 In Process 20meq/100ml 15:15 Dietary Evaluation Review Comments: When medically feasible, advance diet to 2gNa CCHO-60 with renal specific-60g protein, 3K, low phos diet Expected Outcomes/Goals: gradual weight loss. controlled DM. Date of Service: May 03, 2024 Billing Provider: MONALISA WRIGHT MD Common Visit Codes: [id number] DISCH DAY >30min Coding Comment Comment Attending Attestation I saw and evaluated the patient. I reviewed the residents note and agree with findings and plan as documented in the residents note except as documented below. RUBIO BARCLAY RESIDENT May 03, 2024 15:27 MONALISA WRIGHT MD May 03, 2024 21:00
[2024-05-03] MEDS: POTASSIUM CHL 20MEQ/100ML 100 ML IV ONE (15:54)
--- NOTE | 2024-05-03 20:56 | DVHPN2 ---
Progress Note - Dictate Date Seen: May 03, 2024 Has the PT tested + for MRSA If YES, has PT been informed?: Yes Medical Necessity Reason Pt with a Central, PICC or Fol: No Subjective Patient seen and evaluated in follow up. No acute events overnight. Patient reports feeling better. Renal function labs are stable. Discharge planning in progress for patient to go home with [facility] today. vital signs Vital Sign Date Time Temp Pulse Resp B/P (MAP) Pulse Ox O2 Delivery O2 Flow Rate FiO2 05/03/24 17:05 98.8 98 19 98/52 (67) 96 98.8 05/03/24 08:05 Room Air* 0 21 Total Intake and Output 05/02/24 05/02/24 05/03/24 15:00 23:00 07:00 Intake Total 1007.2 ml 600 ml Output Total 450 ml 500 ml Balance 557.2 ml 100 ml medications Current Medications Medications Dose Ordered Sig/Cedric Route Start Time Stop Time Status Last Admin Dose Admin Ondansetron HCl 4 mg Q4HP PRN IV 04/17/24 23:00 04/18/24 00:32 4 MG Nitroglycerin 0.4 mg Q5MINP PRN SL 04/17/24 23:00 Acetaminophen 650 mg Q4HP PRN PO 04/18/24 04:00 04/18/24 04:08 650 MG Folic Acid 1 mg/ Dextrose 50.2 ml @ 200.8 mls/ hr DAILY INJ 04/19/24 10:00 05/03/24 10:04 200.8 MLS/HR Nystatin 5 ml QID MT 04/19/24 18:00 04/28/24 21:37 5 ML Enteral Nutritional Formula 240 ml TIDWM PO 04/19/24 18:00 05/03/24 18:05 240 ML Diagnostic Test (Pha) 1 strip ACHS 04/19/24 17:00 05/03/24 17:21 1 STRIP Insulin Human Regular ACHS SC 04/19/24 17:00 05/03/24 17:24 2 UNITS Dextrose 50 ml UD PRN IV 04/19/24 17:00 Pantoprazole Sodium 40 mg BID IV 04/20/24 19:00 05/03/24 09:57 40 MG Amlodipine Besylate 5 mg DAILY PO 04/22/24 10:00 05/03/24 09:57 5 MG Vancomycin HCl 500 mg/Dextrose 100 ml @ 200 mls/hr Q12H IV 04/22/24 10:00 UNV Al Hydrox/Mg Hydrox/Simethicone 5 ml QID MT 04/23/24 22:00 05/03/24 17:23 5 ML Insulin Glargine 20 units BID@1000,2200 SC 04/24/24 22:00 Cancel Morphine Sulfate 2 mg Q4HPRN PRN IV 04/27/24 09:30 05/01/24 08:32 2 MG Oxycodone HCl 2.5 mg Q8HP PRN PO 04/30/24 14:30 05/03/24 15:58 2.5 MG Oxycodone/ Acetaminophen 1 tab Q8HP PRN PO 04/30/24 14:30 05/03/24 09:56 1 TAB objective Vitals and nursing notes reviewed. General Appearance: In no acute distress. HEENT: Atraumatic, PERRLA, EOMI, Mucous membrane moist/pink. Respiratory: Clear to auscultation, Normal air movement Cardiovascular: Regular rate, Normal S1, Normal S2, No murmurs, no chest wall tenderness Abdominal: Normal bowel sounds, Soft, No tenderness, No hepatospenomegaly, No masses Extremities: No clubbing, No cyanosis, No edema, Normal pulses, No tenderness/swelling Skin: No rashes, No breakdown, No significant lesion Neuro: Alert, Oriented X3, Cooperative, Normal speech, Strength at 5/5 X4 ext, Normal tone, Sensation intact, Psych/Mental Status: Mental status NL, Mood NL laboratory and microbiology Laboratory Tests 05/03/24 05:25 05/02/24 05:32 Test 05/02/24 05:32 Range/Units Serum Glucose 114 #H 74-106 mg/dL Problem List Sepsis due to unspecified organism 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 Home with PT. Cleared for discharge from Nephrology standpoint. Schedule follow up appointment with my office to resume medications for heart failure and gout. Dietary Evaluation Review Comments: When medically feasible, advance diet to 2gNa CCHO-60 with renal specific-60g protein, 3K, low phos diet Expected Outcomes/Goals: gradual weight loss. controlled DM. Plan discussed with: Patient, Other (RN) ADRIANA ZEPEDA DO May 03, 2024 20:56
== END 2024-05-04 00:19 | disposition home health service (06) | DRG 720 ==
LOC: ER 19:12 → EDBD 19:12 → TELE 23:00 → TELE-EAST 04-18 04:16 → EAST 04-30 10:04
PROVIDERS: ADMIT Student in an Organized Health Care Education/Training Program; ATTEND Emergency Medicine
PROC: 05HF33Z Insertion of Infusion Device into Left Cephalic Vein, Percutaneous Approach (ICD-10-PCS; 2024-04-18)
PROC: B54NZZA Ultrasonography of Left Upper Extremity Veins, Guidance (ICD-10-PCS; 2024-04-18)
PROC: 30233R1 Transfusion of Nonautologous Platelets into Peripheral Vein, Percutaneous Approach (ICD-10-PCS; principal; 2024-04-19)
DX: A41.9 Sepsis, unspecified organism (principal); N17.0 Acute kidney failure with tubular necrosis; D61.818 Other pancytopenia; E87.0 Hyperosmolality and hypernatremia; I13.0 Hypertensive heart and chronic kidney disease with heart failure and stage 1 through stage 4 chronic kidney disease, or unspecified chronic kidney disease; N18.4 Chronic kidney disease, stage 4 (severe); K92.2 Gastrointestinal hemorrhage, unspecified; N13.30 Unspecified hydronephrosis; L30.4 Erythema intertrigo; K92.81 Gastrointestinal mucositis (ulcerative); E87.5 Hyperkalemia; E11.22 Type 2 diabetes mellitus with diabetic chronic kidney disease; N32.0 Bladder-neck obstruction; M10.9 Gout, unspecified; K12.30 Oral mucositis (ulcerative), unspecified; E87.6 Hypokalemia; K21.9 Gastro-esophageal reflux disease without esophagitis; F32.A Depression, unspecified; F41.9 Anxiety disorder, unspecified; E83.42 Hypomagnesemia; E78.5 Hyperlipidemia, unspecified; K92.1 Melena; E66.01 Morbid (severe) obesity due to excess calories; E11.40 Type 2 diabetes mellitus with diabetic neuropathy, unspecified; E07.81 Sick-euthyroid syndrome; Z79.899 Other long term (current) drug therapy; Z79.82 Long term (current) use of aspirin; Z79.84 Long term (current) use of oral hypoglycemic drugs; Z75.1 Person awaiting admission to adequate facility elsewhere; Z68.41 Body mass index [BMI] 40.0-44.9, adult
CPT/HCPCS: 36415; 36600; 71045; 74176; 76775; 80048; 80053; 80202; 81001; 82270; 82306; 82542; 82565; 82607; 82805; 82962; 83010; 83036; 83605; 83615; 83735; 83880; 83930; 84100; 84439; 84443; 84481; 84550; 85007; 85025; 85027; 85045; 85610; 85730; 86038; 86160; 86200; 86431; 86703; 86704; 86706; 86708; 86803; 86850; 86880; 86900; 86901; 87040; 87077; 87086; 87186; 87205; 87340; 94640; 97110; 97116; 97163; 97530; 99291; G0378; J0692; J1447; J1450; J1815; J2405; J2470; J3480; J3490; J7060